=== PATIENT | male | born 1935 | race Caucasian/White ===

== ENCOUNTER 2017-03-05 08:44 | Emergency (ER) | payer OTHER, MEDICARE ==
[2017-03-05 09:07] VITALS: BP 151/71
[2017-03-05] MEDS ORDERED: Ketorolac 30 MG/ML SDV IM ONE (09:21)
--- NOTE | 2017-03-05 09:27 | EDM.PDOC ---
ED HPI GENERAL MEDICAL PROBLEM - General Chief Complaint: Lower Extremity Injury/Pain Stated Complaint: TOE PAIN Time Seen by Provider: 03/05/17 09:13 Source of Information: Reports: Patient History Limitations: Reports: No Limitations - History of Present Illness INITIAL COMMENTS - FREE TEXT/NARRATIVE: The patient woke up with morning with bilateral great toe pain. This started at about 1am. He has a history of gout and his is on medicine for it. He has not injured his toes. He does not drink alcohol but he says he has been eating lots of meat lately. Onset: Sudden Duration: Hour(s): (1am this morning) Location: Reports: Lower Extremity, Left, Lower Extremity, Right Quality: Reports: Sharp Severity: Moderate Improves with: Reports: Rest Worsens with: Reports: Movement Context: Reports: Activity (He was sleeping when this started) Associated Symptoms: Reports: No Other Symptoms Bilateral Feet Pain Score (Numeric/FACES): 9 - Related Data Allergies Allergy/AdvReac Type Severity Reaction Status Date / Time No Known Allergies Allergy Verified 03/05/17 09:01 Home Meds: Home Meds Allopurinol [Zyloprim] 300 mg PO DAILY 11/05/15 [History] FLUoxetine [PROzac] 30 mg PO DAILY 11/05/15 [History] Isosorbide Mononitrate [Imdur] 30 mg PO DAILY 11/05/15 [History] Lisinopril [Prinivil] 10 mg PO DAILY 11/05/15 [History] Meclizine [Antivert] 25 mg PO BID PRN 11/05/15 [History] Nitroglycerin [Nitrostat] 0.4 mg SL Q5M PRN 11/05/15 [History] Ranitidine [Zantac] 300 mg PO DAILY 11/05/15 [History] glipiZIDE [Glucotrol] 2.5 mg PO BID 11/05/15 [History] atorvaSTATin [Lipitor] 80 mg PO QPM 11/10/15 [History] Albuterol [Proventil HFA] 2 puff INH BID 02/17/16 [History] Cholecalciferol (Vitamin D3) [Vitamin D3] 1,000 unit PO DAILY 02/17/16 [History] Mometasone Furoate [Asmanex] 1 puff IH BID 02/17/16 [History] Olodaterol HCl [Striverdi Respimat] 1 puff IH QAM 02/17/16 [History] Saxagliptin HCl [Onglyza] 2.5 mg PO DAILY 02/17/16 [History] Tiotropium [Spiriva HandiHaler] 1 puff INH DAILY 02/17/16 [History] Zolpidem [Ambien] 5 mg PO BEDTIME 02/17/16 [History] Carvedilol [Coreg] 3.125 mg PO BID 06/29/16 [History] Rivaroxaban [Xarelto] 10 mg PO DAILY@1700 06/29/16 [History] Indomethacin [Indocin] 50 mg PO TIDMEALS PRN #20 cap 03/05/17 [Rx] Past Medical History HEENT History: Reports: Cataract, Hard of Hearing Cardiovascular History: Reports: Angina, Bypass, CAD, Heart Murmur, High Cholesterol, Hypertension, PVD, SOB on Exertion Other Cardiovascular History: HX LVH, Mild , Bilateral artial enlg Respiratory History: Reports: COPD, Sleep Apnea, SOB Gastrointestinal History: Reports: GERD, Hepatitis Other Gastrointestinal History: nausea Genitourinary History: Reports: BPH, Diabetic Nephropathy, Prostate Disorder, Retention, Urinary Musculoskeletal History: Reports: Back Pain, Chronic, Gout, Neck Pain, Chronic, Osteoarthritis Neurological History: Reports: Neuropathy, Diabetic, Neuropathy, Peripheral, Other (See Below) Other Neuro History: tremor, memory loss Psychiatric History: Reports: Anxiety, Depression Other Psychiatric History: insomnia Endocrine/Metabolic History: Reports: Diabetes, Type II Oncologic (Cancer) History: Reports: Prostate - Infectious Disease History Infectious Disease History: Reports: Herpes - Past Surgical History HEENT Surgical History: Reports: Naso-Sinus Surgery Cardiovascular Surgical History: Reports: Coronary Artery Bypass Male Surgical History: Reports: Prostate Biopsy, TURP-Transurethral Resection of Prostate Social & Family History - Family History Cardiac: Reports: High Cholesterol, Hypertension, [place] Neurological: Reports: Parkinson's Endocrine/Metabolic: Reports: Diabetes, type II - Tobacco Use Smoking Status *Q: Former Smoker Years of Tobacco use: 60 Packs/Tins Daily: 1 Used Tobacco, but Quit: Yes Month Tobacco Last Used: oct Second Hand Smoke Exposure: No - Caffeine Use Caffeine Use: Reports: None - Recreational Drug Use Recreational Drug Use: No Drug Use in Last 12 Months: No Review of Systems - Review of Systems Review Of Systems: See Below Constitutional: Reports: No Symptoms Eyes: Reports: No Symptoms Ears: Reports: No Symptoms Nose: Reports: No Symptoms Mouth/Throat: Reports: No Symptoms Respiratory: Reports: No Symptoms Cardiovascular: Reports: No Symptoms GI/Abdominal: Reports: No Symptoms Genitourinary: Reports: No Symptoms Musculoskeletal: Reports: Other (Bilateral great toe pain) ED EXAM, GENERAL - Physical Exam Exam: See Below Exam Limited By: No Limitations General Appearance: Alert, No Apparent Distress Ears: Normal External Exam Nose: Normal Inspection Head: Atraumatic, Normocephalic Neck: Normal Inspection Respiratory/Chest: No Respiratory Distress, Lungs Clear, Normal Breath Sounds Cardiovascular: Regular Rate, Rhythm, No Edema, No Murmur GI/Abdominal: Soft, Non-Tender, No Organomegaly, No Mass Extremities: Other (Pain upon palpation to both greath toes. No erythema and no edema. Good capillary refill and sensation.) Course - Vital Signs Last Recorded V/S: Last Vital Signs Temp 97.4 F 03/05/17 09:01 Pulse 64 03/05/17 09:01 Resp 13 03/05/17 09:01 BP 151/71 H 03/05/17 09:01 Pulse Ox 94 L 03/05/17 09:01 - Orders/Labs/Meds Orders: Active Orders 24 hr Category Date Time Status Ketorolac [Toradol] Med 03/05/17 09:21 Once 30 mg IM ONETIME ONE - Re-Assessments/Exams Free Text/Narrative Re-Assessment/Exam: 03/05/17 09:25 I ordered a shot of toradol and I will get him on some indomethacin for a few days. Departure - Departure Time of Disposition: 09:25 Disposition: Home, Self-Care 01 Condition: Good Clinical Impression: Gout flare Qualifiers: Gout site: toe Gout etiology: other secondary cause Laterality: unspecified laterality Qualified Code(s): M10.479 - Other secondary gout, unspecified ankle and foot - Discharge Information Prescriptions: Indomethacin [Indocin] 50 mg PO TIDMEALS PRN #20 cap PRN Reason: Pain Referrals: Casandra Reddy DO [Primary Care Provider] - 1 Week Additional Instructions: Take the indomethacin 50mg 3 times per day as needed for toe pain. Please return if you are worse. Follow up with Dr Reddy next week. - My Orders Last 24 Hours: My Active Orders 03/05/17 09:21 Ketorolac [Toradol] 30 mg IM ONETIME ONE - Assessment/Plan Last 24 Hours: My Active Orders 03/05/17 09:21 Ketorolac [Toradol] 30 mg IM ONETIME ONE
== END 2017-03-05 09:29 | disposition home or self-care (01) ==
LOC: JD.ED 08:44
DX: M10.471 Other secondary gout, right ankle and foot (principal); M10.472 Other secondary gout, left ankle and foot; E11.21 Type 2 diabetes mellitus with diabetic nephropathy; E78.00 Pure hypercholesterolemia, unspecified; Z87.891 Personal history of nicotine dependence; Z79.899 Other long term (current) drug therapy
CPT/HCPCS: 96372; 99283; J1885

== ENCOUNTER 2017-03-20 12:59 | Emergency (ER) | payer OTHER, MEDICARE ==
[2017-03-20 13:05] VITALS: BP 159/82
[2017-03-20] MEDS ORDERED: Sodium Chloride 0.9% 10 ML Syringe FLUSH PRN (13:31)
[2017-03-20] MEDS ORDERED: Sodium Chloride 0.9% 1,000 ML IV SCH (13:45)
--- NOTE | 2017-03-20 13:51 | EDM.PDOC ---
ED HPI GENERAL MEDICAL PROBLEM - General Chief Complaint: Cardiovascular Problem Stated Complaint: [facility] Time Seen by Provider: 03/20/17 13:17 Source of Information: Reports: Patient, RN Notes Reviewed - History of Present Illness INITIAL COMMENTS - FREE TEXT/NARRATIVE: 81 -year-old male has been Center by ambulance to [facility] for evaluation of bradycardia. It sounds like he does check his blood pressure and heart rate once or twice daily and apparently his readings do get transmitted to the [facility]. They contacted him this morning and stated that his heart rate was running too low and that he needed to get to the ED by ambulance. He states that his heart rate started dropping below 60 about a week ago and over the weekend his been running in the 30s and 40s. Still more weak, dizzy and lightheaded especially when standing and walking. He does live independently. He has been mildly more short of breath than usual. No chest pain. No abdominal pain nausea or vomiting. - Related Data Allergies Allergy/AdvReac Type Severity Reaction Status Date / Time No Known Allergies Allergy Verified 03/20/17 13:05 Home Meds: Home Meds Allopurinol [Zyloprim] 300 mg PO DAILY 11/05/15 [History] FLUoxetine [PROzac] 30 mg PO DAILY 11/05/15 [History] Isosorbide Mononitrate [Imdur] 30 mg PO DAILY 11/05/15 [History] Lisinopril [Prinivil] 10 mg PO DAILY 11/05/15 [History] Meclizine [Antivert] 25 mg PO BID PRN 11/05/15 [History] Nitroglycerin [Nitrostat] 0.4 mg SL Q5M PRN 11/05/15 [History] glipiZIDE [Glucotrol] 2.5 mg PO BID 11/05/15 [History] atorvaSTATin [Lipitor] 80 mg PO QPM 11/10/15 [History] Cholecalciferol (Vitamin D3) [Vitamin D3] 2,000 unit PO DAILY 02/17/16 [History] Mometasone Furoate [Asmanex] 1 puff IH BID 02/17/16 [History] Olodaterol HCl [Striverdi Respimat] 2 puff IH QAM 02/17/16 [History] Saxagliptin HCl [Onglyza] 2.5 mg PO DAILY 02/17/16 [History] Tiotropium [Spiriva HandiHaler] 2 puff INH DAILY 02/17/16 [History] Carvedilol [Coreg] 3.125 mg PO BID 06/29/16 [History] Rivaroxaban [Xarelto] 10 mg PO DAILY 06/29/16 [History] Albuterol Sulfate [Proair Respiclick] 1 puff IH Q6H PRN 03/20/17 [History] Amoxicillin/Clavulanate K [Augmentin 875 MG/125 MG] 1 tab PO BID 03/20/17 [ History] Omeprazole 20 mg PO BIDAC 03/20/17 [History] Polyethylene Glycol 3350 [MiraLAX] 17 gm PO DAILY PRN 03/20/17 [History] Spironolactone [Aldactone] 25 mg PO DAILY 03/20/17 [History] Topiramate 25 mg PO BEDTIME 03/20/17 [History] Past Medical History HEENT History: Reports: Cataract, Hard of Hearing Cardiovascular History: Reports: Afib, Angina, Bypass, CAD, Heart Murmur, High Cholesterol, Hypertension, PVD, SOB on Exertion Other Cardiovascular History: HX LVH, Mild , Bilateral artial enlg Respiratory History: Reports: COPD, Sleep Apnea, SOB Gastrointestinal History: Reports: GERD, Hepatitis Other Gastrointestinal History: nausea Genitourinary History: Reports: BPH, Diabetic Nephropathy, Prostate Disorder, Retention, Urinary Musculoskeletal History: Reports: Back Pain, Chronic, Gout, Neck Pain, Chronic, Osteoarthritis Neurological History: Reports: Neuropathy, Diabetic, Neuropathy, Peripheral, Other (See Below) Other Neuro History: tremor, memory loss Psychiatric History: Reports: Anxiety, Depression Other Psychiatric History: insomnia Endocrine/Metabolic History: Reports: Diabetes, Type II Oncologic (Cancer) History: Reports: Prostate - Infectious Disease History Infectious Disease History: Reports: Herpes - Past Surgical History HEENT Surgical History: Reports: Naso-Sinus Surgery Cardiovascular Surgical History: Reports: Coronary Artery Bypass Male Surgical History: Reports: Prostate Biopsy, TURP-Transurethral Resection of Prostate Social & Family History - Family History Cardiac: Reports: High Cholesterol, Hypertension, [place] Neurological: Reports: Parkinson's Endocrine/Metabolic: Reports: Diabetes, type II - Tobacco Use Smoking Status *Q: Former Smoker Years of Tobacco use: 60 Packs/Tins Daily: 1 Used Tobacco, but Quit: Yes Month Tobacco Last Used: 2002 Second Hand Smoke Exposure: No - Caffeine Use Caffeine Use: Reports: Coffee - Recreational Drug Use Recreational Drug Use: No Drug Use in Last 12 Months: No ED ROS GENERAL - Review of Systems Review Of Systems: See Below Constitutional: Denies: Fever, Chills, Diaphoresis Respiratory: Reports: Shortness of Breath (Exertional), Cough (He was coughing several days ago, that is no better). Denies: Pleuritic Chest Pain Cardiovascular: Denies: Chest Pain Endocrine: Reports: Fatigue GI/Abdominal: Denies: Abdominal Pain, Melena, Nausea Musculoskeletal: Reports: Joint Pain (Chronic joint pains not worse than usual) Neurological: Reports: Dizziness, Weakness (I'll generalized). Denies: Trouble Speaking (Mild to moderate, especially when standing) ED EXAM, GENERAL - Physical Exam Exam: See Below General Appearance: Alert, No Apparent Distress Eye Exam: Bilateral Eye: PERRL Throat/Mouth: Normal Inspection, Normal Oropharynx Head: Atraumatic. No: Facial Swelling Neck: Supple, Full Range of Motion, Other Respiratory/Chest: No Respiratory Distress (No JVD), Lungs Clear, Normal Breath Sounds Cardiovascular: Regular Rate, Rhythm (Rate in the mid 40s at the time of my exam but relatively regular) GI/Abdominal: Soft, Non-Tender Extremities: Normal Inspection, Normal Range of Motion. No: Pedal Edema, Leg Pain, Increased Warmth, Redness Neurological: Alert, Oriented, No Motor/Sensory Deficits Skin Exam: Warm, Dry, Normal Color EKG INTERPRETATION EKG Date: 03/20/17 Rhythm: A-Flutter Rate (Beats/Min): 59 QRS: Normal ST-T: Normal Course - Vital Signs Last Recorded V/S: Last Vital Signs Temp 97.6 F 03/20/17 13:01 Pulse 59 L 03/20/17 13:01 Resp 15 03/20/17 13:01 BP 159/82 H 03/20/17 13:01 Pulse Ox 97 03/20/17 13:01 Orthostatic Blood Pressure [ 134/63 Standing] Orthostatic Blood Pressure [ 140/67 Sitting] Orthostatic Blood Pressure [ 150/55 Supine] - Orders/Labs/Meds Orders: Active Orders 24 hr Category Date Time Status EKG 12 Lead [EKG Documentation Completion] [] STAT Care 03/20/17 13:30 Active Peripheral IV Care [RC] . DIRECTED Care 03/20/17 13:31 Active Sodium Chloride 0.9% [Normal Saline] 1,000 ml Med 03/20/17 13:45 Active IV ASDIRECTED Sodium Chloride 0.9% [Saline Flush] Med 03/20/17 13:31 Active 10 ml FLUSH ASDIRECTED PRN Peripheral IV Insertion Pediatric [OM.PC] Routine Oth 03/20/17 13:31 Ordered Medication Orders Sodium Chloride (Normal Saline) 1,000 mls @ 75 mls/hr IV ASDIRECTED GIAN Last Admin: 03/20/17 13:47 Dose: 75 mls/hr Sodium Chloride (Saline Flush) 10 ml FLUSH ASDIRECTED PRN PRN Reason: Keep Vein Open Last Admin: 03/20/17 13:48 Dose: 10 ml Labs: Laboratory Tests 03/20/17 03/20/17 03/20/17 Range/Units 13:00 13:00 13:00 WBC 11.90 H (4.23-9.07) K/mm3 RBC 3.95 L (4.63-6.08) M/mm3 Hgb 12.3 L (13.7-17.5) gm/L Hct 37.0 L (40.1-51.0) % MCV 93.7 H (79.0-92.2) fl MCH 31.1 (25.7-32.2) pg MCHC 33.2 (32.2-35.5) g/dl RDW Std Deviation 46.1 H (35.1-43.9) fL Plt Count 319 (163-337) K/mm3 MPV 10.1 (9.4-12.3) fl Neutrophils % (Manual) 73 H (40-60) % Band Neutrophils % 2 (0-10) % Lymphocytes % (Manual) 20 (20-40) % Atypical Lymphs % 0 % Monocytes % (Manual) 5 (2-10) % Eosinophils % (Manual) 0 L (0.8-7.0) % Basophils % (Manual) 0 L (0.2-1.2) Platelet Estimate Adequate RBC Morph Comment Normal PT 13.5 H (8.0-13.0) SECONDS INR 1.22 Sodium (136-145) mEq/L Potassium (3.5-5.1) mEq/L Chloride (98-107) mEq/L Carbon Dioxide (21-32) mEq/L Anion Gap (5-15) BUN (7-18) mg/dL Creatinine (0.7-1.3) mg/dL Est Cr Clr Drug Dosing mL/min Estimated GFR (MDRD) (>60) mL/min BUN/Creatinine Ratio (14-18) Glucose (83-115) mg/dL Calcium (8.5-10.1) mg/dL Total Bilirubin (0.2-1.0) mg/dL AST (15-37) U/L ALT (16-63) U/L Alkaline Phosphatase (46-116) U/L Troponin I (0.00-0.056) ng/mL C-Reactive Protein 0.2 (<1.0) mg/dL NT-Pro-B Natriuret Pep (0-450) pg/mL Total Protein (6.4-8.2) g/dl Albumin (3.4-5.0) g/dl Globulin gm/dL Albumin/Globulin Ratio (1-2) 03/20/17 Range/Units 13:00 WBC (4.23-9.07) K/mm3 RBC (4.63-6.08) M/mm3 Hgb (13.7-17.5) gm/L Hct (40.1-51.0) % MCV (79.0-92.2) fl MCH (25.7-32.2) pg MCHC (32.2-35.5) g/dl RDW Std Deviation (35.1-43.9) fL Plt Count (163-337) K/mm3 MPV (9.4-12.3) fl Neutrophils % (Manual) (40-60) % Band Neutrophils % (0-10) % Lymphocytes % (Manual) (20-40) % Atypical Lymphs % % Monocytes % (Manual) (2-10) % Eosinophils % (Manual) (0.8-7.0) % Basophils % (Manual) (0.2-1.2) Platelet Estimate RBC Morph Comment PT (8.0-13.0) SECONDS INR Sodium 137 (136-145) mEq/L Potassium 5.0 (3.5-5.1) mEq/L Chloride 104 (98-107) mEq/L Carbon Dioxide 26 (21-32) mEq/L Anion Gap 12.0 (5-15) BUN 18 (7-18) mg/dL Creatinine 1.8 H (0.7-1.3) mg/dL Est Cr Clr Drug Dosing 33.70 mL/min Estimated GFR (MDRD) 36 (>60) mL/min BUN/Creatinine Ratio 10.0 L (14-18) Glucose 142 H (83-115) mg/dL Calcium 9.3 (8.5-10.1) mg/dL Total Bilirubin 0.5 (0.2-1.0) mg/dL AST 17 (15-37) U/L ALT 26 (16-63) U/L Alkaline Phosphatase 105 (46-116) U/L Troponin I < 0.017 (0.00-0.056) ng/mL C-Reactive Protein (<1.0) mg/dL NT-Pro-B Natriuret Pep 2050 H (0-450) pg/mL Total Protein 6.5 (6.4-8.2) g/dl Albumin 3.1 L (3.4-5.0) g/dl Globulin 3.4 gm/dL Albumin/Globulin Ratio 0.9 L (1-2) Meds: Medications Generic Name Dose Route Start Last Admin Trade Name Freq PRN Reason Stop Dose Admin Sodium Chloride 1,000 mls @ 75 mls/hr 03/20/17 13:45 03/20/17 13:47 Normal Saline IV 75 mls/hr ASDIRECTED GINA Administration Sodium Chloride 10 ml 03/20/17 13:31 03/20/17 13:48 Saline Flush FLUSH 10 ml ASDIRECTED PRN Administration Keep Vein Open - Re-Assessments/Exams Free Text/Narrative Re-Assessment/Exam: 03/20/17 16:35. heart rate has been upper 30's to mid 40's while here in the ED awaiting labs. CXR shows some very mild palmar a congestion, read out as stable chest by our Radiologist. On arrival and at times his initial EKG he was therefore to one block with a rate of her 50s. Blood pressure is been running from 1 teens to 140s to 150s. He did have a 20 point drop in blood pressure from lying to standing. I did this with our hospitalist regarding admission to our hospital, stopping the Coreg. He did visit with family, informed them that if that does not work he will need a pacemaker and there is no one certified to insert pacemakers at our hospital at this time. Family is electing at this time to have him transferred to [facility]. I have visited with , Director Of Front Office, who does accept patient in transfer. She has requested that the patient be a direct admission to one of the Hospitalists and then she has appeals officer hand brim ironer will consult. We will be sending the patient by ground ambulance. Departure - Departure Time of Disposition: 16:52 Disposition: DC/Tfer to Acute Hospital 02 Reason for Transfer *Q: Other Condition: Fair Clinical Impression: Bradycardia with 31-40 beats per minute Referrals: Casandra Reddy DO [Primary Care Provider] - Forms: ED Department Discharge - My Orders Last 24 Hours: My Active Orders 03/20/17 13:30 EKG 12 Lead [EKG Documentation Completion] [RC] STAT 03/20/17 13:31 Peripheral IV Care [RC] . DIRECTED Sodium Chloride 0.9% [Saline Flush] 10 ml FLUSH ASDIRECTED PRN Peripheral IV Insertion Pediatric [OM.PC] Routine 03/20/17 13:45 Sodium Chloride 0.9% [Normal Saline] 1,000 ml IV ASDIRECTED - Assessment/Plan Last 24 Hours: My Active Orders 03/20/17 13:30 EKG 12 Lead [EKG Documentation Completion] [RC] STAT 03/20/17 13:31 Peripheral IV Care [RC] . DIRECTED Sodium Chloride 0.9% [Saline Flush] 10 ml FLUSH ASDIRECTED PRN Peripheral IV Insertion Pediatric [OM.PC] Routine 03/20/17 13:45 Sodium Chloride 0.9% [Normal Saline] 1,000 ml IV ASDIRECTED
--- NOTE | 2017-03-20 15:12 | CR ---
Chest: Portable view of the chest was obtained. Comparison: Previous chest x-ray of 06/29/16. Heart is mildly enlarged. 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 Lungs are clear. Bony structures are grossly intact. Impression: 1. Stable findings as noted above. Nothing acute is appreciated on portable chest x-ray. Diagnostic code #2
== END 2017-03-20 17:30 ==
LOC: JD.ED 12:59
DX: R00.1 Bradycardia, unspecified (principal); Z79.899 Other long term (current) drug therapy; E11.40 Type 2 diabetes mellitus with diabetic neuropathy, unspecified; E78.00 Pure hypercholesterolemia, unspecified; Z87.891 Personal history of nicotine dependence; Z95.5 Presence of coronary angioplasty implant and graft; I25.10 Atherosclerotic heart disease of native coronary artery without angina pectoris; F32.9 Major depressive disorder, single episode, unspecified; F41.9 Anxiety disorder, unspecified; R06.02 Shortness of breath
CPT/HCPCS: 36415; 71010; 80053; 83880; 84484; 85025; 85610; 86140; 93005; 96360; 96361; 99285; J7040; J7050; 93010

== ENCOUNTER 2017-10-19 09:38 | Inpatient (IN) | payer OTHER, MEDICARE ==
[2017-10-19] MEDS ORDERED: Acetaminophen 325 MG Tab PO ONE (10:09)
--- NOTE | 2017-10-19 10:10 | EDM.PDOC ---
ED HPI GENERAL MEDICAL PROBLEM - General Chief Complaint: Respiratory Problem Stated Complaint: [facility] Time Seen by Provider: 10/19/17 10:06 Source of Information: Reports: Patient, Family History Limitations: Reports: No Limitations - History of Present Illness INITIAL COMMENTS - FREE TEXT/NARRATIVE: 82-year-old male presents to the ED this morning. He reports awakening around 0300 hrs. this morning with severe rigors and chills. States he had marked difficulty trying to get warm even with covers over top of his head. Patient has a productive cough for the last 2 weeks. This is predated by coughing for 2 weeks prior to that and he did receive a course of antibiotics for one week. They report they were in the clinic last week and had an x-ray done either Monday or and it did not reveal any pneumonia. He appreciated gradually worsening shortness of breath over the last 3 days. Appetite is been really poor the last 3 days as well. Sputum is mostly yellow to slightly green in color. Patient has a history of prostate surgery treated by radiotherapy in about 2003. Therefore concerns about possible not emptying his bladder completely exist. Currently is febrile with a temperature 103.4. O2 sats 84% of the time of presentation to the ED. Placed on 3 L/m by nasal cannula. Initial blood pressure was 115/66. He has not taken any Tylenol or Motrin for fever relief yet today. Onset: Today Onset Date: 10/19/17 (From sleep with severe rigors chills around 0300 hrs. this morning.) Duration: Hour(s): Location: Reports: Chest (Productive cough for the better part of 2 weeks.) Quality: Reports: Other Severity: Severe (Severe rigors and chills earlier this morning.) Improves with: Reports: None Worsens with: Reports: None Context: Denies: Activity, Exercise, Lifting, Sick Contact, Trauma, Other Associated Symptoms: Reports: Cough, cough w sputum, Diaphoresis, Fever/Chills, Loss of Appetite, Malaise, Shortness of Breath, Weakness. Denies: No Other Symptoms, Confusion, Chest Pain (Yellow ramos in color), Headaches (Fever at the time of presentation.), Nausea/Vomiting, Rash, Seizure (Gradually worsening over the last week), Syncope Treatments IMPROVEMENT SPEC: Reports: Other (see below) (Generalized sense of weakness) - Related Data Allergies Allergy/AdvReac Type Severity Reaction Status Date / Time No Known Allergies Allergy Verified 10/19/17 09:50 Home Meds: Home Meds Allopurinol [Zyloprim] 300 mg PO DAILY 11/05/15 [History] FLUoxetine [PROzac] 30 mg PO DAILY 11/05/15 [History] Isosorbide Mononitrate [Imdur] 30 mg PO DAILY 11/05/15 [History] Lisinopril [Prinivil] 10 mg PO DAILY 11/05/15 [History] Meclizine [Antivert] 25 mg PO BID PRN 11/05/15 [History] Nitroglycerin [Nitrostat] 0.4 mg SL Q5M PRN 11/05/15 [History] glipiZIDE [Glucotrol] 2.5 mg PO BID 11/05/15 [History] atorvaSTATin [Lipitor] 80 mg PO QPM 11/10/15 [History] Cholecalciferol (Vitamin D3) [Vitamin D3] 2,000 unit PO DAILY 02/17/16 [History] Mometasone Furoate [Asmanex] 1 puff IH BID 02/17/16 [History] Olodaterol HCl [Striverdi Respimat] 2 puff IH QAM 02/17/16 [History] Saxagliptin HCl [Onglyza] 2.5 mg PO DAILY 02/17/16 [History] Tiotropium [Spiriva HandiHaler] 2 puff INH DAILY 02/17/16 [History] Carvedilol [Coreg] 3.125 mg PO BID 06/29/16 [History] Rivaroxaban [Xarelto] 10 mg PO DAILY 06/29/16 [History] Albuterol Sulfate [Proair Respiclick] 1 puff IH Q6H PRN 03/20/17 [History] Omeprazole 20 mg PO BIDAC 03/20/17 [History] Polyethylene Glycol 3350 [MiraLAX] 17 gm PO DAILY PRN 03/20/17 [History] Topiramate 25 mg PO BEDTIME 03/20/17 [History] Tamsulosin [Flomax] 0.4 mg PO DAILY 10/19/17 [History] Zolpidem Tartrate 5 mg PO BEDTIME 10/19/17 [History] Past Medical History HEENT History: Reports: Cataract, Hard of Hearing Cardiovascular History: Reports: Afib (Chronic atrial flutter/atrial flutter.), Angina, Bypass, CAD, Heart Murmur, High Cholesterol, Hypertension, PVD, SOB on Exertion Other Cardiovascular History: HX LVH, Mild , Bilateral artial enlg Respiratory History: Reports: COPD, Sleep Apnea, SOB Gastrointestinal History: Reports: GERD, Hepatitis Other Gastrointestinal History: nausea Genitourinary History: Reports: BPH (Recently started on Flomax to help empty his bladder.), Diabetic Nephropathy, Prostate Disorder (Prostatic cancer diagnosed in about 2001 and treated with radiotherapy 42 treatments.), Retention, Urinary Musculoskeletal History: Reports: Back Pain, Chronic, Gout, Neck Pain, Chronic, Osteoarthritis Neurological History: Reports: Neuropathy, Diabetic, Neuropathy, Peripheral, Other (See Below) Other Neuro History: tremor, memory loss Psychiatric History: Reports: Anxiety, Depression, Other (See Below) (Chronic insomnia) Other Psychiatric History: insomnia Endocrine/Metabolic History: Reports: Diabetes, Type II (Controlled by diet and oral meds.) Oncologic (Cancer) History: Reports: Prostate - Infectious Disease History Infectious Disease History: Reports: Herpes - Past Surgical History HEENT Surgical History: Reports: Naso-Sinus Surgery Cardiovascular Surgical History: Reports: Coronary Artery Bypass Male Surgical History: Reports: Prostate Biopsy, TURP-Transurethral Resection of Prostate Social & Family History - Family History Cardiac: Reports: High Cholesterol, Hypertension, SD Neurological: Reports: Parkinson's Endocrine/Metabolic: Reports: Diabetes, type II - Tobacco Use Smoking Status *Q: Former Smoker Used Tobacco, but Quit: Yes Month/Year Tobacco Last Used: 2000 - Caffeine Use Caffeine Use: Reports: Coffee - Recreational Drug Use Recreational Drug Use: No - Living Situation & Occupation Living situation: Reports: Occupation: Retired ED ROS GENERAL - Review of Systems Review Of Systems: See Below Constitutional: Reports: Fever, Chills, Malaise, Weakness, Fatigue, Diaphoresis , Decreased Appetite, Weight Loss HEENT: Reports: Glasses Respiratory: Reports: Shortness of Breath, Cough, Sputum. Denies: Wheezing, Pleuritic Chest Pain, Hemoptysis (Yellow-green in color. Productive cough for the better part of 2 weeks.) Cardiovascular: Reports: Blood Pressure Problem, Dyspnea on Exertion, Other. Denies: Chest Pain, Claudication, Edema, Lightheadedness, Orthopnea Endocrine: Reports: Fatigue GI/Abdominal: Reports: Constipation (Luis problems with constipation), Decreased Appetite. Denies: Abdominal Pain : Reports: Frequency, Other (Knees hips lower back and neck at timesStates urinary flow is quite slow.) Musculoskeletal: Reports: Neck Pain, Shoulder Pain, Back Pain, Joint Pain Skin: Reports: Bruising (Bruises easily as he is on Xarelto) Neurological: Reports: No Symptoms, Difficulty Walking (Weight today and requires help walking.), Weakness. Denies: Headache, Syncope Psychiatric: Reports: Depression Hematologic/Lymphatic: Reports: Easy Bruising Immunologic: Reports: No Symptoms ED EXAM, GENERAL - Physical Exam Exam: See Below Exam Limited By: No Limitations General Appearance: Mild Distress, Other (Mild respiratory distress. He is alert and is oriented he is very warm to palpation.) Eye Exam: Bilateral Eye: Normal Inspection Throat/Mouth: Other (Tongue is mildly dry and coated.) Head: Atraumatic, Normocephalic Neck: Normal Inspection, Limited Range of Motion. No: Lymphadenopathy (L), Lymphadenopathy (R) Respiratory/Chest: No Accessory Muscle Use, Respiratory Distress (Mild tachypnea at rest 20/m. O2 sats 84% on room air), Decreased Breath Sounds ( Decreased air entry to the lower 30% of lung delgado.). No: Rhonchi, Wheezing Cardiovascular: No Gallop, No Murmur, No Rub, Irregularly Irregular (Luis reveals atrial flutter.), Other (Well-healed midline sternotomy incision.). No : Normal Peripheral Pulses Peripheral Pulses: 1+: Posterior Tibial (L), Posterior Tibial (R), Dorsalis Pedis (L), Dorsalis Pedis (R) GI/Abdominal: Normal Bowel Sounds, Soft, Non-Tender, No Organomegaly, Distended (Tibias percussion the upper abdomen, there is some degree of aerophagia.). No : Rigid, Rebound, Tender Back Exam: Normal Inspection, Full Range of Motion. No: CVA Tenderness (L), CVA Tenderness (R) Extremities: Normal Inspection, Normal Range of Motion, Non-Tender, No Pedal Edema Neurological: Alert, Oriented, CN II-XII Intact, Normal Cognition. No: Normal Gait Psychiatric: Normal Affect, Normal Mood Skin Exam: Warm, Dry, Intact, Normal Color, No Rash EKG INTERPRETATION EKG Date: 10/19/17 Time: 10:40 Rhythm: A-Flutter (Appears to have a predominantly 3-1 block.) Rate (Beats/Min): 84 [place]: Normal P-Wave: Absent QRS: Other (Decreased voltage in the limb leads.) ST-T: Other (There is T-wave inversion in lead V2 one in aVL there is ST segment depression V4 to V6. Suspect ischemia in the lateral apical wall.) QT: Normal EKG Interpretation Comments: Abnormal ECG Course - Vital Signs Last Recorded V/S: Last Vital Signs Temp 39.5 C H 10/19/17 09:45 Pulse 97 10/19/17 09:45 Resp 20 10/19/17 09:45 BP 115/66 10/19/17 09:45 Pulse Ox 84 L 10/19/17 09:45 - Orders/Labs/Meds Orders: Active Orders 24 hr Category Date Time Status EKG Documentation Completion [RC] STAT Care 10/19/17 10:07 Active Oxygen Therapy [RC] ASDIRECTED Care 10/19/17 10:08 Active Chest 1V Frontal [CR] Stat Exams 10/19/17 10:07 Taken CULTURE BLOOD [BC] Stat Lab 10/19/17 10:30 Received CULTURE BLOOD [BC] Stat Lab 10/19/17 10:40 Received Levofloxacin/Dextrose 5%-Water [Levaquin in D5W 750 MG/ Med 10/19/17 10:28 Active 150 ML] 750 mg Premix Bag 1 bag IV ONETIME Sodium Chloride 0.9% [Normal Saline] 1,000 ml Med 10/19/17 10:15 Active IV ASDIRECTED cefTRIAXone [Rocephin] 2 gm Med 10/19/17 11:52 Ordered Sodium Chloride 0.9% [Normal Saline] 100 ml IV ONETIME Blood Culture x2 Reflex Set [OM.PC] Stat Oth 10/19/17 10:09 Ordered Medication Orders Sodium Chloride (Normal Saline) 1,000 mls @ 100 mls/hr IV ASDIRECTED GINA Last Admin: 10/19/17 10:19 Dose: 100 mls/hr Levofloxacin/Dextrose 750 mg/ (Premix) 150 mls @ 100 mls/hr IV ONETIME ONE Stop: 10/19/17 11:57 Last Admin: 10/19/17 10:55 Dose: 100 mls/hr Labs: Laboratory Tests 10/19/17 10/19/17 10/19/17 Range/Units 10:30 10:30 10:30 WBC 11.35 H (4.23-9.07) K/mm3 RBC 4.54 L (4.63-6.08) M/mm3 Hgb 14.2 (13.7-17.5) gm/L Hct 42.6 (40.1-51.0) % MCV 93.8 H (79.0-92.2) fl MCH 31.3 (25.7-32.2) pg MCHC 33.3 (32.2-35.5) g/dl RDW Std Deviation 50.3 H (35.1-43.9) fL Plt Count 168 (163-337) K/mm3 MPV 9.8 (9.4-12.3) fl Neutrophils % (Manual) 87 H (40-60) % Band Neutrophils % 3 (0-10) % Lymphocytes % (Manual) 8 L (20-40) % Atypical Lymphs % 0 % Monocytes % (Manual) 1 L (2-10) % Eosinophils % (Manual) 1 (0.8-7.0) % Basophils % (Manual) 0 L (0.2-1.2) Platelet Estimate Adequate RBC Morph Comment Normal PT 14.4 H (9.5-12.1) SECONDS INR 1.33 Sodium 135 L (136-145) mEq/L Potassium 4.4 (3.5-5.1) mEq/L Chloride 103 (98-107) mEq/L Carbon Dioxide 21 (21-32) mEq/L Anion Gap 15.4 H (5-15) BUN 20 H (7-18) mg/dL Creatinine 1.7 H (0.7-1.3) mg/dL Est Cr Clr Drug Dosing 35.07 mL/min Estimated GFR (MDRD) 39 (>60) mL/min BUN/Creatinine Ratio 11.8 L (14-18) Glucose 153 H (83-115) mg/dL Lactic Acid (0.4-2.0) mmol/L Calcium 9.4 (8.5-10.1) mg/dL Magnesium 1.4 L (1.8-2.4) mg/dl Total Bilirubin 0.8 (0.2-1.0) mg/dL AST 15 (15-37) U/L ALT 23 (16-63) U/L Alkaline Phosphatase 83 (46-116) U/L CK-MB (CK-2) 0.8 (0-3.6) ng/ml Troponin I 0.080 H* (0.00-0.056) ng/mL C-Reactive Protein 0.7 (<1.0) mg/dL NT-Pro-B Natriuret Pep (0-450) pg/mL Total Protein 6.3 L (6.4-8.2) g/dl Albumin 3.3 L (3.4-5.0) g/dl Globulin 3.0 gm/dL Albumin/Globulin Ratio 1.1 (1-2) 10/19/17 10/19/17 Range/Units 10:30 10:30 WBC (4.23-9.07) K/mm3 RBC (4.63-6.08) M/mm3 Hgb (13.7-17.5) gm/L Hct (40.1-51.0) % MCV (79.0-92.2) fl MCH (25.7-32.2) pg MCHC (32.2-35.5) g/dl RDW Std Deviation (35.1-43.9) fL Plt Count (163-337) K/mm3 MPV (9.4-12.3) fl Neutrophils % (Manual) (40-60) % Band Neutrophils % (0-10) % Lymphocytes % (Manual) (20-40) % Atypical Lymphs % % Monocytes % (Manual) (2-10) % Eosinophils % (Manual) (0.8-7.0) % Basophils % (Manual) (0.2-1.2) Platelet Estimate RBC Morph Comment PT (9.5-12.1) SECONDS INR Sodium (136-145) mEq/L Potassium (3.5-5.1) mEq/L Chloride (98-107) mEq/L Carbon Dioxide (21-32) mEq/L Anion Gap (5-15) BUN (7-18) mg/dL Creatinine (0.7-1.3) mg/dL Est Cr Clr Drug Dosing mL/min Estimated GFR (MDRD) (>60) mL/min BUN/Creatinine Ratio (14-18) Glucose (83-115) mg/dL Lactic Acid 1.9 (0.4-2.0) mmol/L Calcium (8.5-10.1) mg/dL Magnesium (1.8-2.4) mg/dl Total Bilirubin (0.2-1.0) mg/dL AST (15-37) U/L ALT (16-63) U/L Alkaline Phosphatase (46-116) U/L CK-MB (CK-2) (0-3.6) ng/ml Troponin I (0.00-0.056) ng/mL C-Reactive Protein (<1.0) mg/dL NT-Pro-B Natriuret Pep 1756 H (0-450) pg/mL Total Protein (6.4-8.2) g/dl Albumin (3.4-5.0) g/dl Globulin gm/dL Albumin/Globulin Ratio (1-2) Meds: Medications Generic Name Dose Route Start Last Admin Trade Name Freq PRN Reason Stop Dose Admin Sodium Chloride 1,000 mls @ 100 mls/hr 10/19/17 10:15 10/19/17 10:19 Normal Saline IV 100 mls/hr ASDIRECTED GINA Administration Levofloxacin/Dextrose 750 mg/ 150 mls @ 100 mls/hr 10/19/17 10:28 10/19/17 10 :55 Premix IV 10/19/17 11:57 100 mls/hr ONETIME ONE Administration Discontinued Medications Generic Name Dose Route Start Last Admin Trade Name Freq PRN Reason Stop Dose Admin Acetaminophen 975 mg 10/19/17 10:09 10/19/17 10:19 Tylenol PO 10/19/17 10:10 975 mg NOW ONE Administration Furosemide 40 mg 10/19/17 11:17 10/19/17 11:29 Lasix IVPUSH 10/19/17 11:18 40 mg NOW ONE Administration Sodium Chloride 200 mls @ 999 mls/hr 10/19/17 10:35 Normal Saline IV 10/19/17 10:47 ONETIME ONE - Radiology Interpretation Free Text/Narrative:: 82-year-old male presents to the ED due to increased shortness of breath that seems to started overnight. Associated development of rigors and chills about 3: 00 in the morning. He states he was so cold that everything was chattering. Patient has had a productive cough for over 2 weeks. He did have a course of antibiotics dating back about a month ago that he took for over a week for bronchitis. He states his sputum is a yellowish greenish color to it. He presents to the ED with O2 sats of 84% on room air and he is very dyspneic on exam. On 3 L he is up-to-date 94%. He does have previous positive this prostate having had prostate cancer in about 2004 treated with radiotherapy. He has had bypass surgery triple-vessel in 1999 or 2001. This was predated by myocardial infarction. He has some history of congestive failure. Plan septic workup to be carried out. He will be started on IV normal saline at 100 mils per hour - Re-Assessments/Exams Free Text/Narrative Re-Assessment/Exam: 10/19/17 10:41 chest x-ray confirms extensive pneumonia involving the right upper mid and lower lung delgado. This is all peripheral. She will therefore be started on Levaquin 750 mg IV as soon as blood cultures 2 been completed. He will require admission to the hospital due to hypoxemia and his current illness. 10/19/17 10;40: BP dropped to 92/40. Will give 200 mils normal saline fluid bolus. 10/19/17 11:00 BP is improved to 104/56. O2 sats remained 93-94% on 3 L. Heart rate is 84. 10/19/17 11:18 White count is elevated at 11.35 with 87% neutrophils and 3% band cells. Hemoglobin is 14.2 with hematocrit of 42.6. MCV is mildly elevated at 93.8. White count is normal 168,000. PT is 14.4 with an INR of 1.33. His lactic acid level is 1.9 with a normal value at this time BNP is elevated at 1756. Sodium is 135 with potassium of 4.4. Chloride 103 with a bicarbonate of 21. And gap minimally elevated at 15.4. BUN is 20 with a creatinine of 1.7. Glucose is 153. Lactic acid is 1.9. Calcium is 9.4. Magnesium is low at 1.4. Total bilirubin is 0.8 remainder of his liver function is normal. CK-MB fraction is 0.8 .roponin I is mildly elevated at 0.080. C-reactive protein 0.7. 10/19/17 11:35 Blood preasure has once again fallen to 92/57. This is before he received Lasix 40 mg IV. Plan will be to give him another 200 male normal saline fluid bolus. Will discuss case with Dr. Arreola-- sports information director hospitalist with a view to admission to the hospital. He perhaps is a candidate for ICU admission due to hypotension which is secondary to sepsis and congestive failure 10/19/17 11:53 BP is up to 105 on 52. I'm going to add Rocephin 2 g IV to his antibiotic treatment program due to his extensive pneumonia and suspect early sepsis. 10/19/17 12:[address] Arreola Patient is a full code. He will be admitted to the hospital therefore he will be admitted to the ICU. Departure - Departure Time of Disposition: 12:14 Disposition: Admitted As Inpatient 65 Condition: Serious Clinical Impression: Hypomagnesemia, Hypoxia Pneumonia Qualifiers: Pneumonia type: due to unspecified organism Laterality: right Lung location: lower lobe of lung Qualified Code(s): J18.1 - Lobar pneumonia, unspecified organism Congestive heart failure Qualifiers: Heart failure type: diastolic Heart failure chronicity: unspecified Qualified Code(s): I50.30 - Unspecified diastolic (congestive) heart failure Hypotension Qualifiers: Hypotension type: unspecified hypotension type Qualified Code(s): I95.9 - Hypotension, unspecified - Discharge Information Referrals: Casandra Reddy DO [Primary Care Provider] - Forms: ED Department Discharge Additional Instructions: Patient to be admitted to the ICU as he is a full CODE STATUS. - My Orders Last 24 Hours: My Active Orders 10/19/17 10:07 EKG Documentation Completion [RC] STAT Chest 1V Frontal [CR] Stat 10/19/17 10:08 Oxygen Therapy [RC] ASDIRECTED 10/19/17 10:09 Blood Culture x2 Reflex Set [OM.PC] Stat 10/19/17 10:15 Sodium Chloride 0.9% [Normal Saline] 1,000 ml IV ASDIRECTED 10/19/17 10:28 Levofloxacin/Dextrose 5%-Water [Levaquin in D5W 750 MG/150 ML] 750 mg Premix Bag 1 bag IV ONETIME 10/19/17 10:30 CULTURE BLOOD [BC] Stat 10/19/17 10:40 CULTURE BLOOD [BC] Stat 10/19/17 11:52 cefTRIAXone [Rocephin] 2 gm Sodium Chloride 0.9% [Normal Saline] 100 ml IV ONETIME - Assessment/Plan Last 24 Hours: My Active Orders 10/19/17 10:07 EKG Documentation Completion [RC] STAT Chest 1V Frontal [CR] Stat 10/19/17 10:08 Oxygen Therapy [RC] ASDIRECTED 10/19/17 10:09 Blood Culture x2 Reflex Set [OM.PC] Stat 10/19/17 10:15 Sodium Chloride 0.9% [Normal Saline] 1,000 ml IV ASDIRECTED 10/19/17 10:28 Levofloxacin/Dextrose 5%-Water [Levaquin in D5W 750 MG/150 ML] 750 mg Premix Bag 1 bag IV ONETIME 10/19/17 10:30 CULTURE BLOOD [BC] Stat 10/19/17 10:40 CULTURE BLOOD [BC] Stat 10/19/17 11:52 cefTRIAXone [Rocephin] 2 gm Sodium Chloride 0.9% [Normal Saline] 100 ml IV ONETIME
[2017-10-19] MEDS: Sodium Chloride 0.9% 1,000 ML IV SCH ×2 (10:19→17:02)
[2017-10-19] MEDS ORDERED: Levofloxacin/Dextrose 5%-Water 750 MG in Premix Bag 1 BAG IV ONE (10:28)
[2017-10-19] MEDS ORDERED: Sodium Chloride 0.9% 200 ML IV ONE ×2 (10:35→11:35)
[2017-10-19] MEDS ORDERED: Furosemide 40 MG/4 ML VIAL IVPUSH ONE (11:17)
[2017-10-19] MEDS ORDERED: cefTRIAXone 2 GM in Sodium Chloride 0.9% 100 ML IV ONE (11:52)
[2017-10-19] MEDS ORDERED: Norepinephrine 4 MG in Dextrose 5% in Water 246 ML IV SCH ×2 (12:30)
[2017-10-19] MEDS ORDERED: Non-Formulary Medication 1 Each (Albuterol Sulfate [Proair Respiclick] 1 PUFF) IH PRN (13:36)
[2017-10-19] MEDS ORDERED: Albuterol 0.083% 2.5 MG/3 ML Neb Soln NEB PRN (13:46)
[2017-10-19] MEDS ORDERED: Bisacodyl 5 MG Tab PO PRN (13:46)
[2017-10-19] MEDS ORDERED: HYDROmorphone 0.5 MG/0.5 ML SYRINGE IVPUSH PRN (13:46)
[2017-10-19] MEDS ORDERED: Docusate Sodium 100 MG Cap PO PRN (13:46)
[2017-10-19] MEDS ORDERED: Promethazine 25 MG Tab PO PRN (13:46)
[2017-10-19] MEDS ORDERED: Promethazine 6.25 MG in Sodium Chloride 0.9% 50 ML IV PRN (13:46)
[2017-10-19] MEDS ORDERED: Acetaminophen/HYDROcodone 325-5 MG Tab PO PRN (13:46)
[2017-10-19] MEDS ORDERED: Albuterol/Ipratropium 3.0-0.5 MG/3 ML Neb Soln NEB PRN (13:46)
[2017-10-19] MEDS ORDERED: Magnesium Hydroxide 400 MG/5 ML Susp 30 ML Cup PO PRN (13:46)
[2017-10-19] MEDS ORDERED: Polyethylene Glycol 3350 Powder 17 GM Packet PO PRN (13:46)
--- NOTE | 2017-10-19 14:56 | CR ---
Chest: Frontal view of the chest was obtained utilizing portable technique. Comparison: Prior chest x-ray of 03/20/17. Increased density is noted within the right upper and right lower lung. Left lung is clear. Heart size is normal. Previous sternotomy is seen presumably for CABG. Pacemaker is noted. Mild scoliosis is noted within the spine. Impression: 1. Increased density throughout the right lung most likely representing pneumonia. 2. Other incidental findings. Diagnostic code #3
--- NOTE | 2017-10-19 15:06 | PCM.HP ---
H&P History of Present Illness - General Date of Service: 10/19/17 Admit Problem/Dx: Admission Diagnosis/Problem Admission Diagnosis/Problem Pneumonia Source of Information: Patient, Old Records, Provider History Limitations: Reports: No Limitations - History of Present Illness Initial Comments - Free Text/Narative: This is an 82 yo male with past medical h/o Afib/Aflutter, CAD with CABG x4, HTN , HLD, PVD, CHF, LVH, Aortic Stenosis, COPD, Sleep Apnea, GERD, BPH, Prostate CA s/p radiation, DM2 with neuropathy, CKD III, Urinary Retention, Anxiety/ Depression who comes in for CAP. No current pain. He complains of F/C, SOB, decreased appetite, productive cough. He denies nausea, vomiting, diarrhea, chest pain, or GI/ complaints. His symptoms improved after receiving O2, Lasix, IVF, and antibiotics in the ED. His initial workup in the ED showed a CBC remarkable for WBC 11.35, RBC 4.54 , MCV 93.8, RDW 50.3, Neut 87%, Lymph 8%. His coagulation study shows PT of 14.4 , INR of 1.33. His chemistry is remarkable for Na 135, Anion Gap 15.4, BUN 20, Cr 1.7, Glucose 153, Mg 1.4, Trop 0.080, BNP 1756, Protein 6.3, Albumin 3.3. Chest X-ray shows PNA in Right upper, middle and lower lobes. He is subsequently admitted to the ICU. He is Full code but doesn't want to be on long-term intubation. His PCP is Dr. Casandra Reddy. - Related Data Allergies/Adverse Reactions: Allergies Allergy/AdvReac Type Severity Reaction Status Date / Time No Known Allergies Allergy Verified 10/19/17 09:50 Home Medications: Home Meds Allopurinol [Zyloprim] 300 mg PO DAILY 11/05/15 [History] FLUoxetine [PROzac] 30 mg PO DAILY 11/05/15 [History] Isosorbide Mononitrate [Imdur] 30 mg PO DAILY 11/05/15 [History] Lisinopril [Prinivil] 10 mg PO DAILY 11/05/15 [History] Meclizine [Antivert] 25 mg PO BID PRN 11/05/15 [History] Nitroglycerin [Nitrostat] 0.4 mg SL Q5M PRN 11/05/15 [History] glipiZIDE [Glucotrol] 2.5 mg PO BID 11/05/15 [History] atorvaSTATin [Lipitor] 80 mg PO QPM 11/10/15 [History] Cholecalciferol (Vitamin D3) [Vitamin D3] 2,000 unit PO DAILY 02/17/16 [History] Mometasone Furoate [Asmanex] 1 puff IH BID 02/17/16 [History] Olodaterol HCl [Striverdi Respimat] 2 puff IH QAM 02/17/16 [History] Saxagliptin HCl [Onglyza] 2.5 mg PO DAILY 02/17/16 [History] Tiotropium [Spiriva HandiHaler] 2 puff INH DAILY 02/17/16 [History] Carvedilol [Coreg] 3.125 mg PO BID 06/29/16 [History] Rivaroxaban [Xarelto] 10 mg PO DAILY 06/29/16 [History] Albuterol Sulfate [Proair Respiclick] 1 puff IH Q6H PRN 03/20/17 [History] Omeprazole 20 mg PO BIDAC 03/20/17 [History] Polyethylene Glycol 3350 [MiraLAX] 17 gm PO DAILY PRN 03/20/17 [History] Topiramate 25 mg PO BEDTIME 03/20/17 [History] Tamsulosin [Flomax] 0.4 mg PO DAILY 10/19/17 [History] Zolpidem Tartrate 5 mg PO BEDTIME 10/19/17 [History] Past Medical History HEENT History: Reports: Cataract, Hard of Hearing Cardiovascular History: Reports: Afib, Angina, Bypass, CAD, Heart Murmur, High Cholesterol, Hypertension, PVD, SOB on Exertion Other Cardiovascular History: HX LVH, Mild , Bilateral artial enlg Respiratory History: Reports: COPD, Sleep Apnea, SOB Gastrointestinal History: Reports: GERD, Hepatitis Other Gastrointestinal History: nausea Genitourinary History: Reports: BPH, Diabetic Nephropathy, Prostate Disorder, Retention, Urinary Musculoskeletal History: Reports: Back Pain, Chronic, Gout, Neck Pain, Chronic, Osteoarthritis Neurological History: Reports: Neuropathy, Diabetic, Neuropathy, Peripheral, Other (See Below) Other Neuro History: tremor, memory loss Psychiatric History: Reports: Anxiety, Depression, Other (See Below) Other Psychiatric History: insomnia Endocrine/Metabolic History: Reports: Diabetes, Type II Oncologic (Cancer) History: Reports: Prostate - Infectious Disease History Infectious Disease History: Reports: Herpes - Past Surgical History HEENT Surgical History: Reports: Naso-Sinus Surgery Cardiovascular Surgical History: Reports: Coronary Artery Bypass Male Surgical History: Reports: Prostate Biopsy, TURP-Transurethral Resection of Prostate Social & Family History - Family History Family Medical History: Noncontributory Cardiac: Reports: High Cholesterol, Hypertension, [place] Neurological: Reports: Parkinson's Endocrine/Metabolic: Reports: Diabetes, type II - Tobacco Use Smoking Status *Q: Former Smoker Used Tobacco, but Quit: Yes Month/Year Tobacco Last Used: 2000 - Caffeine Use Caffeine Use: Reports: Coffee - Recreational Drug Use Recreational Drug Use: No - Living Situation & Occupation Living situation: Reports: Occupation: Retired H&P Review of Systems - Review of Systems: Review Of Systems: See Below General: Reports: Fever, Chills, Decreased Appetite HEENT: Reports: Glasses, Other (Dentures (not wearing)) Pulmonary: Reports: Shortness of Breath, Wheezing, Cough, Sputum (yellow/green) . Denies: Pleuritic Chest Pain, Hemoptysis Cardiovascular: Reports: Dyspnea on Exertion, Blood Pressure Problem. Denies: Chest Pain, Orthopnea, Edema, Lightheadedness Gastrointestinal: Reports: Decreased Appetite. Denies: Abdominal Pain, Constipation (Last BM 2 days ago, normal), Diarrhea, Nausea, Vomiting Genitourinary: Reports: No Symptoms. Denies: Dysuria, Frequency, Burning, Pain Musculoskeletal: Reports: Neck Pain, Shoulder Pain, Back Pain, Joint Pain Skin: Reports: Bruising (on Xarelto) Psychiatric: Reports: Depression Neurological: Reports: Difficulty Walking (has cane, walker and wheelchair at home) Hematologic/Lymphatic: Reports: Easy Bruising (On Xarelto) Immunologic: Reports: No Symptoms Exam - Exam Exam: See Below - Vital Signs Vital Signs: Last Vital Signs Temp 98.6 F 10/19/17 14:00 Pulse 98 10/19/17 14:00 Resp 19 10/19/17 14:00 BP 101/70 10/19/17 14:00 Pulse Ox 97 10/19/17 14:00 Weight: 186 lb 9.6 oz - Exam Quality Assessment: Supplemental Oxygen (2L nasal cannula), DVT Prophylaxis General: Alert, Oriented, Cooperative, Mild Distress HEENT: Conjunctiva Clear, EACs Clear, EOMI, Hearing Intact, Mucosa Moist & [place] , Nares Patent, Normal Nasal Septum, Posterior Pharynx Clear, TMs Clear. No: Pupils Equal (left eye dialated and non reactive to light; h/o herpes), Pupils Reactive (left eye dialated and non reactive to light; h/o herpes) Neck: Supple, Trachea Midline, 2 Lungs: Decreased Breath Sounds, Crackles, Wheezing Cardiovascular: Irregular Rhythm. No: Regular Rate (Irregular- A flutter) GI/Abdominal Exam: Normal Bowel Sounds, Soft, Non-Tender, No Organomegaly, No Abnormal Bruit, No Mass, Pelvis Stable, Distended (mild) (Male) Exam: Deferred Rectal (Males) Exam: Deferred Back Exam: Normal Inspection, Full Range of Motion, NT Extremities: Normal Inspection, Normal Range of Motion, Non-Tender, No Pedal Edema, Normal Capillary Refill Peripheral Pulses: 1+: Posterior Tibial (L), Posterior Tibial (R), Dorsalis Pedis (L), Dorsalis Pedis (R) Skin: Warm, Dry, Intact Neurological: Cranial Nerves Intact (grossly). No: Normal Gait Neuro Extensive - Mental Status: Alert, Oriented x3, Normal Mood/Affect, Normal Cognition, Memory Intact Psychiatric: Alert, Normal Affect, Normal Mood - Patient Data Lab Results Last 24 hrs: Laboratory Results - last 24 hr 10/19/17 10/19/17 10/19/17 Range/Units 10:30 10:30 10:30 WBC 11.35 H (4.23-9.07) K/mm3 RBC 4.54 L (4.63-6.08) M/mm3 Hgb 14.2 (13.7-17.5) gm/L Hct 42.6 (40.1-51.0) % MCV 93.8 H (79.0-92.2) fl MCH 31.3 (25.7-32.2) pg MCHC 33.3 (32.2-35.5) g/dl RDW Std Deviation 50.3 H (35.1-43.9) fL Plt Count 168 (163-337) K/mm3 MPV 9.8 (9.4-12.3) fl Neutrophils % (Manual) 87 H (40-60) % Band Neutrophils % 3 (0-10) % Lymphocytes % (Manual) 8 L (20-40) % Atypical Lymphs % 0 % Monocytes % (Manual) 1 L (2-10) % Eosinophils % (Manual) 1 (0.8-7.0) % Basophils % (Manual) 0 L (0.2-1.2) Platelet Estimate Adequate RBC Morph Comment Normal PT 14.4 H (9.5-12.1) SECONDS INR 1.33 Sodium 135 L (136-145) mEq/L Potassium 4.4 (3.5-5.1) mEq/L Chloride 103 (98-107) mEq/L Carbon Dioxide 21 (21-32) mEq/L Anion Gap 15.4 H (5-15) BUN 20 H (7-18) mg/dL Creatinine 1.7 H (0.7-1.3) mg/dL Est Cr Clr Drug Dosing 35.07 mL/min Estimated GFR (MDRD) 39 (>60) mL/min BUN/Creatinine Ratio 11.8 L (14-18) Glucose 153 H (83-115) mg/dL Lactic Acid (0.4-2.0) mmol/L Calcium 9.4 (8.5-10.1) mg/dL Magnesium 1.4 L (1.8-2.4) mg/dl Total Bilirubin 0.8 (0.2-1.0) mg/dL AST 15 (15-37) U/L ALT 23 (16-63) U/L Alkaline Phosphatase 83 (46-116) U/L CK-MB (CK-2) 0.8 (0-3.6) ng/ml Troponin I 0.080 H* (0.00-0.056) ng/mL C-Reactive Protein 0.7 (<1.0) mg/dL NT-Pro-B Natriuret Pep (0-450) pg/mL Total Protein 6.3 L (6.4-8.2) g/dl Albumin 3.3 L (3.4-5.0) g/dl Globulin 3.0 gm/dL Albumin/Globulin Ratio 1.1 (1-2) 18 18 Range/Units 10:30 10:30 WBC (4.23-9.07) K/mm3 RBC (4.63-6.08) M/mm3 Hgb (13.7-17.5) gm/L Hct (40.1-51.0) % MCV (79.0-92.2) fl MCH (25.7-32.2) pg MCHC (32.2-35.5) g/dl RDW Std Deviation (35.1-43.9) fL Plt Count (163-337) K/mm3 MPV (9.4-12.3) fl Neutrophils % (Manual) (40-60) % Band Neutrophils % (0-10) % Lymphocytes % (Manual) (20-40) % Atypical Lymphs % % Monocytes % (Manual) (2-10) % Eosinophils % (Manual) (0.8-7.0) % Basophils % (Manual) (0.2-1.2) Platelet Estimate RBC Morph Comment PT (9.5-12.1) SECONDS INR Sodium (136-145) mEq/L Potassium (3.5-5.1) mEq/L Chloride (98-107) mEq/L Carbon Dioxide (21-32) mEq/L Anion Gap (5-15) BUN (7-18) mg/dL Creatinine (0.7-1.3) mg/dL Est Cr Clr Drug Dosing mL/min Estimated GFR (MDRD) (>60) mL/min BUN/Creatinine Ratio (14-18) Glucose (83-115) mg/dL Lactic Acid 1.9 (0.4-2.0) mmol/L Calcium (8.5-10.1) mg/dL Magnesium (1.8-2.4) mg/dl Total Bilirubin (0.2-1.0) mg/dL AST (15-37) U/L ALT (16-63) U/L Alkaline Phosphatase (46-116) U/L CK-MB (CK-2) (0-3.6) ng/ml Troponin I (0.00-0.056) ng/mL C-Reactive Protein (<1.0) mg/dL NT-Pro-B Natriuret Pep 1756 H (0-450) pg/mL Total Protein (6.4-8.2) g/dl Albumin (3.4-5.0) g/dl Globulin gm/dL Albumin/Globulin Ratio (1-2) Result Diagrams: 10/19/17 10:30 10/19/17 10:30 - Problem List (1) Congestive heart failure SNOMED Code(s): 09726247 ICD Code: I50.9 - HEART FAILURE, UNSPECIFIED Status: Chronic Priority: High Current Visit: Yes Qualifiers: Heart failure type: diastolic Heart failure chronicity: unspecified Qualified Code(s): I50.30 - Unspecified diastolic (congestive) heart failure (2) Hypoxia SNOMED Code(s): 422137591 ICD Code: R09.02 - HYPOXEMIA Status: Acute Priority: High Current Visit : Yes (3) Pneumonia SNOMED Code(s): 263494040 ICD Code: J18.9 - PNEUMONIA, UNSPECIFIED ORGANISM Status: Acute Priority : High Current Visit: Yes Qualifiers: Pneumonia type: due to unspecified organism Laterality: right Lung location: lower lobe of lung Qualified Code(s): J18.1 - Lobar pneumonia, unspecified organism (4) Atrial fibrillation SNOMED Code(s): 98995220 ICD Code: I48.91 - UNSPECIFIED ATRIAL FIBRILLATION Status: Acute Priority : High Current Visit: No Problem Details: - With Slow Ventricular Rate Qualifiers: Atrial fibrillation type: paroxysmal Qualified Code(s): I48.0 - Paroxysmal atrial fibrillation (5) Atrial flutter SNOMED Code(s): 5327015 ICD Code: I48.92 - UNSPECIFIED ATRIAL FLUTTER Status: Acute Priority: High Current Visit: Yes Qualifiers: Atrial flutter type: unspecified Qualified Code(s): I48.92 - Unspecified atrial flutter (6) CAD (coronary artery disease) of artery bypass graft SNOMED Code(s): 017537022, 70813115, 707356252, 773274202, 954207989 ICD Code: I25.810 - ATHEROSCLEROSIS OF CABG W/O ANGINA PECTORIS Status: Chronic Priority: Medium Current Visit: No Qualifiers: [place] vs. transplanted heart: unspecified whether [place] or transplanted heart Associated angina: with other forms of angina Qualified Code(s): I25.708 - Atherosclerosis of coronary artery bypass graft(s), unspecified, with other forms of angina pectoris (7) Dyspnea on exertion SNOMED Code(s): 10987584 ICD Code: R06.09 - OTHER FORMS OF DYSPNEA Status: Acute Priority: High Current Visit: Yes Problem Details: - Acute on Chronic - More worse than usual (8) Hypomagnesemia SNOMED Code(s): 507561748 ICD Code: E83.42 - HYPOMAGNESEMIA Status: Acute Priority: Medium Current Visit: Yes Problem List Initiated/Reviewed/Updated: Yes Orders Last 24hrs: Active Orders 24 hr Category Date Time Status Admission Status [Patient Status] [ADT] Routine ADT 10/19/17 12:06 Active Ambulate [RC] ASDIRECTED Care 10/19/17 13:46 Ordered Cardiac Monitoring [RC] CONTINUOUS Care 10/19/17 13:52 Ordered Height and Weight [RC] DAILY Care 10/19/17 13:46 Ordered Intake and Output [RC] QSHIFT Care 10/19/17 13:52 Ordered Oxygen Therapy [RC] ASDIRECTED Care 10/19/17 10:08 Active Pulse Oximetry [RC] CONTINUOUS Care 10/19/17 13:52 Ordered RT Aerosol Therapy [RC] ASDIRECTED Care 10/19/17 13:55 Ordered Up With Assistance [RC] ASDIRECTED Care 10/19/17 13:46 Ordered Up to Chair [RC] ASDIRECTED Care 10/19/17 13:46 Ordered VTE/DVT Education [RC] PER UNIT ROUTINE Care 10/19/17 13:51 Ordered Vital Signs [RC] Q4H Care 10/19/17 13:51 Ordered Consult to Case Management [CONS] Routine Cons 10/19/17 13:46 Ordered Consult to Corporate Concierge [CONS] Routine Cons 10/19/17 13:46 Ordered Consult to Clinical Social Work Therapist [CONS] Routine Cons 10/19/17 13:46 Ordered Consult to Spiritual Care [CONS] Routine Cons 10/19/17 13:46 Ordered OT Evaluation and Treatment [CONS] Routine Cons 10/19/17 13:46 Ordered PT Evaluation and Treatment [CONS] Routine Cons 10/19/17 13:46 Ordered Respiratory Care Assess and Treatment [CONS] Routine Cons 10/19/17 13:46 Ordered Soft Diet [DIET] Diet 10/19/17 Dinner Ordered Chest 1V Frontal [CR] AM Exams 10/21/17 05:11 Ordered Echo Comp wo Cont [US] Routine Exams 10/20/17 05:11 Ordered BASIC METABOLIC PANEL,BMP [CHEM] AM Lab 10/20/17 05:11 Ordered BASIC METABOLIC PANEL,BMP [CHEM] AM Lab 10/21/17 05:11 Ordered BASIC METABOLIC PANEL,BMP [CHEM] AM Lab 10/22/17 05:11 Ordered BASIC METABOLIC PANEL,BMP [CHEM] AM Lab 10/23/17 05:11 Ordered BASIC METABOLIC PANEL,BMP [CHEM] AM Lab 10/24/17 05:11 Ordered C-REACTIVE PROTEIN [CHEM] AM Lab 10/20/17 05:11 Ordered C-REACTIVE PROTEIN [CHEM] AM Lab 10/21/17 05:11 Ordered C-REACTIVE PROTEIN [CHEM] AM Lab 10/22/17 05:11 Ordered C-REACTIVE PROTEIN [CHEM] AM Lab 10/23/17 05:11 Ordered C-REACTIVE PROTEIN [CHEM] AM Lab 10/24/17 05:11 Ordered CBC WITH AUTO DIFF [HEME] AM Lab 10/20/17 05:11 Ordered CBC WITH AUTO DIFF [HEME] AM Lab 10/21/17 05:11 Ordered CBC WITH AUTO DIFF [HEME] AM Lab 10/22/17 05:11 Ordered CBC WITH AUTO DIFF [HEME] AM Lab 10/23/17 05:11 Ordered CBC WITH AUTO DIFF [HEME] AM Lab 10/24/17 05:11 Ordered CULTURE BLOOD [BC] Stat Lab 10/19/17 10:30 Received CULTURE BLOOD [BC] Stat Lab 10/19/17 10:40 Received CULTURE SPUTUM + SMEAR [RM] Routine Lab 10/19/17 14:49 Ordered PRO B-TYPE NATRIUR PEPT,BNPPRO [CHEM] DAILY Lab 10/20/17 05:11 Ordered PRO B-TYPE NATRIUR PEPT,BNPPRO [CHEM] DAILY Lab 10/21/17 05:11 Ordered PRO B-TYPE NATRIUR PEPT,BNPPRO [CHEM] DAILY Lab 10/22/17 05:11 Ordered PRO B-TYPE NATRIUR PEPT,BNPPRO [CHEM] DAILY Lab 10/23/17 05:11 Ordered PRO B-TYPE NATRIUR PEPT,BNPPRO [CHEM] DAILY Lab 10/24/17 05:11 Ordered T4 FREE [CHEM] Routine Lab 10/20/17 05:11 Ordered TROPONIN I [CHEM] AM Lab 10/20/17 05:11 Ordered TROPONIN I [CHEM] AM Lab 10/21/17 05:11 Ordered TROPONIN I [CHEM] AM Lab 10/22/17 05:11 Ordered TROPONIN I [CHEM] AM Lab 10/23/17 05:11 Ordered TROPONIN I [CHEM] AM Lab 10/24/17 05:11 Ordered TSH [CHEM] Routine Lab 10/20/17 05:11 Ordered Acetaminophen [Tylenol] Med 10/19/17 13:46 Ordered 650 mg PO Q4H PRN Acetaminophen/HYDROcodone [[place] 325-5 MG] Med 10/19/17 13:46 Ordered 1 tab PO Q4H PRN Albuterol [Proventil Neb Soln] Med 10/19/17 13:46 Ordered 2.5 mg NEB Q2H PRN Albuterol/Ipratropium [DuoNeb 3.0-0.5 MG/3 ML] Med 10/19/17 13:46 Ordered 3 ml NEB Q4H PRN Allopurinol [Zyloprim] Med 10/19/17 21:00 Ordered 300 mg PO DAILY Bisacodyl [Dulcolax] Med 10/19/17 13:46 Ordered 5 mg PO DAILY PRN Carvedilol [Coreg] Med 10/19/17 21:00 Ordered 3.125 mg PO BID Cholecalciferol (Vitamin D3) [Vitamin D3] Med 10/19/17 21:00 Ordered 2,000 unit PO DAILY Docusate Sodium [Colace] Med 10/19/17 13:46 Ordered 100 mg PO BID PRN Docusate Sodium/Sennosides [Senna Plus] Med 10/19/17 13:46 Ordered 1 tab PO BID PRN FLUoxetine [PROzac] Med 10/19/17 21:00 Ordered 30 mg PO DAILY HYDROmorphone [Dilaudid] Med 10/19/17 13:46 Ordered 0.25 mg IVPUSH Q2H PRN Isosorbide Mononitrate [Imdur] Med 10/19/17 21:00 Ordered 30 mg PO DAILY Levofloxacin/Dextrose 5%-Water [Levaquin in D5W 750 MG/ Med 10/20/17 09:00 Ordered 150 ML] 750 mg Premix Bag 1 bag IV Q24H Magnesium Hydroxide [Milk of Magnesia] Med 10/19/17 13:46 Ordered 30 ml PO Q12H PRN Meclizine [Antivert] Med 10/19/17 13:36 Ordered 25 mg PO BID PRN Mometasone Furoate Med 10/19/17 21:00 Ordered 1 puff IH BID Norepinephrine [Levophed] 4 mg Med 10/19/17 12:30 Active Dextrose 5% in Water 246 ml IV TITRATE Olodaterol HCl [Striverdi Respimat] Med 10/20/17 08:00 Ordered 2 puff IH QAM Polyethylene Glycol 3350 [MiraLAX] Med 10/19/17 13:46 Ordered 17 gm PO DAILY PRN Promethazine [Phenergan] Med 10/19/17 13:46 Ordered 25 mg PO Q6H PRN Promethazine [Phenergan] 6.25 mg Med 10/19/17 13:46 Ordered Sodium Chloride 0.9% [Normal Saline] 50 ml IV Q6H Rivaroxaban [Xarelto] Med 10/19/17 21:00 Ordered 10 mg PO DAILY Saxagliptin HCl [Onglyza] Med 10/19/17 21:00 Ordered 2.5 mg PO DAILY Sodium Chloride 0.9% [Normal Saline] 1,000 ml Med 10/19/17 10:15 Active IV ASDIRECTED Tamsulosin [Flomax] Med 10/19/17 21:00 Ordered 0.4 mg PO DAILY Tiotropium [Spiriva HandiHaler] Med 10/19/17 21:00 Ordered 2 puff INH DAILY Topiramate [Topamax] Med 10/19/17 21:00 Ordered 25 mg PO BEDTIME Zolpidem [Ambien] Med 10/19/17 21:00 Ordered 5 mg PO BEDTIME atorvaSTATin Med 10/19/17 21:00 Ordered 80 mg PO QPM cefTRIAXone [Rocephin] 2 gm Med 10/20/17 09:00 Ordered Sodium Chloride 0.9% [Normal Saline] 100 ml IV Q24H glipiZIDE [Glucotrol] Med 10/19/17 21:00 Ordered 2.5 mg PO BID Blood Culture x2 Reflex Set [OM.PC] Stat Oth 10/19/17 10:09 Ordered Resuscitation Status Routine Resus Stat 10/19/17 13:46 Ordered Medication Orders Acetaminophen (Tylenol) 650 mg PO Q4H PRN PRN Reason: Pain (Mild 1-3)/fever Hydrocodone Bitart/Acetaminophen ([place] 325-5 Mg) 1 tab PO Q4H PRN PRN Reason: Pain (moderate 4-6) Albuterol (Proventil Neb Soln) 2.5 mg NEB Q2H PRN PRN Reason: Shortness Of Breath/wheezing Albuterol/Ipratropium (Duoneb 3.0-0.5 Mg/3 Ml) 3 ml NEB Q4H PRN PRN Reason: Shortness Of Breath/wheezing Allopurinol (Zyloprim) 300 mg PO DAILY [facility] Alogliptin Benzoate (Alogliptin) 25 mg PO DAILY [facility] Bisacodyl (Dulcolax) 5 mg PO DAILY PRN PRN Reason: Constipation Carvedilol (Coreg) 3.125 mg PO BID [facility] Cholecalciferol (Vitamin D3) 2,000 units PO DAILY [facility] Docusate Sodium (Colace) 100 mg PO BID PRN PRN Reason: Constipation Fluoxetine HCl (Prozac) 30 mg PO DAILY [facility] Glipizide (Glucotrol) 2.5 mg PO BID [facility] Hydromorphone HCl (Dilaudid) 0.25 mg IVPUSH Q2H PRN PRN Reason: Pain (severe 7-10) Sodium Chloride (Normal Saline) 1,000 mls @ 100 mls/hr IV ASDIRECTED [facility] Last Admin: 10/19/17 10:19 Dose: 100 mls/hr Norepinephrine Bitartrate 4 mg (/ Dextrose/Water) 250 mls @ 15 mls/hr IV TITRATE [facility]; Protocol Last Titration: 10/19/17 13:13 Dose: 2 mcg/min, 7.5 mls/hr Admin: 10/19/17 12:36 Dose: 4 mcg/min, 15 mls/hr Promethazine HCl 6.25 mg/ (Sodium Chloride) 50.25 mls @ 100 mls/hr IV Q6H PRN PRN Reason: Nausea/Vomiting Ceftriaxone Sodium 2 gm/ (Dextrose/Water) 100 mls @ 100 mls/hr IV Q24H [facility] Levofloxacin/Dextrose 750 mg/ (Premix) 150 mls @ 100 mls/hr IV Q48H [facility] Isosorbide Mononitrate (Imdur) 30 mg PO DAILY [facility] Magnesium Hydroxide (Milk Of Magnesia) 30 ml PO Q12H PRN PRN Reason: Constipation Meclizine HCl (Antivert) 25 mg PO BID PRN PRN Reason: Other Mometasone Furoate (Asmanex Hfa 200mcg) 0 gm INH BID [facility] Olodaterol Hcl [ Striverdi Respimat] 2 Puff 0 each INH QAM [facility] Polyethylene Glycol (Miralax) 17 gm PO DAILY PRN PRN Reason: Constipation Promethazine HCl (Phenergan) 25 mg PO Q6H PRN PRN Reason: Nausea/Vomiting Rivaroxaban (Xarelto) 10 mg PO DAILY [facility] Rosuvastatin Calcium (Crestor) 20 mg PO QPM [facility] Senna/Docusate Sodium (Senna Plus) 1 tab PO BID PRN PRN Reason: Constipation Tamsulosin HCl (Flomax) 0.4 mg PO DAILY [facility] Tiotropium [place] (Spiriva Handihaler) 18 mcg INH DAILY [facility] Topiramate (Topamax) 25 mg PO BEDTIME [facility] Zolpidem Tartrate (Ambien) 5 mg PO BEDTIME [facility] Assessment/Plan Comment:: I/P: Acute: CAP, right lung -PSI/PORT Score: 158; High risk, requires admission -Risk factor: Bronchitis 2 weeks ago, given 1 week Abx at clinic, CXR last week clear -Productive cough x2 weeks, F/C, SOB x 3 days, Decreased appetite, O2 84% on RA -Temp of 103.4 in ED -CXR in ED--> PNA R upper, middle, and lower lobes -IV Levoquin and Rocephin started in ED--> Continue -98% on 2L nasal cannula -RT/IS/Acapella/DuoNebs -Sepsis work up -Titrate O2 as needed to maintain >92% -Repeat CXR in 2 days CHF -Acute on Chronic -SOB, no pedal edema -BNP 1756 -Lasix 40 IV given in ED -Monitor -Echo in AM; last ECHO here was 11/11/15 -Lasix PRN Elevated Troponin -0.080 -Most likely 2/2 CHF -Asymptomatic- no chest pain -Monitor with Serial Troponins Hypomagnesemia -1.4 -Monitor and replenish as needed Hypotension, improving -92/40 lowest in ED-->109/60 -IVF given in ED--> hold/balance with CHF -Levophed given in ED--> continue titration dosing -Hold at-home Lisinopril and Nitro -Monitor on telemetry Chronic: Afib/Aflutter -EKG in ED--> Aflutter, suspected ischemia in lateral apical wall -On Xarelto -Has Pacemaker -Monitor on telemetry CAD with CABG x4 HTN HLD PVD LVH Aortic Stenosis COPD Sleep Apnea GERD BPH Prostate CA s/p radiation DM2 with neuropathy CKD III Urinary Retention Anxiety/Depression Herpes left eye Plan: Transfered to ICU today He remains stable and continues to improve clinically Other orders as indicated above Routine AM labs ADA diet and soft diet (not wearing dentures) SW/CM for discharge planning PT/OT/RT DVT Prophylaxis: On Xarelto GI Prophylaxis: Protonix Ambulated as tolerated Code Status: Full Code, but doesn't want to be on long-term intubation; PCP: Dr. Casandra Reddy
[2017-10-19] MEDS: Magnesium Sulfate/Water 2 GM in Premix Bag 1 BAG IV SCH ×2 (16:38→17:47)
[2017-10-19] MEDS: Pantoprazole 40 MG Vial IVPUSH SCH (16:38)
[2017-10-19] MEDS: Tiotropium Inhaler 18 MCG Inhalation Powder Cap Kit of 5 INH SCH (20:01)
[2017-10-19] MEDS: Mometasone Furoate HFA 200 mcg/Puff 13 GM Inhaler INH SCH (20:02)
[2017-10-19] MEDS: glipiZIDE 5 MG Tab PO SCH (20:36)
[2017-10-19] MEDS: Cholecalciferol (Vitamin D3) 1,000 Unit Tab PO SCH (20:36)
[2017-10-19] MEDS: Zolpidem 5 MG Tab PO SCH (20:36)
[2017-10-19] MEDS: Tamsulosin 0.4 MG Cap.ER PO SCH (20:36)
[2017-10-19] MEDS: Rivaroxaban 10 MG Tab PO SCH (20:36)
[2017-10-19] MEDS: Rosuvastatin 10 MG Tab PO SCH (20:36)
[2017-10-19] MEDS: Topiramate 25 MG Tab PO SCH (20:37)
[2017-10-19] MEDS: Allopurinol 300 MG Tab PO SCH (20:37)
[2017-10-19] MEDS: FLUoxetine 10 MG Cap PO SCH (20:37)
[2017-10-19] MEDS: Isosorbide Mononitrate 30 MG Tab.ER PO SCH (20:37)
[2017-10-19] MEDS: Carvedilol 3.125 MG Tab PO SCH (20:38)
[2017-10-19] MEDS ORDERED: FLUoxetine 20 MG Cap PO SCH (21:00)
[2017-10-20] MEDS: Sodium Chloride 0.9% 1,000 ML IV SCH (06:45)
[2017-10-20] MEDS: Tiotropium Inhaler 18 MCG Inhalation Powder Cap Kit of 5 INH SCH (08:34)
[2017-10-20] MEDS: Mometasone Furoate HFA 200 mcg/Puff 13 GM Inhaler INH SCH ×2 (08:35→21:23)
[2017-10-20] MEDS: Cholecalciferol (Vitamin D3) 1,000 Unit Tab PO SCH (09:26)
[2017-10-20] MEDS: Rivaroxaban 10 MG Tab PO SCH (09:26)
[2017-10-20] MEDS: FLUoxetine 10 MG Cap PO SCH (09:26)
[2017-10-20] MEDS: Pantoprazole 40 MG Vial IVPUSH SCH (09:26)
[2017-10-20] MEDS: Tamsulosin 0.4 MG Cap.ER PO SCH (09:26)
[2017-10-20] MEDS: glipiZIDE 5 MG Tab PO SCH ×2 (09:27→20:56)
[2017-10-20] MEDS: Carvedilol 3.125 MG Tab PO SCH ×2 (09:27→20:57)
[2017-10-20] MEDS: Allopurinol 300 MG Tab PO SCH (09:28)
[2017-10-20] MEDS: OLODATEROL HCL INH SCH (09:37)
[2017-10-20] MEDS: Isosorbide Mononitrate 30 MG Tab.ER PO SCH (10:20)
[2017-10-20] MEDS ORDERED: Benzonatate 100 MG Cap PO PRN (10:54)
[2017-10-20] MEDS ORDERED: guaiFENesin/Dextromethorphan 100-10 MG/5 ML Soln 5 ML Cup PO PRN (11:04)
--- NOTE | 2017-10-20 12:01 | PCM.PN ---
- General Info Date of Service: 10/20/17 Admission Dx/Problem (Free Text): Admission Diagnosis/Problem Admission Diagnosis/Problem Pneumonia Subjective Update: In to see Osman today. He is lying in bed visiting with his and son. Overall he is doing well and states he is feeling better. He complains of having some chills, coughing, constipation (last BM 3 days ago) and feels a bit light-headed. His BP was somewhat low at 97/65. Orthostatics were negative. Will monitor. Check glucose. Consider giving Midodrine if doesn't improve. Will give medications to help with constipation and cough. He has been sleeping well. Good appetite. Ambulating as tolerated. Pain is controlled. No Fever, chest pain, nausea, vomiting, diarrhea. No concerns from nursing. Functional Status: Reports: Pain Controlled, Tolerating Diet, Ambulating, Urinating - Review of Systems General: Reports: Chills, Other (appetite returning). Denies: Fever HEENT: Reports: Glasses, Other (Dentures -not wearing) Pulmonary: Reports: Shortness of Breath, Cough, Sputum, Wheezing. Denies: Pleuritic Chest Pain, Hemoptysis Cardiovascular: Reports: Dyspnea on Exertion. Denies: Chest Pain, Palpitations , Orthopnea, Edema Gastrointestinal: Reports: Constipation. Denies: Diarrhea, Nausea, Vomiting Genitourinary: Reports: No Symptoms. Denies: Dysuria, Frequency, Burning, Pain Musculoskeletal: Reports: No Symptoms Skin: Reports: No Symptoms Neurological: Reports: No Symptoms, Dizziness (light-headed) Psychiatric: Reports: No Symptoms - Patient Data Vitals - Most Recent: Last Vital Signs Temp 97.9 F 10/20/17 08:00 Pulse 73 10/20/17 09:27 Resp 18 10/20/17 08:00 BP 97/65 10/20/17 10:20 Pulse Ox 94 L 10/20/17 08:38 Weight - Most Recent: 182 lb 11.2 oz I&O - Last 24 Hours: Intake & Output 10/19/17 10/20/17 10/20/17 22:59 06:59 14:59 Intake Total 477 1200 0 Output Total 1150 525 Balance -673 675 0 Lab Results Last 24 Hours: Laboratory Results - last 24 hr 05/24/18 05/25/18 05/25/18 Range/Units 13:54 04:35 04:35 WBC 13.56 H (4.23-9.07) K/mm3 RBC 3.94 L (4.63-6.08) M/mm3 Hgb 12.5 L (13.7-17.5) gm/L Hct 37.3 L (40.1-51.0) % MCV 94.7 H (79.0-92.2) fl MCH 31.7 (25.7-32.2) pg MCHC 33.5 (32.2-35.5) g/dl RDW Std Deviation 50.2 H (35.1-43.9) fL Plt Count 157 L (163-337) K/mm3 MPV 10.2 (9.4-12.3) fl Neut % (Auto) 82.0 H (34.0-67.9) % Lymph % (Auto) 10.2 L (21.8-53.1) % [place] % (Auto) 6.9 (5.3-12.2) % Eos % (Auto) 0.4 L (0.8-7.0) Baso % (Auto) 0.1 (0.1-1.2) % Neut # (Auto) 11.10 H (1.78-5.38) K/mm3 Lymph # (Auto) 1.38 (1.32-3.57) K/mm3 [place] # (Auto) 0.94 H (0.30-0.82) K/mm3 Eos # (Auto) 0.06 (0.04-0.54) K/mm3 Baso # (Auto) 0.02 (0.01-0.08) K/mm3 Sodium (136-145) mEq/L Potassium (3.5-5.1) mEq/L Chloride (98-107) mEq/L Carbon Dioxide (21-32) mEq/L Anion Gap (5-15) BUN (7-18) mg/dL Creatinine (0.7-1.3) mg/dL Est Cr Clr Drug Dosing mL/min Estimated GFR (MDRD) (>60) mL/min BUN/Creatinine Ratio (14-18) Glucose (83-115) mg/dL Calcium (8.5-10.1) mg/dL Troponin I (0.00-0.056) ng/mL C-Reactive Protein (<1.0) mg/dL NT-Pro-B Natriuret Pep 3688 H (0-450) pg/mL Free T4 (0.76-1.46) ng/dL TSH 3rd Generation (0.358-3.74) uIU/mL Urine Color Yellow (Yellow) Urine Appearance Clear (Clear) Urine pH 6.0 (5.0-8.0) Ur Specific [place] 1.015 (1.005-1.030) Urine Protein Negative (Negative) Urine Glucose (UA) Negative (Negative) Urine Ketones Negative (Negative) Urine Occult Blood Negative (Negative) Urine Nitrite Negative (Negative) Urine Bilirubin Negative (Negative) Urine Urobilinogen 0.2 (0.2-1.0) Ur Leukocyte Esterase Negative (Negative) Urine RBC Not seen (0-5) /hpf Urine WBC 0-5 (0-5) /hpf Ur Epithelial Cells 0-5 (0-5) /hpf Urine Bacteria Not seen (FEW) /hpf Urine Mucus Not seen (FEW) /hpf 10/20/17 Range/Units 05:11 WBC (4.23-9.07) K/mm3 RBC (4.63-6.08) M/mm3 Hgb (13.7-17.5) gm/L Hct (40.1-51.0) % MCV (79.0-92.2) fl MCH (25.7-32.2) pg MCHC (32.2-35.5) g/dl RDW Std Deviation (35.1-43.9) fL Plt Count (163-337) K/mm3 MPV (9.4-12.3) fl Neut % (Auto) (34.0-67.9) % Lymph % (Auto) (21.8-53.1) % [place] % (Auto) (5.3-12.2) % Eos % (Auto) (0.8-7.0) Baso % (Auto) (0.1-1.2) % Neut # (Auto) (1.78-5.38) K/mm3 Lymph # (Auto) (1.32-3.57) K/mm3 [place] # (Auto) (0.30-0.82) K/mm3 Eos # (Auto) (0.04-0.54) K/mm3 Baso # (Auto) (0.01-0.08) K/mm3 Sodium 133 L (136-145) mEq/L Potassium 4.4 (3.5-5.1) mEq/L Chloride 102 (98-107) mEq/L Carbon Dioxide 22 (21-32) mEq/L Anion Gap 13.4 (5-15) BUN 22 H (7-18) mg/dL Creatinine 1.8 H (0.7-1.3) mg/dL Est Cr Clr Drug Dosing 33.12 mL/min Estimated GFR (MDRD) 36 (>60) mL/min BUN/Creatinine Ratio 12.2 L (14-18) Glucose 112 (83-115) mg/dL Calcium 9.2 (8.5-10.1) mg/dL Troponin I 0.046 (0.00-0.056) ng/mL C-Reactive Protein 18.9 H* (<1.0) mg/dL NT-Pro-B Natriuret Pep (0-450) pg/mL Free T4 1.14 (0.76-1.46) ng/dL TSH 3rd Generation 0.477 (0.358-3.74) uIU/mL Urine Color (Yellow) Urine Appearance (Clear) Urine pH (5.0-8.0) Ur Specific [place] (1.005-1.030) Urine Protein (Negative) Urine Glucose (UA) (Negative) Urine Ketones (Negative) Urine Occult Blood (Negative) Urine Nitrite (Negative) Urine Bilirubin (Negative) Urine Urobilinogen (0.2-1.0) Ur Leukocyte Esterase (Negative) Urine RBC (0-5) /hpf Urine WBC (0-5) /hpf Ur Epithelial Cells (0-5) /hpf Urine Bacteria (FEW) /hpf Urine Mucus (FEW) /hpf Armando Results Last 24 Hours: Microbiology 10/19/17 10:30 Aerobic Blood Culture - Preliminary Blood - Venous NO GROWTH AFTER 1 DAY Anaerobic Blood Culture - Preliminary NO GROWTH AFTER 1 DAY 10/19/17 10:40 Aerobic Blood Culture - Preliminary Blood - Venous - Lab Draw NO GROWTH AFTER 1 DAY Anaerobic Blood Culture - Preliminary NO GROWTH AFTER 1 DAY Med Orders - Current: Current Medications Acetaminophen (Tylenol) 650 mg PO Q4H PRN PRN Reason: Pain (Mild 1-3)/fever Hydrocodone Bitart/Acetaminophen ([place] 325-5 Mg) 1 tab PO Q4H PRN PRN Reason: Pain (moderate 4-6) Albuterol (Proventil Neb Soln) 2.5 mg NEB Q2H PRN PRN Reason: Shortness Of Breath/wheezing Albuterol/Ipratropium (Duoneb 3.0-0.5 Mg/3 Ml) 3 ml NEB Q4H PRN PRN Reason: Shortness Of Breath/wheezing Allopurinol (Zyloprim) 300 mg PO DAILY [facility] Last Admin: 10/20/17 09:28 Dose: 300 mg Alogliptin Benzoate (Alogliptin) 25 mg PO DAILY [facility] Last Admin: 10/20/17 09:26 Dose: 25 mg Benzonatate (Tessalon Perles) 200 mg PO BID PRN PRN Reason: Cough Bisacodyl (Dulcolax) 5 mg PO DAILY PRN PRN Reason: Constipation Carvedilol (Coreg) 3.125 mg PO BID [facility] Last Admin: 10/20/17 09:27 Dose: Not Given Cholecalciferol (Vitamin D3) 2,000 units PO DAILY [facility] Last Admin: 10/20/17 09:26 Dose: 2,000 units Docusate Sodium (Colace) 100 mg PO BID PRN PRN Reason: Constipation Fluoxetine HCl (Prozac) 30 mg PO DAILY [facility] Last Admin: 10/20/17 09:26 Dose: 30 mg Furosemide (Lasix) 20 mg PO DAILY [facility] Glipizide (Glucotrol) 2.5 mg PO BID [facility] Last Admin: 10/20/17 09:27 Dose: 2.5 mg Guaifenesin/Phenylephrine HCl (Robitussin Dm) 5 ml PO Q4H PRN PRN Reason: Cough Hydromorphone HCl (Dilaudid) 0.25 mg IVPUSH Q2H PRN PRN Reason: Pain (severe 7-10) Sodium Chloride (Normal Saline) 1,000 mls @ 100 mls/hr IV ASDIRECTED [facility] Last Admin: 10/20/17 06:45 Dose: 100 mls/hr Norepinephrine Bitartrate 4 mg (/ Dextrose/Water) 250 mls @ 15 mls/hr IV TITRATE [facility]; Protocol Last Titration: 10/20/17 00:30 Dose: 0 mcg/min, 0 mls/hr Promethazine HCl 6.25 mg/ (Sodium Chloride) 50.25 mls @ 100 mls/hr IV Q6H PRN PRN Reason: Nausea/Vomiting Ceftriaxone Sodium 2 gm/ (Dextrose/Water) 100 mls @ 100 mls/hr IV Q24H [facility] Levofloxacin/Dextrose 750 mg/ (Premix) 150 mls @ 100 mls/hr IV Q48H [facility] Isosorbide Mononitrate (Imdur) 30 mg PO DAILY [facility] Last Admin: 10/20/17 10:20 Dose: Not Given Magnesium Hydroxide (Milk Of Magnesia) 30 ml PO Q12H PRN PRN Reason: Constipation Magnesium Sulfate (Pharmacy To Dose - Magnesium Replacement) 1 dose .XX ASDIRECTED [facility] Meclizine HCl (Antivert) 25 mg PO BID PRN PRN Reason: Other Mometasone Furoate (Asmanex Hfa 200mcg) 0 gm INH BID [facility] Last Admin: 10/20/17 08:35 Dose: 1 puff Pantoprazole Sodium (Protonix Iv) 40 mg IVPUSH DAILY [facility] Last Admin: 10/20/17 09:26 Dose: 40 mg Olodaterol Hcl [ Striverdi Respimat] 2 Puff 0 each INH QAM [facility] Last Admin: 10/20/17 09:37 Dose: Not Given Polyethylene Glycol (Miralax) 17 gm PO DAILY PRN PRN Reason: Constipation Promethazine HCl (Phenergan) 25 mg PO Q6H PRN PRN Reason: Nausea/Vomiting Rivaroxaban (Xarelto) 10 mg PO DAILY [facility] Last Admin: 10/20/17 09:26 Dose: 10 mg Rosuvastatin Calcium (Crestor) 20 mg PO QPM [facility] Last Admin: 10/19/17 20:36 Dose: 20 mg Senna/Docusate Sodium (Senna Plus) 1 tab PO BID PRN PRN Reason: Constipation Tamsulosin HCl (Flomax) 0.4 mg PO DAILY [facility] Last Admin: 10/20/17 09:26 Dose: 0.4 mg Tiotropium [place] (Spiriva Handihaler) 18 mcg INH DAILY [facility] Last Admin: 10/20/17 08:34 Dose: 1 puff Topiramate (Topamax) 25 mg PO BEDTIME [facility] Last Admin: 10/19/17 20:37 Dose: 25 mg Zolpidem Tartrate (Ambien) 5 mg PO BEDTIME [facility] Last Admin: 10/19/17 20:36 Dose: 5 mg Discontinued Medications Acetaminophen (Tylenol) 975 mg PO NOW ONE Stop: 10/19/17 10:10 Last Admin: 10/19/17 10:19 Dose: 975 mg Fluoxetine HCl (Prozac) 30 mg PO DAILY [facility] Furosemide (Lasix) 40 mg IVPUSH NOW ONE Stop: 10/19/17 11:18 Last Admin: 10/19/17 11:29 Dose: 40 mg Levofloxacin/Dextrose 750 mg/ (Premix) 150 mls @ 100 mls/hr IV ONETIME ONE Stop: 10/19/17 11:57 Last Admin: 10/19/17 10:55 Dose: 100 mls/hr Sodium Chloride (Normal Saline) 200 mls @ 999 mls/hr IV ONETIME ONE Stop: 10/19/17 10:47 Last Admin: 10/19/17 16:27 Dose: Not Given Ceftriaxone Sodium 2 gm/ (Sodium Chloride) 100 mls @ 100 mls/hr IV ONETIME ONE Stop: 10/19/17 12:51 Last Admin: 10/19/17 12:53 Dose: 100 mls/hr Sodium Chloride (Normal Saline) 200 mls @ 999 mls/hr IV ONETIME ONE Stop: 10/19/17 11:47 Last Admin: 10/19/17 16:28 Dose: Not Given Ceftriaxone Sodium 2 gm/ (Dextrose/Water) 100 mls @ 100 mls/hr IV Q24H [facility] Levofloxacin/Dextrose 750 mg/ (Premix) 150 mls @ 100 mls/hr IV Q48H [facility] Magnesium Sulfate 2 gm/ Premix 50 mls @ 25 mls/hr IV Q2H [facility] Stop: 10/19/17 19:29 Last Admin: 10/19/17 17:47 Dose: 25 mls/hr Non-Formulary Medication (Albuterol Sulfate [Proair Respiclick]) 1 puff IH Q6H PRN PRN Reason: Shortness of Breath - Exam Quality Assessment: DVT Prophylaxis General: Alert, Oriented, Cooperative, No Acute Distress HEENT: Pupils Equal, Pupils Reactive, EOMI, Mucous Membr. Moist/Show Low Neck: Supple Lungs: Normal Respiratory Effort, Crackles, Wheezing Cardiovascular: Regular Rate, Irregular Rhythm (A flutter) GI/Abdominal Exam: Normal Bowel Sounds, Soft, Non-Tender, No Organomegaly, No Abnormal Bruit, No Mass, Pelvis Stable, Distended (mild) (Male) Exam: Deferred Back Exam: Normal Inspection, Full Range of Motion Extremities: Normal Inspection, Normal Range of Motion, Non-Tender, No Pedal Edema, Normal Capillary Refill Peripheral Pulses: 1+: Posterior Tibial (L), Posterior Tibial (R), Dorsalis Pedis (L), Dorsalis Pedis (R) Skin: Warm, Dry, Intact Neurological: No New Focal Deficit, Strength Equal Bilateral, Cranial Nerves Intact (grossly) Psy/Mental Status: Alert, Normal Affect, Normal Mood - Problem List & Annotations (1) Congestive heart failure SNOMED Code(s): 08893466 Code(s): I50.9 - HEART FAILURE, UNSPECIFIED Status: Chronic Priority: High Current Visit: Yes Qualifiers: Heart failure type: diastolic Heart failure chronicity: unspecified Qualified Code(s): I50.30 - Unspecified diastolic (congestive) heart failure (2) Hypoxia SNOMED Code(s): 156150442 Code(s): R09.02 - HYPOXEMIA Status: Acute Priority: High Current Visit : Yes (3) Pneumonia SNOMED Code(s): 061544783 Code(s): J18.9 - PNEUMONIA, UNSPECIFIED ORGANISM Status: Acute Priority: High Current Visit: Yes Qualifiers: Pneumonia type: due to unspecified organism Laterality: right Lung location: lower lobe of lung Qualified Code(s): J18.1 - Lobar pneumonia, unspecified organism (4) Atrial fibrillation SNOMED Code(s): 80316032 Code(s): I48.91 - UNSPECIFIED ATRIAL FIBRILLATION Status: Acute Priority : High Current Visit: No Qualifiers: Atrial fibrillation type: paroxysmal Qualified Code(s): I48.0 - Paroxysmal atrial fibrillation Annotation/Comment:: - With Slow Ventricular Rate (5) Atrial flutter SNOMED Code(s): 0960638 Code(s): I48.92 - UNSPECIFIED ATRIAL FLUTTER Status: Acute Priority: High Current Visit: Yes Qualifiers: Atrial flutter type: unspecified Qualified Code(s): I48.92 - Unspecified atrial flutter (6) CAD (coronary artery disease) of artery bypass graft SNOMED Code(s): 670424288, 74303496, 686773082, 886258621, 048022636 Code(s): I25.810 - ATHEROSCLEROSIS OF CABG W/O ANGINA PECTORIS Status: Chronic Priority: Medium Current Visit: No Qualifiers: [place] vs. transplanted heart: unspecified whether [place] or transplanted heart Associated angina: with other forms of angina Qualified Code(s): I25.708 - Atherosclerosis of coronary artery bypass graft(s), unspecified, with other forms of angina pectoris (7) Dyspnea on exertion SNOMED Code(s): 83580393 Code(s): R06.09 - OTHER FORMS OF DYSPNEA Status: Acute Priority: High Current Visit: Yes Annotation/Comment:: - Acute on Chronic - More worse than usual (8) Hypomagnesemia SNOMED Code(s): 446729232 Code(s): E83.42 - HYPOMAGNESEMIA Status: Acute Priority: Medium Current Visit: Yes - Problem List Review Problem List Initiated/Reviewed/Updated: Yes - My Orders Last 24 Hours: My Active Orders 10/19/17 13:36 Meclizine [Antivert] 25 mg PO BID PRN 10/19/17 13:46 Ambulate [RC] ASDIRECTED Height and Weight [RC] 04 Up With Assistance [RC] ASDIRECTED Up to Chair [RC] ASDIRECTED Consult to Case Management [CONS] Routine Consult to Rib Sawyer [CONS] Routine Consult to Automotive Exhaust Emissions Technician [CONS] Routine Consult to Spiritual Care [CONS] Routine OT Evaluation and Treatment [CONS] Routine PT Evaluation and Treatment [CONS] Routine Respiratory Care Assess and Treatment [CONS] Routine Acetaminophen [Tylenol] 650 mg PO Q4H PRN Acetaminophen/HYDROcodone [[place] 325-5 MG] 1 tab PO Q4H PRN Albuterol [Proventil Neb Soln] 2.5 mg NEB Q2H PRN Albuterol/Ipratropium [DuoNeb 3.0-0.5 MG/3 ML] 3 ml NEB Q4H PRN Bisacodyl [Dulcolax] 5 mg PO DAILY PRN Docusate Sodium [Colace] 100 mg PO BID PRN Docusate Sodium/Sennosides [Senna Plus] 1 tab PO BID PRN HYDROmorphone [Dilaudid] 0.25 mg IVPUSH Q2H PRN Magnesium Hydroxide [Milk of Magnesia] 30 ml PO Q12H PRN Polyethylene Glycol 3350 [MiraLAX] 17 gm PO DAILY PRN Promethazine [Phenergan] 25 mg PO Q6H PRN Promethazine [Phenergan] 6.25 mg Sodium Chloride 0.9% [Normal Saline] 50 ml IV Q6H Resuscitation Status Routine 10/19/17 13:51 VTE/DVT Education [RC] 10,22 Vital Signs [RC] 09,15,21,03 10/19/17 13:52 Cardiac Monitoring [RC] CONTINUOUS Intake and Output [RC] 04,16 Pulse Oximetry [RC] CONTINUOUS 10/19/17 13:55 RT Aerosol Therapy [RC] ASDIRECTED 10/19/17 14:49 CULTURE SPUTUM + SMEAR [RM] Routine 10/19/17 15:15 Magnesium Rep Pharmacy to Dose [Pharmacy to Dose - Magnesium Replacement] 1 dose .XX ASDIRECTED 10/19/17 15:30 Pantoprazole [ProTONIX IV] 40 mg IVPUSH DAILY 10/19/17 15:46 Acapella [RT Chest Physiotherapy] [RC] ASDIRECTED RT Incentive Spirometry [RC] ASDIRECTED 10/19/17 21:00 Allopurinol [Zyloprim] 300 mg PO DAILY Alogliptin Benzoate [Alogliptin] 25 mg PO DAILY Carvedilol [Coreg] 3.125 mg PO BID Cholecalciferol (Vitamin D3) [Vitamin D3] 2,000 units PO DAILY Isosorbide Mononitrate [Imdur] 30 mg PO DAILY Mometasone Furoate 200mcg [Asmanex HFA 200mcg] 0 gm INH BID Rivaroxaban [Xarelto] 10 mg PO DAILY Rosuvastatin [Crestor] 20 mg PO QPM Tamsulosin [Flomax] 0.4 mg PO DAILY Tiotropium [Spiriva HandiHaler] 18 mcg INH DAILY Topiramate [Topamax] 25 mg PO BEDTIME Zolpidem [Ambien] 5 mg PO BEDTIME glipiZIDE [Glucotrol] 2.5 mg PO BID 10/19/17 Dinner ADA Diabetic [[place] [employer] Diet] [DIET] Soft Diet [DIET] 10/20/17 05:11 Echo Comp wo Cont [US] Routine 10/20/17 08:00 Patient's Own Medication [Ptom] 0 each INH QAM 10/20/17 10:54 Benzonatate [Tessalon Perles] 200 mg PO BID PRN 10/20/17 11:04 Dextromethorphan/guaiFENesin [Robitussin DM] 5 ml PO Q4H PRN 10/20/17 11:06 Blood Glucose Check, Bedside [RC] QIDACANDBED 10/20/17 11:30 Furosemide [Lasix] 20 mg PO DAILY 10/20/17 12:00 cefTRIAXone [Rocephin] 2 gm Dextrose 5% in Water 100 ml IV Q24H 10/21/17 05:11 Chest 1V Frontal [CR] AM BASIC METABOLIC PANEL,BMP [CHEM] AM C-REACTIVE PROTEIN [CHEM] AM CBC WITH AUTO DIFF [HEME] AM PRO B-TYPE NATRIUR PEPT,BNPPRO [CHEM] DAILY TROPONIN I [CHEM] AM 10/21/17 10:30 Levofloxacin/Dextrose 5%-Water [Levaquin in D5W 750 MG/150 ML] 750 mg Premix Bag 1 bag IV Q48H 10/22/17 05:11 BASIC METABOLIC PANEL,BMP [CHEM] AM C-REACTIVE PROTEIN [CHEM] AM CBC WITH AUTO DIFF [HEME] AM PRO B-TYPE NATRIUR PEPT,BNPPRO [CHEM] DAILY TROPONIN I [CHEM] AM 10/23/17 05:11 BASIC METABOLIC PANEL,BMP [CHEM] AM C-REACTIVE PROTEIN [CHEM] AM CBC WITH AUTO DIFF [HEME] AM PRO B-TYPE NATRIUR PEPT,BNPPRO [CHEM] DAILY TROPONIN I [CHEM] AM 10/24/17 05:11 BASIC METABOLIC PANEL,BMP [CHEM] AM C-REACTIVE PROTEIN [CHEM] AM CBC WITH AUTO DIFF [HEME] AM PRO B-TYPE NATRIUR PEPT,BNPPRO [CHEM] DAILY TROPONIN I [CHEM] AM - Plan Plan:: I/P: Acute: CAP, right lung -PSI/PORT Score: 158; High risk, requires admission -Risk factor: Bronchitis 2 weeks ago, given 1 week Abx at clinic, CXR last week clear -Productive cough x2 weeks, F/C, SOB x 3 days, Decreased appetite, O2 84% on RA -Temp of 103.4 in ED -WBC 11.35-->13.56, CRP 0.7-->18.9 -CXR in ED--> PNA R upper, middle, and lower lobes -IV Levoquin and Rocephin started in ED--> Continue -98% on 2L nasal cannula-->94% RA -RT/IS/Acapella/DuoNebs -Sepsis work up -Titrate O2 as needed to maintain >92% -Repeat CXR tomorrow CHF -Acute on Chronic -SOB, no pedal edema -BNP 1756-->3688 -Lasix 40 IV given in ED -IVF given in ED--> D/C -Monitor -Echo --> pending results -Lasix PRN Resolved: Elevated Troponin -0.080-->0.046 -Most likely 2/2 CHF -Asymptomatic- no chest pain -Monitor with Serial Troponins Hypomagnesemia -1.4--> 2.2 -Monitor and replenish as needed Hypotension -92/40 lowest in ED-->97/65 -IVF given in ED--> D/C -Levophed given in ED--> D/C -Hold at-home Lisinopril, Nitro, Coreg -Consider low dose Midodrine 2.5 BID -Monitor on telemetry Chronic: Afib/Aflutter -EKG in ED--> Aflutter, suspected ischemia in lateral apical wall -On Xarelto -Has Pacemaker -Monitor on telemetry CAD with CABG x4 HTN HLD PVD LVH Aortic Stenosis COPD Sleep Apnea GERD BPH Prostate CA s/p radiation DM2 with neuropathy--> Glucose checks QID CKD III Urinary Retention Anxiety/Depression Herpes left eye Plan: Transfered to ICU today He remains stable and continues to improve clinically Other orders as indicated above Routine AM labs ADA diet and soft diet (not wearing dentures) SW/CM for discharge planning PT/OT/RT DVT Prophylaxis: On Xarelto GI Prophylaxis: Protonix Ambulated as tolerated Code Status: Full Code, but doesn't want to be on long-term intubation; PCP: Dr. Casandra Reddy
[2017-10-20] MEDS: Furosemide 20 MG Tab PO SCH (13:26)
[2017-10-20] MEDS: Rosuvastatin 10 MG Tab PO SCH (17:42)
[2017-10-20] MEDS: Topiramate 25 MG Tab PO SCH (20:56)
[2017-10-20] MEDS: Zolpidem 5 MG Tab PO SCH (20:56)
[2017-10-21] MEDS: OLODATEROL HCL INH SCH (07:23)
[2017-10-21] MEDS: glipiZIDE 5 MG Tab PO SCH ×2 (08:50→21:30)
[2017-10-21] MEDS: Tamsulosin 0.4 MG Cap.ER PO SCH (08:53)
[2017-10-21] MEDS: FLUoxetine 10 MG Cap PO SCH (08:53)
[2017-10-21] MEDS: Cholecalciferol (Vitamin D3) 1,000 Unit Tab PO SCH (08:56)
[2017-10-21] MEDS: Allopurinol 300 MG Tab PO SCH (08:57)
[2017-10-21] MEDS: Rivaroxaban 10 MG Tab PO SCH (08:58)
[2017-10-21] MEDS: Furosemide 20 MG Tab PO SCH (08:58)
[2017-10-21] MEDS: Pantoprazole 40 MG Vial IVPUSH SCH (09:24)
[2017-10-21] MEDS: Mometasone Furoate HFA 200 mcg/Puff 13 GM Inhaler INH SCH ×2 (09:39→20:02)
[2017-10-21] MEDS: Tiotropium Inhaler 18 MCG Inhalation Powder Cap Kit of 5 INH SCH (09:39)
--- NOTE | 2017-10-21 10:11 | PCM.PN ---
- General Info Date of Service: 10/21/17 Functional Status: Reports: Urinating - Review of Systems General: Reports: Weakness, Malaise HEENT: Reports: No Symptoms Pulmonary: Reports: Shortness of Breath Cardiovascular: Reports: No Symptoms Gastrointestinal: Reports: No Symptoms Genitourinary: Reports: No Symptoms Musculoskeletal: Reports: No Symptoms Skin: Reports: No Symptoms Neurological: Reports: No Symptoms Psychiatric: Reports: No Symptoms - Patient Data Vitals - Most Recent: Last Vital Signs Temp 37.4 C 10/21/17 08:43 Pulse 70 10/21/17 09:37 Resp 20 10/21/17 08:43 BP 121/60 10/21/17 09:37 Pulse Ox 93 L 10/21/17 09:43 Weight - Most Recent: 80.467 kg I&O - Last 24 Hours: Intake & Output 10/20/17 10/21/17 10/21/17 22:59 06:59 14:59 Intake Total 100 350 Output Total 500 225 Balance -400 125 Lab Results Last 24 Hours: Laboratory Results - last 24 hr 10/20/17 10/20/17 10/20/17 Range/Units 04:35 17:32 21:23 WBC (4.23-9.07) K/mm3 RBC (4.63-6.08) M/mm3 Hgb (13.7-17.5) gm/L Hct (40.1-51.0) % MCV (79.0-92.2) fl MCH (25.7-32.2) pg MCHC (32.2-35.5) g/dl RDW Std Deviation (35.1-43.9) fL Plt Count (163-337) K/mm3 MPV (9.4-12.3) fl Neut % (Auto) (34.0-67.9) % Lymph % (Auto) (21.8-53.1) % [place] % (Auto) (5.3-12.2) % Eos % (Auto) (0.8-7.0) Baso % (Auto) (0.1-1.2) % Neut # (Auto) (1.78-5.38) K/mm3 Lymph # (Auto) (1.32-3.57) K/mm3 [place] # (Auto) (0.30-0.82) K/mm3 Eos # (Auto) (0.04-0.54) K/mm3 Baso # (Auto) (0.01-0.08) K/mm3 Sodium (136-145) mEq/L Potassium (3.5-5.1) mEq/L Chloride (98-107) mEq/L Carbon Dioxide (21-32) mEq/L Anion Gap (5-15) BUN (7-18) mg/dL Creatinine (0.7-1.3) mg/dL Est Cr Clr Drug Dosing mL/min Estimated GFR (MDRD) (>60) mL/min BUN/Creatinine Ratio (14-18) Glucose (83-115) mg/dL POC Glucose 186 H 156 H (83-110) mg/dL Calcium (8.5-10.1) mg/dL Magnesium 2.2 (1.8-2.4) mg/dl Troponin I (0.00-0.056) ng/mL C-Reactive Protein (<1.0) mg/dL NT-Pro-B Natriuret Pep (0-450) pg/mL 10/21/17 10/21/17 10/21/17 Range/Units 05:04 05:11 05:54 WBC 12.22 H (4.23-9.07) K/mm3 RBC 3.85 L (4.63-6.08) M/mm3 Hgb 11.8 L (13.7-17.5) gm/L Hct 36.2 L (40.1-51.0) % MCV 94.0 H (79.0-92.2) fl MCH 30.6 (25.7-32.2) pg MCHC 32.6 (32.2-35.5) g/dl RDW Std Deviation 49.6 H (35.1-43.9) fL Plt Count 142 L (163-337) K/mm3 MPV 10.2 (9.4-12.3) fl Neut % (Auto) 77.7 H (34.0-67.9) % Lymph % (Auto) 11.5 L (21.8-53.1) % [place] % (Auto) 9.5 (5.3-12.2) % Eos % (Auto) 0.6 L (0.8-7.0) Baso % (Auto) 0.2 (0.1-1.2) % Neut # (Auto) 9.50 H (1.78-5.38) K/mm3 Lymph # (Auto) 1.41 (1.32-3.57) K/mm3 [place] # (Auto) 1.16 H (0.30-0.82) K/mm3 Eos # (Auto) 0.07 (0.04-0.54) K/mm3 Baso # (Auto) 0.02 (0.01-0.08) K/mm3 Sodium 133 L (136-145) mEq/L Potassium 3.7 (3.5-5.1) mEq/L Chloride 100 (98-107) mEq/L Carbon Dioxide 21 (21-32) mEq/L Anion Gap 15.7 H (5-15) BUN 24 H (7-18) mg/dL Creatinine 1.7 H (0.7-1.3) mg/dL Est Cr Clr Drug Dosing 35.07 mL/min Estimated GFR (MDRD) 39 (>60) mL/min BUN/Creatinine Ratio 14.1 (14-18) Glucose 120 H (83-115) mg/dL POC Glucose (83-110) mg/dL Calcium 8.8 (8.5-10.1) mg/dL Magnesium 1.7 L (1.8-2.4) mg/dl Troponin I 0.028 (0.00-0.056) ng/mL C-Reactive Protein < 0.2 (<1.0) mg/dL NT-Pro-B Natriuret Pep 5780 H (0-450) pg/mL 10/21/17 Range/Units 06:25 WBC (4.23-9.07) K/mm3 RBC (4.63-6.08) M/mm3 Hgb (13.7-17.5) gm/L Hct (40.1-51.0) % MCV (79.0-92.2) fl MCH (25.7-32.2) pg MCHC (32.2-35.5) g/dl RDW Std Deviation (35.1-43.9) fL Plt Count (163-337) K/mm3 MPV (9.4-12.3) fl Neut % (Auto) (34.0-67.9) % Lymph % (Auto) (21.8-53.1) % [place] % (Auto) (5.3-12.2) % Eos % (Auto) (0.8-7.0) Baso % (Auto) (0.1-1.2) % Neut # (Auto) (1.78-5.38) K/mm3 Lymph # (Auto) (1.32-3.57) K/mm3 [place] # (Auto) (0.30-0.82) K/mm3 Eos # (Auto) (0.04-0.54) K/mm3 Baso # (Auto) (0.01-0.08) K/mm3 Sodium (136-145) mEq/L Potassium (3.5-5.1) mEq/L Chloride (98-107) mEq/L Carbon Dioxide (21-32) mEq/L Anion Gap (5-15) BUN (7-18) mg/dL Creatinine (0.7-1.3) mg/dL Est Cr Clr Drug Dosing mL/min Estimated GFR (MDRD) (>60) mL/min BUN/Creatinine Ratio (14-18) Glucose (83-115) mg/dL POC Glucose 129 H (83-110) mg/dL Calcium (8.5-10.1) mg/dL Magnesium (1.8-2.4) mg/dl Troponin I (0.00-0.056) ng/mL C-Reactive Protein (<1.0) mg/dL NT-Pro-B Natriuret Pep (0-450) pg/mL Armando Results Last 24 Hours: Microbiology 10/19/17 10:30 Aerobic Blood Culture - Preliminary Blood - Venous NO GROWTH AFTER 1 DAY Anaerobic Blood Culture - Preliminary NO GROWTH AFTER 1 DAY 10/19/17 10:40 Aerobic Blood Culture - Preliminary Blood - Venous - Lab Draw NO GROWTH AFTER 1 DAY Anaerobic Blood Culture - Preliminary NO GROWTH AFTER 1 DAY Med Orders - Current: Current Medications Acetaminophen (Tylenol) 650 mg PO Q4H PRN PRN Reason: Pain (Mild 1-3)/fever Hydrocodone Bitart/Acetaminophen ([place] 325-5 Mg) 1 tab PO Q4H PRN PRN Reason: Pain (moderate 4-6) Albuterol (Proventil Neb Soln) 2.5 mg NEB Q2H PRN PRN Reason: Shortness Of Breath/wheezing Albuterol/Ipratropium (Duoneb 3.0-0.5 Mg/3 Ml) 3 ml NEB Q4H PRN PRN Reason: Shortness Of Breath/wheezing Allopurinol (Zyloprim) 300 mg PO DAILY [facility] Last Admin: 10/21/17 08:57 Dose: 300 mg Alogliptin Benzoate (Alogliptin) 25 mg PO DAILY [facility] Last Admin: 10/21/17 08:59 Dose: 25 mg Benzonatate (Tessalon Perles) 200 mg PO BID PRN PRN Reason: Cough Last Admin: 10/20/17 13:26 Dose: 200 mg Bisacodyl (Dulcolax) 5 mg PO DAILY PRN PRN Reason: Constipation Carvedilol (Coreg) 3.125 mg PO BID [facility] Last Admin: 10/20/17 20:57 Dose: 3.125 mg Cholecalciferol (Vitamin D3) 2,000 units PO DAILY [facility] Last Admin: 10/21/17 08:56 Dose: 2,000 units Docusate Sodium (Colace) 100 mg PO BID PRN PRN Reason: Constipation Fluoxetine HCl (Prozac) 30 mg PO DAILY [facility] Last Admin: 10/21/17 08:53 Dose: 30 mg Furosemide (Lasix) 20 mg PO DAILY [facility] Last Admin: 10/21/17 08:58 Dose: 20 mg Glipizide (Glucotrol) 2.5 mg PO BID [facility] Last Admin: 10/21/17 08:50 Dose: 2.5 mg Guaifenesin/Phenylephrine HCl (Robitussin Dm) 5 ml PO Q4H PRN PRN Reason: Cough Hydromorphone HCl (Dilaudid) 0.25 mg IVPUSH Q2H PRN PRN Reason: Pain (severe 7-10) Norepinephrine Bitartrate 4 mg (/ Dextrose/Water) 250 mls @ 15 mls/hr IV TITRATE [facility]; Protocol Last Titration: 10/20/17 00:30 Dose: 0 mcg/min, 0 mls/hr Promethazine HCl 6.25 mg/ (Sodium Chloride) 50.25 mls @ 100 mls/hr IV Q6H PRN PRN Reason: Nausea/Vomiting Ceftriaxone Sodium 2 gm/ (Dextrose/Water) 100 mls @ 100 mls/hr IV Q24H [facility] Last Admin: 10/20/17 13:25 Dose: 100 mls/hr Levofloxacin/Dextrose 750 mg/ (Premix) 150 mls @ 100 mls/hr IV Q48H [facility] Isosorbide Mononitrate (Imdur) 30 mg PO DAILY [facility] Last Admin: 10/20/17 10:20 Dose: Not Given Magnesium Hydroxide (Milk Of Magnesia) 30 ml PO Q12H PRN PRN Reason: Constipation Meclizine HCl (Antivert) 25 mg PO BID PRN PRN Reason: Other Mometasone Furoate (Asmanex Hfa 200mcg) 0 gm INH BID [facility] Last Admin: 10/21/17 09:39 Dose: 1 puff Pantoprazole Sodium (Protonix Iv) 40 mg IVPUSH DAILY [facility] Last Admin: 10/21/17 09:24 Dose: 40 mg Olodaterol Hcl [ Striverdi Respimat] 2 Puff 0 each INH QAM [facility] Last Admin: 10/21/17 07:23 Dose: Not Given Polyethylene Glycol (Miralax) 17 gm PO DAILY PRN PRN Reason: Constipation Promethazine HCl (Phenergan) 25 mg PO Q6H PRN PRN Reason: Nausea/Vomiting Rivaroxaban (Xarelto) 10 mg PO DAILY [facility] Last Admin: 10/21/17 08:58 Dose: 10 mg Rosuvastatin Calcium (Crestor) 20 mg PO QPM [facility] Last Admin: 10/20/17 17:42 Dose: 20 mg Senna/Docusate Sodium (Senna Plus) 1 tab PO BID PRN PRN Reason: Constipation Tamsulosin HCl (Flomax) 0.4 mg PO DAILY [facility] Last Admin: 10/21/17 08:53 Dose: 0.4 mg Tiotropium [place] (Spiriva Handihaler) 18 mcg INH DAILY [facility] Last Admin: 10/21/17 09:39 Dose: 1 puff Topiramate (Topamax) 25 mg PO BEDTIME [facility] Last Admin: 10/20/17 20:56 Dose: 25 mg Zolpidem Tartrate (Ambien) 5 mg PO BEDTIME [facility] Last Admin: 10/20/17 20:56 Dose: 5 mg Discontinued Medications Acetaminophen (Tylenol) 975 mg PO NOW ONE Stop: 10/19/17 10:10 Last Admin: 10/19/17 10:19 Dose: 975 mg Fluoxetine HCl (Prozac) 30 mg PO DAILY [facility] Furosemide (Lasix) 40 mg IVPUSH NOW ONE Stop: 10/19/17 11:18 Last Admin: 10/19/17 11:29 Dose: 40 mg Sodium Chloride (Normal Saline) 1,000 mls @ 100 mls/hr IV ASDIRECTED [facility] Last Admin: 10/20/17 06:45 Dose: 100 mls/hr Levofloxacin/Dextrose 750 mg/ (Premix) 150 mls @ 100 mls/hr IV ONETIME ONE Stop: 10/19/17 11:57 Last Admin: 10/19/17 10:55 Dose: 100 mls/hr Sodium Chloride (Normal Saline) 200 mls @ 999 mls/hr IV ONETIME ONE Stop: 10/19/17 10:47 Last Admin: 10/19/17 16:27 Dose: Not Given Ceftriaxone Sodium 2 gm/ (Sodium Chloride) 100 mls @ 100 mls/hr IV ONETIME ONE Stop: 10/19/17 12:51 Last Admin: 10/19/17 12:53 Dose: 100 mls/hr Sodium Chloride (Normal Saline) 200 mls @ 999 mls/hr IV ONETIME ONE Stop: 10/19/17 11:47 Last Admin: 10/19/17 16:28 Dose: Not Given Ceftriaxone Sodium 2 gm/ (Dextrose/Water) 100 mls @ 100 mls/hr IV Q24H [facility] Levofloxacin/Dextrose 750 mg/ (Premix) 150 mls @ 100 mls/hr IV Q48H [facility] Magnesium Sulfate 2 gm/ Premix 50 mls @ 25 mls/hr IV Q2H [facility] Stop: 10/19/17 19:29 Last Admin: 10/19/17 17:47 Dose: 25 mls/hr Magnesium Sulfate (Pharmacy To Dose - Magnesium Replacement) 1 dose .XX ASDIRECTED [facility] Non-Formulary Medication (Albuterol Sulfate [Proair Respiclick]) 1 puff IH Q6H PRN PRN Reason: Shortness of Breath - Exam Quality Assessment: DVT Prophylaxis General: Alert, No Acute Distress HEENT: Pupils Equal, Pupils Reactive, EOMI Neck: Trachea Midline, No JVD Lungs: Normal Respiratory Effort, Decreased Breath Sounds, Rhonchi Cardiovascular: Regular Rate GI/Abdominal Exam: Normal Bowel Sounds, Soft, Non-Tender, No Organomegaly, No Distention (Male) Exam: Deferred Back Exam: Normal Inspection Extremities: Normal Inspection, Non-Tender, Pedal Edema Skin: Warm Neurological: No New Focal Deficit Psy/Mental Status: Alert - Problem List Review Problem List Initiated/Reviewed/Updated: Yes - Plan Plan:: I/P: Acute: CAP, right lung -PSI/PORT Score: 158; High risk, requires admission -Risk factor: Bronchitis 2 weeks ago, given 1 week Abx at clinic, CXR last week clear -Productive cough x2 weeks, F/C, SOB x 3 days, Decreased appetite, O2 84% on RA -Temp of 103.4 in ED -WBC 11.35-->13.56, CRP 0.7-->18.9 -CXR in ED--> PNA R upper, middle, and lower lobes -IV Levoquin and Rocephin started in ED--> Continue -98% on 2L nasal cannula-->94% RA -RT/IS/Acapella/DuoNebs -Sepsis work up -Titrate O2 as needed to maintain >92% -Repeat CXR tomorrow CHF -Acute on Chronic -SOB, no pedal edema -BNP 1756-->3688 -Lasix 40 IV given in ED -IVF given in ED--> D/C -Monitor -Echo --> pending results -Lasix PRN Resolved: Elevated Troponin -0.080-->0.046 -Most likely 2/2 CHF -Asymptomatic- no chest pain -Monitor with Serial Troponins Hypomagnesemia -1.4--> 2.2 -Monitor and replenish as needed Hypotension -92/40 lowest in ED-->97/65 -IVF given in ED--> D/C -Levophed given in ED--> D/C -Hold at-home Lisinopril, Nitro, Coreg -Consider low dose Midodrine 2.5 BID -Monitor on telemetry Chronic: Afib/Aflutter -EKG in ED--> Aflutter, suspected ischemia in lateral apical wall -On Xarelto -Has Pacemaker -Monitor on telemetry CAD with CABG x4 HTN HLD PVD LVH Aortic Stenosis COPD Sleep Apnea GERD BPH Prostate CA s/p radiation DM2 with neuropathy--> Glucose checks QID CKD III Urinary Retention Anxiety/Depression Herpes left eye Plan: Transfered to ICU today He remains stable and continues to improve clinically Other orders as indicated above Routine AM labs ADA diet and soft diet (not wearing dentures) SW/CM for discharge planning PT/OT/RT DVT Prophylaxis: On Xarelto GI Prophylaxis: Protonix Ambulated as tolerated LOS~96 hours Code Status: Full Code, but doesn't want to be on long-term intubation; PCP: Dr. Casandra Reddy
[2017-10-21] MEDS ORDERED: Levofloxacin/Dextrose 5%-Water 750 MG in Premix Bag 1 BAG IV SCH (10:30)
[2017-10-21] MEDS: Isosorbide Mononitrate 30 MG Tab.ER PO SCH (11:20)
[2017-10-21] MEDS: Carvedilol 3.125 MG Tab PO SCH ×2 (11:20→21:31)
[2017-10-21] MEDS: Levofloxacin/Dextrose 5%-Water 750 MG in Premix Bag 1 BAG IV SCH (11:24)
[2017-10-21] MEDS: Rosuvastatin 10 MG Tab PO SCH (17:08)
[2017-10-21] MEDS ORDERED: Magnesium Sulfate/Water 2 GM in Premix Bag 1 BAG IV ONE (17:35)
[2017-10-21] MEDS: Acetaminophen 325 MG Tab PO PRN (18:13)
[2017-10-21] MEDS: Zolpidem 5 MG Tab PO SCH (21:31)
[2017-10-21] MEDS: Topiramate 25 MG Tab PO SCH (21:31)
[2017-10-22] MEDS: Rivaroxaban 10 MG Tab PO SCH (09:06)
[2017-10-22] MEDS: Pantoprazole 40 MG Vial IVPUSH SCH (09:06)
[2017-10-22] MEDS: Carvedilol 3.125 MG Tab PO SCH ×2 (09:06→20:55)
[2017-10-22] MEDS: Furosemide 40 MG/4 ML VIAL IVPUSH SCH (09:06)
[2017-10-22] MEDS: FLUoxetine 10 MG Cap PO SCH (09:06)
[2017-10-22] MEDS: Tamsulosin 0.4 MG Cap.ER PO SCH (09:06)
[2017-10-22] MEDS: Allopurinol 300 MG Tab PO SCH (09:07)
[2017-10-22] MEDS: glipiZIDE 5 MG Tab PO SCH ×2 (09:07→20:55)
[2017-10-22] MEDS: Isosorbide Mononitrate 30 MG Tab.ER PO SCH (09:07)
[2017-10-22] MEDS: Cholecalciferol (Vitamin D3) 1,000 Unit Tab PO SCH (09:07)
[2017-10-22] MEDS: Tiotropium Inhaler 18 MCG Inhalation Powder Cap Kit of 5 INH SCH (09:21)
[2017-10-22] MEDS: Mometasone Furoate HFA 200 mcg/Puff 13 GM Inhaler INH SCH ×2 (09:22→20:03)
[2017-10-22] MEDS ORDERED: Potassium Chloride 20 MEQ Tab.ER PO ONE (10:00)
[2017-10-22] MEDS ORDERED: Magnesium Sulfate/Water 2 GM in Premix Bag 1 BAG IV ONE (10:00)
--- NOTE | 2017-10-22 11:52 | PCM.PN ---
- General Info Date of Service: 10/22/17 Functional Status: Reports: Tolerating Diet, Urinating - Review of Systems General: Reports: Weakness HEENT: Reports: No Symptoms Pulmonary: Reports: Shortness of Breath Cardiovascular: Reports: No Symptoms Gastrointestinal: Reports: No Symptoms Genitourinary: Reports: No Symptoms Musculoskeletal: Reports: No Symptoms Skin: Reports: No Symptoms Neurological: Reports: No Symptoms Psychiatric: Reports: No Symptoms - Patient Data Vitals - Most Recent: Last Vital Signs Temp 37.1 C 10/22/17 08:58 Pulse 68 10/22/17 09:06 Resp 20 10/22/17 08:58 BP 119/83 10/22/17 09:07 Pulse Ox 91 L 10/22/17 09:22 Weight - Most Recent: 79.152 kg I&O - Last 24 Hours: Intake & Output 10/21/17 10/22/17 10/22/17 22:59 06:59 14:59 Intake Total 500 950 Output Total 400 400 Balance 100 550 Lab Results Last 24 Hours: Laboratory Results - last 24 hr 10/21/17 10/21/17 10/22/17 Range/Units 17:12 21:29 05:55 WBC 9.74 H (4.23-9.07) K/mm3 RBC 3.71 L (4.63-6.08) M/mm3 Hgb 11.7 L (13.7-17.5) gm/L Hct 34.9 L (40.1-51.0) % MCV 94.1 H (79.0-92.2) fl MCH 31.5 (25.7-32.2) pg MCHC 33.5 (32.2-35.5) g/dl RDW Std Deviation 47.7 H (35.1-43.9) fL Plt Count 157 L (163-337) K/mm3 MPV 10.3 (9.4-12.3) fl Neut % (Auto) 78.1 H (34.0-67.9) % Lymph % (Auto) 9.9 L (21.8-53.1) % [place] % (Auto) 9.3 (5.3-12.2) % Eos % (Auto) 2.1 (0.8-7.0) Baso % (Auto) 0.1 (0.1-1.2) % Neut # (Auto) 7.61 H (1.78-5.38) K/mm3 Lymph # (Auto) 0.96 L (1.32-3.57) K/mm3 [place] # (Auto) 0.91 H (0.30-0.82) K/mm3 Eos # (Auto) 0.20 (0.04-0.54) K/mm3 Baso # (Auto) 0.01 (0.01-0.08) K/mm3 Manual Slide Review Normal smear Sodium (136-145) mEq/L Potassium (3.5-5.1) mEq/L Chloride (98-107) mEq/L Carbon Dioxide (21-32) mEq/L Anion Gap (5-15) BUN (7-18) mg/dL Creatinine (0.7-1.3) mg/dL Est Cr Clr Drug Dosing mL/min Estimated GFR (MDRD) (>60) mL/min BUN/Creatinine Ratio (14-18) Glucose (83-115) mg/dL POC Glucose 73 L 125 H (83-110) mg/dL Calcium (8.5-10.1) mg/dL Magnesium (1.8-2.4) mg/dl Troponin I (0.00-0.056) ng/mL C-Reactive Protein (<1.0) mg/dL NT-Pro-B Natriuret Pep (0-450) pg/mL 10/22/17 10/22/17 10/22/17 Range/Units 05:55 05:55 06:07 WBC (4.23-9.07) K/mm3 RBC (4.63-6.08) M/mm3 Hgb (13.7-17.5) gm/L Hct (40.1-51.0) % MCV (79.0-92.2) fl MCH (25.7-32.2) pg MCHC (32.2-35.5) g/dl RDW Std Deviation (35.1-43.9) fL Plt Count (163-337) K/mm3 MPV (9.4-12.3) fl Neut % (Auto) (34.0-67.9) % Lymph % (Auto) (21.8-53.1) % [place] % (Auto) (5.3-12.2) % Eos % (Auto) (0.8-7.0) Baso % (Auto) (0.1-1.2) % Neut # (Auto) (1.78-5.38) K/mm3 Lymph # (Auto) (1.32-3.57) K/mm3 [place] # (Auto) (0.30-0.82) K/mm3 Eos # (Auto) (0.04-0.54) K/mm3 Baso # (Auto) (0.01-0.08) K/mm3 Manual Slide Review Sodium 131 L (136-145) mEq/L Potassium 3.8 (3.5-5.1) mEq/L Chloride 99 (98-107) mEq/L Carbon Dioxide 22 (21-32) mEq/L Anion Gap 13.8 (5-15) BUN 24 H (7-18) mg/dL Creatinine 1.7 H (0.7-1.3) mg/dL Est Cr Clr Drug Dosing 35.07 mL/min Estimated GFR (MDRD) 39 (>60) mL/min BUN/Creatinine Ratio 14.1 (14-18) Glucose 81 L (83-115) mg/dL POC Glucose 92 (83-110) mg/dL Calcium 9.1 (8.5-10.1) mg/dL Magnesium 1.9 (1.8-2.4) mg/dl Troponin I < 0.017 (0.00-0.056) ng/mL C-Reactive Protein 22.6 H* (<1.0) mg/dL NT-Pro-B Natriuret Pep 3801 H (0-450) pg/mL 10/22/17 Range/Units 11:18 WBC (4.23-9.07) K/mm3 RBC (4.63-6.08) M/mm3 Hgb (13.7-17.5) gm/L Hct (40.1-51.0) % MCV (79.0-92.2) fl MCH (25.7-32.2) pg MCHC (32.2-35.5) g/dl RDW Std Deviation (35.1-43.9) fL Plt Count (163-337) K/mm3 MPV (9.4-12.3) fl Neut % (Auto) (34.0-67.9) % Lymph % (Auto) (21.8-53.1) % [place] % (Auto) (5.3-12.2) % Eos % (Auto) (0.8-7.0) Baso % (Auto) (0.1-1.2) % Neut # (Auto) (1.78-5.38) K/mm3 Lymph # (Auto) (1.32-3.57) K/mm3 [place] # (Auto) (0.30-0.82) K/mm3 Eos # (Auto) (0.04-0.54) K/mm3 Baso # (Auto) (0.01-0.08) K/mm3 Manual Slide Review Sodium (136-145) mEq/L Potassium (3.5-5.1) mEq/L Chloride (98-107) mEq/L Carbon Dioxide (21-32) mEq/L Anion Gap (5-15) BUN (7-18) mg/dL Creatinine (0.7-1.3) mg/dL Est Cr Clr Drug Dosing mL/min Estimated GFR (MDRD) (>60) mL/min BUN/Creatinine Ratio (14-18) Glucose (83-115) mg/dL POC Glucose 103 (83-110) mg/dL Calcium (8.5-10.1) mg/dL Magnesium (1.8-2.4) mg/dl Troponin I (0.00-0.056) ng/mL C-Reactive Protein (<1.0) mg/dL NT-Pro-B Natriuret Pep (0-450) pg/mL Armando Results Last 24 Hours: Microbiology 10/19/17 10:30 Aerobic Blood Culture - Preliminary Blood - Venous NO GROWTH AFTER 3 DAYS Anaerobic Blood Culture - Preliminary NO GROWTH AFTER 3 DAYS 10/19/17 10:40 Aerobic Blood Culture - Preliminary Blood - Venous - Lab Draw NO GROWTH AFTER 3 DAYS Anaerobic Blood Culture - Preliminary NO GROWTH AFTER 3 DAYS Med Orders - Current: Current Medications Acetaminophen (Tylenol) 650 mg PO Q4H PRN PRN Reason: Pain (Mild 1-3)/fever Last Admin: 10/21/17 18:13 Dose: 650 mg Hydrocodone Bitart/Acetaminophen (Eure 325-5 Mg) 1 tab PO Q4H PRN PRN Reason: Pain (moderate 4-6) Albuterol (Proventil Neb Soln) 2.5 mg NEB Q2H PRN PRN Reason: Shortness Of Breath/wheezing Albuterol/Ipratropium (Duoneb 3.0-0.5 Mg/3 Ml) 3 ml NEB Q4H PRN PRN Reason: Shortness Of Breath/wheezing Allopurinol (Zyloprim) 300 mg PO DAILY [facility] Last Admin: 10/22/17 09:07 Dose: 300 mg Alogliptin Benzoate (Alogliptin) 25 mg PO DAILY [facility] Last Admin: 10/22/17 09:06 Dose: 25 mg Benzonatate (Tessalon Perles) 200 mg PO BID PRN PRN Reason: Cough Last Admin: 10/20/17 13:26 Dose: 200 mg Bisacodyl (Dulcolax) 5 mg PO DAILY PRN PRN Reason: Constipation Last Admin: 10/21/17 21:33 Dose: 5 mg Carvedilol (Coreg) 3.125 mg PO BID [facility] Last Admin: 10/22/17 09:06 Dose: 3.125 mg Cholecalciferol (Vitamin D3) 2,000 units PO DAILY [facility] Last Admin: 10/22/17 09:07 Dose: 2,000 units Docusate Sodium (Colace) 100 mg PO BID PRN PRN Reason: Constipation Last Admin: 10/22/17 10:09 Dose: 100 mg Fluoxetine HCl (Prozac) 30 mg PO DAILY [facility] Last Admin: 10/22/17 09:06 Dose: 30 mg Furosemide (Lasix) 20 mg PO DAILY [facility] Last Admin: 10/21/17 08:58 Dose: 20 mg Furosemide (Lasix) 40 mg IVPUSH DAILY [facility] Last Admin: 10/22/17 09:06 Dose: 40 mg Glipizide (Glucotrol) 2.5 mg PO BID [facility] Last Admin: 10/22/17 09:07 Dose: 2.5 mg Guaifenesin/Phenylephrine HCl (Robitussin Dm) 5 ml PO Q4H PRN PRN Reason: Cough Hydromorphone HCl (Dilaudid) 0.25 mg IVPUSH Q2H PRN PRN Reason: Pain (severe 7-10) Norepinephrine Bitartrate 4 mg (/ Dextrose/Water) 250 mls @ 15 mls/hr IV TITRATE [facility]; Protocol Last Titration: 10/20/17 00:30 Dose: 0 mcg/min, 0 mls/hr Promethazine HCl 6.25 mg/ (Sodium Chloride) 50.25 mls @ 100 mls/hr IV Q6H PRN PRN Reason: Nausea/Vomiting Ceftriaxone Sodium 2 gm/ (Dextrose/Water) 100 mls @ 100 mls/hr IV Q24H [facility] Last Admin: 10/21/17 11:09 Dose: 100 mls/hr Levofloxacin/Dextrose 750 mg/ (Premix) 150 mls @ 100 mls/hr IV Q48H [facility] Last Admin: 10/21/17 11:24 Dose: 100 mls/hr Magnesium Sulfate 2 gm/ Premix 50 mls @ 25 mls/hr IV ONETIME ONE Stop: 10/22/17 11:59 Last Admin: 10/22/17 10:09 Dose: 25 mls/hr Isosorbide Mononitrate (Imdur) 30 mg PO DAILY [facility] Last Admin: 10/22/17 09:07 Dose: 30 mg Magnesium Hydroxide (Milk Of Magnesia) 30 ml PO Q12H PRN PRN Reason: Constipation Last Admin: 10/22/17 10:09 Dose: 30 ml Meclizine HCl (Antivert) 25 mg PO BID PRN PRN Reason: Other Mometasone Furoate (Asmanex Hfa 200mcg) 0 gm INH BID [facility] Last Admin: 10/22/17 09:22 Dose: 1 puff Pantoprazole Sodium (Protonix Iv) 40 mg IVPUSH DAILY [facility] Last Admin: 10/22/17 09:06 Dose: 40 mg Olodaterol Hcl [ Striverdi Respimat] 2 Puff 0 each INH QAM [facility] Last Admin: 10/21/17 07:23 Dose: Not Given Polyethylene Glycol (Miralax) 17 gm PO DAILY PRN PRN Reason: Constipation Last Admin: 10/22/17 10:09 Dose: 17 gm Promethazine HCl (Phenergan) 25 mg PO Q6H PRN PRN Reason: Nausea/Vomiting Rivaroxaban (Xarelto) 10 mg PO DAILY [facility] Last Admin: 10/22/17 09:06 Dose: 10 mg Rosuvastatin Calcium (Crestor) 20 mg PO QPM [facility] Last Admin: 10/21/17 17:08 Dose: 20 mg Senna/Docusate Sodium (Senna Plus) 1 tab PO BID PRN PRN Reason: Constipation Tamsulosin HCl (Flomax) 0.4 mg PO DAILY [facility] Last Admin: 10/22/17 09:06 Dose: 0.4 mg Tiotropium [place] (Spiriva Handihaler) 18 mcg INH DAILY [facility] Last Admin: 10/22/17 09:21 Dose: 1 puff Topiramate (Topamax) 25 mg PO BEDTIME [facility] Last Admin: 10/21/17 21:31 Dose: 25 mg Zolpidem Tartrate (Ambien) 5 mg PO BEDTIME [facility] Last Admin: 10/21/17 21:31 Dose: 5 mg Discontinued Medications Acetaminophen (Tylenol) 975 mg PO NOW ONE Stop: 10/19/17 10:10 Last Admin: 10/19/17 10:19 Dose: 975 mg Fluoxetine HCl (Prozac) 30 mg PO DAILY [facility] Furosemide (Lasix) 40 mg IVPUSH NOW ONE Stop: 10/19/17 11:18 Last Admin: 10/19/17 11:29 Dose: 40 mg Sodium Chloride (Normal Saline) 1,000 mls @ 100 mls/hr IV ASDIRECTED [facility] Last Admin: 10/20/17 06:45 Dose: 100 mls/hr Levofloxacin/Dextrose 750 mg/ (Premix) 150 mls @ 100 mls/hr IV ONETIME ONE Stop: 10/19/17 11:57 Last Admin: 10/19/17 10:55 Dose: 100 mls/hr Sodium Chloride (Normal Saline) 200 mls @ 999 mls/hr IV ONETIME ONE Stop: 10/19/17 10:47 Last Admin: 10/19/17 16:27 Dose: Not Given Ceftriaxone Sodium 2 gm/ (Sodium Chloride) 100 mls @ 100 mls/hr IV ONETIME ONE Stop: 10/19/17 12:51 Last Admin: 10/19/17 12:53 Dose: 100 mls/hr Sodium Chloride (Normal Saline) 200 mls @ 999 mls/hr IV ONETIME ONE Stop: 10/19/17 11:47 Last Admin: 10/19/17 16:28 Dose: Not Given Ceftriaxone Sodium 2 gm/ (Dextrose/Water) 100 mls @ 100 mls/hr IV Q24H [facility] Levofloxacin/Dextrose 750 mg/ (Premix) 150 mls @ 100 mls/hr IV Q48H [facility] Magnesium Sulfate 2 gm/ Premix 50 mls @ 25 mls/hr IV Q2H [facility] Stop: 10/19/17 19:29 Last Admin: 10/19/17 17:47 Dose: 25 mls/hr Magnesium Sulfate 2 gm/ Premix 50 mls @ 25 mls/hr IV ONETIME ONE Stop: 10/21/17 19:34 Last Admin: 10/21/17 17:59 Dose: 25 mls/hr Magnesium Sulfate (Pharmacy To Dose - Magnesium Replacement) 1 dose .XX ASDIRECTED [facility] Non-Formulary Medication (Albuterol Sulfate [Proair Respiclick]) 1 puff IH Q6H PRN PRN Reason: Shortness of Breath Potassium Chloride (Klor-Con M20) 40 meq PO ONETIME ONE Stop: 10/22/17 10:01 Last Admin: 10/22/17 10:09 Dose: 40 meq - Exam Quality Assessment: DVT Prophylaxis General: Alert, Oriented, Cooperative, No Acute Distress HEENT: Pupils Equal, Pupils Reactive, EOMI Neck: Trachea Midline, No JVD Lungs: Normal Respiratory Effort Cardiovascular: Regular Rate, Regular Rhythm GI/Abdominal Exam: Normal Bowel Sounds, Soft, Non-Tender, No Organomegaly, No Distention (Male) Exam: Deferred Back Exam: Normal Inspection Extremities: Normal Inspection, Non-Tender Skin: Warm Neurological: No New Focal Deficit Psy/Mental Status: Alert, Normal Affect, Normal Mood - Problem List Review Problem List Initiated/Reviewed/Updated: Yes - My Orders Last 24 Hours: My Active Orders 10/22/17 09:00 Furosemide [Lasix] 40 mg IVPUSH DAILY 10/22/17 10:00 Magnesium Sulfate/Water [Magnesium Sulfate 2 GM in Water 50 ML] 2 gm Premix Bag 1 bag IV ONETIME 10/23/17 09:00 CXR [Chest 2V] [CR] Routine - Plan Plan:: I/P: Acute: CAP, right lung -PSI/PORT Score: 158; High risk, requires admission -Risk factor: Bronchitis 2 weeks ago, given 1 week Abx at clinic, CXR last week clear -Productive cough x2 weeks, F/C, SOB x 3 days, Decreased appetite, O2 84% on RA -Temp of 103.4 in ED -WBC 11.35-->13.56, CRP 0.7-->18.9 -CXR in ED--> PNA R upper, middle, and lower lobes -IV Levoquin and Rocephin started in ED--> Continue -98% on 2L nasal cannula-->94% RA -RT/IS/Acapella/DuoNebs -Sepsis work up -Titrate O2 as needed to maintain >92% -Repeat CXR tomorrow CHF -Acute on Chronic -SOB, no pedal edema -BNP 1756-->3688-->5K -Lasix 40 IV given in ED -IVF given in ED--> D/C -Monitor -Echo --> pending results -Lasix PRN Resolved: Elevated Troponin -0.080-->0.046 -Most likely 2/2 CHF -Asymptomatic- no chest pain -Monitor with Serial Troponins Hypomagnesemia -1.4--> 2.2 -Monitor and replenish as needed Hypotension--resolved -92/40 lowest in ED-->97/65 -IVF given in ED--> D/C -Levophed given in ED--> D/C -Hold at-home Lisinopril, Nitro, Coreg -Consider low dose Midodrine 2.5 BID -Monitor on telemetry Chronic: Afib/Aflutter -EKG in ED--> Aflutter, suspected ischemia in lateral apical wall -On Xarelto -Has Pacemaker -Monitor on telemetry CAD with CABG x4 HTN HLD PVD LVH Aortic Stenosis COPD Sleep Apnea GERD BPH Prostate CA s/p radiation DM2 with neuropathy--> Glucose checks QID CKD III Urinary Retention Anxiety/Depression Herpes left eye Plan: MS telemetry Diurese as tolerated, elevated BNP with IVF given Other orders as indicated above Routine AM labs ADA diet and soft diet (not wearing dentures) SW/CM for discharge planning PT/OT/RT DVT Prophylaxis: On Xarelto GI Prophylaxis: Protonix Ambulated as tolerated LOS>96 hours, slow response to PNA RX. Code Status: Full Code, but doesn't want to be on long-term intubation; PCP: Dr. Casandra Reddy
[2017-10-22] MEDS: Potassium Chloride/Sodium Chloride Tab PO SCH ×2 (12:39→20:55)
[2017-10-22] MEDS: Saccharomyces Boulardii (Probiotic) 250 MG Cap PO SCH (12:39)
[2017-10-22] MEDS: Acetaminophen 325 MG Tab PO PRN (15:57)
[2017-10-22] MEDS ORDERED: Bisacodyl 10 MG Supp RECTAL ONE (17:59)
[2017-10-22] MEDS: Rosuvastatin 10 MG Tab PO SCH (18:08)
[2017-10-22] MEDS: OLODATEROL HCL INH SCH (19:29)
[2017-10-22] MEDS: Zolpidem 5 MG Tab PO SCH (20:55)
[2017-10-22] MEDS: Topiramate 25 MG Tab PO SCH (20:56)
[2017-10-23] MEDS: Mometasone Furoate HFA 200 mcg/Puff 13 GM Inhaler INH SCH ×2 (08:15→20:06)
[2017-10-23] MEDS: Tiotropium Inhaler 18 MCG Inhalation Powder Cap Kit of 5 INH SCH (08:15)
[2017-10-23] MEDS: Pantoprazole 40 MG Vial IVPUSH SCH (08:34)
[2017-10-23] MEDS: Rivaroxaban 10 MG Tab PO SCH (08:34)
[2017-10-23] MEDS: Cholecalciferol (Vitamin D3) 1,000 Unit Tab PO SCH (08:34)
[2017-10-23] MEDS: Isosorbide Mononitrate 30 MG Tab.ER PO SCH (08:34)
[2017-10-23] MEDS: Allopurinol 300 MG Tab PO SCH (08:34)
[2017-10-23] MEDS: Saccharomyces Boulardii (Probiotic) 250 MG Cap PO SCH (08:34)
[2017-10-23] MEDS: Furosemide 40 MG/4 ML VIAL IVPUSH SCH (08:34)
--- NOTE | 2017-10-23 08:37 | CR ---
Chest: Frontal view of the chest was obtained utilizing portable technique. Comparison: Prior chest x-ray of 10/19/17. Heart is enlarged. Tortuous thoracic aorta is seen. Sternotomy and prior CABG is noted. Pacemaker is seen. Increased density is noted within the right chest. Findings have slightly improved from previous exam. Left lung is clear. Impression: 1. Parenchymal density within the right chest. Findings are slightly improved from previous exam performed 2 days earlier. 2. Other incidental findings. Diagnostic code #3 Agree with preliminary report issued by [employer] ([employer] preliminary report dictated on 10/21/17, 9:56 AM Central Time)
--- NOTE | 2017-10-23 08:37 | CR ---
Chest: Two views of the chest are obtained. Comparison: Prior chest x-ray of 10/21/17. Diffuse right-sided density is seen. Findings are less dense than on prior study presumably due to slight improvement. Lungs otherwise are clear. Heart size is normal. Tortuous thoracic aorta is seen. Pacemaker is noted. Degenerative change and osteopenia is seen within the spine. Previous vertebroplasty within the upper lumbar spine. Diaphragms are flattened on the lateral view compatible with emphysematous change. Impression: 1. Diffuse right-sided density showing slight improvement from previous exam. 2. Stable emphysematous change and other incidental findings. Diagnostic code #3
[2017-10-23] MEDS: Potassium Chloride/Sodium Chloride Tab PO SCH ×2 (08:38→20:35)
[2017-10-23] MEDS: Tamsulosin 0.4 MG Cap.ER PO SCH (08:38)
[2017-10-23] MEDS: Carvedilol 3.125 MG Tab PO SCH ×2 (08:38→20:35)
[2017-10-23] MEDS: glipiZIDE 5 MG Tab PO SCH ×2 (08:38→20:35)
[2017-10-23] MEDS: FLUoxetine 10 MG Cap PO SCH (08:38)
[2017-10-23] MEDS: Acetaminophen 325 MG Tab PO PRN (09:56)
[2017-10-23] MEDS: Levofloxacin/Dextrose 5%-Water 750 MG in Premix Bag 1 BAG IV SCH (11:08)
--- NOTE | 2017-10-23 12:32 | PCM.PN ---
- General Info Date of Service: 10/23/17 Functional Status: Reports: Pain Controlled, Tolerating Diet - Review of Systems General: Reports: Weakness HEENT: Reports: No Symptoms Pulmonary: Reports: No Symptoms Cardiovascular: Reports: No Symptoms Gastrointestinal: Reports: No Symptoms Genitourinary: Reports: No Symptoms Musculoskeletal: Reports: No Symptoms Skin: Reports: No Symptoms Neurological: Reports: No Symptoms Psychiatric: Reports: No Symptoms - Patient Data Vitals - Most Recent: Last Vital Signs Temp 37.2 C 10/23/17 08:36 Pulse 71 10/23/17 08:38 Resp 20 10/23/17 08:36 BP 128/96 H 10/23/17 08:38 Pulse Ox 91 L 10/23/17 08:36 Weight - Most Recent: 77.428 kg I&O - Last 24 Hours: Intake & Output 10/22/17 10/23/17 10/23/17 22:59 06:59 14:59 Intake Total 1050 700 Output Total 1200 Balance -150 700 Lab Results Last 24 Hours: Laboratory Results - last 24 hr 10/22/17 10/22/17 10/23/17 Range/Units 17:57 20:54 05:58 WBC 7.75 (4.23-9.07) K/mm3 RBC 4.12 L (4.63-6.08) M/mm3 Hgb 12.9 L (13.7-17.5) gm/L Hct 38.6 L (40.1-51.0) % MCV 93.7 H (79.0-92.2) fl MCH 31.3 (25.7-32.2) pg MCHC 33.4 (32.2-35.5) g/dl RDW Std Deviation 47.5 H (35.1-43.9) fL Plt Count 203 (163-337) K/mm3 MPV 10.0 (9.4-12.3) fl Neut % (Auto) 73.2 H (34.0-67.9) % Lymph % (Auto) 12.4 L (21.8-53.1) % [place] % (Auto) 10.2 (5.3-12.2) % Eos % (Auto) 3.1 (0.8-7.0) Baso % (Auto) 0.1 (0.1-1.2) % Neut # (Auto) 5.67 H (1.78-5.38) K/mm3 Lymph # (Auto) 0.96 L (1.32-3.57) K/mm3 [place] # (Auto) 0.79 (0.30-0.82) K/mm3 Eos # (Auto) 0.24 (0.04-0.54) K/mm3 Baso # (Auto) 0.01 (0.01-0.08) K/mm3 Sodium (136-145) mEq/L Potassium (3.5-5.1) mEq/L Chloride (98-107) mEq/L Carbon Dioxide (21-32) mEq/L Anion Gap (5-15) BUN (7-18) mg/dL Creatinine (0.7-1.3) mg/dL Est Cr Clr Drug Dosing mL/min Estimated GFR (MDRD) (>60) mL/min BUN/Creatinine Ratio (14-18) Glucose (83-115) mg/dL POC Glucose 97 97 (83-110) mg/dL Calcium (8.5-10.1) mg/dL Magnesium (1.8-2.4) mg/dl Troponin I (0.00-0.056) ng/mL C-Reactive Protein (<1.0) mg/dL NT-Pro-B Natriuret Pep (0-450) pg/mL 10/23/17 10/23/17 10/23/17 Range/Units 05:58 05:58 06:09 WBC (4.23-9.07) K/mm3 RBC (4.63-6.08) M/mm3 Hgb (13.7-17.5) gm/L Hct (40.1-51.0) % MCV (79.0-92.2) fl MCH (25.7-32.2) pg MCHC (32.2-35.5) g/dl RDW Std Deviation (35.1-43.9) fL Plt Count (163-337) K/mm3 MPV (9.4-12.3) fl Neut % (Auto) (34.0-67.9) % Lymph % (Auto) (21.8-53.1) % [place] % (Auto) (5.3-12.2) % Eos % (Auto) (0.8-7.0) Baso % (Auto) (0.1-1.2) % Neut # (Auto) (1.78-5.38) K/mm3 Lymph # (Auto) (1.32-3.57) K/mm3 [place] # (Auto) (0.30-0.82) K/mm3 Eos # (Auto) (0.04-0.54) K/mm3 Baso # (Auto) (0.01-0.08) K/mm3 Sodium 133 L (136-145) mEq/L Potassium 4.6 (3.5-5.1) mEq/L Chloride 99 (98-107) mEq/L Carbon Dioxide 24 (21-32) mEq/L Anion Gap 14.6 (5-15) BUN 28 H (7-18) mg/dL Creatinine 1.7 H (0.7-1.3) mg/dL Est Cr Clr Drug Dosing 35.07 mL/min Estimated GFR (MDRD) 39 (>60) mL/min BUN/Creatinine Ratio 16.5 (14-18) Glucose 83 (83-115) mg/dL POC Glucose 82 L (83-110) mg/dL Calcium 9.8 (8.5-10.1) mg/dL Magnesium 2.3 (1.8-2.4) mg/dl Troponin I < 0.017 (0.00-0.056) ng/mL C-Reactive Protein 21.5 H* (<1.0) mg/dL NT-Pro-B Natriuret Pep 2697 H (0-450) pg/mL 10/23/17 Range/Units 11:18 WBC (4.23-9.07) K/mm3 RBC (4.63-6.08) M/mm3 Hgb (13.7-17.5) gm/L Hct (40.1-51.0) % MCV (79.0-92.2) fl MCH (25.7-32.2) pg MCHC (32.2-35.5) g/dl RDW Std Deviation (35.1-43.9) fL Plt Count (163-337) K/mm3 MPV (9.4-12.3) fl Neut % (Auto) (34.0-67.9) % Lymph % (Auto) (21.8-53.1) % [place] % (Auto) (5.3-12.2) % Eos % (Auto) (0.8-7.0) Baso % (Auto) (0.1-1.2) % Neut # (Auto) (1.78-5.38) K/mm3 Lymph # (Auto) (1.32-3.57) K/mm3 [place] # (Auto) (0.30-0.82) K/mm3 Eos # (Auto) (0.04-0.54) K/mm3 Baso # (Auto) (0.01-0.08) K/mm3 Sodium (136-145) mEq/L Potassium (3.5-5.1) mEq/L Chloride (98-107) mEq/L Carbon Dioxide (21-32) mEq/L Anion Gap (5-15) BUN (7-18) mg/dL Creatinine (0.7-1.3) mg/dL Est Cr Clr Drug Dosing mL/min Estimated GFR (MDRD) (>60) mL/min BUN/Creatinine Ratio (14-18) Glucose (83-115) mg/dL POC Glucose 113 H (83-110) mg/dL Calcium (8.5-10.1) mg/dL Magnesium (1.8-2.4) mg/dl Troponin I (0.00-0.056) ng/mL C-Reactive Protein (<1.0) mg/dL NT-Pro-B Natriuret Pep (0-450) pg/mL Armando Results Last 24 Hours: Microbiology 10/19/17 10:30 Aerobic Blood Culture - Preliminary Blood - Venous NO GROWTH AFTER 4 DAYS Anaerobic Blood Culture - Preliminary NO GROWTH AFTER 4 DAYS 10/19/17 10:40 Aerobic Blood Culture - Preliminary Blood - Venous - Lab Draw NO GROWTH AFTER 4 DAYS Anaerobic Blood Culture - Preliminary NO GROWTH AFTER 4 DAYS Med Orders - Current: Current Medications Acetaminophen (Tylenol) 650 mg PO Q4H PRN PRN Reason: Pain (Mild 1-3)/fever Last Admin: 10/23/17 09:56 Dose: 650 mg Hydrocodone Bitart/Acetaminophen ([place] 325-5 Mg) 1 tab PO Q4H PRN PRN Reason: Pain (moderate 4-6) Albuterol (Proventil Neb Soln) 2.5 mg NEB Q2H PRN PRN Reason: Shortness Of Breath/wheezing Albuterol/Ipratropium (Duoneb 3.0-0.5 Mg/3 Ml) 3 ml NEB Q4H PRN PRN Reason: Shortness Of Breath/wheezing Allopurinol (Zyloprim) 300 mg PO DAILY [facility] Last Admin: 10/23/17 08:34 Dose: 300 mg Alogliptin Benzoate (Alogliptin) 25 mg PO DAILY [facility] Last Admin: 10/23/17 08:34 Dose: 25 mg Benzonatate (Tessalon Perles) 200 mg PO BID PRN PRN Reason: Cough Last Admin: 10/20/17 13:26 Dose: 200 mg Bisacodyl (Dulcolax) 5 mg PO DAILY PRN PRN Reason: Constipation Last Admin: 10/21/17 21:33 Dose: 5 mg Carvedilol (Coreg) 3.125 mg PO BID [facility] Last Admin: 10/23/17 08:38 Dose: 3.125 mg Cholecalciferol (Vitamin D3) 2,000 units PO DAILY [facility] Last Admin: 10/23/17 08:34 Dose: 2,000 units Docusate Sodium (Colace) 100 mg PO BID PRN PRN Reason: Constipation Last Admin: 10/22/17 10:09 Dose: 100 mg Fluoxetine HCl (Prozac) 30 mg PO DAILY [facility] Last Admin: 10/23/17 08:38 Dose: 30 mg Furosemide (Lasix) 20 mg PO DAILY [facility] Last Admin: 10/21/17 08:58 Dose: 20 mg Furosemide (Lasix) 40 mg IVPUSH DAILY [facility] Last Admin: 10/23/17 08:34 Dose: 40 mg Glipizide (Glucotrol) 2.5 mg PO BID [facility] Last Admin: 10/23/17 08:38 Dose: 2.5 mg Guaifenesin/Phenylephrine HCl (Robitussin Dm) 5 ml PO Q4H PRN PRN Reason: Cough Hydromorphone HCl (Dilaudid) 0.25 mg IVPUSH Q2H PRN PRN Reason: Pain (severe 7-10) Promethazine HCl 6.25 mg/ (Sodium Chloride) 50.25 mls @ 100 mls/hr IV Q6H PRN PRN Reason: Nausea/Vomiting Ceftriaxone Sodium 2 gm/ (Dextrose/Water) 100 mls @ 100 mls/hr IV Q24H [facility] Last Admin: 10/23/17 11:11 Dose: 100 mls/hr Levofloxacin/Dextrose 750 mg/ (Premix) 150 mls @ 100 mls/hr IV Q48H [facility] Last Admin: 10/23/17 11:08 Dose: 100 mls/hr Isosorbide Mononitrate (Imdur) 30 mg PO DAILY [facility] Last Admin: 10/23/17 08:34 Dose: 30 mg Magnesium Hydroxide (Milk Of Magnesia) 30 ml PO Q12H PRN PRN Reason: Constipation Last Admin: 10/22/17 10:09 Dose: 30 ml Meclizine HCl (Antivert) 25 mg PO BID PRN PRN Reason: Other Mometasone Furoate (Asmanex Hfa 200mcg) 0 gm INH BID [facility] Last Admin: 10/23/17 08:15 Dose: 1 puff Nystatin (Mycostatin) 5 ml PO QID [facility] Oral Electrolytes (Thermotabs) 2 each PO BID [facility] Stop: 10/23/17 21:01 Last Admin: 10/23/17 08:38 Dose: 2 each Pantoprazole Sodium (Protonix Iv) 40 mg IVPUSH DAILY [facility] Last Admin: 10/23/17 08:34 Dose: 40 mg Olodaterol Hcl [ Striverdi Respimat] 2 Puff 0 each INH QAM [facility] Last Admin: 10/22/17 19:29 Dose: Not Given Polyethylene Glycol (Miralax) 17 gm PO DAILY PRN PRN Reason: Constipation Last Admin: 10/22/17 10:09 Dose: 17 gm Promethazine HCl (Phenergan) 25 mg PO Q6H PRN PRN Reason: Nausea/Vomiting Rivaroxaban (Xarelto) 10 mg PO DAILY [facility] Last Admin: 10/23/17 08:34 Dose: 10 mg Rosuvastatin Calcium (Crestor) 20 mg PO QPM [facility] Last Admin: 10/22/17 18:08 Dose: 20 mg Saccharomyces Boulardii (Florastor) 250 mg PO DAILY [facility] Last Admin: 10/23/17 08:34 Dose: 250 mg Senna/Docusate Sodium (Senna Plus) 1 tab PO BID PRN PRN Reason: Constipation Tamsulosin HCl (Flomax) 0.4 mg PO DAILY [facility] Last Admin: 10/23/17 08:38 Dose: 0.4 mg Tiotropium [place] (Spiriva Handihaler) 18 mcg INH DAILY [facility] Last Admin: 10/23/17 08:15 Dose: 1 puff Topiramate (Topamax) 25 mg PO BEDTIME [facility] Last Admin: 10/22/17 20:56 Dose: 25 mg Zolpidem Tartrate (Ambien) 5 mg PO BEDTIME [facility] Last Admin: 10/22/17 20:55 Dose: 5 mg Discontinued Medications Acetaminophen (Tylenol) 975 mg PO NOW ONE Stop: 10/19/17 10:10 Last Admin: 10/19/17 10:19 Dose: 975 mg Bisacodyl (Dulcolax) 10 mg RECTAL ONETIME ONE Stop: 10/22/17 18:00 Last Admin: 10/22/17 18:08 Dose: 10 mg Fluoxetine HCl (Prozac) 30 mg PO DAILY [facility] Furosemide (Lasix) 40 mg IVPUSH NOW ONE Stop: 10/19/17 11:18 Last Admin: 10/19/17 11:29 Dose: 40 mg Sodium Chloride (Normal Saline) 1,000 mls @ 100 mls/hr IV ASDIRECTED [facility] Last Admin: 10/20/17 06:45 Dose: 100 mls/hr Levofloxacin/Dextrose 750 mg/ (Premix) 150 mls @ 100 mls/hr IV ONETIME ONE Stop: 10/19/17 11:57 Last Admin: 10/19/17 10:55 Dose: 100 mls/hr Sodium Chloride (Normal Saline) 200 mls @ 999 mls/hr IV ONETIME ONE Stop: 10/19/17 10:47 Last Admin: 10/19/17 16:27 Dose: Not Given Ceftriaxone Sodium 2 gm/ (Sodium Chloride) 100 mls @ 100 mls/hr IV ONETIME ONE Stop: 10/19/17 12:51 Last Admin: 10/19/17 12:53 Dose: 100 mls/hr Sodium Chloride (Normal Saline) 200 mls @ 999 mls/hr IV ONETIME ONE Stop: 10/19/17 11:47 Last Admin: 10/19/17 16:28 Dose: Not Given Norepinephrine Bitartrate 4 mg (/ Dextrose/Water) 250 mls @ 15 mls/hr IV TITRATE [facility]; Protocol Last Titration: 10/20/17 00:30 Dose: 0 mcg/min, 0 mls/hr Ceftriaxone Sodium 2 gm/ (Dextrose/Water) 100 mls @ 100 mls/hr IV Q24H [facility] Levofloxacin/Dextrose 750 mg/ (Premix) 150 mls @ 100 mls/hr IV Q48H [facility] Magnesium Sulfate 2 gm/ Premix 50 mls @ 25 mls/hr IV Q2H [facility] Stop: 10/19/17 19:29 Last Admin: 10/19/17 17:47 Dose: 25 mls/hr Magnesium Sulfate 2 gm/ Premix 50 mls @ 25 mls/hr IV ONETIME ONE Stop: 10/21/17 19:34 Last Admin: 10/21/17 17:59 Dose: 25 mls/hr Magnesium Sulfate 2 gm/ Premix 50 mls @ 25 mls/hr IV ONETIME ONE Stop: 10/22/17 11:59 Last Admin: 10/22/17 10:09 Dose: 25 mls/hr Magnesium Sulfate (Pharmacy To Dose - Magnesium Replacement) 1 dose .XX ASDIRECTED [facility] Non-Formulary Medication (Albuterol Sulfate [Proair Respiclick]) 1 puff IH Q6H PRN PRN Reason: Shortness of Breath Potassium Chloride (Klor-Con M20) 40 meq PO ONETIME ONE Stop: 10/22/17 10:01 Last Admin: 10/22/17 10:09 Dose: 40 meq - Exam Quality Assessment: Supplemental Oxygen, DVT Prophylaxis General: Alert, Oriented, Cooperative, No Acute Distress HEENT: Pupils Equal, Pupils Reactive, EOMI Neck: Trachea Midline, No JVD Lungs: Normal Respiratory Effort, Decreased Breath Sounds Cardiovascular: Regular Rate GI/Abdominal Exam: Normal Bowel Sounds, Soft, Non-Tender, No Organomegaly, No Distention (Male) Exam: Deferred Back Exam: Normal Inspection Extremities: Normal Inspection, Non-Tender, Normal Capillary Refill Skin: Warm Neurological: No New Focal Deficit, Normal Speech Psy/Mental Status: Alert, Normal Affect, Normal Mood - Problem List Review Problem List Initiated/Reviewed/Updated: Yes - My Orders Last 24 Hours: My Active Orders 10/22/17 12:30 Potassium Chloride/NaCl [Thermotabs] 2 each PO BID Saccharomyces Boulardii [Florastor] 250 mg PO DAILY 10/23/17 13:00 Nystatin [Mycostatin] 5 ml PO QID - Plan Plan:: I/P: Acute: CAP, right lung -PSI/PORT Score: 158; High risk, requires admission -Risk factor: Bronchitis 2 weeks ago, given 1 week Abx at clinic, CXR last week clear -Productive cough x2 weeks, F/C, SOB x 3 days, Decreased appetite, O2 84% on RA -Temp of 103.4 in ED -WBC 11.35-->13.56, CRP 0.7-->18.9 -CXR in ED--> PNA R upper, middle, and lower lobes -IV Levoquin and Rocephin started in ED--> Continue -98% on 2L nasal cannula-->94% RA -RT/IS/Acapella/DuoNebs -Sepsis work up -Titrate O2 as needed to maintain >92% -Repeat CXR tomorrow CHF -Acute on Chronic -SOB, no pedal edema -BNP 1756-->3688-->5K-->~2100 -Lasix 40 IV given in ED -IVF given in ED--> D/C -Monitor -Echo --> pending results -Lasix 40 MG iv DAILY Resolved: Elevated Troponin -0.080-->0.046 -Most likely 2/2 CHF -Asymptomatic- no chest pain -Monitor with Serial Troponins Hypomagnesemia -1.4--> 2.2 -Monitor and replenish as needed Hypotension--resolved -92/40 lowest in ED-->97/65 -IVF given in ED--> D/C -Levophed given in ED--> D/C -Hold at-home Lisinopril, Nitro, Coreg -Consider low dose Midodrine 2.5 BID -Monitor on telemetry Chronic: Afib/Aflutter -EKG in ED--> Aflutter, suspected ischemia in lateral apical wall -On Xarelto -Has Pacemaker -Monitor on telemetry CAD with CABG x4 HTN HLD PVD LVH Aortic Stenosis COPD Sleep Apnea GERD BPH Prostate CA s/p radiation DM2 with neuropathy--> Glucose checks QID CKD III Urinary Retention Anxiety/Depression Herpes left eye Plan: MS telemetry Diurese as tolerated, elevated BNP with IVF given Other orders as indicated above Routine AM labs ADA diet and soft diet (not wearing dentures) SW/CM for discharge planning PT/OT/RT DVT Prophylaxis: On Xarelto GI Prophylaxis: Protonix Ambulated as tolerated LOS>96 hours, slow response to PNA RX. Code Status: Full Code, but doesn't want to be on long-term intubation; PCP: Dr. Casandra Reddy
[2017-10-23] MEDS: Nystatin Susp 100,000 Unit/ML 5 ML UD Cup PO SCH ×3 (12:49→20:35)
[2017-10-23] MEDS: Rosuvastatin 10 MG Tab PO SCH (18:04)
[2017-10-23] MEDS: Zolpidem 5 MG Tab PO SCH (20:35)
[2017-10-23] MEDS: Topiramate 25 MG Tab PO SCH (20:35)
[2017-10-23] MEDS: OLODATEROL HCL INH SCH (22:45)
[2017-10-24] MEDS: Nystatin Susp 100,000 Unit/ML 5 ML UD Cup PO SCH ×3 (05:46→14:07)
[2017-10-24] MEDS: Tiotropium Inhaler 18 MCG Inhalation Powder Cap Kit of 5 INH SCH (08:42)
[2017-10-24] MEDS: Mometasone Furoate HFA 200 mcg/Puff 13 GM Inhaler INH SCH (08:42)
[2017-10-24] MEDS: FLUoxetine 10 MG Cap PO SCH (09:13)
[2017-10-24] MEDS: Isosorbide Mononitrate 30 MG Tab.ER PO SCH (09:13)
[2017-10-24] MEDS: Tamsulosin 0.4 MG Cap.ER PO SCH (09:14)
[2017-10-24] MEDS: Saccharomyces Boulardii (Probiotic) 250 MG Cap PO SCH (09:14)
[2017-10-24] MEDS: Carvedilol 3.125 MG Tab PO SCH (09:14)
[2017-10-24] MEDS: glipiZIDE 5 MG Tab PO SCH (09:15)
[2017-10-24] MEDS: Allopurinol 300 MG Tab PO SCH (09:15)
[2017-10-24] MEDS: Rivaroxaban 10 MG Tab PO SCH (09:15)
[2017-10-24] MEDS: Cholecalciferol (Vitamin D3) 1,000 Unit Tab PO SCH (09:15)
[2017-10-24 09:16] VITALS: BP 127/67
[2017-10-24] MEDS: Pantoprazole 40 MG Vial IVPUSH SCH (09:20)
[2017-10-24] MEDS: Furosemide 40 MG/4 ML VIAL IVPUSH SCH (09:20)
[2017-10-24] MEDS: Acetaminophen 325 MG Tab PO PRN (10:57)
--- NOTE | 2017-10-24 12:00 | PCM.DCSUM1 ---
Discharge Summary - Hospital Course HPI Initial Comments: 82-year-old male presents to the ED this morning. He reports awakening around 0300 hrs. this morning with severe rigors and chills. States he had marked difficulty trying to get warm even with covers over top of his head. Patient has a productive cough for the last 2 weeks. This is predated by coughing for 2 weeks prior to that and he did receive a course of antibiotics for one week. They report they were in the clinic last week and had an x-ray done either Monday or and it did not reveal any pneumonia. He appreciated gradually worsening shortness of breath over the last 3 days. Appetite is been really poor the last 3 days as well. Sputum is mostly yellow to slightly green in color. Patient has a history of prostate surgery treated by radiotherapy in about 2003. Therefore concerns about possible not emptying his bladder completely exist. Currently is febrile with a temperature 103.4. O2 sats 84% of the time of presentation to the ED. Placed on 3 L/m by nasal cannula. Initial blood pressure was 115/66. He has not taken any Tylenol or Motrin for fever relief yet today. - Discharge Data Discharge Date: 10/24/17 Discharge Disposition: Home, W Home Health Agency 06 Condition: Good - Discharge Diagnosis/Problem(s) (1) Congestive heart failure SNOMED Code(s): 38578334 ICD Code: I50.9 - HEART FAILURE, UNSPECIFIED Status: Chronic Priority: High Current Visit: Yes Qualifiers: Heart failure type: diastolic Heart failure chronicity: unspecified Qualified Code(s): I50.30 - Unspecified diastolic (congestive) heart failure (2) Hypoxia SNOMED Code(s): 740749574 ICD Code: R09.02 - HYPOXEMIA Status: Acute Priority: High Current Visit : Yes (3) Pneumonia SNOMED Code(s): 325564698 ICD Code: J18.9 - PNEUMONIA, UNSPECIFIED ORGANISM Status: Acute Priority : High Current Visit: Yes Qualifiers: Pneumonia type: due to unspecified organism Laterality: right Lung location: lower lobe of lung Qualified Code(s): J18.1 - Lobar pneumonia, unspecified organism (4) Atrial fibrillation SNOMED Code(s): 75444799 ICD Code: I48.91 - UNSPECIFIED ATRIAL FIBRILLATION Status: Acute Priority : High Current Visit: No Problem Details: - With Slow Ventricular Rate Qualifiers: Atrial fibrillation type: paroxysmal Qualified Code(s): I48.0 - Paroxysmal atrial fibrillation (5) Atrial flutter SNOMED Code(s): 3239858 ICD Code: I48.92 - UNSPECIFIED ATRIAL FLUTTER Status: Acute Priority: High Current Visit: Yes Qualifiers: Atrial flutter type: unspecified Qualified Code(s): I48.92 - Unspecified atrial flutter (6) CAD (coronary artery disease) of artery bypass graft SNOMED Code(s): 478541433, 78468684, 319702168, 830358899, 580998008 ICD Code: I25.810 - ATHEROSCLEROSIS OF CABG W/O ANGINA PECTORIS Status: Chronic Priority: Medium Current Visit: No Qualifiers: [place] vs. transplanted heart: unspecified whether viejas or transplanted heart Associated angina: with other forms of angina Qualified Code(s): I25.708 - Atherosclerosis of coronary artery bypass graft(s), unspecified, with other forms of angina pectoris (7) Dyspnea on exertion SNOMED Code(s): 80992684 ICD Code: R06.09 - OTHER FORMS OF DYSPNEA Status: Acute Priority: High Current Visit: Yes Problem Details: - Acute on Chronic - More worse than usual (8) Hypomagnesemia SNOMED Code(s): 547278216 ICD Code: E83.42 - HYPOMAGNESEMIA Status: Acute Priority: Medium Current Visit: Yes - Patient Summary/Data Operative Procedure(s) Performed: none Complications: none Consults: Consultations 10/19/17 13:46 Consult to Case Management [CONS] Routine Consult to Supervisor Engraving [CONS] Routine Consult to Veterinary Medicine Scientist [CONS] Routine Consult to Spiritual Care [CONS] Routine OT Evaluation and Treatment [CONS] Routine PT Evaluation and Treatment [CONS] Routine Respiratory Care Assess and Treatment [CONS] Routine Labs Pending at D/C: none Recommended Follow-up Testing/Procedures: Follow up with PCP in 7-10 days, ask about immunizations. Follow up with District Sales Representative. Planned Operative Procedure(s) after DC: none Hospital Course: I/P: Acute: CAP, right lung -PSI/PORT Score: 158; High risk, requires admission -Risk factor: Bronchitis 2 weeks ago, given 1 week Abx at clinic, CXR last week clear -Productive cough x2 weeks, F/C, SOB x 3 days, Decreased appetite, O2 84% on RA -Temp of 103.4 in ED-->97.2 -WBC 13.56-->8.25, CRP 22.6-->15.6 -CXR in ED--> PNA R upper, middle, and lower lobes -IV Levoquin and Rocephin started in ED--> Continue Levoquin at home -98% on 2L nasal cannula-->94% RA -RT/IS/Acapella/DuoNebs -Sepsis work up -Titrate O2 as needed to maintain >92% -Repeat CXR--> improved CHF with preserved EF -Acute on Chronic -SOB, no pedal edema -BNP 5780-->2159 -Lasix 40 IV given in ED--> Continue Lasix 40mg PO x7 days; follow up with PCP -IVF given in ED--> D/C -Monitor -Echo --> LVEF 60-65%; LVH, Mod to severe tricuspid regurg, dilated inferior vena cava, RV, and RA -Lasix 40 MG iv DAILY Hyponatremia -Most likely 2/2 decreased intake -135-->131 -Thermotabs as needed -Monitor Thrush -Most likely 2/2 inhaler use -Nystatin 5ml PO QID -Discharge on Diflucan 200mg x 8 days Resolved: Elevated Troponin -0.080-->0.046 -Most likely 2/2 CHF -Asymptomatic- no chest pain -Monitor with Serial Troponins Hypomagnesemia -1.4--> 2.2 -Monitor and replenish as needed Hypotension--resolved -92/40 lowest in ED-->127/67 -IVF given in ED--> D/C -Levophed given in ED--> D/C -Hold at-home Lisinopril, Nitro, Coreg -Consider low dose Midodrine 2.5 BID -Monitor on telemetry Chronic: Afib/Aflutter -EKG in ED--> Aflutter, suspected ischemia in lateral apical wall -On Xarelto -Has Pacemaker -Monitor on telemetry CAD with CABG x4 HTN HLD PVD LVH Aortic Stenosis COPD Sleep Apnea GERD BPH Prostate CA s/p radiation DM2 with neuropathy--> Glucose checks QID CKD III Urinary Retention Anxiety/Depression Herpes left eye Plan: MS telemetry Diurese as tolerated, elevated BNP with IVF given Other orders as indicated above Routine AM labs ADA diet and soft diet (not wearing dentures) SW/CM for discharge planning PT/OT/RT DVT Prophylaxis: On Xarelto GI Prophylaxis: Protonix Ambulated as tolerated D/C today LOS>96 hours, slow response to PNA RX. Code Status: Full Code, but doesn't want to be on long-term intubation; PCP: Dr. Casandra Brewer has recovered quite well after being admitted for CAP. He had multiple tests done. Chest Xray showed PNA in the R upper, middle, and lower lobes. Repeat Chest Xray shows improvement, labs are trending down. Echo showed LVEF 60 -65%; LVH, Mod to severe tricuspid regurg, dilated inferior vena cava, RV, and RA. He should follow up with a statement clerk for further workup/treatment. He should also follow-up with his primary care provider in 7-10 days. He was discharged home on Diflucan for thrush, Lasix 40mg x7 days for elevated BNP, Levoquin x3 days for completion of Pneumonia treatment, and Florastor. His BNP was elevated and his sodium was low and should be rechecked with his primary care provider and statement clerk. PT/OT are recommending Home Health Services. This can be worked up further by her PCP or statement clerk. He will be discharged home with home health today. - Patient Instructions Diet: Diabetic Diet Activity: As Tolerated Driving: Do Not Drive Showering/Bathing: May Shower Notify Provider of: Fever, Increased Pain, Swelling and Redness, Drainage, Nausea and/or Vomiting - Discharge Plan Prescriptions/Med Rec: Fluconazole [Diflucan] 200 mg PO DAILY #8 tablet Furosemide [Lasix] 40 mg PO DAILY #7 tablet Levofloxacin [Levaquin] 250 mg PO DAILY #3 tab Saccharomyces Boulardii [Florastor] 250 mg PO DAILY #13 tab Home Medications: Home Meds Allopurinol [Zyloprim] 300 mg PO DAILY 11/05/15 [History] FLUoxetine [PROzac] 30 mg PO DAILY 11/05/15 [History] Isosorbide Mononitrate [Imdur] 30 mg PO DAILY 11/05/15 [History] Lisinopril [Prinivil] 10 mg PO DAILY 11/05/15 [History] Meclizine [Antivert] 25 mg PO BID PRN 11/05/15 [History] Nitroglycerin [Nitrostat] 0.4 mg SL Q5M PRN 11/05/15 [History] glipiZIDE [Glucotrol] 2.5 mg PO BID 11/05/15 [History] atorvaSTATin [Lipitor] 80 mg PO QPM 11/10/15 [History] Cholecalciferol (Vitamin D3) [Vitamin D3] 2,000 unit PO DAILY 02/17/16 [History] Mometasone Furoate [Asmanex] 1 puff IH BID 02/17/16 [History] Olodaterol HCl [Striverdi Respimat] 2 puff IH QAM 02/17/16 [History] Saxagliptin HCl [Onglyza] 2.5 mg PO DAILY 02/17/16 [History] Tiotropium [Spiriva HandiHaler] 2 puff INH DAILY 02/17/16 [History] Carvedilol [Coreg] 3.125 mg PO BID 06/29/16 [History] Rivaroxaban [Xarelto] 10 mg PO DAILY 06/29/16 [History] Albuterol Sulfate [Proair Respiclick] 1 puff IH Q6H PRN 03/20/17 [History] Omeprazole 20 mg PO BIDAC 03/20/17 [History] Polyethylene Glycol 3350 [MiraLAX] 17 gm PO DAILY PRN 03/20/17 [History] Topiramate 25 mg PO BEDTIME 03/20/17 [History] Tamsulosin [Flomax] 0.4 mg PO DAILY 10/19/17 [History] Zolpidem Tartrate 5 mg PO BEDTIME 10/19/17 [History] FLUoxetine [PROzac] 30 mg PO DAILY cap 10/24/17 [Rx] Fluconazole [Diflucan] 200 mg PO DAILY #8 tablet 10/24/17 [Rx] Furosemide [Lasix] 40 mg PO DAILY #7 tablet 10/24/17 [Rx] Levofloxacin [Levaquin] 250 mg PO DAILY #3 tab 10/24/17 [Rx] Saccharomyces Boulardii [Florastor] 250 mg PO DAILY #13 tab 10/24/17 [Rx] Patient Handouts: Heart Failure, [id number], Atrial Fibrillation, Easy-to- Read, Community-Acquired Pneumonia, Adult, [id number] Referrals: Casandra Reddy DO [Primary Care Provider] - 11/01/17 8:00 am (This appt. is with [facility] at [facility] [place], patient also has an appt. with [facility] for lab work on 10/30) - Discharge Summary/Plan Comment DC Time >30 min.: Yes (40) - General Info Date of Service: 10/24/17 Admission Dx/Problem (Free Text: Admission Diagnosis/Problem Admission Diagnosis/Problem Pneumonia Subjective Update: In to see Osman today. He is lying in bed visiting with his family. Overall he is doing well and states he is feeling better. He complains of having some coughing and thrush. He has been sleeping well. Good appetite. Ambulating as tolerated. Pain is controlled. No Fever, chest pain, nausea, vomiting, diarrhea. No concerns from nursing. He will be d/c'd home today with home health. Functional Status: Reports: Pain Controlled, Tolerating Diet, Ambulating, Urinating - Review of Systems General: Reports: No Symptoms. Denies: Fever, Chills HEENT: Reports: No Symptoms Pulmonary: Reports: Shortness of Breath (with exertion), Cough (improving), Sputum (improving) Cardiovascular: Reports: Dyspnea on Exertion. Denies: Chest Pain, Palpitations , Orthopnea, Edema Gastrointestinal: Reports: No Symptoms. Denies: Constipation, Diarrhea, Nausea , Vomiting Genitourinary: Reports: No Symptoms. Denies: Dysuria, Frequency, Burning, Pain , Urgency Musculoskeletal: Reports: No Symptoms Skin: Reports: No Symptoms Neurological: Reports: No Symptoms Psychiatric: Reports: No Symptoms - Patient Data Vitals - Most Recent: Last Vital Signs Temp 97.2 F 10/24/17 08:12 Pulse 71 10/24/17 09:14 Resp 19 10/24/17 08:12 BP 127/67 10/24/17 09:14 Pulse Ox 93 L 10/24/17 09:08 Weight - Most Recent: 173 lb 9.6 oz I&O - Last 24 hours: Intake & Output 10/23/17 10/24/17 10/24/17 22:59 06:59 14:59 Intake Total 1150 600 Output Total 600 Balance 550 600 Lab Results - Last 24 hrs: Laboratory Results - last 24 hr 10/23/17 10/23/17 10/24/17 Range/Units 16:15 20:38 05:33 WBC 8.25 (4.23-9.07) K/mm3 RBC 3.89 L (4.63-6.08) M/mm3 Hgb 12.6 L (13.7-17.5) gm/L Hct 36.3 L (40.1-51.0) % MCV 93.3 H (79.0-92.2) fl MCH 32.4 H (25.7-32.2) pg MCHC 34.7 (32.2-35.5) g/dl RDW Std Deviation 47.2 H (35.1-43.9) fL Plt Count 216 (163-337) K/mm3 MPV 9.6 (9.4-12.3) fl Neut % (Auto) 70.5 H (34.0-67.9) % Lymph % (Auto) 14.9 L (21.8-53.1) % [place] % (Auto) 12.5 H (5.3-12.2) % Eos % (Auto) 1.9 (0.8-7.0) Baso % (Auto) 0.2 (0.1-1.2) % Neut # (Auto) 5.81 H (1.78-5.38) K/mm3 Lymph # (Auto) 1.23 L (1.32-3.57) K/mm3 [place] # (Auto) 1.03 H (0.30-0.82) K/mm3 Eos # (Auto) 0.16 (0.04-0.54) K/mm3 Baso # (Auto) 0.02 (0.01-0.08) K/mm3 Manual Slide Review Normal smear Sodium (136-145) mEq/L Potassium (3.5-5.1) mEq/L Chloride (98-107) mEq/L Carbon Dioxide (21-32) mEq/L Anion Gap (5-15) BUN (7-18) mg/dL Creatinine (0.7-1.3) mg/dL Est Cr Clr Drug Dosing mL/min Estimated GFR (MDRD) (>60) mL/min BUN/Creatinine Ratio (14-18) Glucose (83-115) mg/dL POC Glucose 123 H 188 H (83-110) mg/dL Calcium (8.5-10.1) mg/dL Troponin I (0.00-0.056) ng/mL C-Reactive Protein (<1.0) mg/dL NT-Pro-B Natriuret Pep (0-450) pg/mL 10/24/17 10/24/17 10/24/17 Range/Units 05:33 05:33 05:47 WBC (4.23-9.07) K/mm3 RBC (4.63-6.08) M/mm3 Hgb (13.7-17.5) gm/L Hct (40.1-51.0) % MCV (79.0-92.2) fl MCH (25.7-32.2) pg MCHC (32.2-35.5) g/dl RDW Std Deviation (35.1-43.9) fL Plt Count (163-337) K/mm3 MPV (9.4-12.3) fl Neut % (Auto) (34.0-67.9) % Lymph % (Auto) (21.8-53.1) % [place] % (Auto) (5.3-12.2) % Eos % (Auto) (0.8-7.0) Baso % (Auto) (0.1-1.2) % Neut # (Auto) (1.78-5.38) K/mm3 Lymph # (Auto) (1.32-3.57) K/mm3 [place] # (Auto) (0.30-0.82) K/mm3 Eos # (Auto) (0.04-0.54) K/mm3 Baso # (Auto) (0.01-0.08) K/mm3 Manual Slide Review Sodium 131 L (136-145) mEq/L Potassium 4.4 (3.5-5.1) mEq/L Chloride 98 (98-107) mEq/L Carbon Dioxide 24 (21-32) mEq/L Anion Gap 13.4 (5-15) BUN 26 H (7-18) mg/dL Creatinine 1.7 H (0.7-1.3) mg/dL Est Cr Clr Drug Dosing 35.07 mL/min Estimated GFR (MDRD) 39 (>60) mL/min BUN/Creatinine Ratio 15.3 (14-18) Glucose 106 (83-115) mg/dL POC Glucose 110 (83-110) mg/dL Calcium 9.8 (8.5-10.1) mg/dL Troponin I < 0.017 (0.00-0.056) ng/mL C-Reactive Protein 15.6 H* (<1.0) mg/dL NT-Pro-B Natriuret Pep 2159 H (0-450) pg/mL 10/24/17 Range/Units 10:56 WBC (4.23-9.07) K/mm3 RBC (4.63-6.08) M/mm3 Hgb (13.7-17.5) gm/L Hct (40.1-51.0) % MCV (79.0-92.2) fl MCH (25.7-32.2) pg MCHC (32.2-35.5) g/dl RDW Std Deviation (35.1-43.9) fL Plt Count (163-337) K/mm3 MPV (9.4-12.3) fl Neut % (Auto) (34.0-67.9) % Lymph % (Auto) (21.8-53.1) % [place] % (Auto) (5.3-12.2) % Eos % (Auto) (0.8-7.0) Baso % (Auto) (0.1-1.2) % Neut # (Auto) (1.78-5.38) K/mm3 Lymph # (Auto) (1.32-3.57) K/mm3 [place] # (Auto) (0.30-0.82) K/mm3 Eos # (Auto) (0.04-0.54) K/mm3 Baso # (Auto) (0.01-0.08) K/mm3 Manual Slide Review Sodium (136-145) mEq/L Potassium (3.5-5.1) mEq/L Chloride (98-107) mEq/L Carbon Dioxide (21-32) mEq/L Anion Gap (5-15) BUN (7-18) mg/dL Creatinine (0.7-1.3) mg/dL Est Cr Clr Drug Dosing mL/min Estimated GFR (MDRD) (>60) mL/min BUN/Creatinine Ratio (14-18) Glucose (83-115) mg/dL POC Glucose 124 H (83-110) mg/dL Calcium (8.5-10.1) mg/dL Troponin I (0.00-0.056) ng/mL C-Reactive Protein (<1.0) mg/dL NT-Pro-B Natriuret Pep (0-450) pg/mL JAMAR Results - Last 24 hrs: Microbiology 10/19/17 10:30 Aerobic Blood Culture - Preliminary Blood - Venous NO GROWTH AFTER 5 DAYS Anaerobic Blood Culture - Preliminary NO GROWTH AFTER 5 DAYS 10/19/17 10:40 Aerobic Blood Culture - Preliminary Blood - Venous - Lab Draw NO GROWTH AFTER 5 DAYS Anaerobic Blood Culture - Preliminary NO GROWTH AFTER 5 DAYS Med Orders - Current: Current Medications Acetaminophen (Tylenol) 650 mg PO Q4H PRN PRN Reason: Pain (Mild 1-3)/fever Last Admin: 10/24/17 10:57 Dose: 650 mg Hydrocodone Bitart/Acetaminophen (Rocky Comfort 325-5 Mg) 1 tab PO Q4H PRN PRN Reason: Pain (moderate 4-6) Albuterol (Proventil Neb Soln) 2.5 mg NEB Q2H PRN PRN Reason: Shortness Of Breath/wheezing Albuterol/Ipratropium (Duoneb 3.0-0.5 Mg/3 Ml) 3 ml NEB Q4H PRN PRN Reason: Shortness Of Breath/wheezing Allopurinol (Zyloprim) 300 mg PO DAILY [facility] Last Admin: 10/24/17 09:15 Dose: 300 mg Alogliptin Benzoate (Alogliptin) 25 mg PO DAILY [facility] Last Admin: 10/24/17 09:19 Dose: 25 mg Benzonatate (Tessalon Perles) 200 mg PO BID PRN PRN Reason: Cough Last Admin: 10/20/17 13:26 Dose: 200 mg Bisacodyl (Dulcolax) 5 mg PO DAILY PRN PRN Reason: Constipation Last Admin: 10/21/17 21:33 Dose: 5 mg Carvedilol (Coreg) 3.125 mg PO BID [facility] Last Admin: 10/24/17 09:14 Dose: 3.125 mg Cholecalciferol (Vitamin D3) 2,000 units PO DAILY [facility] Last Admin: 10/24/17 09:15 Dose: 2,000 units Docusate Sodium (Colace) 100 mg PO BID PRN PRN Reason: Constipation Last Admin: 10/22/17 10:09 Dose: 100 mg Fluoxetine HCl (Prozac) 30 mg PO DAILY [facility] Last Admin: 10/24/17 09:13 Dose: 30 mg Furosemide (Lasix) 20 mg PO DAILY [facility] Last Admin: 10/21/17 08:58 Dose: 20 mg Furosemide (Lasix) 40 mg IVPUSH DAILY [facility] Last Admin: 10/24/17 09:20 Dose: 40 mg Glipizide (Glucotrol) 2.5 mg PO BID [facility] Last Admin: 10/24/17 09:15 Dose: 2.5 mg Guaifenesin/Phenylephrine HCl (Robitussin Dm) 5 ml PO Q4H PRN PRN Reason: Cough Hydromorphone HCl (Dilaudid) 0.25 mg IVPUSH Q2H PRN PRN Reason: Pain (severe 7-10) Promethazine HCl 6.25 mg/ (Sodium Chloride) 50.25 mls @ 100 mls/hr IV Q6H PRN PRN Reason: Nausea/Vomiting Ceftriaxone Sodium 2 gm/ (Dextrose/Water) 100 mls @ 100 mls/hr IV Q24H [facility] Last Admin: 10/24/17 11:00 Dose: 100 mls/hr Levofloxacin/Dextrose 750 mg/ (Premix) 150 mls @ 100 mls/hr IV Q48H [facility] Last Admin: 10/23/17 11:08 Dose: 100 mls/hr Isosorbide Mononitrate (Imdur) 30 mg PO DAILY [facility] Last Admin: 10/24/17 09:13 Dose: 30 mg Magnesium Hydroxide (Milk Of Magnesia) 30 ml PO Q12H PRN PRN Reason: Constipation Last Admin: 10/22/17 10:09 Dose: 30 ml Meclizine HCl (Antivert) 25 mg PO BID PRN PRN Reason: Other Mometasone Furoate (Asmanex Hfa 200mcg) 0 gm INH BID [facility] Last Admin: 10/24/17 08:42 Dose: 1 puff Nystatin (Mycostatin) 5 ml PO QID [facility] Last Admin: 10/24/17 10:56 Dose: Not Given Pantoprazole Sodium (Protonix Iv) 40 mg IVPUSH DAILY [facility] Last Admin: 10/24/17 09:20 Dose: 40 mg Olodaterol Hcl [ Striverdi Respimat] 2 Puff 0 each INH QAM [facility] Last Admin: 10/23/17 22:45 Dose: Not Given Polyethylene Glycol (Miralax) 17 gm PO DAILY PRN PRN Reason: Constipation Last Admin: 10/22/17 10:09 Dose: 17 gm Promethazine HCl (Phenergan) 25 mg PO Q6H PRN PRN Reason: Nausea/Vomiting Rivaroxaban (Xarelto) 10 mg PO DAILY [facility] Last Admin: 10/24/17 09:15 Dose: 10 mg Rosuvastatin Calcium (Crestor) 20 mg PO QPM [facility] Last Admin: 10/23/17 18:04 Dose: 20 mg Saccharomyces Boulardii (Florastor) 250 mg PO DAILY [facility] Last Admin: 10/24/17 09:14 Dose: 250 mg Senna/Docusate Sodium (Senna Plus) 1 tab PO BID PRN PRN Reason: Constipation Tamsulosin HCl (Flomax) 0.4 mg PO DAILY [facility] Last Admin: 10/24/17 09:14 Dose: 0.[address] (Spiriva Handihaler) 18 mcg INH DAILY [facility] Last Admin: 10/24/17 08:42 Dose: 1 puff Topiramate (Topamax) 25 mg PO BEDTIME [facility] Last Admin: 10/23/17 20:35 Dose: 25 mg Zolpidem Tartrate (Ambien) 5 mg PO BEDTIME [facility] Last Admin: 10/23/17 20:35 Dose: 5 mg Discontinued Medications Acetaminophen (Tylenol) 975 mg PO NOW ONE Stop: 10/19/17 10:10 Last Admin: 10/19/17 10:19 Dose: 975 mg Bisacodyl (Dulcolax) 10 mg RECTAL ONETIME ONE Stop: 10/22/17 18:00 Last Admin: 10/22/17 18:08 Dose: 10 mg Fluoxetine HCl (Prozac) 30 mg PO DAILY [facility] Furosemide (Lasix) 40 mg IVPUSH NOW ONE Stop: 10/19/17 11:18 Last Admin: 10/19/17 11:29 Dose: 40 mg Sodium Chloride (Normal Saline) 1,000 mls @ 100 mls/hr IV ASDIRECTED [facility] Last Admin: 10/20/17 06:45 Dose: 100 mls/hr Levofloxacin/Dextrose 750 mg/ (Premix) 150 mls @ 100 mls/hr IV ONETIME ONE Stop: 10/19/17 11:57 Last Admin: 10/19/17 10:55 Dose: 100 mls/hr Sodium Chloride (Normal Saline) 200 mls @ 999 mls/hr IV ONETIME ONE Stop: 10/19/17 10:47 Last Admin: 10/19/17 16:27 Dose: Not Given Ceftriaxone Sodium 2 gm/ (Sodium Chloride) 100 mls @ 100 mls/hr IV ONETIME ONE Stop: 10/19/17 12:51 Last Admin: 10/19/17 12:53 Dose: 100 mls/hr Sodium Chloride (Normal Saline) 200 mls @ 999 mls/hr IV ONETIME ONE Stop: 10/19/17 11:47 Last Admin: 10/19/17 16:28 Dose: Not Given Norepinephrine Bitartrate 4 mg (/ Dextrose/Water) 250 mls @ 15 mls/hr IV TITRATE [facility]; Protocol Last Titration: 10/20/17 00:30 Dose: 0 mcg/min, 0 mls/hr Ceftriaxone Sodium 2 gm/ (Dextrose/Water) 100 mls @ 100 mls/hr IV Q24H [facility] Levofloxacin/Dextrose 750 mg/ (Premix) 150 mls @ 100 mls/hr IV Q48H [facility] Magnesium Sulfate 2 gm/ Premix 50 mls @ 25 mls/hr IV Q2H [facility] Stop: 10/19/17 19:29 Last Admin: 10/19/17 17:47 Dose: 25 mls/hr Magnesium Sulfate 2 gm/ Premix 50 mls @ 25 mls/hr IV ONETIME ONE Stop: 10/21/17 19:34 Last Admin: 10/21/17 17:59 Dose: 25 mls/hr Magnesium Sulfate 2 gm/ Premix 50 mls @ 25 mls/hr IV ONETIME ONE Stop: 10/22/17 11:59 Last Admin: 10/22/17 10:09 Dose: 25 mls/hr Magnesium Sulfate (Pharmacy To Dose - Magnesium Replacement) 1 dose .XX ASDIRECTED [facility] Non-Formulary Medication (Albuterol Sulfate [Proair Respiclick]) 1 puff IH Q6H PRN PRN Reason: Shortness of Breath Oral Electrolytes (Thermotabs) 2 each PO BID [facility] Stop: 10/23/17 21:01 Last Admin: 10/23/17 20:35 Dose: 2 each Potassium Chloride (Klor-Con M20) 40 meq PO ONETIME ONE Stop: 10/22/17 10:01 Last Admin: 10/22/17 10:09 Dose: 40 meq - Exam Quality Assessment: Reports: DVT Prophylaxis. Denies: Supplemental Oxygen General: Reports: Alert, Oriented, Cooperative, No Acute Distress HEENT: Reports: Pupils Equal, Pupils Reactive, EOMI, Mucous Membr. Moist/[place] Neck: Reports: Supple Lungs: Reports: Decreased Breath Sounds, Rales (slight) Cardiovascular: Reports: Regular Rate, Regular Rhythm, Murmurs GI/Abdominal Exam: Normal Bowel Sounds, Soft, Non-Tender, No Organomegaly, No Distention, No Abnormal Bruit, No Mass, Pelvis Stable (Male) Exam: Deferred Rectal (Males) Exam: Deferred Back Exam: Reports: Normal Inspection, Full Range of Motion Extremities: Normal Inspection, Normal Range of Motion, Non-Tender, No Pedal Edema, Normal Capillary Refill Skin: Reports: Warm, Dry, Intact Neurological: Reports: No New Focal Deficit Psy/Mental Status: Reports: Alert, Normal Affect, Normal Mood
== END 2017-10-24 14:33 | disposition home health service (06) | DRG 291 ==
LOC: JD.ED 09:38 → JD.ICU 12:06 → JD.MS 10-20 14:17
PROVIDERS: ADMIT Internal Medicine; ATTEND Internal Medicine
DX: I13.0 Hypertensive heart and chronic kidney disease with heart failure and stage 1 through stage 4 chronic kidney disease, or unspecified chronic kidney disease (principal); J18.9 Pneumonia, unspecified organism; I50.33 Acute on chronic diastolic (congestive) heart failure; I48.92 Unspecified atrial flutter; B02.30 Zoster ocular disease, unspecified; E87.1 Hypo-osmolality and hyponatremia; I25.10 Atherosclerotic heart disease of native coronary artery without angina pectoris; Z95.1 Presence of aortocoronary bypass graft; E78.5 Hyperlipidemia, unspecified; R09.02 Hypoxemia; I73.9 Peripheral vascular disease, unspecified; I35.0 Nonrheumatic aortic (valve) stenosis; I48.2 Chronic atrial fibrillation; I95.9 Hypotension, unspecified; N18.3 Chronic kidney disease, stage 3 (moderate); E83.42 Hypomagnesemia; G20 Parkinson's disease; B37.9 Candidiasis, unspecified; E78.00 Pure hypercholesterolemia, unspecified; J44.9 Chronic obstructive pulmonary disease, unspecified; G47.30 Sleep apnea, unspecified; K21.9 Gastro-esophageal reflux disease without esophagitis; N40.0 Benign prostatic hyperplasia without lower urinary tract symptoms; E11.40 Type 2 diabetes mellitus with diabetic neuropathy, unspecified; E11.22 Type 2 diabetes mellitus with diabetic chronic kidney disease; F41.9 Anxiety disorder, unspecified; I07.1 Rheumatic tricuspid insufficiency; K59.00 Constipation, unspecified; Z95.0 Presence of cardiac pacemaker; Z85.46 Personal history of malignant neoplasm of prostate; Z79.899 Other long term (current) drug therapy; Z79.84 Long term (current) use of oral hypoglycemic drugs; I25.2 Old myocardial infarction; Z87.891 Personal history of nicotine dependence
CPT/HCPCS: 36415; 71045; 71045-26; 71046; 71046-26; 80048; 80053; 81001; 82553; 82962; 83605; 83735; 83880; 84439; 84443; 84484; 85007; 85025; 85027; 85610; 86140; 87040; 93005; 93010; 93306; 94640; 94664; 94667; 94760; 96361; 96365; 96375; 97110-GO; 97110-GP; 97116-GP; 97162-GP; 97165-GO; 97530-GP; 99284-25; 99285-25; A9270; A9270-GY; C9113; J0696; J1940; J1956; J3475; J7030; J7040; J7060

== ENCOUNTER 2018-01-15 08:10 | Inpatient (IN) | payer MEDICARE, OTHER ==
[2018-01-15] MEDS ORDERED: Acetaminophen 325 MG Tab PO ONE (08:50)
[2018-01-15] MEDS ORDERED: cefTRIAXone 2 GM in Sodium Chloride 0.9% 100 ML IV ONE (08:51)
--- NOTE | 2018-01-15 08:58 | EDM.PDOC ---
ED HPI GENERAL MEDICAL PROBLEM - General Chief Complaint: Fever Stated Complaint: [facility] Time Seen by Provider: 01/15/18 08:34 Source of Information: Reports: Patient, EMS History Limitations: Reports: No Limitations - History of Present Illness INITIAL COMMENTS - FREE TEXT/NARRATIVE: The patient presents by [facility] for cough, fever and shortness of breath. He says this all started last night with a cough. It has progressed to shortness of breath, a fever of 101 and rigors. The patient has a history of COPD. He does not smoke anymore. He also has a history of CHF. He has not had any new swelling in his legs. He has no chest pain, abdominal pain, nausea or vomiting. He has no dysuria or diarrhea. His oxygen saturations were 70% on room air when EMS arrived. He was given an albuterol treatment and put on oxygen. His oxygen saturations improved to the mid 90s on 4L by NC. Onset: Gradual Duration: Day(s): (Last nig) Severity: Moderate Improves with: Reports: None Worsens with: Reports: None Associated Symptoms: Reports: Cough, Fever/Chills, Shortness of Breath. Denies : Headaches, Nausea/Vomiting Treatments POURER: Reports: Breathing Treatments, IV/IO - Related Data Allergies Allergy/AdvReac Type Severity Reaction Status Date / Time No Known Allergies Allergy Verified 01/15/18 08:18 Home Meds: Home Meds Allopurinol [Zyloprim] 300 mg PO DAILY 11/05/15 [History] Isosorbide Mononitrate [Imdur] 30 mg PO DAILY 11/05/15 [History] Lisinopril [Prinivil] 10 mg PO BID 11/05/15 [History] glipiZIDE [Glucotrol] 2.5 mg PO BID 11/05/15 [History] atorvaSTATin [Lipitor] 80 mg PO QPM 11/10/15 [History] Cholecalciferol (Vitamin D3) [Vitamin D3] 2,000 unit PO BID 02/17/16 [History] Mometasone Furoate [Asmanex] 2 puff IH BEDTIME 02/17/16 [History] Olodaterol HCl [Striverdi Respimat] 2 puff IH QAM 02/17/16 [History] Saxagliptin HCl [Onglyza] 2.5 mg PO DAILY 02/17/16 [History] Tiotropium [Spiriva HandiHaler] 2 puff INH DAILY 02/17/16 [History] Carvedilol [Coreg] 3.125 mg PO BID 06/29/16 [History] Rivaroxaban [Xarelto] 15 mg PO DAILY 06/29/16 [History] Albuterol Sulfate [Proair Respiclick] 1 puff IH DAILY 03/20/17 [History] Omeprazole 20 mg PO BIDAC 03/20/17 [History] Polyethylene Glycol 3350 [MiraLAX] 17 gm PO DAILY PRN 03/20/17 [History] Topiramate 25 mg PO BEDTIME 03/20/17 [History] Tamsulosin [Flomax] 0.4 mg PO DAILY 10/19/17 [History] Zolpidem Tartrate 5 mg PO BEDTIME 10/19/17 [History] FLUoxetine [PROzac] 30 mg PO DAILY cap 10/24/17 [Rx] Trelegy Ellipta. 1 puff INH DAILY 01/15/18 [History] Past Medical History HEENT History: Reports: Cataract, Hard of Hearing Cardiovascular History: Reports: Afib, Angina, Bypass, CAD, Heart Murmur, High Cholesterol, Hypertension, PVD, SOB on Exertion Other Cardiovascular History: HX LVH, Mild , Bilateral artial enlg Respiratory History: Reports: COPD, Sleep Apnea, SOB Gastrointestinal History: Reports: GERD, Hepatitis Other Gastrointestinal History: nausea Genitourinary History: Reports: BPH, Diabetic Nephropathy, Prostate Disorder, Retention, Urinary Musculoskeletal History: Reports: Back Pain, Chronic, Gout, Neck Pain, Chronic, Osteoarthritis Neurological History: Reports: Neuropathy, Diabetic, Neuropathy, Peripheral, Other (See Below) Other Neuro History: tremor, memory loss Psychiatric History: Reports: Anxiety, Depression, Other (See Below) Other Psychiatric History: insomnia Endocrine/Metabolic History: Reports: Diabetes, Type II Oncologic (Cancer) History: Reports: Prostate - Infectious Disease History Infectious Disease History: Reports: Herpes - Past Surgical History HEENT Surgical History: Reports: Naso-Sinus Surgery Cardiovascular Surgical History: Reports: Coronary Artery Bypass, Pacer Male Surgical History: Reports: Prostate Biopsy, TURP-Transurethral Resection of Prostate Social & Family History - Family History Family Medical History: Noncontributory Cardiac: Reports: High Cholesterol, Hypertension, DE Neurological: Reports: Parkinson's Endocrine/Metabolic: Reports: Diabetes, type II - Tobacco Use Smoking Status *Q: Former Smoker Used Tobacco, but Quit: Yes Month/Year Tobacco Last Used: 1994 - Caffeine Use Caffeine Use: Reports: Coffee - Recreational Drug Use Recreational Drug Use: No - Living Situation & Occupation Living situation: Reports: Occupation: Retired ED ROS GENERAL - Review of Systems Review Of Systems: See Below Constitutional: Reports: Fever, Chills, Malaise, Weakness HEENT: Reports: No Symptoms Respiratory: Reports: Shortness of Breath, Cough Cardiovascular: Reports: No Symptoms Endocrine: Reports: No Symptoms GI/Abdominal: Reports: No Symptoms : Reports: No Symptoms Musculoskeletal: Reports: No Symptoms ED EXAM, SEPSIS - Physical Exam Exam: See Below Exam Limited By: No Limitations General Appearance: Alert, No Apparent Distress Ears: Normal External Exam Nose: Normal Inspection Head: Atraumatic, Normocephalic Neck: Normal Inspection Respiratory/Chest: No Respiratory Distress, Decreased Breath Sounds, Rhonchi Cardiovascular: Regular Rate, Rhythm, No Edema, Systolic Murmur GI/Abdominal Exam: Soft, Non-Tender, No Organomegaly, No Mass Extremities: Normal Inspection Neurological: Alert, Oriented, No Motor/Sensory Deficits EKG INTERPRETATION EKG Date: 01/15/18 Time: 08:50 Rhythm: A-Flutter Rate (Beats/Min): 83 Ebony: Normal P-Wave: Present QRS: Normal ST-T: Normal QT: Normal EKG Interpretation Comments: Q waves in the inferior and anteroseptal leads Course - Vital Signs Last Recorded V/S: Last Vital Signs Temp 100.1 F 01/15/18 10:13 Pulse 100 01/15/18 08:15 Resp 30 H 01/15/18 08:15 BP 141/84 H 01/15/18 08:15 Pulse Ox 93 L 01/15/18 08:15 - Orders/Labs/Meds Orders: Active Orders 24 hr Category Date Time Status Patient Status [ADT] Routine ADT 01/15/18 11:26 Active EKG Documentation Completion [RC] ASDIRECTED Care 01/15/18 08:31 Active Chest 2V [CR] Stat Exams 01/15/18 08:28 Taken CULTURE BLOOD [BC] Stat Lab 01/15/18 08:50 Received CULTURE BLOOD [BC] Stat Lab 01/15/18 09:10 Received UA W/MICROSCOPIC [URIN] Stat Lab 01/15/18 08:28 Ordered Sodium Chloride 0.9% [Normal Saline] 1,000 ml Med 01/15/18 09:00 Active IV ASDIRECTED Blood Culture x2 Reflex Set [OM.PC] Stat Oth 01/15/18 08:28 Ordered EKG 12 Lead [EK] Stat Ther 01/15/18 08:28 Ordered Medication Orders Sodium Chloride (Normal Saline) 1,000 mls @ 150 mls/hr IV ASDIRECTED GINA Last Admin: 01/15/18 09:11 Dose: 150 mls/hr Labs: Laboratory Tests 01/15/18 01/15/18 01/15/18 Range/Units 08:25 08:25 08:25 WBC 8.75 (4.23-9.07) K/mm3 RBC 4.06 L (4.63-6.08) M/mm3 Hgb 13.0 L (13.7-17.5) gm/L Hct 39.4 L (40.1-51.0) % MCV 97.0 H (79.0-92.2) fl MCH 32.0 (25.7-32.2) pg MCHC 33.0 (32.2-35.5) g/dl RDW Std Deviation 53.0 H (35.1-43.9) fL Plt Count 182 (163-337) K/mm3 MPV 9.5 (9.4-12.3) fl Neutrophils % (Manual) 78 H (40-60) % Band Neutrophils % 1 (0-10) % Lymphocytes % (Manual) 19 L (20-40) % Atypical Lymphs % 0 % Monocytes % (Manual) 1 L (2-10) % Eosinophils % (Manual) 1 (0.8-7.0) % Basophils % (Manual) 0 L (0.2-1.2) Platelet Estimate Adequate RBC Morph Comment Normal PT 14.3 H (9.5-12.1) SECONDS INR 1.32 Sodium 140 (136-145) mEq/L Potassium 4.2 (3.5-5.1) mEq/L Chloride 107 (98-107) mEq/L Carbon Dioxide 22 (21-32) mEq/L Anion Gap 15.2 H (5-15) BUN 16 (7-18) mg/dL Creatinine 1.4 H (0.7-1.3) mg/dL Est Cr Clr Drug Dosing 42.58 mL/min Estimated GFR (MDRD) 48 (>60) mL/min BUN/Creatinine Ratio 11.4 L (14-18) Glucose 121 H (83-115) mg/dL Lactic Acid (0.4-2.0) mmol/L Calcium 9.1 (8.5-10.1) mg/dL Total Bilirubin 0.5 (0.2-1.0) mg/dL AST 17 (15-37) U/L ALT 18 (16-63) U/L Alkaline Phosphatase 91 (46-116) U/L Troponin I 0.029 (0.00-0.056) ng/mL NT-Pro-B Natriuret Pep (0-450) pg/mL Total Protein 6.4 (6.4-8.2) g/dl Albumin 3.0 L (3.4-5.0) g/dl Globulin 3.4 gm/dL Albumin/Globulin Ratio 0.9 L (1-2) 01/15/18 01/15/18 Range/Units 08:25 08:50 WBC (4.23-9.07) K/mm3 RBC (4.63-6.08) M/mm3 Hgb (13.7-17.5) gm/L Hct (40.1-51.0) % MCV (79.0-92.2) fl MCH (25.7-32.2) pg MCHC (32.2-35.5) g/dl RDW Std Deviation (35.1-43.9) fL Plt Count (163-337) K/mm3 MPV (9.4-12.3) fl Neutrophils % (Manual) (40-60) % Band Neutrophils % (0-10) % Lymphocytes % (Manual) (20-40) % Atypical Lymphs % % Monocytes % (Manual) (2-10) % Eosinophils % (Manual) (0.8-7.0) % Basophils % (Manual) (0.2-1.2) Platelet Estimate RBC Morph Comment PT (9.5-12.1) SECONDS INR Sodium (136-145) mEq/L Potassium (3.5-5.1) mEq/L Chloride (98-107) mEq/L Carbon Dioxide (21-32) mEq/L Anion Gap (5-15) BUN (7-18) mg/dL Creatinine (0.7-1.3) mg/dL Est Cr Clr Drug Dosing mL/min Estimated GFR (MDRD) (>60) mL/min BUN/Creatinine Ratio (14-18) Glucose (83-115) mg/dL Lactic Acid 2.0 (0.4-2.0) mmol/L Calcium (8.5-10.1) mg/dL Total Bilirubin (0.2-1.0) mg/dL AST (15-37) U/L ALT (16-63) U/L Alkaline Phosphatase (46-116) U/L Troponin I (0.00-0.056) ng/mL NT-Pro-B Natriuret Pep 1314 H (0-450) pg/mL Total Protein (6.4-8.2) g/dl Albumin (3.4-5.0) g/dl Globulin gm/dL Albumin/Globulin Ratio (1-2) Meds: Medications Generic Name Dose Route Start Last Admin Trade Name Freq PRN Reason Stop Dose Admin Sodium Chloride 1,000 mls @ 150 mls/hr 01/15/18 09:00 01/15/18 09:11 Normal Saline IV 150 mls/hr ASDIRECTED GINA Administration Discontinued Medications Generic Name Dose Route Start Last Admin Trade Name Freq PRN Reason Stop Dose Admin Acetaminophen 975 mg 01/15/18 08:50 01/15/18 09:11 Tylenol PO 01/15/18 08:51 975 mg NOW ONE Administration Ceftriaxone Sodium 2 gm/ 100 mls @ 100 mls/hr 01/15/18 08:51 01/15/18 09:12 Sodium Chloride IV 01/15/18 09:50 100 mls/hr ONETIME ONE Administration - Re-Assessments/Exams Free Text/Narrative Re-Assessment/Exam: 01/15/18 09:00 I ordered oxygen, IV NS at 125ml/hr, labs, blood cultures, CXR, EKG, tylenol and rocephin 2 grams IV. 01/15/18 11:32 His WBC was normal. His INR was 1.32. His anion gap was elevated at 15.2. His creatinine was slightly elevated at 1.4. His glucose was elevated at 121. His BNP was elevated at 1314. His CXR shows RML infiltrate. His oxygen saturations are better. I feel he does need to be admitted for the pneumonia and hypoxia. I called Dr Liang and she agreed to the admission. Departure - Departure Time of Disposition: 11:40 Disposition: Admitted As Inpatient 65 Condition: Fair Clinical Impression: Hypoxia Atrial flutter Qualifiers: Atrial flutter type: unspecified Qualified Code(s): I48.92 - Unspecified atrial flutter Pneumonia Qualifiers: Pneumonia type: due to unspecified organism Laterality: right Lung location: lower lobe of lung Qualified Code(s): J18.1 - Lobar pneumonia, unspecified organism - Discharge Information Forms: ED Department Discharge - My Orders Last 24 Hours: My Active Orders 01/15/18 08:28 Chest 2V [CR] Stat UA W/MICROSCOPIC [URIN] Stat Blood Culture x2 Reflex Set [OM.PC] Stat EKG 12 Lead [EK] Stat 01/15/18 08:31 EKG Documentation Completion [RC] ASDIRECTED 01/15/18 08:50 CULTURE BLOOD [BC] Stat 01/15/18 09:00 Sodium Chloride 0.9% [Normal Saline] 1,000 ml IV ASDIRECTED 01/15/18 09:10 CULTURE BLOOD [BC] Stat 01/15/18 11:26 Patient Status [ADT] Routine - Assessment/Plan Last 24 Hours: My Active Orders 01/15/18 08:28 Chest 2V [CR] Stat UA W/MICROSCOPIC [URIN] Stat Blood Culture x2 Reflex Set [OM.PC] Stat EKG 12 Lead [EK] Stat 01/15/18 08:31 EKG Documentation Completion [RC] ASDIRECTED 01/15/18 08:50 CULTURE BLOOD [BC] Stat 01/15/18 09:00 Sodium Chloride 0.9% [Normal Saline] 1,000 ml IV ASDIRECTED 01/15/18 09:10 CULTURE BLOOD [BC] Stat 01/15/18 11:26 Patient Status [ADT] Routine
[2018-01-15] MEDS ORDERED: Sodium Chloride 0.9% 1,000 ML IV SCH (09:00)
[2018-01-15] MEDS ORDERED: Azithromycin 500 MG in Sodium Chloride 0.9% 250 ML IV ONE ×2 (16:15→16:45)
[2018-01-15] MEDS ORDERED: guaiFENesin/Dextromethorphan 100-10 MG/5 ML Soln 5 ML Cup PO PRN (16:17)
[2018-01-15] MEDS ORDERED: Benzonatate 100 MG Cap PO PRN (16:17)
[2018-01-15] MEDS ORDERED: Albuterol 0.083% 2.5 MG/3 ML Neb Soln NEB PRN (16:28)
[2018-01-15] MEDS ORDERED: Acetaminophen/oxyCODONE 325-5 MG Tab PO PRN (16:28)
[2018-01-15] MEDS ORDERED: Bisacodyl 5 MG Tab PO PRN (16:28)
[2018-01-15] MEDS ORDERED: HYDROmorphone 0.5 MG/0.5 ML Syringe IVPUSH PRN (16:28)
[2018-01-15] MEDS ORDERED: Albuterol/Ipratropium 3.0-0.5 MG/3 ML Neb Soln NEB PRN (16:28)
[2018-01-15] MEDS ORDERED: Magnesium Hydroxide 400 MG/5 ML Susp 30 ML Cup PO PRN (16:28)
[2018-01-15] MEDS ORDERED: Docusate Sodium 100 MG Cap PO PRN (16:28)
[2018-01-15] MEDS ORDERED: Polyethylene Glycol 3350 Powder 17 GM Packet PO PRN (16:28)
[2018-01-15] MEDS ORDERED: Promethazine 25 MG Tab PO PRN (16:33)
[2018-01-15] MEDS ORDERED: Promethazine 6.25 MG in Sodium Chloride 0.9% 50 ML IV PRN (16:33)
[2018-01-15] MEDS: Rosuvastatin 10 MG Tab PO SCH ×2 (16:57→18:54)
[2018-01-15] MEDS: glipiZIDE 5 MG Tab PO SCH (16:58)
[2018-01-15] MEDS: Insulin Lispro 100 Unit/ML 3 ML KwikPen SUBCUT SCH ×2 (18:09→22:06)
--- NOTE | 2018-01-15 18:38 | PCM.HP ---
H&P History of Present Illness - General Date of Service: 01/15/18 Admit Problem/Dx: Admission Diagnosis/Problem Admission Diagnosis/Problem Pneumonia Source of Information: Patient, Family, Old Records, Provider History Limitations: Reports: No Limitations - History of Present Illness Initial Comments - Free Text/Narative: This is an 82 yo male with past medical h/o Afib/Aflutter, CAD with CABG x4, HTN , HLD, PVD, CHF, LVH, Aortic Stenosis, COPD, Sleep Apnea, GERD, BPH, Prostate CA s/p radiation, DM2 with neuropathy, CKD III, Urinary Retention, Anxiety/ Depression who comes in for CAP. No current pain. He complains of F/C, SOB, decreased appetite, productive cough. He denies nausea, vomiting, diarrhea, chest pain, or GI/ complaints. His symptoms improved after receiving O2, IVF, and antibiotics in the ED. His initial workup in the ED showed a CBC remarkable for RBC 4.06, Hgb 13, Hct 39.4 , MCV 97, RDW 53, Neut 78%, Bands 1%, Lymph 19%. His coagulation study shows PT 14.3, INR 1.32. His chemistry is remarkable for Anion Gap 15.2, Cr 1.4, [id number], BNP 1314, Albumin 3. EKG Chest X-ray shows PNA in Right lower lobe. U/A unimpressive for UTI. Blood cultures pending. He is subsequently admitted to the medical floor. He is Full code, COMPRESSIONS ONLY and doesn't want to be on long-term intubation. His PCP is Dr. Casandra Reddy. - Related Data Allergies/Adverse Reactions: Allergies Allergy/AdvReac Type Severity Reaction Status Date / Time No Known Allergies Allergy Verified 01/15/18 08:18 Home Medications: Home Meds Allopurinol [Zyloprim] 300 mg PO DAILY 11/05/15 [History] Isosorbide Mononitrate [Imdur] 30 mg PO DAILY 11/05/15 [History] Lisinopril [Prinivil] 10 mg PO BID 11/05/15 [History] glipiZIDE [Glucotrol] 2.5 mg PO BID 11/05/15 [History] atorvaSTATin [Lipitor] 80 mg PO QPM 11/10/15 [History] Cholecalciferol (Vitamin D3) [Vitamin D3] 2,000 unit PO BID 02/17/16 [History] Saxagliptin HCl [Onglyza] 2.5 mg PO DAILY 02/17/16 [History] Tiotropium [Spiriva HandiHaler] 1 puff INH DAILY 02/17/16 [History] Carvedilol [Coreg] 3.125 mg PO BID 06/29/16 [History] Rivaroxaban [Xarelto] 15 mg PO DAILY 06/29/16 [History] Omeprazole 20 mg PO BIDAC 03/20/17 [History] Polyethylene Glycol 3350 [MiraLAX] 17 gm PO DAILY PRN 03/20/17 [History] Topiramate 25 mg PO BEDTIME 03/20/17 [History] Tamsulosin [Flomax] 0.4 mg PO DAILY 10/19/17 [History] Zolpidem Tartrate 5 mg PO BEDTIME 10/19/17 [History] FLUoxetine [PROzac] 30 mg PO DAILY cap 10/24/17 [Rx] Albuterol [Proventil HFA] 2 puff INH Q4HR PRN 01/15/18 [History] Budesonide/Formoterol Fumarate [Symbicort 160-4.5 Mcg Inhaler] 2 puff IH [History] Past Medical History HEENT History: Reports: Cataract, Hard of Hearing Cardiovascular History: Reports: Afib, Angina, Bypass, CAD, Heart Murmur, High Cholesterol, Hypertension, PVD, SOB on Exertion Other Cardiovascular History: HX LVH, Mild , Bilateral artial enlg Respiratory History: Reports: COPD, Sleep Apnea, SOB Gastrointestinal History: Reports: GERD, Hepatitis Other Gastrointestinal History: nausea Genitourinary History: Reports: BPH, Diabetic Nephropathy, Prostate Disorder, Retention, Urinary Musculoskeletal History: Reports: Back Pain, Chronic, Gout, Neck Pain, Chronic, Osteoarthritis Neurological History: Reports: Neuropathy, Diabetic, Neuropathy, Peripheral, Other (See Below) Other Neuro History: tremor, memory loss Psychiatric History: Reports: Anxiety, Depression, Other (See Below) Other Psychiatric History: insomnia Endocrine/Metabolic History: Reports: Diabetes, Type II Oncologic (Cancer) History: Reports: Prostate - Infectious Disease History Infectious Disease History: Reports: Influenza, Measles - Past Surgical History HEENT Surgical History: Reports: Naso-Sinus Surgery Cardiovascular Surgical History: Reports: Coronary Artery Bypass, Pacer GI Surgical History: Reports: None Male Surgical History: Reports: Prostate Biopsy, TURP-Transurethral Resection of Prostate Social & Family History - Family History Family Medical History: Noncontributory Cardiac: Reports: High Cholesterol, Hypertension, NE Neurological: Reports: Parkinson's Endocrine/Metabolic: Reports: Diabetes, type II - Tobacco Use Smoking Status *Q: Former Smoker Used Tobacco, but Quit: Yes Month/Year Tobacco Last Used: 1997 - Caffeine Use Caffeine Use: Reports: Coffee - Recreational Drug Use Recreational Drug Use: No - Living Situation & Occupation Living situation: Reports: Occupation: Retired H&P Review of Systems - Review of Systems: Review Of Systems: See Below General: Reports: Night Sweats. Denies: Fever, Chills HEENT: Reports: No Symptoms Pulmonary: Reports: Shortness of Breath, Wheezing, Cough, Sputum Cardiovascular: Reports: Blood Pressure Problem. Denies: Chest Pain, Edema Gastrointestinal: Reports: Constipation, Distension, Flatus. Denies: Abdominal Pain, Diarrhea, Nausea, Vomiting Genitourinary: Reports: No Symptoms Musculoskeletal: Reports: No Symptoms Skin: Reports: No Symptoms Psychiatric: Reports: No Symptoms Neurological: Reports: No Symptoms Hematologic/Lymphatic: Reports: No Symptoms Immunologic: Reports: No Symptoms Exam - Exam Exam: See Below - Vital Signs Vital Signs: Last Vital Signs Temp 97.9 F 01/15/18 15:26 Pulse 61 01/15/18 15:45 Resp 24 H 01/15/18 15:26 BP 111/63 01/15/18 15:26 Pulse Ox 94 L 01/15/18 17:34 Weight: 175 lb 4.8 oz - Exam Quality Assessment: Supplemental Oxygen (1L NC), DVT Prophylaxis. No: Urinary Catheter General: Alert, Oriented, Cooperative HEENT: Conjunctiva Clear, EOMI, Hearing Intact, Mucosa Moist & [place], Nares Patent, Normal Nasal Septum, Posterior Pharynx Clear, PERRLA Neck: Supple, Trachea Midline, 2 Lungs: Crackles, Wheezing (throughout lung delgado) Cardiovascular: Regular Rate, Regular Rhythm GI/Abdominal Exam: Normal Bowel Sounds, Soft, Non-Tender, No Organomegaly, No Abnormal Bruit, No Mass, Pelvis Stable, Distended (hyperresonant to percussion) (Male) Exam: Deferred Rectal (Males) Exam: Deferred Back Exam: Normal Inspection, Full Range of Motion, NT Extremities: Normal Inspection, Normal Range of Motion, Non-Tender, No Pedal Edema, Normal Capillary Refill Peripheral Pulses: 3+: Posterior Tibial (L), Posterior Tibial (R), Dorsalis Pedis (L), Dorsalis Pedis (R) Skin: Warm, Dry, Intact Neurological: Cranial Nerves Intact (grossly), Strength Equal Bilateral, Sensation Intact Neuro Extensive - Mental Status: Alert, Oriented x3, Normal Mood/Affect, Normal Cognition, Memory Intact Psychiatric: Alert, Normal Affect, Normal Mood - Patient Data Lab Results Last 24 hrs: Laboratory Results - last 24 hr 01/15/18 01/15/18 01/15/18 Range/Units 08:25 08:25 08:25 WBC 8.75 (4.23-9.07) K/mm3 RBC 4.06 L (4.63-6.08) M/mm3 Hgb 13.0 L (13.7-17.5) gm/L Hct 39.4 L (40.1-51.0) % MCV 97.0 H (79.0-92.2) fl MCH 32.0 (25.7-32.2) pg MCHC 33.0 (32.2-35.5) g/dl RDW Std Deviation 53.0 H (35.1-43.9) fL Plt Count 182 (163-337) K/mm3 MPV 9.5 (9.4-12.3) fl Neutrophils % (Manual) 78 H (40-60) % Band Neutrophils % 1 (0-10) % Lymphocytes % (Manual) 19 L (20-40) % Atypical Lymphs % 0 % Monocytes % (Manual) 1 L (2-10) % Eosinophils % (Manual) 1 (0.8-7.0) % Basophils % (Manual) 0 L (0.2-1.2) Platelet Estimate Adequate RBC Morph Comment Normal PT 14.3 H (9.5-12.1) SECONDS INR 1.32 Sodium 140 (136-145) mEq/L Potassium 4.2 (3.5-5.1) mEq/L Chloride 107 (98-107) mEq/L Carbon Dioxide 22 (21-32) mEq/L Anion Gap 15.2 H (5-15) BUN 16 (7-18) mg/dL Creatinine 1.4 H (0.7-1.3) mg/dL Est Cr Clr Drug Dosing 42.58 mL/min Estimated GFR (MDRD) 48 (>60) mL/min BUN/Creatinine Ratio 11.4 L (14-18) Glucose 121 H (83-115) mg/dL POC Glucose (83-110) mg/dL Lactic Acid (0.4-2.0) mmol/L Calcium 9.1 (8.5-10.1) mg/dL Total Bilirubin 0.5 (0.2-1.0) mg/dL AST 17 (15-37) U/L ALT 18 (16-63) U/L Alkaline Phosphatase 91 (46-116) U/L Troponin I 0.029 (0.00-0.056) ng/mL NT-Pro-B Natriuret Pep (0-450) pg/mL Total Protein 6.4 (6.4-8.2) g/dl Albumin 3.0 L (3.4-5.0) g/dl Globulin 3.4 gm/dL Albumin/Globulin Ratio 0.9 L (1-2) Urine Color (Yellow) Urine Appearance (Clear) Urine pH (5.0-8.0) Ur Specific [place] (1.005-1.030) Urine Protein (Negative) Urine Glucose (UA) (Negative) Urine Ketones (Negative) Urine Occult Blood (Negative) Urine Nitrite (Negative) Urine Bilirubin (Negative) Urine Urobilinogen (0.2-1.0) Ur Leukocyte Esterase (Negative) Urine RBC (0-5) /hpf Urine WBC (0-5) /hpf Ur Epithelial Cells (0-5) /hpf Urine Bacteria (FEW) /hpf Urine Mucus (FEW) /hpf Mycoplasma pneumon IgM (NEGATIVE) 01/15/18 01/15/18 01/15/18 Range/Units 08:25 08:25 08:50 WBC (4.23-9.07) K/mm3 RBC (4.63-6.08) M/mm3 Hgb (13.7-17.5) gm/L Hct (40.1-51.0) % MCV (79.0-92.2) fl MCH (25.7-32.2) pg MCHC (32.2-35.5) g/dl RDW Std Deviation (35.1-43.9) fL Plt Count (163-337) K/mm3 MPV (9.4-12.3) fl Neutrophils % (Manual) (40-60) % Band Neutrophils % (0-10) % Lymphocytes % (Manual) (20-40) % Atypical Lymphs % % Monocytes % (Manual) (2-10) % Eosinophils % (Manual) (0.8-7.0) % Basophils % (Manual) (0.2-1.2) Platelet Estimate RBC Morph Comment PT (9.5-12.1) SECONDS INR Sodium (136-145) mEq/L Potassium (3.5-5.1) mEq/L Chloride (98-107) mEq/L Carbon Dioxide (21-32) mEq/L Anion Gap (5-15) BUN (7-18) mg/dL Creatinine (0.7-1.3) mg/dL Est Cr Clr Drug Dosing mL/min Estimated GFR (MDRD) (>60) mL/min BUN/Creatinine Ratio (14-18) Glucose (83-115) mg/dL POC Glucose (83-110) mg/dL Lactic Acid 2.0 (0.4-2.0) mmol/L Calcium (8.5-10.1) mg/dL Total Bilirubin (0.2-1.0) mg/dL AST (15-37) U/L ALT (16-63) U/L Alkaline Phosphatase (46-116) U/L Troponin I (0.00-0.056) ng/mL NT-Pro-B Natriuret Pep 1314 H (0-450) pg/mL Total Protein (6.4-8.2) g/dl Albumin (3.4-5.0) g/dl Globulin gm/dL Albumin/Globulin Ratio (1-2) Urine Color (Yellow) Urine Appearance (Clear) Urine pH (5.0-8.0) Ur Specific [place] (1.005-1.030) Urine Protein (Negative) Urine Glucose (UA) (Negative) Urine Ketones (Negative) Urine Occult Blood (Negative) Urine Nitrite (Negative) Urine Bilirubin (Negative) Urine Urobilinogen (0.2-1.0) Ur Leukocyte Esterase (Negative) Urine RBC (0-5) /hpf Urine WBC (0-5) /hpf Ur Epithelial Cells (0-5) /hpf Urine Bacteria (FEW) /hpf Urine Mucus (FEW) /hpf Mycoplasma pneumon IgM Negative (NEGATIVE) 01/15/18 01/15/18 01/15/18 Range/Units 12:33 15:56 17:13 WBC (4.23-9.07) K/mm3 RBC (4.63-6.08) M/mm3 Hgb (13.7-17.5) gm/L Hct (40.1-51.0) % MCV (79.0-92.2) fl MCH (25.7-32.2) pg MCHC (32.2-35.5) g/dl RDW Std Deviation (35.1-43.9) fL Plt Count (163-337) K/mm3 MPV (9.4-12.3) fl Neutrophils % (Manual) (40-60) % Band Neutrophils % (0-10) % Lymphocytes % (Manual) (20-40) % Atypical Lymphs % % Monocytes % (Manual) (2-10) % Eosinophils % (Manual) (0.8-7.0) % Basophils % (Manual) (0.2-1.2) Platelet Estimate RBC Morph Comment PT (9.5-12.1) SECONDS INR Sodium (136-145) mEq/L Potassium (3.5-5.1) mEq/L Chloride (98-107) mEq/L Carbon Dioxide (21-32) mEq/L Anion Gap (5-15) BUN (7-18) mg/dL Creatinine (0.7-1.3) mg/dL Est Cr Clr Drug Dosing mL/min Estimated GFR (MDRD) (>60) mL/min BUN/Creatinine Ratio (14-18) Glucose (83-115) mg/dL POC Glucose 133 H 147 H (83-110) mg/dL Lactic Acid (0.4-2.0) mmol/L Calcium (8.5-10.1) mg/dL Total Bilirubin (0.2-1.0) mg/dL AST (15-37) U/L ALT (16-63) U/L Alkaline Phosphatase (46-116) U/L Troponin I (0.00-0.056) ng/mL NT-Pro-B Natriuret Pep (0-450) pg/mL Total Protein (6.4-8.2) g/dl Albumin (3.4-5.0) g/dl Globulin gm/dL Albumin/Globulin Ratio (1-2) Urine Color Yellow (Yellow) Urine Appearance Clear (Clear) Urine pH 6.0 (5.0-8.0) Ur Specific [place] 1.020 (1.005-1.030) Urine Protein Negative (Negative) Urine Glucose (UA) Negative (Negative) Urine Ketones Negative (Negative) Urine Occult Blood Negative (Negative) Urine Nitrite Negative (Negative) Urine Bilirubin Negative (Negative) Urine Urobilinogen 0.2 (0.2-1.0) Ur Leukocyte Esterase Negative (Negative) Urine RBC 0-5 (0-5) /hpf Urine WBC 0-5 (0-5) /hpf Ur Epithelial Cells 0-5 (0-5) /hpf Urine Bacteria Not seen (FEW) /hpf Urine Mucus Not seen (FEW) /hpf Mycoplasma pneumon IgM (NEGATIVE) Result Diagrams: 01/15/18 08:25 01/15/18 08:25 - Problem List (1) Pneumonia SNOMED Code(s): 439706335 ICD Code: J18.9 - PNEUMONIA, UNSPECIFIED ORGANISM Status: Acute Priority : High Current Visit: Yes Qualifiers: Pneumonia type: due to unspecified organism Laterality: right Lung location: lower lobe of lung Qualified Code(s): J18.1 - Lobar pneumonia, unspecified organism (2) Atrial flutter SNOMED Code(s): 4758013 ICD Code: I48.92 - UNSPECIFIED ATRIAL FLUTTER Status: Acute Priority: High Current Visit: Yes Qualifiers: Atrial flutter type: unspecified Qualified Code(s): I48.92 - Unspecified atrial flutter (3) Hypoxia SNOMED Code(s): 565630565 ICD Code: R09.02 - HYPOXEMIA Status: Acute Priority: High Current Visit : Yes Problem List Initiated/Reviewed/Updated: Yes Orders Last 24hrs: Active Orders 24 hr Category Date Time Status Patient Status [ADT] Routine ADT 01/15/18 11:26 Active Blood Glucose Check, Bedside [RC] QIDACANDBED Care 01/15/18 12:42 Active Height and Weight [RC] 04 Care 01/15/18 16:28 Active Intake and Output [RC] QSHIFT Care 01/15/18 16:28 Active RT Aerosol Therapy [RC] ASDIRECTED Care 01/15/18 16:30 Active VTE/DVT Education [RC] 09,21 Care 01/15/18 16:28 Active Vital Signs [RC] Q4H Care 01/15/18 16:28 Active OT Evaluation and Treatment [CONS] Routine Cons 01/15/18 16:28 Active PT Evaluation and Treatment [CONS] Routine Cons 01/15/18 16:28 Active Respiratory Care Assess and Treatment [CONS] Routine Cons 01/15/18 16:28 Active [employer] Evaluation and Treatment [CONS] Routine Cons 01/15/18 16:04 Active Full Liquid Diet [DIET] Diet 01/15/18 Dinner Active Chest 1V Frontal [CR] AM Exams 01/17/18 05:11 Ordered Chest 2V [CR] Stat Exams 01/15/18 08:28 Taken A1C [GLYCOSYLATED HEMOGLOBIN,HGBA1C] [CHEM] Routine Lab 01/16/18 05:11 Ordered BASIC METABOLIC PANEL,BMP [CHEM] AM Lab 01/16/18 05:11 Ordered BASIC METABOLIC PANEL,BMP [CHEM] AM Lab 01/17/18 05:11 Ordered BASIC METABOLIC PANEL,BMP [CHEM] AM Lab 01/18/18 05:11 Ordered BASIC METABOLIC PANEL,BMP [CHEM] AM Lab 01/19/18 05:11 Ordered BASIC METABOLIC PANEL,BMP [CHEM] AM Lab 01/20/18 05:11 Ordered C-REACTIVE PROTEIN [CHEM] AM Lab 01/16/18 05:11 Ordered C-REACTIVE PROTEIN [CHEM] AM Lab 01/17/18 05:11 Ordered C-REACTIVE PROTEIN [CHEM] AM Lab 01/18/18 05:11 Ordered C-REACTIVE PROTEIN [CHEM] AM Lab 01/19/18 05:11 Ordered C-REACTIVE PROTEIN [CHEM] AM Lab 01/20/18 05:11 Ordered CBC WITH AUTO DIFF [HEME] AM Lab 01/16/18 05:11 Ordered CBC WITH AUTO DIFF [HEME] AM Lab 01/17/18 05:11 Ordered CBC WITH AUTO DIFF [HEME] AM Lab 01/18/18 05:11 Ordered CBC WITH AUTO DIFF [HEME] AM Lab 01/19/18 05:11 Ordered CBC WITH AUTO DIFF [HEME] AM Lab 01/20/18 05:11 Ordered CULTURE BLOOD [BC] Stat Lab 01/15/18 08:50 Received CULTURE BLOOD [BC] Stat Lab 01/15/18 09:10 Received CULTURE SPUTUM + SMEAR [RM] Routine Lab 01/15/18 16:18 Ordered MAGNESIUM [CHEM] AM Lab 01/16/18 05:11 Ordered MAGNESIUM [CHEM] AM Lab 01/17/18 05:11 Ordered MAGNESIUM [CHEM] AM Lab 01/18/18 05:11 Ordered MAGNESIUM [CHEM] AM Lab 01/19/18 05:11 Ordered MAGNESIUM [CHEM] AM Lab 01/20/18 05:11 Ordered RESPIRATORY PANEL Routine Lab 01/15/18 17:15 Received STREP PNEUMONIAE ANTIGEN [MREF] Routine Lab 01/15/18 15:56 Received UA W/MICROSCOPIC [URIN] Stat Lab 01/15/18 15:56 Ordered Acetaminophen [Tylenol] Med 01/15/18 16:28 Active 650 mg PO Q4H PRN Acetaminophen/oxyCODONE [Percocet 325-5 MG] Med 01/15/18 16:28 Active 1 tab PO Q4H PRN Albuterol [Proventil Neb Soln] Med 01/15/18 16:28 Active 2.5 mg NEB Q2H PRN Albuterol/Ipratropium [DuoNeb 3.0-0.5 MG/3 ML] Med 01/15/18 16:28 Active 3 ml NEB Q4H PRN Allopurinol [Zyloprim] Med 01/16/18 09:00 Active 300 mg PO DAILY Alogliptin Benzoate [Alogliptin] Med 01/16/18 09:00 Active 25 mg PO DAILY Benzonatate [Tessalon Perles] Med 01/15/18 16:17 Active 200 mg PO TID PRN Bisacodyl [Dulcolax] Med 01/15/18 16:28 Active 5 mg PO DAILY PRN Carvedilol [Coreg] Med 01/15/18 21:00 Active 3.125 mg PO BID Dextromethorphan/guaiFENesin [Robitussin DM] Med 01/15/18 16:17 Active 10 ml PO Q4H PRN Docusate Sodium [Colace] Med 01/15/18 16:28 Active 100 mg PO BID PRN Docusate Sodium/Sennosides [Senna Plus] Med 01/15/18 16:28 Active 1 tab PO BID PRN FLUoxetine [PROzac] Med 01/16/18 09:00 Active 30 mg PO DAILY HYDROmorphone [Dilaudid] Med 01/15/18 16:28 Active 0.25 mg IVPUSH Q2H PRN Insulin Lispro [HumaLOG] Med 01/15/18 17:00 Active See Protocol SUBCUT QIDACANDBED Isosorbide Mononitrate [Imdur] Med 01/16/18 09:00 Active 30 mg PO DAILY Lisinopril [Prinivil] Med 01/15/18 21:00 Active 10 mg PO BID Magnesium Hydroxide [Milk of Magnesia] Med 01/15/18 16:28 Active 30 ml PO Q12H PRN Mometasone Furoate [Asmanex 220 MCG] Med 01/15/18 21:00 Active 0 puff INH BEDTIME Olodaterol HCl [Striverdi Respimat] Med 01/16/18 08:00 Pending 2 puff IH QAM Pantoprazole [ProTONIX IV] Med 01/16/18 09:00 Active 40 mg IVPUSH DAILY Polyethylene Glycol 3350 [MiraLAX] Med 01/15/18 16:28 Active 17 gm PO DAILY PRN Promethazine [Phenergan] Med 01/15/18 16:33 Active 25 mg PO Q6H PRN Promethazine [Phenergan] 6.25 mg Med 01/15/18 16:33 Active Sodium Chloride 0.9% [Normal Saline] 50 ml IV Q6H Rivaroxaban [Xarelto] Med 01/16/18 09:00 Active 15 mg PO DAILY Rosuvastatin [Crestor] Med 01/15/18 18:00 Active 20 mg PO QPM Sodium Chloride 0.9% [Normal Saline] 1,000 ml Med 01/15/18 09:00 Active IV ASDIRECTED Tamsulosin [Flomax] Med 01/16/18 09:00 Active 0.4 mg PO DAILY Tiotropium [Spiriva HandiHaler] Med 01/16/18 09:00 Active 18 mcg INH DAILY Topiramate [Topamax] Med 01/15/18 21:00 Active 25 mg PO BEDTIME Trelegy Ellipta. Med 01/16/18 09:00 Pending 1 puff INH DAILY Zolpidem [Ambien] Med 01/15/18 21:00 Active 5 mg PO BEDTIME cefTRIAXone [Rocephin] 2 gm Med 01/16/18 08:00 Active Dextrose 5% in Water 100 ml IV Q24H glipiZIDE [Glucotrol] Med 01/15/18 16:45 Active 2.5 mg PO BIDAC Antiembolic Hose [OM.PC] Per Unit Routine Oth 01/15/18 16:29 Ordered Blood Culture x2 Reflex Set [OM.PC] Stat Oth 01/15/18 08:28 Ordered Isolation [COMM] Routine Oth 01/15/18 12:02 Ordered RT Acapella [RESPCARE] Routine Oth 01/15/18 16:17 Active Resuscitation Status Routine Resus Stat 01/15/18 12:35 Ordered EKG 12 Lead [EK] Stat Ther 01/15/18 08:28 Ordered Medication Orders Acetaminophen (Tylenol) 650 mg PO Q4H PRN PRN Reason: Pain (Mild 1-3)/fever Albuterol (Proventil Neb Soln) 2.5 mg NEB Q2H PRN PRN Reason: Shortness Of Breath/wheezing Albuterol/Ipratropium (Duoneb 3.0-0.5 Mg/3 Ml) 3 ml NEB Q4H PRN PRN Reason: Shortness Of Breath/wheezing Last Admin: 01/15/18 17:33 Dose: 3 ml Allopurinol (Zyloprim) 300 mg PO DAILY [facility] Alogliptin Benzoate (Alogliptin) 25 mg PO DAILY [facility] Benzonatate (Tessalon Perles) 200 mg PO TID PRN PRN Reason: Cough Bisacodyl (Dulcolax) 5 mg PO DAILY PRN PRN Reason: Constipation Carvedilol (Coreg) 3.125 mg PO BID [facility] Docusate Sodium (Colace) 100 mg PO BID PRN PRN Reason: Constipation Fluoxetine HCl (Prozac) 30 mg PO DAILY [facility] Glipizide (Glucotrol) 2.5 mg PO BIDAC [facility] Last Admin: 01/15/18 16:58 Dose: 2.5 mg Guaifenesin/Phenylephrine HCl (Robitussin Dm) 10 ml PO Q4H PRN PRN Reason: Cough Hydromorphone HCl (Dilaudid) 0.25 mg IVPUSH Q2H PRN PRN Reason: Pain (severe 7-10) Sodium Chloride (Normal Saline) 1,000 mls @ 150 mls/hr IV ASDIRECTED [facility] Last Admin: 01/15/18 09:11 Dose: 150 mls/hr Ceftriaxone Sodium 2 gm/ (Dextrose/Water) 100 mls @ 200 mls/hr IV Q24H [facility] Promethazine HCl 6.25 mg/ (Sodium Chloride) 50.25 mls @ 100 mls/hr IV Q6H PRN PRN Reason: Nausea/Vomiting Insulin Human Lispro (Humalog) 0 unit SUBCUT QIDACANDBED [facility]; Protocol Last Admin: 01/15/18 18:09 Dose: Not Given Isosorbide Mononitrate (Imdur) 30 mg PO DAILY [facility] Lisinopril (Prinivil) 10 mg PO BID [facility] Magnesium Hydroxide (Milk Of Magnesia) 30 ml PO Q12H PRN PRN Reason: Constipation Mometasone Furoate (Asmanex 220 Mcg) 0 puff INH BEDTIME [facility] Non-Formulary Medication (Olodaterol Hcl [Striverdi Respimat]) 2 puff IH QAM [facility] Non-Formulary Medication (Trelegy Ellipta.) 1 puff INH DAILY [facility] Oxycodone/Acetaminophen (Percocet 325-5 Mg) 1 tab PO Q4H PRN PRN Reason: Pain (moderate 4-6) Pantoprazole Sodium (Protonix Iv) 40 mg IVPUSH DAILY [facility] Polyethylene Glycol (Miralax) 17 gm PO DAILY PRN PRN Reason: Constipation Promethazine HCl (Phenergan) 25 mg PO Q6H PRN PRN Reason: Nausea/Vomiting Rivaroxaban (Xarelto) 15 mg PO DAILY [facility] Rosuvastatin Calcium (Crestor) 20 mg PO QPM [facility] Last Admin: 01/15/18 16:57 Dose: 20 mg Senna/Docusate Sodium (Senna Plus) 1 tab PO BID PRN PRN Reason: Constipation Tamsulosin HCl (Flomax) 0.4 mg PO DAILY [facility] Tiotropium [place] (Spiriva Handihaler) 18 mcg INH DAILY [facility] Topiramate (Topamax) 25 mg PO BEDTIME [facility] Zolpidem Tartrate (Ambien) 5 mg PO BEDTIME [facility] Assessment/Plan Comment:: I/P: Acute: CAP, right lower lung * PSI/PORT Score: 103; hospitalization recommended * Risk factor: CAP 3 months ago, has been to clinic around sick contacts * Productive cough, F/C, SOB, O2 70% on RA * Temp of 100.1 in ED * CXR in ED--> PNA R lower lobe; formal read pending * IV Rocephin started in ED--> Continue and add Azithro 500 IV * 94% on 1L nasal cannula * RT/IS/Acapella/DuoNebs * Sepsis work up: * Lactic acid 2 * Blood Cultures Pending * IVF started in ED--> D/C * Repeat CXR in 2 days * [employer] swallow evaluation * Sputum culture pending * Robitussin DM and tesslon perles PRN cough Chronic: Afib/Aflutter * EKG in ED--> Aflutter, Q waves in inferior and anteroseptal leads; normal QT interval * On Xarelto * Has Pacemaker * Monitor on telemetry CHF * BNP elevated at 1314, but is the lowest BNP he has had here * SOB, no pedal edema * ECHO 10/19/17: LVEF 60-65%; LVH, Mod to severe tricuspid regurg, dilated inferior vena cava, RV, and RA * Monitor * Lasix PRN CAD with CABG x4 HTN HLD PVD LVH Aortic Stenosis COPD Sleep Apnea GERD BPH Prostate CA s/p radiation DM2 with neuropathy * ADA diet when advances from liquid diet * Sliding scale insulin with BS checks QIDACandBED * A1C pending CKD III Urinary Retention Anxiety/Depression Herpes left eye Plan: Transferred to medical floor today He remains stable and continues to improve clinically Other orders as indicated above Routine AM labs Full liquid diet--> advance to ADA once [employer] swallow test done SW/CM for discharge planning PT/OT/RT DVT Prophylaxis: On Xarelto GI Prophylaxis: Protonix Ambulated as tolerated Code Status: Full Code, COMPRESSIONS ONLY, doesn't want to be on long-term intubation; PCP: Dr. Casandra Reddy
[2018-01-15] MEDS: SYMBICORT INH SCH (20:07)
[2018-01-15] MEDS ORDERED: Mometasone Furoate Powder 220 MCG/Puff 14 Dose Inhaler INH SCH (21:00)
[2018-01-15] MEDS ORDERED: Magnesium Sulfate/Water 2 GM in Premix Bag 1 BAG IV ONE (21:17)
[2018-01-15] MEDS ORDERED: Azithromycin 500 MG in Sodium Chloride 0.9% 250 ML IV SCH (21:30)
[2018-01-15] MEDS: Carvedilol 6.25 MG Tab PO SCH (21:56)
[2018-01-15] MEDS: Saccharomyces Boulardii (Probiotic) 250 MG Cap PO SCH (21:56)
[2018-01-15] MEDS: Lisinopril 10 MG Tab PO SCH (21:57)
[2018-01-15] MEDS: Topiramate 25 MG Tab PO SCH (21:58)
[2018-01-15] MEDS: Zolpidem 10 MG Tab PO SCH (21:58)
[2018-01-15] MEDS: Acetaminophen 325 MG Tab PO PRN (22:03)
[2018-01-16] MEDS: Insulin Lispro 100 Unit/ML 3 ML KwikPen SUBCUT SCH ×4 (06:10→21:15)
[2018-01-16] MEDS: glipiZIDE 5 MG Tab PO SCH ×2 (06:56→16:06)
[2018-01-16] MEDS ORDERED: OLODATEROL HCL IH SCH (08:00)
[2018-01-16] MEDS: Tamsulosin 0.4 MG Cap.ER PO SCH (08:48)
[2018-01-16] MEDS: Allopurinol 300 MG Tab PO SCH (08:48)
[2018-01-16] MEDS: FLUoxetine 10 MG Cap PO SCH (08:48)
[2018-01-16] MEDS: Saccharomyces Boulardii (Probiotic) 250 MG Cap PO SCH ×2 (08:48→20:13)
[2018-01-16] MEDS: Rivaroxaban 10 MG Tab PO SCH (08:49)
[2018-01-16] MEDS: Carvedilol 6.25 MG Tab PO SCH ×2 (08:50→20:12)
[2018-01-16] MEDS ORDERED: Isosorbide Mononitrate 30 MG Tab.ER PO SCH (09:00)
[2018-01-16] MEDS ORDERED: TRELEGY ELLIPTA INH SCH (09:00)
[2018-01-16] MEDS ORDERED: Pantoprazole 40 MG Vial IVPUSH SCH (09:00)
[2018-01-16] MEDS: SYMBICORT INH SCH ×2 (09:16→20:00)
[2018-01-16] MEDS: Tiotropium Inhaler 18 MCG Inhalation Powder Cap Kit of 5 INH SCH (09:29)
[2018-01-16] MEDS: Lisinopril 10 MG Tab PO SCH ×2 (12:18→20:11)
[2018-01-16] MEDS: Isosorbide Mononitrate 30 MG Tab.ER PO SCH (12:26)
--- NOTE | 2018-01-16 14:59 | PCM.PN ---
- General Info Date of Service: 01/16/18 Admission Dx/Problem (Free Text): Admission Diagnosis/Problem Admission Diagnosis/Problem Pneumonia Subjective Update: In to see Osman. He is sitting up in bed getting ready to take medications with his nurse. He is in a good mood and states he is feeling better today. He is no longer on NC. He states he does still have a productive cough that kept him up a lot of the night and states "this pneumonia is bad". We discussed that he would benefit from getting a vaccine and he agreed to it. We also discussed the benefit of wearing a mask out in public to prevent catching PNA again. He agrees. No other complaints at this time. No concerns from nursing. Functional Status: Reports: Pain Controlled, Tolerating Diet, Ambulating, Urinating - Review of Systems General: Reports: No Symptoms. Denies: Fever, Chills HEENT: Reports: No Symptoms Pulmonary: Reports: Cough, Sputum. Denies: Shortness of Breath Cardiovascular: Reports: No Symptoms. Denies: Chest Pain, Edema Gastrointestinal: Reports: No Symptoms. Denies: Abdominal Pain, Diarrhea, Nausea, Vomiting Genitourinary: Reports: No Symptoms. Denies: Dysuria, Frequency, Burning, Pain Musculoskeletal: Reports: No Symptoms Skin: Reports: No Symptoms Neurological: Reports: No Symptoms Psychiatric: Reports: No Symptoms - Patient Data Vitals - Most Recent: Last Vital Signs Temp 99.0 F 01/16/18 11:13 Pulse 80 01/16/18 11:13 Resp 26 H 01/16/18 11:13 BP 120/57 L 01/16/18 12:26 Pulse Ox 92 L 01/16/18 11:13 Weight - Most Recent: 176 lb 4.8 oz I&O - Last 24 Hours: Intake & Output 01/15/18 01/16/18 01/16/18 22:59 06:59 14:59 Intake Total 577 550 Output Total 400 Balance 577 150 Lab Results Last 24 Hours: Laboratory Results - last 24 hr 01/15/18 01/15/18 01/15/18 Range/Units 08:25 08:25 15:56 WBC (4.23-9.07) K/mm3 RBC (4.63-6.08) M/mm3 Hgb (13.7-17.5) gm/L Hct (40.1-51.0) % MCV (79.0-92.2) fl MCH (25.7-32.2) pg MCHC (32.2-35.5) g/dl RDW Std Deviation (35.1-43.9) fL Plt Count (163-337) K/mm3 MPV (9.4-12.3) fl Neut % (Auto) (34.0-67.9) % Lymph % (Auto) (21.8-53.1) % Hinds % (Auto) (5.3-12.2) % Eos % (Auto) (0.8-7.0) Baso % (Auto) (0.1-1.2) % Neut # (Auto) (1.78-5.38) K/mm3 Lymph # (Auto) (1.32-3.57) K/mm3 Hinds # (Auto) (0.30-0.82) K/mm3 Eos # (Auto) (0.04-0.54) K/mm3 Baso # (Auto) (0.01-0.08) K/mm3 Sodium (136-145) mEq/L Potassium (3.5-5.1) mEq/L Chloride (98-107) mEq/L Carbon Dioxide (21-32) mEq/L Anion Gap (5-15) BUN (7-18) mg/dL Creatinine (0.7-1.3) mg/dL Est Cr Clr Drug Dosing mL/min Estimated GFR (MDRD) (>60) mL/min BUN/Creatinine Ratio (14-18) Glucose (83-115) mg/dL POC Glucose (83-110) mg/dL Hemoglobin A1c (4.50-6.20) % Calcium (8.5-10.1) mg/dL Magnesium 1.5 L (1.8-2.4) mg/dl C-Reactive Protein (<1.0) mg/dL Urine Color Yellow (Yellow) Urine Appearance Clear (Clear) Urine pH 6.0 (5.0-8.0) Ur Specific Baker 1.020 (1.005-1.030) Urine Protein Negative (Negative) Urine Glucose (UA) Negative (Negative) Urine Ketones Negative (Negative) Urine Occult Blood Negative (Negative) Urine Nitrite Negative (Negative) Urine Bilirubin Negative (Negative) Urine Urobilinogen 0.2 (0.2-1.0) Ur Leukocyte Esterase Negative (Negative) Urine RBC 0-5 (0-5) /hpf Urine WBC 0-5 (0-5) /hpf Ur Epithelial Cells 0-5 (0-5) /hpf Urine Bacteria Not seen (FEW) /hpf Urine Mucus Not seen (FEW) /hpf Mycoplasma pneumon IgM Negative (NEGATIVE) 01/15/18 01/15/18 01/16/18 Range/Units 17:13 22:04 05:56 WBC (4.23-9.07) K/mm3 RBC (4.63-6.08) M/mm3 Hgb (13.7-17.5) gm/L Hct (40.1-51.0) % MCV (79.0-92.2) fl MCH (25.7-32.2) pg MCHC (32.2-35.5) g/dl RDW Std Deviation (35.1-43.9) fL Plt Count (163-337) K/mm3 MPV (9.4-12.3) fl Neut % (Auto) (34.0-67.9) % Lymph % (Auto) (21.8-53.1) % Hinds % (Auto) (5.3-12.2) % Eos % (Auto) (0.8-7.0) Baso % (Auto) (0.1-1.2) % Neut # (Auto) (1.78-5.38) K/mm3 Lymph # (Auto) (1.32-3.57) K/mm3 Hinds # (Auto) (0.30-0.82) K/mm3 Eos # (Auto) (0.04-0.54) K/mm3 Baso # (Auto) (0.01-0.08) K/mm3 Sodium (136-145) mEq/L Potassium (3.5-5.1) mEq/L Chloride (98-107) mEq/L Carbon Dioxide (21-32) mEq/L Anion Gap (5-15) BUN (7-18) mg/dL Creatinine (0.7-1.3) mg/dL Est Cr Clr Drug Dosing mL/min Estimated GFR (MDRD) (>60) mL/min BUN/Creatinine Ratio (14-18) Glucose (83-115) mg/dL POC Glucose 147 H 94 128 H (83-110) mg/dL Hemoglobin A1c (4.50-6.20) % Calcium (8.5-10.1) mg/dL Magnesium (1.8-2.4) mg/dl C-Reactive Protein (<1.0) mg/dL Urine Color (Yellow) Urine Appearance (Clear) Urine pH (5.0-8.0) Ur Specific Baker (1.005-1.030) Urine Protein (Negative) Urine Glucose (UA) (Negative) Urine Ketones (Negative) Urine Occult Blood (Negative) Urine Nitrite (Negative) Urine Bilirubin (Negative) Urine Urobilinogen (0.2-1.0) Ur Leukocyte Esterase (Negative) Urine RBC (0-5) /hpf Urine WBC (0-5) /hpf Ur Epithelial Cells (0-5) /hpf Urine Bacteria (FEW) /hpf Urine Mucus (FEW) /hpf Mycoplasma pneumon IgM (NEGATIVE) 01/16/18 01/16/18 01/16/18 Range/Units 06:00 06:00 06:00 WBC 12.51 H (4.23-9.07) K/mm3 RBC 3.61 L (4.63-6.08) M/mm3 Hgb 11.6 L (13.7-17.5) gm/L Hct 35.3 L (40.1-51.0) % MCV 97.8 H (79.0-92.2) fl MCH 32.1 (25.7-32.2) pg MCHC 32.9 (32.2-35.5) g/dl RDW Std Deviation 52.8 H (35.1-43.9) fL Plt Count 156 L (163-337) K/mm3 MPV 10.6 (9.4-12.3) fl Neut % (Auto) 77.1 H (34.0-67.9) % Lymph % (Auto) 12.3 L (21.8-53.1) % Hinds % (Auto) 9.1 (5.3-12.2) % Eos % (Auto) 1.0 (0.8-7.0) Baso % (Auto) 0.2 (0.1-1.2) % Neut # (Auto) 9.64 H (1.78-5.38) K/mm3 Lymph # (Auto) 1.54 (1.32-3.57) K/mm3 Hinds # (Auto) 1.14 H (0.30-0.82) K/mm3 Eos # (Auto) 0.13 (0.04-0.54) K/mm3 Baso # (Auto) 0.02 (0.01-0.08) K/mm3 Sodium 138 (136-145) mEq/L Potassium 3.9 (3.5-5.1) mEq/L Chloride 107 (98-107) mEq/L Carbon Dioxide 23 (21-32) mEq/L Anion Gap 11.9 (5-15) BUN 18 (7-18) mg/dL Creatinine 1.4 H (0.7-1.3) mg/dL Est Cr Clr Drug Dosing 42.58 mL/min Estimated GFR (MDRD) 48 (>60) mL/min BUN/Creatinine Ratio 12.9 L (14-18) Glucose 122 H (83-115) mg/dL POC Glucose (83-110) mg/dL Hemoglobin A1c 7.00 H (4.50-6.20) % Calcium 9.0 (8.5-10.1) mg/dL Magnesium 1.9 (1.8-2.4) mg/dl C-Reactive Protein 17.1 H* (<1.0) mg/dL Urine Color (Yellow) Urine Appearance (Clear) Urine pH (5.0-8.0) Ur Specific Baker (1.005-1.030) Urine Protein (Negative) Urine Glucose (UA) (Negative) Urine Ketones (Negative) Urine Occult Blood (Negative) Urine Nitrite (Negative) Urine Bilirubin (Negative) Urine Urobilinogen (0.2-1.0) Ur Leukocyte Esterase (Negative) Urine RBC (0-5) /hpf Urine WBC (0-5) /hpf Ur Epithelial Cells (0-5) /hpf Urine Bacteria (FEW) /hpf Urine Mucus (FEW) /hpf Mycoplasma pneumon IgM (NEGATIVE) 01/16/18 Range/Units 11:10 WBC (4.23-9.07) K/mm3 RBC (4.63-6.08) M/mm3 Hgb (13.7-17.5) gm/L Hct (40.1-51.0) % MCV (79.0-92.2) fl MCH (25.7-32.2) pg MCHC (32.2-35.5) g/dl RDW Std Deviation (35.1-43.9) fL Plt Count (163-337) K/mm3 MPV (9.4-12.3) fl Neut % (Auto) (34.0-67.9) % Lymph % (Auto) (21.8-53.1) % Hinds % (Auto) (5.3-12.2) % Eos % (Auto) (0.8-7.0) Baso % (Auto) (0.1-1.2) % Neut # (Auto) (1.78-5.38) K/mm3 Lymph # (Auto) (1.32-3.57) K/mm3 Hinds # (Auto) (0.30-0.82) K/mm3 Eos # (Auto) (0.04-0.54) K/mm3 Baso # (Auto) (0.01-0.08) K/mm3 Sodium (136-145) mEq/L Potassium (3.5-5.1) mEq/L Chloride (98-107) mEq/L Carbon Dioxide (21-32) mEq/L Anion Gap (5-15) BUN (7-18) mg/dL Creatinine (0.7-1.3) mg/dL Est Cr Clr Drug Dosing mL/min Estimated GFR (MDRD) (>60) mL/min BUN/Creatinine Ratio (14-18) Glucose (83-115) mg/dL POC Glucose 136 H (83-110) mg/dL Hemoglobin A1c (4.50-6.20) % Calcium (8.5-10.1) mg/dL Magnesium (1.8-2.4) mg/dl C-Reactive Protein (<1.0) mg/dL Urine Color (Yellow) Urine Appearance (Clear) Urine pH (5.0-8.0) Ur Specific Baker (1.005-1.030) Urine Protein (Negative) Urine Glucose (UA) (Negative) Urine Ketones (Negative) Urine Occult Blood (Negative) Urine Nitrite (Negative) Urine Bilirubin (Negative) Urine Urobilinogen (0.2-1.0) Ur Leukocyte Esterase (Negative) Urine RBC (0-5) /hpf Urine WBC (0-5) /hpf Ur Epithelial Cells (0-5) /hpf Urine Bacteria (FEW) /hpf Urine Mucus (FEW) /hpf Mycoplasma pneumon IgM (NEGATIVE) Armando Results Last 24 Hours: Microbiology 01/15/18 09:10 Aerobic Blood Culture - Preliminary Blood - Venous - Lab Draw NO GROWTH AFTER 1 DAY Anaerobic Blood Culture - Preliminary NO GROWTH AFTER 1 DAY 01/15/18 08:50 Aerobic Blood Culture - Preliminary Blood - Venous NO GROWTH AFTER 1 DAY Anaerobic Blood Culture - Preliminary NO GROWTH AFTER 1 DAY 01/15/18 20:28 Gram Stain - Final Sputum - Expectorated Sputum Culture - Preliminary Med Orders - Current: Current Medications Acetaminophen (Tylenol) 650 mg PO Q4H PRN PRN Reason: Pain (Mild 1-3)/fever Last Admin: 01/15/18 22:03 Dose: 650 mg Albuterol (Proventil Neb Soln) 2.5 mg NEB Q2H PRN PRN Reason: Shortness Of Breath/wheezing Albuterol/Ipratropium (Duoneb 3.0-0.5 Mg/3 Ml) 3 ml NEB Q4H PRN PRN Reason: Shortness Of Breath/wheezing Last Admin: 01/15/18 17:33 Dose: 3 ml Allopurinol (Zyloprim) 300 mg PO DAILY [facility] Last Admin: 01/16/18 08:48 Dose: 300 mg Alogliptin Benzoate (Alogliptin) 25 mg PO DAILY [facility] Last Admin: 01/16/18 08:48 Dose: 25 mg Benzonatate (Tessalon Perles) 200 mg PO TID PRN PRN Reason: Cough Bisacodyl (Dulcolax) 5 mg PO DAILY PRN PRN Reason: Constipation Carvedilol (Coreg) 3.125 mg PO BID [facility] Last Admin: 01/16/18 08:50 Dose: 3.125 mg Docusate Sodium (Colace) 100 mg PO BID PRN PRN Reason: Constipation Fluoxetine HCl (Prozac) 30 mg PO DAILY [facility] Last Admin: 01/16/18 08:48 Dose: 30 mg [facility] Last Admin: 01/16/18 06:56 Dose: 2.5 mg Guaifenesin/Phenylephrine HCl (Robitussin Dm) 10 ml PO Q4H PRN PRN Reason: Cough Hydromorphone HCl (Dilaudid) 0.25 mg IVPUSH Q2H PRN PRN Reason: Pain (severe 7-10) Ceftriaxone Sodium 2 gm/ (Dextrose/Water) 100 mls @ 200 mls/hr IV Q24H [facility] Last Admin: 01/16/18 08:45 Dose: 200 mls/hr Promethazine HCl 6.25 mg/ (Sodium Chloride) 50.25 mls @ 100 mls/hr IV Q6H PRN PRN Reason: Nausea/Vomiting Azithromycin 500 mg/ Sodium (Chloride) 250 mls @ 250 mls/hr IV Q24H [facility] Insulin Human Lispro (Humalog) 0 unit SUBCUT QIDACANDBED [facility]; Protocol Last Admin: 01/16/18 12:18 Dose: Not Given Isosorbide Mononitrate (Imdur) 30 mg PO DAILY@1300 [facility] Last Admin: 01/16/18 12:26 Dose: 30 mg Lisinopril (Prinivil) 10 mg PO BID [facility] Last Admin: 01/16/18 12:18 Dose: Not Given Magnesium Hydroxide (Milk Of Magnesia) 30 ml PO Q12H PRN PRN Reason: Constipation Symbicort 160/4.5 (Inhaler Own Med) 0 each INH BID [facility] Last Admin: 01/16/18 09:16 Dose: 2 each Oxycodone/Acetaminophen (Percocet 325-5 Mg) 1 tab PO Q4H PRN PRN Reason: Pain (moderate 4-6) Pantoprazole Sodium (Protonix) 40 mg PO DAILY [facility] Polyethylene Glycol (Miralax) 17 gm PO DAILY PRN PRN Reason: Constipation Promethazine HCl (Phenergan) 25 mg PO Q6H PRN PRN Reason: Nausea/Vomiting Rivaroxaban (Xarelto) 15 mg PO DAILY [facility] Last Admin: 01/16/18 08:49 Dose: 15 mg Rosuvastatin Calcium (Crestor) 20 mg PO QPM [facility] Last Admin: 01/15/18 18:54 Dose: Not Given Saccharomyces Boulardii (Florastor) 250 mg PO BID [facility] Last Admin: 01/16/18 08:48 Dose: 250 mg Senna/Docusate Sodium (Senna Plus) 1 tab PO BID PRN PRN Reason: Constipation Tamsulosin HCl (Flomax) 0.4 mg PO DAILY [facility] Last Admin: 01/16/18 08:48 Dose: 0.4 mg Tiotropium Plummer (Spiriva Handihaler) 18 mcg INH DAILY [facility] Last Admin: 01/16/18 09:29 Dose: 1 cap Topiramate (Topamax) 25 mg PO BEDTIME [facility] Last Admin: 01/15/18 21:58 Dose: 25 mg Zolpidem Tartrate (Ambien) 5 mg PO BEDTIME [facility] Last Admin: 01/15/18 21:58 Dose: 5 mg Discontinued Medications Acetaminophen (Tylenol) 975 mg PO NOW ONE Stop: 01/15/18 08:51 Last Admin: 01/15/18 09:11 Dose: 975 mg Ceftriaxone Sodium 2 gm/ (Sodium Chloride) 100 mls @ 100 mls/hr IV ONETIME ONE Stop: 01/15/18 09:50 Last Admin: 01/15/18 09:12 Dose: 100 mls/hr Sodium Chloride (Normal Saline) 1,000 mls @ 150 mls/hr IV ASDIRECTED [facility] Last Admin: 01/15/18 09:11 Dose: 150 mls/hr Azithromycin 500 mg/ Sodium (Chloride) 250 mls @ 250 mls/hr IV ONETIME ONE Stop: 01/15/18 17:44 Last Admin: 01/15/18 16:57 Dose: 250 mls/hr Magnesium Sulfate 2 gm/ Premix 50 mls @ 25 mls/hr IV ONETIME ONE Stop: 01/15/18 23:16 Last Admin: 01/15/18 21:54 Dose: 25 mls/hr Azithromycin 500 mg/ Sodium (Chloride) 250 mls @ 250 mls/hr IV Q24H [facility] Isosorbide Mononitrate (Imdur) 30 mg PO DAILY [facility] Last Admin: 01/16/18 12:19 Dose: Not Given Mometasone Furoate (Asmanex 220 Mcg) 0 puff INH BEDTIME [facility] Non-Formulary Medication (Olodaterol Hcl [Striverdi Respimat]) 2 puff IH QAM [facility] Non-Formulary Medication (Trelegy Ellipta.) 1 puff INH DAILY [facility] Pantoprazole Sodium (Protonix Iv) 40 mg IVPUSH DAILY [facility] Last Admin: 01/16/18 08:46 Dose: 40 mg - Exam Quality Assessment: DVT Prophylaxis General: Alert, Oriented, Cooperative, No Acute Distress HEENT: Pupils Equal, Pupils Reactive, EOMI, Mucous Membr. Moist/[place] Neck: Supple Lungs: Decreased Breath Sounds, Crackles Cardiovascular: Regular Rate, Regular Rhythm GI/Abdominal Exam: Normal Bowel Sounds, Soft, Non-Tender, No Organomegaly, No Distention, No Abnormal Bruit, No Mass, Pelvis Stable (Male) Exam: Deferred Back Exam: Normal Inspection, Full Range of Motion Extremities: Normal Inspection, Normal Range of Motion, Non-Tender, No Pedal Edema, Normal Capillary Refill Peripheral Pulses: 2+: Posterior Tibial (L), Posterior Tibial (R), Dorsalis Pedis (L), Dorsalis Pedis (R) Skin: Warm, Dry, Intact Neurological: No New Focal Deficit Psy/Mental Status: Alert, Normal Affect, Normal Mood - Problem List & Annotations (1) Pneumonia SNOMED Code(s): 823311480 Code(s): J18.9 - PNEUMONIA, UNSPECIFIED ORGANISM Status: Acute Priority: High Current Visit: Yes Qualifiers: Pneumonia type: due to unspecified organism Laterality: right Lung location: lower lobe of lung Qualified Code(s): J18.1 - Lobar pneumonia, unspecified organism (2) Atrial flutter SNOMED Code(s): 0739675 Code(s): I48.92 - UNSPECIFIED ATRIAL FLUTTER Status: Acute Priority: High Current Visit: Yes Qualifiers: Atrial flutter type: unspecified Qualified Code(s): I48.92 - Unspecified atrial flutter (3) Hypoxia SNOMED Code(s): 082622371 Code(s): R09.02 - HYPOXEMIA Status: Acute Priority: High Current Visit : Yes - Problem List Review Problem List Initiated/Reviewed/Updated: Yes - My Orders Last 24 Hours: My Active Orders 01/15/18 15:56 STREP PNEUMONIAE ANTIGEN [MREF] Routine 01/15/18 16:04 LINEN SUPERVISOR Evaluation and Treatment [CONS] Routine 01/15/18 16:17 Benzonatate [Tessalon Perles] 200 mg PO TID PRN Dextromethorphan/guaiFENesin [Robitussin DM] 10 ml PO Q4H PRN RT Acapella [RESPCARE] Routine 01/15/18 16:28 Height and Weight [RC] 04 Intake and Output [RC] 04,16 VTE/DVT Education [RC] DAILY Vital Signs [RC] Q4HR OT Evaluation and Treatment [CONS] Routine PT Evaluation and Treatment [CONS] Routine Respiratory Care Assess and Treatment [CONS] Routine Acetaminophen [Tylenol] 650 mg PO Q4H PRN Acetaminophen/oxyCODONE [Percocet 325-5 MG] 1 tab PO Q4H PRN Albuterol [Proventil Neb Soln] 2.5 mg NEB Q2H PRN Albuterol/Ipratropium [DuoNeb 3.0-0.5 MG/3 ML] 3 ml NEB Q4H PRN Bisacodyl [Dulcolax] 5 mg PO DAILY PRN Docusate Sodium [Colace] 100 mg PO BID PRN Docusate Sodium/Sennosides [Senna Plus] 1 tab PO BID PRN HYDROmorphone [Dilaudid] 0.25 mg IVPUSH Q2H PRN Magnesium Hydroxide [Milk of Magnesia] 30 ml PO Q12H PRN Polyethylene Glycol 3350 [MiraLAX] 17 gm PO DAILY PRN 01/15/18 16:29 Antiembolic Hose [OM.PC] Per Unit Routine 01/15/18 16:30 RT Aerosol Therapy [RC] ASDIRECTED 01/15/18 16:33 Promethazine [Phenergan] 25 mg PO Q6H PRN Promethazine [Phenergan] 6.25 mg Sodium Chloride 0.9% [Normal Saline] 50 ml IV Q6H 01/15/18 16:45 glipiZIDE [Glucotrol] 2.5 mg PO BIDAC 01/15/18 17:15 RESPIRATORY PANEL Routine 01/15/18 18:00 Rosuvastatin [Crestor] 20 mg PO QPM 01/15/18 20:00 Oxygen Therapy [RC] .PRN 01/15/18 20:28 CULTURE SPUTUM + SMEAR [RM] Routine 01/15/18 21:00 Carvedilol [Coreg] 3.125 mg PO BID Lisinopril [Prinivil] 10 mg PO BID Non-Formulary Medication [NF Drug] 0 each INH BID Saccharomyces Boulardii [Florastor] 250 mg PO BID Topiramate [Topamax] 25 mg PO BEDTIME Zolpidem [Ambien] 5 mg PO BEDTIME 01/15/18 Dinner Full Liquid Diet [DIET] 01/16/18 08:00 cefTRIAXone [Rocephin] 2 gm Dextrose 5% in Water 100 ml IV Q24H 01/16/18 09:00 Allopurinol [Zyloprim] 300 mg PO DAILY Alogliptin Benzoate [Alogliptin] 25 mg PO DAILY FLUoxetine [PROzac] 30 mg PO DAILY Rivaroxaban [Xarelto] 15 mg PO DAILY Tamsulosin [Flomax] 0.4 mg PO DAILY Tiotropium [Spiriva HandiHaler] 18 mcg INH DAILY 01/16/18 13:00 Isosorbide Mononitrate [Imdur] 30 mg PO DAILY@1300 01/16/18 17:00 Azithromycin [Zithromax] 500 mg Sodium Chloride 0.9% [Normal Saline] 250 ml IV Q24H 01/17/18 05:11 Chest 1V Frontal [CR] AM BASIC METABOLIC PANEL,BMP [CHEM] AM C-REACTIVE PROTEIN [CHEM] AM CBC WITH AUTO DIFF [HEME] AM MAGNESIUM [CHEM] AM 01/17/18 09:00 Pantoprazole [ProTONIX] 40 mg PO DAILY 01/18/18 05:11 BASIC METABOLIC PANEL,BMP [CHEM] AM C-REACTIVE PROTEIN [CHEM] AM CBC WITH AUTO DIFF [HEME] AM MAGNESIUM [CHEM] AM 01/19/18 05:11 BASIC METABOLIC PANEL,BMP [CHEM] AM C-REACTIVE PROTEIN [CHEM] AM CBC WITH AUTO DIFF [HEME] AM MAGNESIUM [CHEM] AM 01/20/18 05:11 BASIC METABOLIC PANEL,BMP [CHEM] AM C-REACTIVE PROTEIN [CHEM] AM CBC WITH AUTO DIFF [HEME] AM MAGNESIUM [CHEM] AM - Plan Plan:: I/P: Acute: CAP, right lower lung * PSI/PORT Score: 103; hospitalization recommended * Risk factor: CAP 3 months ago, has been to clinic around sick contacts, Admits to not having vaccine * Productive cough, F/C, SOB, O2 70% on RA * Temp of 100.1 in ED--> 99.5 * WBC 8.75-->12.51, CRP 17.1 * CXR in ED--> PNA R lower lobe; formal read pending * IV Rocephin started in ED--> Continue and add Azithro 500 IV * 94% on 1L nasal cannula --> D/C, is now 91% RA * RT/IS/Acapella/DuoNebs * Sepsis work up: * Lactic acid 2 * Blood Cultures--> No growth * IVF started in ED--> D/C * Repeat CXR in 2 days * LINEN SUPERVISOR swallow evaluation--> no overt s/s of dysphagia present * Sputum culture--> Many Gram + rods, Moderate Gram + cocci * Robitussin DM and guillermo costello PRN cough * Recommend PNA Vaccination--> Pt states he will have it * Recommend wearing mask when going out in public Anemia * Hgb 13--> 11.6, Hct 39.4--> 35.3 * Monitor * Replenish with PRBCs as needed Chronic: Afib/Aflutter * EKG in ED--> Aflutter, Q waves in inferior and anteroseptal leads; normal QT interval * On Xarelto * Has Pacemaker * Monitor on telemetry CHF * BNP elevated at 1314, but is the lowest BNP he has had here * SOB, no pedal edema * ECHO 10/19/17: LVEF 60-65%; LVH, Mod to severe tricuspid regurg, dilated inferior vena cava, RV, and RA * Monitor * Lasix PRN CAD with CABG x4 HTN HLD PVD LVH Aortic Stenosis COPD Sleep Apnea GERD BPH Prostate CA s/p radiation DM2 with neuropathy * ADA diet * Sliding scale insulin with BS checks QIDACandBED * A1C 7 * Diabetic Nurse consultation CKD III Urinary Retention Anxiety/Depression Herpes left eye Plan: Transferred to medical floor today He remains stable and continues to improve clinically Other orders as indicated above Routine AM labs ADA diet SW/CM for discharge planning PT/OT/RT DVT Prophylaxis: On Xarelto GI Prophylaxis: Protonix Ambulated as tolerated Code Status: Full Code, COMPRESSIONS ONLY, doesn't want to be on long-term intubation; PCP: Dr. Casandra Reddy Discharge Plan: * Vaccine
[2018-01-16] MEDS: Azithromycin 500 MG in Sodium Chloride 0.9% 250 ML IV SCH (16:08)
[2018-01-16] MEDS: Rosuvastatin 10 MG Tab PO SCH (17:06)
[2018-01-16] MEDS: Topiramate 25 MG Tab PO SCH (20:11)
[2018-01-16] MEDS: Zolpidem 10 MG Tab PO SCH (20:12)
[2018-01-16] MEDS ORDERED: Benzocaine/Cetylpyridinium/Menthol Lozenge MUCMEM PRN (20:14)
[2018-01-17] MEDS: glipiZIDE 5 MG Tab PO SCH ×2 (06:57→15:18)
[2018-01-17] MEDS: Insulin Lispro 100 Unit/ML 3 ML KwikPen SUBCUT SCH ×4 (06:57→21:13)
--- NOTE | 2018-01-17 08:24 | CR ---
Chest: Portable view of the chest is obtained. Comparison: Prior chest x-ray of 01/15/18. Heart is slightly enlarged. Tortuous thoracic aorta is seen. Sternotomy is noted. Surgical clips are seen along the left side of the mediastinum. Unichamber pacemaker is noted. Lung markings are diffusely increased. Lung markings are slightly improved within the right base from prior exam. Other findings are stable. No acute parenchymal densities are seen. Bony structures are grossly intact. Impression: 1. Slightly improved findings within the right lung base. Other portions of the chest are felt to be stable. Diagnostic code #3
[2018-01-17] MEDS ORDERED: Magnesium Sulfate/Water 2 GM in Premix Bag 1 BAG IV ONE (08:25)
[2018-01-17] MEDS: SYMBICORT INH SCH ×2 (08:30→20:04)
[2018-01-17] MEDS: Tiotropium Inhaler 18 MCG Inhalation Powder Cap Kit of 5 INH SCH (08:30)
[2018-01-17] MEDS: Rivaroxaban 10 MG Tab PO SCH (08:34)
[2018-01-17] MEDS: Saccharomyces Boulardii (Probiotic) 250 MG Cap PO SCH ×2 (08:34→21:08)
[2018-01-17] MEDS: Pantoprazole 40 MG Tab.CR PO SCH (08:35)
[2018-01-17] MEDS: Lisinopril 10 MG Tab PO SCH ×2 (08:35→21:08)
[2018-01-17] MEDS: FLUoxetine 10 MG Cap PO SCH (08:35)
[2018-01-17] MEDS: Carvedilol 6.25 MG Tab PO SCH ×2 (08:35→21:08)
[2018-01-17] MEDS: Allopurinol 300 MG Tab PO SCH (08:35)
[2018-01-17] MEDS: Tamsulosin 0.4 MG Cap.ER PO SCH (08:36)
[2018-01-17] MEDS: Isosorbide Mononitrate 30 MG Tab.ER PO SCH (12:13)
[2018-01-17] MEDS: Rosuvastatin 10 MG Tab PO SCH (17:08)
[2018-01-17] MEDS: Azithromycin 500 MG in Sodium Chloride 0.9% 250 ML IV SCH (17:08)
--- NOTE | 2018-01-17 17:30 | PCM.PN ---
- General Info Date of Service: 01/17/18 Admission Dx/Problem (Free Text): Admission Diagnosis/Problem Admission Diagnosis/Problem Pneumonia Subjective Update: In to see Osman. He is doing very well today and states he is feeling much better today. Cough is less frequent and he is having less sputum coming up. He denies any other symptoms today. WBC is trending down and CXR is showing improvement. No concerns from nursing. Will likely D/C in 2 days pending labs, repeat CXR and clinical disposition. Functional Status: Reports: Pain Controlled, Tolerating Diet, Ambulating, Urinating - Review of Systems General: Reports: No Symptoms. Denies: Fever, Chills HEENT: Reports: No Symptoms Pulmonary: Reports: Cough (improving), Sputum (improving). Denies: Shortness of Breath Cardiovascular: Reports: No Symptoms. Denies: Chest Pain, Dyspnea on Exertion, Edema Gastrointestinal: Reports: No Symptoms. Denies: Abdominal Pain, Diarrhea, Nausea, Vomiting Genitourinary: Reports: No Symptoms Musculoskeletal: Reports: No Symptoms Skin: Reports: No Symptoms Neurological: Reports: No Symptoms Psychiatric: Reports: No Symptoms - Patient Data Vitals - Most Recent: Last Vital Signs Temp 97.9 F 01/17/18 15:30 Pulse 72 01/17/18 15:30 Resp 20 01/17/18 15:30 BP 121/64 01/17/18 15:30 Pulse Ox 93 L 01/17/18 15:30 Weight - Most Recent: 176 lb 4.8 oz I&O - Last 24 Hours: Intake & Output 01/17/18 01/17/18 01/17/18 06:59 14:59 22:59 Intake Total 400 800 Output Total 575 1000 Balance -175 -200 Lab Results Last 24 Hours: Laboratory Results - last 24 hr 01/15/18 01/16/18 01/17/18 Range/Units 17:15 21:15 05:53 WBC 11.44 H (4.23-9.07) K/mm3 RBC 3.49 L (4.63-6.08) M/mm3 Hgb 11.1 L (13.7-17.5) gm/L Hct 34.2 L (40.1-51.0) % MCV 98.0 H (79.0-92.2) fl MCH 31.8 (25.7-32.2) pg MCHC 32.5 (32.2-35.5) g/dl RDW Std Deviation 51.9 H (35.1-43.9) fL Plt Count 159 L (163-337) K/mm3 MPV 10.3 (9.4-12.3) fl Neut % (Auto) 74.4 H (34.0-67.9) % Lymph % (Auto) 14.2 L (21.8-53.1) % [place]cl[place] % (Auto) 9.5 (5.3-12.2) % Eos % (Auto) 1.0 (0.8-7.0) Baso % (Auto) 0.2 (0.1-1.2) % Neut # (Auto) 8.51 H (1.78-5.38) K/mm3 Lymph # (Auto) 1.62 (1.32-3.57) K/mm3 [place] # (Auto) 1.09 H (0.30-0.82) K/mm3 Eos # (Auto) 0.12 (0.04-0.54) K/mm3 Baso # (Auto) 0.02 (0.01-0.08) K/mm3 Sodium (136-145) mEq/L Potassium (3.5-5.1) mEq/L Chloride (98-107) mEq/L Carbon Dioxide (21-32) mEq/L Anion Gap (5-15) BUN (7-18) mg/dL Creatinine (0.7-1.3) mg/dL Est Cr Clr Drug Dosing mL/min Estimated GFR (MDRD) (>60) mL/min BUN/Creatinine Ratio (14-18) Glucose (83-115) mg/dL POC Glucose 115 H (83-110) mg/dL Calcium (8.5-10.1) mg/dL Magnesium (1.8-2.4) mg/dl C-Reactive Protein (<1.0) mg/dL Adenovirus (PCR) Not detected (Not Detected) B. pertussis DNA (PCR) Not detected (Not Detected) B.parapertussis DNA PCR Not detected (Not Detected) C. pneumoniae DNA (PCR) Not detected (Not Detected) Coronavirus (PCR) Not detected (Not Detected) Human Metapneumovir PCR Not detected (Not Detected) Influenza A (RT-PCR) Not detected (Not Detected) Influenza B (RT-PCR) Not detected (Not Detected) M. pneumoniae (PCR) Not detected (Not Detected) Parainfluen 1,2,3,4 PCR Not detected (Not Detected) RSV (PCR) Not detected (Not Detected) Entero/Rhino (PCR) Not detected (Not Detected) 01/17/18 01/17/18 01/17/18 Range/Units 05:53 06:13 10:50 WBC (4.23-9.07) K/mm3 RBC (4.63-6.08) M/mm3 Hgb (13.7-17.5) gm/L Hct (40.1-51.0) % MCV (79.0-92.2) fl MCH (25.7-32.2) pg MCHC (32.2-35.5) g/dl RDW Std Deviation (35.1-43.9) fL Plt Count (163-337) K/mm3 MPV (9.4-12.3) fl Neut % (Auto) (34.0-67.9) % Lymph % (Auto) (21.8-53.1) % [place]clenn[place] % (Auto) (5.3-12.2) % Eos % (Auto) (0.8-7.0) Baso % (Auto) (0.1-1.2) % Neut # (Auto) (1.78-5.38) K/mm3 Lymph # (Auto) (1.32-3.57) K/mm3 [place] # (Auto) (0.30-0.82) K/mm3 Eos # (Auto) (0.04-0.54) K/mm3 Baso # (Auto) (0.01-0.08) K/mm3 Sodium 135 L (136-145) mEq/L Potassium 3.7 (3.5-5.1) mEq/L Chloride 105 (98-107) mEq/L Carbon Dioxide 22 (21-32) mEq/L Anion Gap 11.7 (5-15) BUN 21 H (7-18) mg/dL Creatinine 1.6 H (0.7-1.3) mg/dL Est Cr Clr Drug Dosing 37.26 mL/min Estimated GFR (MDRD) 41 (>60) mL/min BUN/Creatinine Ratio 13.1 L (14-18) Glucose 101 (83-115) mg/dL POC Glucose 102 130 H (83-110) mg/dL Calcium 9.1 (8.5-10.1) mg/dL Magnesium 1.7 L (1.8-2.4) mg/dl C-Reactive Protein 21.8 H* (<1.0) mg/dL Adenovirus (PCR) (Not Detected) B. pertussis DNA (PCR) (Not Detected) B.parapertussis DNA PCR (Not Detected) C. pneumoniae DNA (PCR) (Not Detected) Coronavirus (PCR) (Not Detected) Human Metapneumovir PCR (Not Detected) Influenza A (RT-PCR) (Not Detected) Influenza B (RT-PCR) (Not Detected) M. pneumoniae (PCR) (Not Detected) Parainfluen 1,2,3,4 PCR (Not Detected) RSV (PCR) (Not Detected) Entero/Rhino (PCR) (Not Detected) 01/17/18 Range/Units 16:49 WBC (4.23-9.07) K/mm3 RBC (4.63-6.08) M/mm3 Hgb (13.7-17.5) gm/L Hct (40.1-51.0) % MCV (79.0-92.2) fl MCH (25.7-32.2) pg MCHC (32.2-35.5) g/dl RDW Std Deviation (35.1-43.9) fL Plt Count (163-337) K/mm3 MPV (9.4-12.3) fl Neut % (Auto) (34.0-67.9) % Lymph % (Auto) (21.8-53.1) % [place] % (Auto) (5.3-12.2) % Eos % (Auto) (0.8-7.0) Baso % (Auto) (0.1-1.2) % Neut # (Auto) (1.78-5.38) K/mm3 Lymph # (Auto) (1.32-3.57) K/mm3 [place] # (Auto) (0.30-0.82) K/mm3 Eos # (Auto) (0.04-0.54) K/mm3 Baso # (Auto) (0.01-0.08) K/mm3 Sodium (136-145) mEq/L Potassium (3.5-5.1) mEq/L Chloride (98-107) mEq/L Carbon Dioxide (21-32) mEq/L Anion Gap (5-15) BUN (7-18) mg/dL Creatinine (0.7-1.3) mg/dL Est Cr Clr Drug Dosing mL/min Estimated GFR (MDRD) (>60) mL/min BUN/Creatinine Ratio (14-18) Glucose (83-115) mg/dL POC Glucose 101 (83-110) mg/dL Calcium (8.5-10.1) mg/dL Magnesium (1.8-2.4) mg/dl C-Reactive Protein (<1.0) mg/dL Adenovirus (PCR) (Not Detected) B. pertussis DNA (PCR) (Not Detected) B.parapertussis DNA PCR (Not Detected) C. pneumoniae DNA (PCR) (Not Detected) Coronavirus (PCR) (Not Detected) Human Metapneumovir PCR (Not Detected) Influenza A (RT-PCR) (Not Detected) Influenza B (RT-PCR) (Not Detected) M. pneumoniae (PCR) (Not Detected) Parainfluen 1,2,3,4 PCR (Not Detected) RSV (PCR) (Not Detected) Entero/Rhino (PCR) (Not Detected) Armando Results Last 24 Hours: Microbiology 01/15/18 20:28 Gram Stain - Final Sputum - Expectorated Sputum Culture - Preliminary Beta Streptococcus 01/15/18 09:10 Aerobic Blood Culture - Preliminary Blood - Venous - Lab Draw NO GROWTH AFTER 2 DAYS Anaerobic Blood Culture - Preliminary NO GROWTH AFTER 2 DAYS 01/15/18 08:50 Aerobic Blood Culture - Preliminary Blood - Venous NO GROWTH AFTER 2 DAYS Anaerobic Blood Culture - Preliminary NO GROWTH AFTER 2 DAYS 01/15/18 15:56 Streptococcus pneumoniae Antigen (M - Final Urine Med Orders - Current: Current Medications Acetaminophen (Tylenol) 650 mg PO Q4H PRN PRN Reason: Pain (Mild 1-3)/fever Last Admin: 01/15/18 22:03 Dose: 650 mg Albuterol (Proventil Neb Soln) 2.5 mg NEB Q2H PRN PRN Reason: Shortness Of Breath/wheezing Albuterol/Ipratropium (Duoneb 3.0-0.5 Mg/3 Ml) 3 ml NEB Q4H PRN PRN Reason: Shortness Of Breath/wheezing Last Admin: 01/15/18 17:33 Dose: 3 ml Allopurinol (Zyloprim) 300 mg PO DAILY [facility] Last Admin: 01/17/18 08:35 Dose: 300 mg Alogliptin Benzoate (Alogliptin) 25 mg PO DAILY [facility] Last Admin: 01/17/18 08:35 Dose: 25 mg Benzocaine/Menthol (Cepacol Sore Throat) 1 lozenge MUCMEM Q2HR PRN PRN Reason: Sore Throat Last Admin: 01/16/18 21:15 Dose: 1 lozenge Benzonatate (Tessalon Perles) 200 mg PO TID PRN PRN Reason: Cough Bisacodyl (Dulcolax) 5 mg PO DAILY PRN PRN Reason: Constipation Carvedilol (Coreg) 3.125 mg PO BID [facility] Last Admin: 01/17/18 08:35 Dose: 3.125 mg Docusate Sodium (Colace) 100 mg PO BID PRN PRN Reason: Constipation Fluoxetine HCl (Prozac) 30 mg PO DAILY [facility] Last Admin: 01/17/18 08:35 Dose: 30 mg [facility] Last Admin: 01/17/18 15:18 Dose: 2.5 mg Guaifenesin/Phenylephrine HCl (Robitussin Dm) 10 ml PO Q4H PRN PRN Reason: Cough Hydromorphone HCl (Dilaudid) 0.25 mg IVPUSH Q2H PRN PRN Reason: Pain (severe 7-10) Ceftriaxone Sodium 2 gm/ (Dextrose/Water) 100 mls @ 200 mls/hr IV Q24H [facility] Last Admin: 01/17/18 08:42 Dose: 200 mls/hr Promethazine HCl 6.25 mg/ (Sodium Chloride) 50.25 mls @ 100 mls/hr IV Q6H PRN PRN Reason: Nausea/Vomiting Azithromycin 500 mg/ Sodium (Chloride) 250 mls @ 250 mls/hr IV Q24H [facility] Last Admin: 01/17/18 17:08 Dose: 250 mls/hr Insulin Human Lispro (Humalog) 0 unit SUBCUT QIDACANDBED [facility]; Protocol Last Admin: 01/17/18 17:13 Dose: Not Given Isosorbide Mononitrate (Imdur) 30 mg PO DAILY@1300 [facility] Last Admin: 01/17/18 12:13 Dose: 30 mg Lisinopril (Prinivil) 10 mg PO BID [facility] Last Admin: 01/17/18 08:35 Dose: 10 mg Magnesium Hydroxide (Milk Of Magnesia) 30 ml PO Q12H PRN PRN Reason: Constipation Symbicort 160/4.5 (Inhaler Own Med) 0 each INH BID [facility] Last Admin: 01/17/18 08:30 Dose: 2 each Oxycodone/Acetaminophen (Percocet 325-5 Mg) 1 tab PO Q4H PRN PRN Reason: Pain (moderate 4-6) Pantoprazole Sodium (Protonix) 40 mg PO DAILY [facility] Last Admin: 01/17/18 08:35 Dose: 40 mg Polyethylene Glycol (Miralax) 17 gm PO DAILY PRN PRN Reason: Constipation Promethazine HCl (Phenergan) 25 mg PO Q6H PRN PRN Reason: Nausea/Vomiting Rivaroxaban (Xarelto) 15 mg PO DAILY [facility] Last Admin: 01/17/18 08:34 Dose: 15 mg Rosuvastatin Calcium (Crestor) 20 mg PO QPM [facility] Last Admin: 01/17/18 17:08 Dose: 20 mg Saccharomyces Boulardii (Florastor) 250 mg PO BID [facility] Last Admin: 01/17/18 08:34 Dose: 250 mg Senna/Docusate Sodium (Senna Plus) 1 tab PO BID PRN PRN Reason: Constipation Tamsulosin HCl (Flomax) 0.4 mg PO DAILY [facility] Last Admin: 01/17/18 08:36 Dose: 0.4 mg Tiotropium [place] (Spiriva Handihaler) 18 mcg INH DAILY [facility] Last Admin: 01/17/18 08:30 Dose: 1 cap Topiramate (Topamax) 25 mg PO BEDTIME [facility] Last Admin: 01/16/18 20:11 Dose: 25 mg Zolpidem Tartrate (Ambien) 5 mg PO BEDTIME [facility] Discontinued Medications Acetaminophen (Tylenol) 975 mg PO NOW ONE Stop: 01/15/18 08:51 Last Admin: 01/15/18 09:11 Dose: 975 mg Ceftriaxone Sodium 2 gm/ (Sodium Chloride) 100 mls @ 100 mls/hr IV ONETIME ONE Stop: 01/15/18 09:50 Last Admin: 01/15/18 09:12 Dose: 100 mls/hr Sodium Chloride (Normal Saline) 1,000 mls @ 150 mls/hr IV ASDIRECTED [facility] Last Admin: 01/15/18 09:11 Dose: 150 mls/hr Azithromycin 500 mg/ Sodium (Chloride) 250 mls @ 250 mls/hr IV ONETIME ONE Stop: 01/15/18 17:44 Last Admin: 01/15/18 16:57 Dose: 250 mls/hr Magnesium Sulfate 2 gm/ Premix 50 mls @ 25 mls/hr IV ONETIME ONE Stop: 01/15/18 23:16 Last Admin: 01/15/18 21:54 Dose: 25 mls/hr Azithromycin 500 mg/ Sodium (Chloride) 250 mls @ 250 mls/hr IV Q24H [facility] Magnesium Sulfate 2 gm/ Premix 50 mls @ 25 mls/hr IV ONETIME ONE Stop: 01/17/18 10:24 Last Admin: 01/17/18 09:17 Dose: 25 mls/hr Isosorbide Mononitrate (Imdur) 30 mg PO DAILY [facility] Last Admin: 01/16/18 12:19 Dose: Not Given Mometasone Furoate (Asmanex 220 Mcg) 0 puff INH BEDTIME [facility] Non-Formulary Medication (Olodaterol Hcl [Striverdi Respimat]) 2 puff IH QAM [facility] Non-Formulary Medication (Trelegy Ellipta.) 1 puff INH DAILY [facility] Pantoprazole Sodium (Protonix Iv) 40 mg IVPUSH DAILY [facility] Last Admin: 01/16/18 08:46 Dose: 40 mg Zolpidem Tartrate (Ambien) 5 mg PO BEDTIME [facility] Last Admin: 01/16/18 20:12 Dose: 5 mg - Exam Quality Assessment: DVT Prophylaxis General: Alert, Oriented, Cooperative, No Acute Distress HEENT: Pupils Equal, Pupils Reactive, EOMI, Mucous Membr. Moist/[place] Neck: Supple Lungs: Decreased Breath Sounds, Crackles (improving) Cardiovascular: Regular Rate, Regular Rhythm GI/Abdominal Exam: Normal Bowel Sounds, Soft, Non-Tender, No Organomegaly, No Distention, No Abnormal Bruit, No Mass, Pelvis Stable (Male) Exam: Deferred Back Exam: Normal Inspection, Full Range of Motion Extremities: Normal Inspection, Normal Range of Motion, Non-Tender, No Pedal Edema, Normal Capillary Refill Peripheral Pulses: 2+: Posterior Tibial (L), Posterior Tibial (R), Dorsalis Pedis (L), Dorsalis Pedis (R) Skin: Warm, Dry, Intact Neurological: No New Focal Deficit Psy/Mental Status: Alert, Normal Affect, Normal Mood - Problem List & Annotations (1) Pneumonia SNOMED Code(s): 409144787 Code(s): J18.9 - PNEUMONIA, UNSPECIFIED ORGANISM Status: Acute Priority: High Current Visit: Yes Qualifiers: Pneumonia type: due to unspecified organism Laterality: right Lung location: lower lobe of lung Qualified Code(s): J18.1 - Lobar pneumonia, unspecified organism (2) Atrial flutter SNOMED Code(s): 2907360 Code(s): I48.92 - UNSPECIFIED ATRIAL FLUTTER Status: Acute Priority: High Current Visit: Yes Qualifiers: Atrial flutter type: unspecified Qualified Code(s): I48.92 - Unspecified atrial flutter (3) Hypoxia SNOMED Code(s): 537412992 Code(s): R09.02 - HYPOXEMIA Status: Acute Priority: High Current Visit : Yes - Problem List Review Problem List Initiated/Reviewed/Updated: Yes - My Orders Last 24 Hours: My Active Orders 01/16/18 17:00 Azithromycin [Zithromax] 500 mg Sodium Chloride 0.9% [Normal Saline] 250 ml IV Q24H 01/16/18 Dinner ADA Diabetic [[employer] Diet] [DIET] 01/17/18 09:00 Pantoprazole [ProTONIX] 40 mg PO DAILY 01/17/18 22:00 Zolpidem [Ambien] 5 mg PO BEDTIME 01/18/18 05:11 BASIC METABOLIC PANEL,BMP [CHEM] AM C-REACTIVE PROTEIN [CHEM] AM CBC WITH AUTO DIFF [HEME] AM MAGNESIUM [CHEM] AM 01/19/18 05:11 BASIC METABOLIC PANEL,BMP [CHEM] AM C-REACTIVE PROTEIN [CHEM] AM CBC WITH AUTO DIFF [HEME] AM MAGNESIUM [CHEM] AM 01/20/18 05:11 BASIC METABOLIC PANEL,BMP [CHEM] AM C-REACTIVE PROTEIN [CHEM] AM CBC WITH AUTO DIFF [HEME] AM MAGNESIUM [CHEM] AM - Plan Plan:: I/P: Acute: CAP, right lower lung * PSI/PORT Score: 103; hospitalization recommended * Risk factor: CAP 3 months ago, has been to clinic around sick contacts, Admits to not having vaccine * Productive cough, F/C, SOB, O2 70% on RA * Temp of 100.1 in ED--> 99.5 * WBC 8.75-->12.51--> 11.44, CRP 17.1--> 21.8 * CXR in ED--> PNA R lower lobe; formal read pending * IV Rocephin started in ED--> Continue and add Azithro 500 IV * 94% on 1L nasal cannula --> D/C, is now 94% RA * RT/IS/Acapella/DuoNebs * Sepsis work up: * Lactic acid 2 * Blood Cultures--> No growth * IVF started in ED--> D/C * Repeat CXR 01/17/18--> Slightly improved findings within the right lung base. * Repeat CXR in 2 days * ENERGY ANALYST swallow evaluation--> no overt s/s of dysphagia present * Sputum culture--> Beta Streptococcus * Robitussin DM and guillermo costello PRN cough * Recommend PNA Vaccination--> Pt states he will have it * Recommend wearing mask when going out in public Anemia * Hgb 13--> 11.6--> 11.1, Hct 39.4--> 35.3--> 34.2 * Monitor * Replenish with PRBCs as needed Chronic: Afib/Aflutter * EKG in ED--> Aflutter, Q waves in inferior and anteroseptal leads; normal QT interval * On Xarelto * Has Pacemaker * Monitor on telemetry CHF * BNP elevated at 1314, but is the lowest BNP he has had here * SOB, no pedal edema * ECHO 10/19/17: LVEF 60-65%; LVH, Mod to severe tricuspid regurg, dilated inferior vena cava, RV, and RA * Monitor * Lasix PRN CAD with CABG x4 HTN HLD PVD LVH Aortic Stenosis COPD Sleep Apnea GERD BPH Prostate CA s/p radiation DM2 with neuropathy * ADA diet * Sliding scale insulin with BS checks QIDACandBED * A1C 7 * Diabetic Nurse consultation CKD III Urinary Retention Anxiety/Depression Herpes left eye Plan: Transferred to medical floor today He remains stable and continues to improve clinically Other orders as indicated above Routine AM labs ADA diet SW/CM for discharge planning PT/OT/RT DVT Prophylaxis: On Xarelto GI Prophylaxis: Protonix Ambulated as tolerated Code Status: Full Code, COMPRESSIONS ONLY, doesn't want to be on long-term intubation; PCP: Dr. Casandra Reddy Discharge Plan: * Vaccine
[2018-01-17] MEDS: Topiramate 25 MG Tab PO SCH (21:09)
[2018-01-17] MEDS: Acetaminophen 325 MG Tab PO PRN (22:54)
[2018-01-17] MEDS: Zolpidem 10 MG Tab PO SCH (22:54)
[2018-01-18] MEDS: glipiZIDE 5 MG Tab PO SCH ×2 (06:53→16:03)
[2018-01-18] MEDS: Insulin Lispro 100 Unit/ML 3 ML KwikPen SUBCUT SCH ×4 (07:35→22:30)
[2018-01-18] MEDS: Allopurinol 300 MG Tab PO SCH (08:34)
[2018-01-18] MEDS: Tamsulosin 0.4 MG Cap.ER PO SCH (08:34)
[2018-01-18] MEDS: Pantoprazole 40 MG Tab.CR PO SCH (08:34)
[2018-01-18] MEDS: Saccharomyces Boulardii (Probiotic) 250 MG Cap PO SCH ×2 (08:34→21:31)
[2018-01-18] MEDS: Carvedilol 6.25 MG Tab PO SCH ×2 (08:34→21:30)
[2018-01-18] MEDS: Rivaroxaban 10 MG Tab PO SCH (08:34)
[2018-01-18] MEDS: FLUoxetine 10 MG Cap PO SCH (08:34)
[2018-01-18] MEDS: Lisinopril 10 MG Tab PO SCH ×2 (08:35→21:29)
[2018-01-18] MEDS: SYMBICORT INH SCH ×2 (08:37→20:00)
[2018-01-18] MEDS: Tiotropium Inhaler 18 MCG Inhalation Powder Cap Kit of 5 INH SCH (08:37)
--- NOTE | 2018-01-18 10:03 | PCM.PN ---
- General Info Date of Service: 01/18/18 Admission Dx/Problem (Free Text): Admission Diagnosis/Problem Admission Diagnosis/Problem Pneumonia Subjective Update: Patient seen and examined at bedside. No overnight or acute issues. He slept good last night and reports no acute issues. His shortness of breath is about the same. He is afebrile w/o leukocytosis. His CRP remains elevated at 21.4. His sputum is pos for Group C Beta Strep organism. Functional Status: Reports: Pain Controlled, Tolerating Diet, Urinating. Denies : New Symptoms - Review of Systems General: Denies: Fever, Chills HEENT: Reports: No Symptoms Pulmonary: Reports: Shortness of Breath. Denies: Cough, Sputum, Wheezing Cardiovascular: Denies: Chest Pain, Dyspnea on Exertion, Lightheadedness Gastrointestinal: Denies: Abdominal Pain, Nausea, Vomiting Genitourinary: Reports: No Symptoms Musculoskeletal: Reports: No Symptoms Skin: Denies: Cyanosis, Mottled, Pallor, Diaphoresis, Rash Neurological: Reports: Weakness, Gait Disturbance. Denies: Confusion Psychiatric: Denies: Depression, Anxiety, Agitation, Hallucinations - Patient Data Vitals - Most Recent: Last Vital Signs Temp 36.4 C 01/17/18 19:30 Pulse 96 01/17/18 21:08 Resp 18 01/17/18 19:30 BP 118/53 L 01/17/18 21:08 Pulse Ox 91 L 01/18/18 08:37 Weight - Most Recent: 78.88 kg I&O - Last 24 Hours: Intake & Output 01/17/18 01/18/18 01/18/18 22:59 06:59 14:59 Intake Total 1510 500 Output Total 1000 600 Balance 510 -100 Lab Results Last 24 Hours: Laboratory Results - last 24 hr 01/17/18 01/17/18 01/17/18 Range/Units 06:13 10:50 16:49 WBC (4.23-9.07) K/mm3 RBC (4.63-6.08) M/mm3 Hgb (13.7-17.5) gm/L Hct (40.1-51.0) % MCV (79.0-92.2) fl MCH (25.7-32.2) pg MCHC (32.2-35.5) g/dl RDW Std Deviation (35.1-43.9) fL Plt Count (163-337) K/mm3 MPV (9.4-12.3) fl Neut % (Auto) (34.0-67.9) % Lymph % (Auto) (21.8-53.1) % [place] % (Auto) (5.3-12.2) % Eos % (Auto) (0.8-7.0) Baso % (Auto) (0.1-1.2) % Neut # (Auto) (1.78-5.38) K/mm3 Lymph # (Auto) (1.32-3.57) K/mm3 [place] # (Auto) (0.30-0.82) K/mm3 Eos # (Auto) (0.04-0.54) K/mm3 Baso # (Auto) (0.01-0.08) K/mm3 Sodium (136-145) mEq/L Potassium (3.5-5.1) mEq/L Chloride (98-107) mEq/L Carbon Dioxide (21-32) mEq/L Anion Gap (5-15) BUN (7-18) mg/dL Creatinine (0.7-1.3) mg/dL Est Cr Clr Drug Dosing mL/min Estimated GFR (MDRD) (>60) mL/min BUN/Creatinine Ratio (14-18) Glucose (83-115) mg/dL POC Glucose 102 130 H 101 (83-110) mg/dL Calcium (8.5-10.1) mg/dL Magnesium (1.8-2.4) mg/dl C-Reactive Protein (<1.0) mg/dL 01/17/18 01/18/18 01/18/18 Range/Units 21:09 05:45 05:45 WBC 8.83 (4.23-9.07) K/mm3 RBC 3.34 L (4.63-6.08) M/mm3 Hgb 10.5 L (13.7-17.5) gm/L Hct 32.1 L (40.1-51.0) % MCV 96.1 H (79.0-92.2) fl MCH 31.4 (25.7-32.2) pg MCHC 32.7 (32.2-35.5) g/dl RDW Std Deviation 49.4 H (35.1-43.9) fL Plt Count 171 (163-337) K/mm3 MPV 10.1 (9.4-12.3) fl Neut % (Auto) 74.5 H (34.0-67.9) % Lymph % (Auto) 14.5 L (21.8-53.1) % [place] % (Auto) 8.3 (5.3-12.2) % Eos % (Auto) 1.6 (0.8-7.0) Baso % (Auto) 0.2 (0.1-1.2) % Neut # (Auto) 6.58 H (1.78-5.38) K/mm3 Lymph # (Auto) 1.28 L (1.32-3.57) K/mm3 [place] # (Auto) 0.73 (0.30-0.82) K/mm3 Eos # (Auto) 0.14 (0.04-0.54) K/mm3 Baso # (Auto) 0.02 (0.01-0.08) K/mm3 Sodium 137 (136-145) mEq/L Potassium 3.7 (3.5-5.1) mEq/L Chloride 106 (98-107) mEq/L Carbon Dioxide 22 (21-32) mEq/L Anion Gap 12.7 (5-15) BUN 23 H (7-18) mg/dL Creatinine 1.4 H (0.7-1.3) mg/dL Est Cr Clr Drug Dosing 42.58 mL/min Estimated GFR (MDRD) 48 (>60) mL/min BUN/Creatinine Ratio 16.4 (14-18) Glucose 101 (83-115) mg/dL POC Glucose 117 H (83-110) mg/dL Calcium 8.8 (8.5-10.1) mg/dL Magnesium 2.0 (1.8-2.4) mg/dl C-Reactive Protein 21.4 H* (<1.0) mg/dL Armando Results Last 24 Hours: Microbiology 01/15/18 09:10 Aerobic Blood Culture - Preliminary Blood - Venous - Lab Draw NO GROWTH AFTER 3 DAYS Anaerobic Blood Culture - Preliminary NO GROWTH AFTER 3 DAYS 01/15/18 08:50 Aerobic Blood Culture - Preliminary Blood - Venous NO GROWTH AFTER 3 DAYS Anaerobic Blood Culture - Preliminary NO GROWTH AFTER 3 DAYS 01/15/18 20:28 Gram Stain - Final Sputum - Expectorated Sputum Culture - Preliminary Beta Streptococcus 01/15/18 15:56 Streptococcus pneumoniae Antigen (M - Final Urine Med Orders - Current: Current Medications Acetaminophen (Tylenol) 650 mg PO Q4H PRN PRN Reason: Pain (Mild 1-3)/fever Last Admin: 01/17/18 22:54 Dose: 650 mg Albuterol (Proventil Neb Soln) 2.5 mg NEB Q2H PRN PRN Reason: Shortness Of Breath/wheezing Albuterol/Ipratropium (Duoneb 3.0-0.5 Mg/3 Ml) 3 ml NEB Q4H PRN PRN Reason: Shortness Of Breath/wheezing Last Admin: 01/15/18 17:33 Dose: 3 ml Allopurinol (Zyloprim) 300 mg PO DAILY [facility] Last Admin: 01/18/18 08:34 Dose: 300 mg Alogliptin Benzoate (Alogliptin) 25 mg PO DAILY [facility] Last Admin: 01/18/18 08:34 Dose: 25 mg Benzocaine/Menthol (Cepacol Sore Throat) 1 lozenge MUCMEM Q2HR PRN PRN Reason: Sore Throat Last Admin: 01/16/18 21:15 Dose: 1 lozenge Benzonatate (Tessalon Perles) 200 mg PO TID PRN PRN Reason: Cough Bisacodyl (Dulcolax) 5 mg PO DAILY PRN PRN Reason: Constipation Carvedilol (Coreg) 3.125 mg PO BID [facility] Last Admin: 01/18/18 08:34 Dose: 3.125 mg Docusate Sodium (Colace) 100 mg PO BID PRN PRN Reason: Constipation Fluoxetine HCl (Prozac) 30 mg PO DAILY [facility] Last Admin: 01/18/18 08:34 Dose: 30 mg Glipizide (Glucotrol) 2.5 mg PO BIDAC [facility] Last Admin: 01/18/18 06:53 Dose: 2.5 mg Guaifenesin/Phenylephrine HCl (Robitussin Dm) 10 ml PO Q4H PRN PRN Reason: Cough Hydromorphone HCl (Dilaudid) 0.25 mg IVPUSH Q2H PRN PRN Reason: Pain (severe 7-10) Ceftriaxone Sodium 2 gm/ (Dextrose/Water) 100 mls @ 200 mls/hr IV Q24H [facility] Last Admin: 01/18/18 08:30 Dose: 200 mls/hr Promethazine HCl 6.25 mg/ (Sodium Chloride) 50.25 mls @ 100 mls/hr IV Q6H PRN PRN Reason: Nausea/Vomiting Azithromycin 500 mg/ Sodium (Chloride) 250 mls @ 250 mls/hr IV Q24H [facility] Last Admin: 01/17/18 17:08 Dose: 250 mls/hr Insulin Human Lispro (Humalog) 0 unit SUBCUT QIDACANDBED [facility]; Protocol Last Admin: 01/18/18 07:35 Dose: Not Given Isosorbide Mononitrate (Imdur) 30 mg PO DAILY@1300 [facility] Last Admin: 01/17/18 12:13 Dose: 30 mg Lisinopril (Prinivil) 10 mg PO BID [facility] Last Admin: 01/18/18 08:35 Dose: 10 mg Magnesium Hydroxide (Milk Of Magnesia) 30 ml PO Q12H PRN PRN Reason: Constipation Symbicort 160/4.5 (Inhaler Own Med) 0 each INH BID [facility] Last Admin: 01/18/18 08:37 Dose: 2 each Oxycodone/Acetaminophen (Percocet 325-5 Mg) 1 tab PO Q4H PRN PRN Reason: Pain (moderate 4-6) Pantoprazole Sodium (Protonix) 40 mg PO DAILY [facility] Last Admin: 01/18/18 08:34 Dose: 40 mg Polyethylene Glycol (Miralax) 17 gm PO DAILY PRN PRN Reason: Constipation Promethazine HCl (Phenergan) 25 mg PO Q6H PRN PRN Reason: Nausea/Vomiting Rivaroxaban (Xarelto) 15 mg PO DAILY [facility] Last Admin: 01/18/18 08:34 Dose: 15 mg Rosuvastatin Calcium (Crestor) 20 mg PO QPM [facility] Last Admin: 01/17/18 17:08 Dose: 20 mg Saccharomyces Boulardii (Florastor) 250 mg PO BID [facility] Last Admin: 01/18/18 08:34 Dose: 250 mg Senna/Docusate Sodium (Senna Plus) 1 tab PO BID PRN PRN Reason: Constipation Tamsulosin HCl (Flomax) 0.4 mg PO DAILY [facility] Last Admin: 01/18/18 08:34 Dose: 0.4 mg Tiotropium [facility] (Spiriva Handihaler) 18 mcg INH DAILY [facility] Last Admin: 01/18/18 08:37 Dose: 1 cap Topiramate (Topamax) 25 mg PO BEDTIME [facility] Last Admin: 01/17/18 21:09 Dose: 25 mg Zolpidem Tartrate (Ambien) 5 mg PO BEDTIME [facility] Last Admin: 01/17/18 22:54 Dose: 5 mg Discontinued Medications Acetaminophen (Tylenol) 975 mg PO NOW ONE Stop: 01/15/18 08:51 Last Admin: 01/15/18 09:11 Dose: 975 mg Ceftriaxone Sodium 2 gm/ (Sodium Chloride) 100 mls @ 100 mls/hr IV ONETIME ONE Stop: 01/15/18 09:50 Last Admin: 01/15/18 09:12 Dose: 100 mls/hr Sodium Chloride (Normal Saline) 1,000 mls @ 150 mls/hr IV ASDIRECTED [facility] Last Admin: 01/15/18 09:11 Dose: 150 mls/hr Azithromycin 500 mg/ Sodium (Chloride) 250 mls @ 250 mls/hr IV ONETIME ONE Stop: 01/15/18 17:44 Last Admin: 01/15/18 16:57 Dose: 250 mls/hr Magnesium Sulfate 2 gm/ Premix 50 mls @ 25 mls/hr IV ONETIME ONE Stop: 01/15/18 23:16 Last Admin: 01/15/18 21:54 Dose: 25 mls/hr Azithromycin 500 mg/ Sodium (Chloride) 250 mls @ 250 mls/hr IV Q24H [facility] Magnesium Sulfate 2 gm/ Premix 50 mls @ 25 mls/hr IV ONETIME ONE Stop: 01/17/18 10:24 Last Admin: 01/17/18 09:17 Dose: 25 mls/hr Isosorbide Mononitrate (Imdur) 30 mg PO DAILY [facility] Last Admin: 01/16/18 12:19 Dose: Not Given Mometasone Furoate (Asmanex 220 Mcg) 0 puff INH BEDTIME [facility] Non-Formulary Medication (Olodaterol Hcl [Striverdi Respimat]) 2 puff IH QAM [facility] Non-Formulary Medication (Trelegy Ellipta.) 1 puff INH DAILY [facility] Pantoprazole Sodium (Protonix Iv) 40 mg IVPUSH DAILY [facility] Last Admin: 01/16/18 08:46 Dose: 40 mg Zolpidem Tartrate (Ambien) 5 mg PO BEDTIME [facility] Last Admin: 01/16/18 20:12 Dose: 5 mg - Exam Quality Assessment: No: Supplemental Oxygen General: Alert, Cooperative, No Acute Distress, Other (upper body and extremity tremors) HEENT: Pupils Equal, Pupils Reactive, Mucous Membr. Moist/[place] Neck: Supple, Trachea Midline Lungs: Normal Respiratory Effort, Decreased Breath Sounds, Other (pacemaker on anterior thorax) Cardiovascular: Regular Rate, Regular Rhythm GI/Abdominal Exam: Normal Bowel Sounds, Soft, Non-Tender, No Organomegaly, No Distention, No Abnormal Bruit, No Mass (Male) Exam: Deferred Back Exam: Normal Inspection, Decreased Range of Motion Extremities: Normal Inspection, Normal Range of Motion, Non-Tender, No Pedal Edema, Normal Capillary Refill Peripheral Pulses: 2+: Dorsalis Pedis (L), Dorsalis Pedis (R) Skin: Warm, Dry, Intact Neurological: No New Focal Deficit Psy/Mental Status: Alert, Normal Affect, Normal Mood - Problem List Review Problem List Initiated/Reviewed/Updated: Yes - Plan Plan:: I/P: Acute: CAP, right lower lung * 2/2 Group C Beta Strep * PSI/PORT Score: 103; hospitalization recommended * Risk factor: CAP 3 months ago, has been to clinic around sick contacts, Admits to not having vaccine * Productive cough, F/C, SOB, O2 70% on RA * Temp of 100.1 in ED--> 99.5 * WBC 8.75-->12.51--> 11.44-->8.83, CRP 17.1--> 21.8--> 21.4 * CXR in ED--> PNA R lower lobe; repeat CXR shows slightly improved findings within the right lung base * On IV Rocephin and Azithro 500 daily; will switch to oral dosing * 94% on 1L nasal cannula --> D/C, is now 94% RA * RT/IS/Acapella/DuoNebs * Sepsis work up: * Lactic acid 2 * Blood Cultures--> No growth * IVF started in ED--> D/C * Repeat CXR 01/17/18--> Slightly improved findings within the right lung base. * Repeat CXR in 2 days * [employer] swallow evaluation--> no overt s/s of dysphagia present * Sputum culture--> Group C Beta Strep * Robitussin DM and tesslon perles PRN cough * Recommend PNA Vaccination--> Pt states he will have it * Recommend wearing mask when going out in public Anemia, Stable * Hgb 13--> 11.6--> 11.1-->10.5, Hct 39.4--> 35.3--> 34.2-->32.1 * Monitor * Replenish with PRBCs as needed Chronic: Afib/Aflutter * EKG in ED--> Aflutter, Q waves in inferior and anteroseptal leads; normal QT interval * On Xarelto * Has Pacemaker * Monitor on telemetry CHF * BNP elevated at 1314, but is the lowest BNP he has had here * SOB, no pedal edema * ECHO 10/19/17: LVEF 60-65%; LVH, Mod to severe tricuspid regurg, dilated inferior vena cava, RV, and RA * Monitor * Lasix PRN CAD with CABG x4 HTN HLD PVD LVH Aortic Stenosis COPD Sleep Apnea GERD BPH Prostate CA s/p radiation DM2 with neuropathy * ADA diet * Sliding scale insulin with BS checks QIDACandBED * A1C 7 * Diabetic Nurse consultation CKD III Urinary Retention Anxiety/Depression Herpes left eye Plan: He is clinically stable Routine AM labs SW/CM for discharge planning Continue PT/OT/RT DVT Prophylaxis: On Xarelto GI Prophylaxis: Protonix Ambulated as tolerated Code Status: Full Code, COMPRESSIONS ONLY, doesn't want to be on long-term intubation; PCP: Dr. Casandra Reddy LOS > 96 hrs due to slow response to treatment. CRP is still considerably elevated. He may also benefit with HHS after discharge.
[2018-01-18] MEDS: Isosorbide Mononitrate 30 MG Tab.ER PO SCH (12:35)
[2018-01-18] MEDS: Azithromycin 250 MG Tab PO SCH (16:03)
[2018-01-18] MEDS: Rosuvastatin 10 MG Tab PO SCH (17:22)
[2018-01-18] MEDS: Acetaminophen 325 MG Tab PO PRN (18:28)
[2018-01-18] MEDS: Topiramate 25 MG Tab PO SCH (21:30)
[2018-01-18] MEDS ORDERED: Acetaminophen/Butalbital/Caffeine 325-50-40 MG Tab PO PRN (21:41)
[2018-01-18] MEDS ORDERED: Acetaminophen/Butalbital/Caffeine 325-50-40 MG Tab ONE (23:19)
[2018-01-18] MEDS: Zolpidem 10 MG Tab PO SCH (23:25)
[2018-01-19] MEDS: glipiZIDE 5 MG Tab PO SCH ×2 (07:02→17:28)
[2018-01-19] MEDS: Insulin Lispro 100 Unit/ML 3 ML KwikPen SUBCUT SCH ×4 (07:06→22:18)
[2018-01-19] MEDS: Tamsulosin 0.4 MG Cap.ER PO SCH (08:21)
[2018-01-19] MEDS: Saccharomyces Boulardii (Probiotic) 250 MG Cap PO SCH ×2 (08:21→22:26)
[2018-01-19] MEDS: FLUoxetine 10 MG Cap PO SCH (08:21)
[2018-01-19] MEDS: Cephalexin 500 MG Cap PO SCH ×2 (08:22→22:17)
[2018-01-19] MEDS: Lisinopril 10 MG Tab PO SCH ×2 (08:22→22:16)
[2018-01-19] MEDS: Allopurinol 300 MG Tab PO SCH (08:22)
[2018-01-19] MEDS: Rivaroxaban 10 MG Tab PO SCH (08:22)
[2018-01-19] MEDS: Pantoprazole 40 MG Tab.CR PO SCH (08:23)
[2018-01-19] MEDS: Carvedilol 6.25 MG Tab PO SCH ×2 (08:23→22:15)
--- NOTE | 2018-01-19 09:26 | CR ---
Chest: Portable view of the chest was obtained. Comparison: Prior chest x-ray of 01/17/18. Heart size is slightly enlarged. Lung markings are diffusely increased which are asymmetrically worse on the right side which appear stable from recent chest x-ray. Tortuous thoracic aorta is seen. Prior sternotomy is noted. Pacemaker is seen. Impression: 1. Findings as noted above. No significant change is seen from prior chest x-ray. Diagnostic code #3
[2018-01-19] MEDS: Tiotropium Inhaler 18 MCG Inhalation Powder Cap Kit of 5 INH SCH (09:32)
[2018-01-19] MEDS: SYMBICORT INH SCH ×2 (09:33→20:15)
--- NOTE | 2018-01-19 10:08 | PCM.PN ---
- General Info Date of Service: 01/19/18 Admission Dx/Problem (Free Text): Admission Diagnosis/Problem Admission Diagnosis/Problem Pneumonia Subjective Update: Follow Up Functional Status: Reports: Pain Controlled, Tolerating Diet, Urinating - Review of Systems General: Denies: Fever, Weakness, Fatigue, Malaise, Chills HEENT: Reports: No Symptoms Pulmonary: Denies: Shortness of Breath, Cough, Wheezing Cardiovascular: Denies: Chest Pain, Dyspnea on Exertion, Lightheadedness Gastrointestinal: Denies: Abdominal Pain, Nausea, Vomiting Genitourinary: Reports: No Symptoms Musculoskeletal: Reports: No Symptoms Skin: Denies: Cyanosis, Diaphoresis, Other Neurological: Reports: Difficulty Walking, Gait Disturbance. Denies: Confusion , Weakness Psychiatric: Denies: Depression, Anxiety, Agitation, Hallucinations Systems Review Comment:: No overnight or acute issues. He slept pretty good. He has no complaints. His CRP is now down to 12. - Patient Data Vitals - Most Recent: Last Vital Signs Temp 36.8 C 01/19/18 08:13 Pulse 59 L 01/19/18 08:23 Resp 14 01/19/18 08:13 BP 126/53 L 01/19/18 08:23 Pulse Ox 94 L 01/19/18 09:33 Weight - Most Recent: 77.973 kg I&O - Last 24 Hours: Intake & Output 01/18/18 01/19/18 01/19/18 22:59 06:59 14:59 Intake Total 920 200 Output Total 875 700 Balance 45 -500 Lab Results Last 24 Hours: Laboratory Results - last 24 hr 01/18/18 01/18/18 01/18/18 Range/Units 06:01 11:27 16:55 WBC (4.23-9.07) K/mm3 RBC (4.63-6.08) M/mm3 Hgb (13.7-17.5) gm/L Hct (40.1-51.0) % MCV (79.0-92.2) fl MCH (25.7-32.2) pg MCHC (32.2-35.5) g/dl RDW Std Deviation (35.1-43.9) fL Plt Count (163-337) K/mm3 MPV (9.4-12.3) fl Neut % (Auto) (34.0-67.9) % Lymph % (Auto) (21.8-53.1) % [place] % (Auto) (5.3-12.2) % Eos % (Auto) (0.8-7.0) Baso % (Auto) (0.1-1.2) % Neut # (Auto) (1.78-5.38) K/mm3 Lymph # (Auto) (1.32-3.57) K/mm3 [place] # (Auto) (0.30-0.82) K/mm3 Eos # (Auto) (0.04-0.54) K/mm3 Baso # (Auto) (0.01-0.08) K/mm3 Sodium (136-145) mEq/L Potassium (3.5-5.1) mEq/L Chloride (98-107) mEq/L Carbon Dioxide (21-32) mEq/L Anion Gap (5-15) BUN (7-18) mg/dL Creatinine (0.7-1.3) mg/dL Est Cr Clr Drug Dosing mL/min Estimated GFR (MDRD) (>60) mL/min BUN/Creatinine Ratio (14-18) Glucose (83-115) mg/dL POC Glucose 88 135 H 90 (83-110) mg/dL Calcium (8.5-10.1) mg/dL Magnesium (1.8-2.4) mg/dl C-Reactive Protein (<1.0) mg/dL 01/18/18 01/19/18 01/19/18 Range/Units 21:34 05:50 05:50 WBC 6.56 (4.23-9.07) K/mm3 RBC 3.45 L (4.63-6.08) M/mm3 Hgb 11.0 L (13.7-17.5) gm/L Hct 33.3 L (40.1-51.0) % MCV 96.5 H (79.0-92.2) fl MCH 31.9 (25.7-32.2) pg MCHC 33.0 (32.2-35.5) g/dl RDW Std Deviation 49.7 H (35.1-43.9) fL Plt Count 188 (163-337) K/mm3 MPV 10.0 (9.4-12.3) fl Neut % (Auto) 66.9 (34.0-67.9) % Lymph % (Auto) 20.4 L (21.8-53.1) % [place] % (Auto) 9.0 (5.3-12.2) % Eos % (Auto) 2.3 (0.8-7.0) Baso % (Auto) 0.3 (0.1-1.2) % Neut # (Auto) 4.39 (1.78-5.38) K/mm3 Lymph # (Auto) 1.34 (1.32-3.57) K/mm3 [place] # (Auto) 0.59 (0.30-0.82) K/mm3 Eos # (Auto) 0.15 (0.04-0.54) K/mm3 Baso # (Auto) 0.02 (0.01-0.08) K/mm3 Sodium 139 (136-145) mEq/L Potassium 3.6 (3.5-5.1) mEq/L Chloride 106 (98-107) mEq/L Carbon Dioxide 22 (21-32) mEq/L Anion Gap 14.6 (5-15) BUN 21 H (7-18) mg/dL Creatinine 1.3 (0.7-1.3) mg/dL Est Cr Clr Drug Dosing 45.86 mL/min Estimated GFR (MDRD) 53 (>60) mL/min BUN/Creatinine Ratio 16.2 (14-18) Glucose 115 (83-115) mg/dL POC Glucose 154 H (83-110) mg/dL Calcium 9.1 (8.5-10.1) mg/dL Magnesium 1.9 (1.8-2.4) mg/dl C-Reactive Protein 12.7 H* (<1.0) mg/dL 01/19/18 Range/Units 06:55 WBC (4.23-9.07) K/mm3 RBC (4.63-6.08) M/mm3 Hgb (13.7-17.5) gm/L Hct (40.1-51.0) % MCV (79.0-92.2) fl MCH (25.7-32.2) pg MCHC (32.2-35.5) g/dl RDW Std Deviation (35.1-43.9) fL Plt Count (163-337) K/mm3 MPV (9.4-12.3) fl Neut % (Auto) (34.0-67.9) % Lymph % (Auto) (21.8-53.1) % [place] % (Auto) (5.3-12.2) % Eos % (Auto) (0.8-7.0) Baso % (Auto) (0.1-1.2) % Neut # (Auto) (1.78-5.38) K/mm3 Lymph # (Auto) (1.32-3.57) K/mm3 [place] # (Auto) (0.30-0.82) K/mm3 Eos # (Auto) (0.04-0.54) K/mm3 Baso # (Auto) (0.01-0.08) K/mm3 Sodium (136-145) mEq/L Potassium (3.5-5.1) mEq/L Chloride (98-107) mEq/L Carbon Dioxide (21-32) mEq/L Anion Gap (5-15) BUN (7-18) mg/dL Creatinine (0.7-1.3) mg/dL Est Cr Clr Drug Dosing mL/min Estimated GFR (MDRD) (>60) mL/min BUN/Creatinine Ratio (14-18) Glucose (83-115) mg/dL POC Glucose 113 H (83-110) mg/dL Calcium (8.5-10.1) mg/dL Magnesium (1.8-2.4) mg/dl C-Reactive Protein (<1.0) mg/dL Armando Results Last 24 Hours: Microbiology 01/15/18 09:10 Aerobic Blood Culture - Preliminary Blood - Venous - Lab Draw NO GROWTH AFTER 4 DAYS Anaerobic Blood Culture - Preliminary NO GROWTH AFTER 4 DAYS 01/15/18 08:50 Aerobic Blood Culture - Preliminary Blood - Venous NO GROWTH AFTER 4 DAYS Anaerobic Blood Culture - Preliminary NO GROWTH AFTER 4 DAYS 01/15/18 20:28 Gram Stain - Final Sputum - Expectorated Sputum Culture - Final Beta Streptococcus Group C Med Orders - Current: Current Medications Acetaminophen (Tylenol) 650 mg PO Q4H PRN PRN Reason: Pain (Mild 1-3)/fever Last Admin: 01/18/18 18:28 Dose: 650 mg Acetaminophen/Butalbital/Caffeine (Fioricet 325-50-40 Mg) 1 tab PO Q6H PRN PRN Reason: Headache Last Admin: 01/18/18 23:25 Dose: 1 tab Albuterol (Proventil Neb Soln) 2.5 mg NEB Q2H PRN PRN Reason: Shortness Of Breath/wheezing Albuterol/Ipratropium (Duoneb 3.0-0.5 Mg/3 Ml) 3 ml NEB Q4H PRN PRN Reason: Shortness Of Breath/wheezing Last Admin: 01/15/18 17:33 Dose: 3 ml Allopurinol (Zyloprim) 300 mg PO DAILY [facility] Last Admin: 01/19/18 08:22 Dose: 300 mg Alogliptin Benzoate (Alogliptin) 25 mg PO DAILY [facility] Last Admin: 01/19/18 08:22 Dose: 25 mg Azithromycin (Zithromax) 500 mg PO Q24H [facility] Last Admin: 01/18/18 16:03 Dose: 500 mg Benzocaine/Menthol (Cepacol Sore Throat) 1 lozenge MUCMEM Q2HR PRN PRN Reason: Sore Throat Last Admin: 01/16/18 21:15 Dose: 1 lozenge Benzonatate (Tessalon Perles) 200 mg PO TID PRN PRN Reason: Cough Bisacodyl (Dulcolax) 5 mg PO DAILY PRN PRN Reason: Constipation Carvedilol (Coreg) 3.125 mg PO BID [facility] Last Admin: 01/19/18 08:23 Dose: 3.125 mg Cephalexin (Keflex) 500 mg PO Q12H [facility] Last Admin: 01/19/18 08:22 Dose: 500 mg Docusate Sodium (Colace) 100 mg PO BID PRN PRN Reason: Constipation Fluoxetine HCl (Prozac) 30 mg PO DAILY [facility] Last Admin: 01/19/18 08:21 Dose: 30 [facility] Admin: 01/19/18 07:02 Dose: 2.5 mg Guaifenesin/Phenylephrine HCl (Robitussin Dm) 10 ml PO Q4H PRN PRN Reason: Cough Hydromorphone HCl (Dilaudid) 0.25 mg IVPUSH Q2H PRN PRN Reason: Pain (severe 7-10) Promethazine HCl 6.25 mg/ (Sodium Chloride) 50.25 mls @ 100 mls/hr IV Q6H PRN PRN Reason: Nausea/Vomiting Insulin Human Lispro (Humalog) 0 unit SUBCUT QIDACANDBED [facility]; Protocol Last Admin: 01/19/18 07:06 Dose: Not Given Isosorbide Mononitrate (Imdur) 30 mg PO DAILY@1300 [facility] Last Admin: 01/18/18 12:35 Dose: 30 mg Lisinopril (Prinivil) 10 mg PO BID [facility] Last Admin: 01/19/18 08:22 Dose: 10 mg Magnesium Hydroxide (Milk Of Magnesia) 30 ml PO Q12H PRN PRN Reason: Constipation Symbicort 160/4.5 (Inhaler Own Med) 0 each INH BID [facility] Last Admin: 01/19/18 09:33 Dose: 2 each Oxycodone/Acetaminophen (Percocet 325-5 Mg) 1 tab PO Q4H PRN PRN Reason: Pain (moderate 4-6) Pantoprazole Sodium (Protonix) 40 mg PO DAILY [facility] Last Admin: 01/19/18 08:23 Dose: 40 mg Polyethylene Glycol (Miralax) 17 gm PO DAILY PRN PRN Reason: Constipation Promethazine HCl (Phenergan) 25 mg PO Q6H PRN PRN Reason: Nausea/Vomiting Rivaroxaban (Xarelto) 15 mg PO DAILY [facility] Last Admin: 01/19/18 08:22 Dose: 15 mg Rosuvastatin Calcium (Crestor) 20 mg PO QPM [facility] Last Admin: 01/18/18 17:22 Dose: 20 mg Saccharomyces Boulardii (Florastor) 250 mg PO BID [facility] Last Admin: 01/19/18 08:21 Dose: 250 mg Senna/Docusate Sodium (Senna Plus) 1 tab PO BID PRN PRN Reason: Constipation Tamsulosin HCl (Flomax) 0.4 mg PO DAILY [facility] Last Admin: 01/19/18 08:21 Dose: 0.4 mg Tiotropium [place] (Spiriva Handihaler) 18 mcg INH DAILY [facility] Last Admin: 01/19/18 09:32 Dose: 1 cap Topiramate (Topamax) 25 mg PO BEDTIME [facility] Last Admin: 01/18/18 21:30 Dose: 25 mg Zolpidem Tartrate (Ambien) 5 mg PO BEDTIME [facility] Discontinued Medications Acetaminophen (Tylenol) 975 mg PO NOW ONE Stop: 01/15/18 08:51 Last Admin: 01/15/18 09:11 Dose: 975 mg Acetaminophen/Butalbital/Caffeine (Fioricet 325-50-40 Mg) Confirm Administered Dose 1 tab .ROUTE .STK-MED ONE Stop: 01/18/18 23:20 Last Admin: 01/19/18 03:39 Dose: Not Given Ceftriaxone Sodium 2 gm/ (Sodium Chloride) 100 mls @ 100 mls/hr IV ONETIME ONE Stop: 01/15/18 09:50 Last Admin: 01/15/18 09:12 Dose: 100 mls/hr Sodium Chloride (Normal Saline) 1,000 mls @ 150 mls/hr IV ASDIRECTED [facility] Last Admin: 01/15/18 09:11 Dose: 150 mls/hr Ceftriaxone Sodium 2 gm/ (Dextrose/Water) 100 mls @ 200 mls/hr IV Q24H [facility] Last Admin: 01/18/18 08:30 Dose: 200 mls/hr Azithromycin 500 mg/ Sodium (Chloride) 250 mls @ 250 mls/hr IV ONETIME ONE Stop: 01/15/18 17:44 Last Admin: 01/15/18 16:57 Dose: 250 mls/hr Magnesium Sulfate 2 gm/ Premix 50 mls @ 25 mls/hr IV ONETIME ONE Stop: 01/15/18 23:16 Last Admin: 01/15/18 21:54 Dose: 25 mls/hr Azithromycin 500 mg/ Sodium (Chloride) 250 mls @ 250 mls/hr IV Q24H [facility] Azithromycin 500 mg/ Sodium (Chloride) 250 mls @ 250 mls/hr IV Q24H [facility] Last Admin: 01/17/18 17:08 Dose: 250 mls/hr Magnesium Sulfate 2 gm/ Premix 50 mls @ 25 mls/hr IV ONETIME ONE Stop: 01/17/18 10:24 Last Admin: 01/17/18 09:17 Dose: 25 mls/hr Isosorbide Mononitrate (Imdur) 30 mg PO DAILY [facility] Last Admin: 01/16/18 12:19 Dose: Not Given Mometasone Furoate (Asmanex 220 Mcg) 0 puff INH BEDTIME [facility] Non-Formulary Medication (Olodaterol Hcl [Striverdi Respimat]) 2 puff IH QAM [facility] Non-Formulary Medication (Trelegy Ellipta.) 1 puff INH DAILY [facility] Pantoprazole Sodium (Protonix Iv) 40 mg IVPUSH DAILY [facility] Last Admin: 01/16/18 08:46 Dose: 40 mg Zolpidem Tartrate (Ambien) 5 mg PO BEDTIME [facility] Last Admin: 01/16/18 20:12 Dose: 5 mg Zolpidem Tartrate (Ambien) 5 mg PO BEDTIME [facility] Last Admin: 01/18/18 23:25 Dose: 5 mg - Exam General: Alert, Cooperative, No Acute Distress HEENT: Pupils Equal, Pupils Reactive, EOMI, Mucous Membr. Moist/[place] Neck: Supple, Trachea Midline Lungs: Normal Respiratory Effort, Decreased Breath Sounds Cardiovascular: Regular Rate, Regular Rhythm, Other (pacemaker on anterior chest ) GI/Abdominal Exam: Normal Bowel Sounds, Soft, Non-Tender, No Organomegaly, No Distention, No Abnormal Bruit (Male) Exam: Deferred Back Exam: Normal Inspection, Decreased Range of Motion Extremities: Normal Inspection, Normal Range of Motion, Non-Tender, No Pedal Edema, Normal Capillary Refill Peripheral Pulses: 2+: Dorsalis Pedis (L), Dorsalis Pedis (R) Skin: Warm, Dry, Intact Neurological: No New Focal Deficit Psy/Mental Status: Alert, Normal Affect, Normal Mood - Problem List Review Problem List Initiated/Reviewed/Updated: Yes - My Orders Last 24 Hours: My Active Orders 01/18/18 17:00 Azithromycin [Zithromax] 500 mg PO Q24H 01/18/18 21:41 Acetaminophen/Butalbital/Caff [Fioricet 325-50-40 MG] 1 tab PO Q6H PRN 01/19/18 09:00 cephALEXin [Keflex] 500 mg PO Q12H - Plan Plan:: I/P: Acute: CAP, right lower lung * 2/2 Group C Beta Strep * PSI/PORT Score: 103; hospitalization recommended * Risk factor: CAP 3 months ago, has been to clinic around sick contacts, Admits to not having vaccine * Productive cough, F/C, SOB, O2 70% on RA * Temp of 100.1 in ED--> 99.5 * WBC 8.75-->12.51--> 11.44-->8.83, CRP 17.1--> 21.8--> 21.4--> 12 * CXR in ED--> PNA R lower lobe; repeat CXR shows slightly improved findings within the right lung base * On IV Rocephin and Azithro 500 daily; will switch to oral dosing * 94% on 1L nasal cannula --> D/C, is now 94% RA * RT/IS/Acapella/DuoNebs * Sepsis work up: * Lactic acid 2 * Blood Cultures--> No growth * IVF started in ED--> D/C * Repeat CXR 01/17/18--> Slightly improved findings within the right lung base. * Repeat CXR shows stable findings * [employer] swallow evaluation--> no overt s/s of dysphagia present * Sputum culture--> Group C Beta Strep * Robitussin DM and tesslon perles PRN cough * Recommend PNA Vaccination--> Pt states he will have it * Recommend wearing mask when going out in public Chronic: Afib/Aflutter * EKG in ED--> Aflutter, Q waves in inferior and anteroseptal leads; normal QT interval * On Xarelto * Has Pacemaker * Monitor on telemetry CHF * BNP elevated at 1314, but is the lowest BNP he has had here * SOB, no pedal edema * ECHO 10/19/17: LVEF 60-65%; LVH, Mod to severe tricuspid regurg, dilated inferior vena cava, RV, and RA * Monitor * Lasix PRN Anemia, Stable * Hgb 13--> 11.6--> 11.1-->10.5, Hct 39.4--> 35.3--> 34.2-->32.1 * Monitor * Replenish with PRBCs as needed CAD with CABG x4 HTN HLD PVD LVH Aortic Stenosis COPD Sleep Apnea GERD BPH Prostate CA s/p radiation DM2 with neuropathy * ADA diet * Sliding scale insulin with BS checks QIDACandBED * A1C 7 * Diabetic Nurse consultation CKD III Urinary Retention Anxiety/Depression Herpes left eye Plan: He remains clinically stable Routine AM labs SW/CM for discharge planning Continue PT/OT/RT DVT Prophylaxis: On Xarelto GI Prophylaxis: Protonix Ambulated as tolerated Code Status: Full Code, COMPRESSIONS ONLY, doesn't want to be on long-term intubation; PCP: Dr. Casandra Reddy LOS > 96 hrs due to slow response to treatment. He may benefit with HHS after discharge.
[2018-01-19] MEDS: Isosorbide Mononitrate 30 MG Tab.ER PO SCH (12:31)
[2018-01-19] MEDS: Rosuvastatin 10 MG Tab PO SCH (17:28)
[2018-01-19] MEDS: Azithromycin 250 MG Tab PO SCH (17:28)
[2018-01-19] MEDS ORDERED: Albuterol 0.083% 2.5 MG/3 ML Neb Soln ONE (19:03)
[2018-01-19] MEDS ORDERED: Zolpidem 5 MG Tab PO SCH (21:00)
[2018-01-19] MEDS: Topiramate 25 MG Tab PO SCH (22:17)
[2018-01-20] MEDS: glipiZIDE 5 MG Tab PO SCH (06:39)
[2018-01-20] MEDS: Tiotropium Inhaler 18 MCG Inhalation Powder Cap Kit of 5 INH SCH (08:30)
[2018-01-20] MEDS: SYMBICORT INH SCH (08:31)
[2018-01-20] MEDS: Saccharomyces Boulardii (Probiotic) 250 MG Cap PO SCH (08:39)
[2018-01-20] MEDS: Rivaroxaban 10 MG Tab PO SCH (08:39)
[2018-01-20] MEDS: FLUoxetine 10 MG Cap PO SCH (08:39)
[2018-01-20] MEDS: Tamsulosin 0.4 MG Cap.ER PO SCH (08:39)
[2018-01-20] MEDS: Insulin Lispro 100 Unit/ML 3 ML KwikPen SUBCUT SCH ×2 (08:39→13:04)
[2018-01-20 08:40] VITALS: BP 134/83
[2018-01-20] MEDS: Lisinopril 10 MG Tab PO SCH (08:40)
[2018-01-20] MEDS: Pantoprazole 40 MG Tab.CR PO SCH (08:40)
[2018-01-20] MEDS: Cephalexin 500 MG Cap PO SCH (08:40)
[2018-01-20] MEDS: Allopurinol 300 MG Tab PO SCH (08:40)
[2018-01-20] MEDS: Carvedilol 6.25 MG Tab PO SCH (08:41)
[2018-01-20] MEDS ORDERED: Pneumococcal 13-Valent Conjugate Vaccine 0.5 ML Syringe IM ONE (09:38)
[2018-01-20] MEDS ORDERED: Magnesium Oxide 400 MG Tab PO ONE (10:00)
--- NOTE | 2018-01-20 12:26 | PCM.DCSUM1 ---
Discharge Summary - Hospital Course Brief History: This is an 82 yo male with past medical h/o Afib/Aflutter, CAD with CABG x4, HTN, HLD, PVD, CHF, LVH, Aortic Stenosis, COPD, Sleep Apnea, GERD , BPH, Prostate CA s/p radiation, DM2 with neuropathy, CKD III, Urinary Retention, Anxiety/Depression who comes in for CAP. No current pain. He complains of F/C, SOB, decreased appetite, productive cough. He denies nausea, vomiting, diarrhea, chest pain, or GI/ complaints. His symptoms improved after receiving O2, IVF, and antibiotics in the ED. His initial workup in the ED showed a CBC remarkable for RBC 4.06, Hgb 13, Hct 39.4, MCV 97, RDW 53, Neut 78%, Bands 1%, Lymph 19%. His coagulation study shows PT 14.3, INR 1.32. His chemistry is remarkable for Anion Gap 15.2, Cr 1.4, Djd818, BNP 1314, Albumin 3. EKG Chest X-ray shows PNA in Right lower lobe. U/A unimpressive for UTI. Blood cultures pending. He is subsequently admitted to the medical floor. He is Full code, COMPRESSIONS ONLY and doesn't want to be on long-term intubation. His PCP is Dr. Casandra Reddy. Diagnosis: Stroke: No Modified Forest Scale: No Symptoms at All Modified Angel Scale Score: 0 - Discharge Data Discharge Date: 01/20/18 Discharge Disposition: Home, Self-Care 01 Condition: Good - Discharge Diagnosis/Problem(s) (1) Pneumonia SNOMED Code(s): 188161809 ICD Code: J18.9 - PNEUMONIA, UNSPECIFIED ORGANISM Status: Acute Priority : High Qualifiers: Pneumonia type: due to unspecified organism Laterality: right Lung location: lower lobe of lung Qualified Code(s): J18.1 - Lobar pneumonia, unspecified organism (2) Hypomagnesemia SNOMED Code(s): 802245602 ICD Code: E83.42 - HYPOMAGNESEMIA Status: Acute (3) Diabetes mellitus SNOMED Code(s): 51462740 ICD Code: E11.9 - TYPE 2 DIABETES MELLITUS WITHOUT COMPLICATIONS Status: Chronic Qualifiers: Diabetes mellitus type: type 2 Diabetes mellitus long term care pharmacist insulin use: without nursing home use Diabetes mellitus complication status: with unspecified complications Qualified Code(s): E11.8 - Type 2 diabetes mellitus with unspecified complications (4) Anemia SNOMED Code(s): 242816562 ICD Code: D64.9 - ANEMIA, UNSPECIFIED Status: Chronic Qualifiers: Anemia type: due to chronic kidney disease - Patient Summary/Data Operative Procedure(s) Performed: None Complications: None Consults: Consultations 01/15/18 16:04 SLIDE MAKER Evaluation and Treatment [CONS] Routine 01/15/18 16:28 OT Evaluation and Treatment [CONS] Routine PT Evaluation and Treatment [CONS] Routine Respiratory Care Assess and Treatment [CONS] Routine 01/16/18 14:59 Consult to Top Dyeing Machine Tender [Consult to Diabetic Nurse Specialist] [CONS] Routine Labs Pending at D/C: None Recommended Follow-up Testing/Procedures: None Planned Operative Procedure(s) after DC: None Hospital Course: Patient was primarily admitted for medical treatment of CAP. His CXR showed right sided infiltrate. He was negative for Mycoplasma and Strep pneumoniae antigen tests but his sputum culture grew Group C Beta Strep. Patient was treated with intravenous antibiotic and was provided routine respiratory care to include, decongestant, expectorant, supplemental O2, and pulmonary toilet. Slowly he improved on this regimen. His hospital course was uncomplicated and the rest of his chronic medical illness remained stable during this admission. Patient was stable upon discharge. He was sent home with additional oral antibiotic to complete a 5-7 day course of treatment. He was advised to follow up with his PCP in 1 week with repeat CXR. The patient expressed understanding and in agreement with the plans as discussed above. All questions were answered. - Patient Instructions Diet: Heart Healthy Diet, Usual Diet as Tolerated, Diabetic Diet Activity: As Tolerated Driving: Do Not Drive Showering/Bathing: May Shower Notify Provider of: Fever, Increased Pain, Nausea and/or Vomiting Other/Special Instructions: - Please take new medication as directed. - Resume all home medications and routine activities as tolerated. - Continue to use IS (incentive spirometry) as directed. - Recommend a repeat CXR in 1-2 weeks. - Call your family doctor for any questions or concerns after discharge. - Follow up with PCP in 1-2 week. - Come back or seek immediate care should your symptoms persist or get worse - Discharge Plan *PRESCRIPTION DRUG MONITORING PROGRAM REVIEWED*: Not Applicable *COPY OF PRESCRIPTION DRUG MONITORING REPORT IN PATIENT KRISTI: Not Applicable Prescriptions/Med Rec: levoFLOXacin [Levaquin] 750 mg PO Q48H #2 tab Saccharomyces Boulardii [Florastor] 250 mg PO DAILY #4 cap Home Medications: Home Meds Allopurinol [Zyloprim] 300 mg PO DAILY 11/05/15 [History] Isosorbide Mononitrate [Imdur] 30 mg PO DAILY 11/05/15 [History] Lisinopril [Prinivil] 10 mg PO BID 11/05/15 [History] glipiZIDE [Glucotrol] 2.5 mg PO BID 11/05/15 [History] atorvaSTATin [Lipitor] 80 mg PO QPM 11/10/15 [History] Cholecalciferol (Vitamin D3) [Vitamin D3] 2,000 unit PO BID 02/17/16 [History] Saxagliptin HCl [Onglyza] 2.5 mg PO DAILY 02/17/16 [History] Tiotropium [Spiriva HandiHaler] 1 puff INH DAILY 02/17/16 [History] Carvedilol [Coreg] 3.125 mg PO BID 06/29/16 [History] Rivaroxaban [Xarelto] 15 mg PO DAILY 06/29/16 [History] Omeprazole 20 mg PO BIDAC 03/20/17 [History] Polyethylene Glycol 3350 [MiraLAX] 17 gm PO DAILY PRN 03/20/17 [History] Topiramate 25 mg PO BEDTIME 03/20/17 [History] Tamsulosin [Flomax] 0.4 mg PO DAILY 10/19/17 [History] Zolpidem Tartrate 5 mg PO BEDTIME 10/19/17 [History] FLUoxetine [PROzac] 30 mg PO DAILY cap 10/24/17 [Rx] Albuterol [Proventil HFA] 2 puff INH Q4HR PRN 01/15/18 [History] Budesonide/Formoterol Fumarate [Symbicort 160-4.5 Mcg Inhaler] 2 puff IH [History] Saccharomyces Boulardii [Florastor] 250 mg PO DAILY #4 cap 01/20/18 [Rx] levoFLOXacin [Levaquin] 750 mg PO Q48H #2 tab 01/20/18 [Rx] Patient Handouts: Community-Acquired Pneumonia, Adult, [id number] Referrals: Casandra Reddy DO [Primary Care Provider] - - Discharge Summary/Plan Comment DC Time >30 min.: Yes (45 mins) Discharge Summary/Plan Comment: Discharge to Home - General Info Date of Service: 01/20/18 Admission Dx/Problem (Free Text: Admission Diagnosis/Problem Admission Diagnosis/Problem Pneumonia Subjective Update: Follow Up Functional Status: Reports: Pain Controlled, Tolerating Diet, Urinating - Review of Systems General: Denies: Fever, Weakness, Fatigue, Malaise, Chills HEENT: Reports: No Symptoms Pulmonary: Denies: Shortness of Breath, Cough, Wheezing Cardiovascular: Denies: Chest Pain, Dyspnea on Exertion, Lightheadedness Gastrointestinal: Denies: Abdominal Pain, Decreased Appetite, Nausea, Vomiting Genitourinary: Reports: No Symptoms Musculoskeletal: Reports: No Symptoms Skin: Reports: No Symptoms Neurological: Reports: Gait Disturbance. Denies: Confusion, Weakness Psychiatric: Denies: Depression, Anxiety, Agitation, Hallucinations Systems Review Comment: No overnight or acute issues. He is well rested. He has no complaints this AM. His CRP is now down to 6. - Patient Data Vitals - Most Recent: Last Vital Signs Temp 36.3 C 01/20/18 08:36 Pulse 89 01/20/18 08:41 Resp 16 01/20/18 08:36 BP 134/83 01/20/18 08:41 Pulse Ox 94 L 01/20/18 08:36 Weight - Most Recent: 77.292 kg I&O - Last 24 hours: Intake & Output 01/19/18 01/20/18 01/20/18 22:59 06:59 14:59 Intake Total 400 400 Output Total 800 Balance -400 400 Lab Results - Last 24 hrs: Laboratory Results - last 24 hr 01/19/18 01/19/18 01/20/18 Range/Units 17:15 22:13 05:35 WBC 7.19 (4.23-9.07) K/mm3 RBC 3.35 L (4.63-6.08) M/mm3 Hgb 10.7 L (13.7-17.5) gm/L Hct 32.3 L (40.1-51.0) % MCV 96.4 H (79.0-92.2) fl MCH 31.9 (25.7-32.2) pg MCHC 33.1 (32.2-35.5) g/dl RDW Std Deviation 49.7 H (35.1-43.9) fL Plt Count 212 (163-337) K/mm3 MPV 9.8 (9.4-12.3) fl Neut % (Auto) 66.3 (34.0-67.9) % Lymph % (Auto) 20.6 L (21.8-53.1) % [place] % (Auto) 9.5 (5.3-12.2) % Eos % (Auto) 1.9 (0.8-7.0) Baso % (Auto) 0.4 (0.1-1.2) % Neut # (Auto) 4.77 (1.78-5.38) K/mm3 Lymph # (Auto) 1.48 (1.32-3.57) K/mm3 [place] # (Auto) 0.68 (0.30-0.82) K/mm3 Eos # (Auto) 0.14 (0.04-0.54) K/mm3 Baso # (Auto) 0.03 (0.01-0.08) K/mm3 Sodium (136-145) mEq/L Potassium (3.5-5.1) mEq/L Chloride (98-107) mEq/L Carbon Dioxide (21-32) mEq/L Anion Gap (5-15) BUN (7-18) mg/dL Creatinine (0.7-1.3) mg/dL Est Cr Clr Drug Dosing mL/min Estimated GFR (MDRD) (>60) mL/min BUN/Creatinine Ratio (14-18) Glucose (83-115) mg/dL POC Glucose 74 L 148 H (83-110) mg/dL Calcium (8.5-10.1) mg/dL Magnesium (1.8-2.4) mg/dl C-Reactive Protein (<1.0) mg/dL 01/20/18 01/20/18 01/20/18 Range/Units 05:35 06:40 11:56 WBC (4.23-9.07) K/mm3 RBC (4.63-6.08) M/mm3 Hgb (13.7-17.5) gm/L Hct (40.1-51.0) % MCV (79.0-92.2) fl MCH (25.7-32.2) pg MCHC (32.2-35.5) g/dl RDW Std Deviation (35.1-43.9) fL Plt Count (163-337) K/mm3 MPV (9.4-12.3) fl Neut % (Auto) (34.0-67.9) % Lymph % (Auto) (21.8-53.1) % [place] % (Auto) (5.3-12.2) % Eos % (Auto) (0.8-7.0) Baso % (Auto) (0.1-1.2) % Neut # (Auto) (1.78-5.38) K/mm3 Lymph # (Auto) (1.32-3.57) K/mm3 [place] # (Auto) (0.30-0.82) K/mm3 Eos # (Auto) (0.04-0.54) K/mm3 Baso # (Auto) (0.01-0.08) K/mm3 Sodium 139 (136-145) mEq/L Potassium 3.6 (3.5-5.1) mEq/L Chloride 107 (98-107) mEq/L Carbon Dioxide 22 (21-32) mEq/L Anion Gap 13.6 (5-15) BUN 17 (7-18) mg/dL Creatinine 1.4 H (0.7-1.3) mg/dL Est Cr Clr Drug Dosing 42.58 mL/min Estimated GFR (MDRD) 48 (>60) mL/min BUN/Creatinine Ratio 12.1 L (14-18) Glucose 114 (83-115) mg/dL POC Glucose 112 H 127 H (83-110) mg/dL Calcium 8.9 (8.5-10.1) mg/dL Magnesium 1.7 L (1.8-2.4) mg/dl C-Reactive Protein 6.7 H* (<1.0) mg/dL JAMAR Results - Last 24 hrs: Microbiology 01/15/18 09:10 Aerobic Blood Culture - Preliminary Blood - Venous - Lab Draw NO GROWTH AFTER 5 DAYS Anaerobic Blood Culture - Preliminary NO GROWTH AFTER 5 DAYS 01/15/18 08:50 Aerobic Blood Culture - Preliminary Blood - Venous NO GROWTH AFTER 5 DAYS Anaerobic Blood Culture - Preliminary NO GROWTH AFTER 5 DAYS Med Orders - Current: Current Medications Acetaminophen (Tylenol) 650 mg PO Q4H PRN PRN Reason: Pain (Mild 1-3)/fever Last Admin: 01/18/18 18:28 Dose: 650 mg Acetaminophen/Butalbital/Caffeine (Fioricet 325-50-40 Mg) 1 tab PO Q6H PRN PRN Reason: Headache Last Admin: 01/18/18 23:25 Dose: 1 tab Albuterol (Proventil Neb Soln) 2.5 mg NEB Q2H PRN PRN Reason: Shortness Of Breath/wheezing Albuterol/Ipratropium (Duoneb 3.0-0.5 Mg/3 Ml) 3 ml NEB Q4H PRN PRN Reason: Shortness Of Breath/wheezing Last Admin: 01/15/18 17:33 Dose: 3 ml Allopurinol (Zyloprim) 300 mg PO DAILY [facility] Last Admin: 01/20/18 08:40 Dose: 300 mg Alogliptin Benzoate (Alogliptin) 25 mg PO DAILY [facility] Last Admin: 01/20/18 08:40 Dose: 25 mg Azithromycin (Zithromax) 500 mg PO Q24H [facility] Last Admin: 01/19/18 17:28 Dose: 500 mg Benzocaine/Menthol (Cepacol Sore Throat) 1 lozenge MUCMEM Q2HR PRN PRN Reason: Sore Throat Last Admin: 01/16/18 21:15 Dose: 1 lozenge Benzonatate (Tessalon Perles) 200 mg PO TID PRN PRN Reason: Cough Bisacodyl (Dulcolax) 5 mg PO DAILY PRN PRN Reason: Constipation Carvedilol (Coreg) 3.125 mg PO BID [facility] Last Admin: 01/20/18 08:41 Dose: 3.125 mg Cephalexin (Keflex) 500 mg PO Q12H [facility] Last Admin: 01/20/18 08:40 Dose: 500 mg Docusate Sodium (Colace) 100 mg PO BID PRN PRN Reason: Constipation Fluoxetine HCl (Prozac) 30 mg PO DAILY [facility] Last Admin: 01/20/18 08:39 Dose: 30 mg [facility] Last Admin: 01/20/18 06:39 Dose: 2.5 mg Guaifenesin/Phenylephrine HCl (Robitussin Dm) 10 ml PO Q4H PRN PRN Reason: Cough Hydromorphone HCl (Dilaudid) 0.25 mg IVPUSH Q2H PRN PRN Reason: Pain (severe 7-10) Promethazine HCl 6.25 mg/ (Sodium Chloride) 50.25 mls @ 100 mls/hr IV Q6H PRN PRN Reason: Nausea/Vomiting Insulin Human Lispro (Humalog) 0 unit SUBCUT QIDACANDBED [facility]; Protocol Last Admin: 01/20/18 08:39 Dose: Not Given Isosorbide Mononitrate (Imdur) 30 mg PO DAILY@1300 [facility] Last Admin: 01/19/18 12:31 Dose: 30 mg Lisinopril (Prinivil) 10 mg PO BID [facility] Last Admin: 01/20/18 08:40 Dose: 10 mg Magnesium Hydroxide (Milk Of Magnesia) 30 ml PO Q12H PRN PRN Reason: Constipation Magnesium Sulfate (Pharmacy To Dose - Magnesium Replacement) 0 dose .XX ASDIRECTED PRN PRN Reason: RX TO WATCH MAG Symbicort 160/4.5 (Inhaler Own Med) 0 each INH BID [facility] Last Admin: 01/20/18 08:31 Dose: 2 each Oxycodone/Acetaminophen (Percocet 325-5 Mg) 1 tab PO Q4H PRN PRN Reason: Pain (moderate 4-6) Pantoprazole Sodium (Protonix) 40 mg PO DAILY [facility] Last Admin: 01/20/18 08:40 Dose: 40 mg Polyethylene Glycol (Miralax) 17 gm PO DAILY PRN PRN Reason: Constipation Potassium Chloride (Pharmacy To Dose - Potassium Replacement) 0 dose .XX ASDIRECTED PRN PRN Reason: RX TO WATCH K Promethazine HCl (Phenergan) 25 mg PO Q6H PRN PRN Reason: Nausea/Vomiting Rivaroxaban (Xarelto) 15 mg PO DAILY [facility] Last Admin: 01/20/18 08:39 Dose: 15 mg Rosuvastatin Calcium (Crestor) 20 mg PO QPM [facility] Last Admin: 01/19/18 17:28 Dose: 20 mg Saccharomyces Boulardii (Florastor) 250 mg PO BID [facility] Last Admin: 08/25/18 08:39 Dose: 250 mg Senna/Docusate Sodium (Senna Plus) 1 tab PO BID PRN PRN Reason: Constipation Tamsulosin HCl (Flomax) 0.4 mg PO DAILY [facility] Last Admin: 01/20/18 08:39 Dose: 0.4 mg Tiotropium Kennedy (Spiriva Handihaler) 18 mcg INH DAILY [facility] Last Admin: 01/20/18 08:30 Dose: 1 cap Topiramate (Topamax) 25 mg PO BEDTIME [facility] Last Admin: 01/19/18 22:17 Dose: 25 mg Zolpidem Tartrate (Ambien) 5 mg PO BEDTIME [facility] Last Admin: 01/19/18 22:15 Dose: 5 mg Discontinued Medications Acetaminophen (Tylenol) 975 mg PO NOW ONE Stop: 01/15/18 08:51 Last Admin: 01/15/18 09:11 Dose: 975 mg Acetaminophen/Butalbital/Caffeine (Fioricet 325-50-40 Mg) Confirm Administered Dose 1 tab .ROUTE .STK-MED ONE Stop: 01/18/18 23:20 Last Admin: 01/19/18 03:39 Dose: Not Given Albuterol (Proventil Neb Soln) Confirm Administered Dose 2.5 mg .ROUTE .STK-MED ONE Stop: 01/19/18 19:04 Last Admin: 01/19/18 20:14 Dose: Not Given Ceftriaxone Sodium 2 gm/ (Sodium Chloride) 100 mls @ 100 mls/hr IV ONETIME ONE Stop: 01/15/18 09:50 Last Admin: 01/15/18 09:12 Dose: 100 mls/hr Sodium Chloride (Normal Saline) 1,000 mls @ 150 mls/hr IV ASDIRECTED [facility] Last Admin: 01/15/18 09:11 Dose: 150 mls/hr Ceftriaxone Sodium 2 gm/ (Dextrose/Water) 100 mls @ 200 mls/hr IV Q24H [facility] Last Admin: 01/18/18 08:30 Dose: 200 mls/hr Azithromycin 500 mg/ Sodium (Chloride) 250 mls @ 250 mls/hr IV ONETIME ONE Stop: 01/15/18 17:44 Last Admin: 01/15/18 16:57 Dose: 250 mls/hr Magnesium Sulfate 2 gm/ Premix 50 mls @ 25 mls/hr IV ONETIME ONE Stop: 01/15/18 23:16 Last Admin: 01/15/18 21:54 Dose: 25 mls/hr Azithromycin 500 mg/ Sodium (Chloride) 250 mls @ 250 mls/hr IV Q24H [facility] Azithromycin 500 mg/ Sodium (Chloride) 250 mls @ 250 mls/hr IV Q24H [facility] Last Admin: 01/17/18 17:08 Dose: 250 mls/hr Magnesium Sulfate 2 gm/ Premix 50 mls @ 25 mls/hr IV ONETIME ONE Stop: 01/17/18 10:24 Last Admin: 01/17/18 09:17 Dose: 25 mls/hr Isosorbide Mononitrate (Imdur) 30 mg PO DAILY [facility] Last Admin: 01/16/18 12:19 Dose: Not Given Magnesium Oxide (Magnesium Oxide) 800 mg PO ONETIME ONE Stop: 01/20/18 10:01 Last Admin: 01/20/18 11:22 Dose: 800 mg Mometasone Furoate (Asmanex 220 Mcg) 0 puff INH BEDTIME [facility] Non-Formulary Medication (Olodaterol Hcl [Striverdi Respimat]) 2 puff IH QAM [facility] Non-Formulary Medication (Trelegy Ellipta.) 1 puff INH DAILY [facility] Pantoprazole Sodium (Protonix Iv) 40 mg IVPUSH DAILY [facility] Last Admin: 01/16/18 08:46 Dose: 40 mg Pneumococcal 13-Valent Conj Vacc (Prevnar 13) 0.5 ml IM .ONCE ONE Stop: 01/20/18 09:39 Last Admin: 01/20/18 11:58 Dose: 0.5 ml Zolpidem Tartrate (Ambien) 5 mg PO BEDTIME [facility] Last Admin: 01/16/18 20:12 Dose: 5 mg Zolpidem Tartrate (Ambien) 5 mg PO BEDTIME [facility] Last Admin: 01/18/18 23:25 Dose: 5 mg - Exam Quality Assessment: Denies: Supplemental Oxygen General: Reports: Alert, Cooperative, No Acute Distress HEENT: Reports: Pupils Equal, Pupils Reactive, EOMI, Mucous Membr. 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
[2018-01-20] MEDS: Isosorbide Mononitrate 30 MG Tab.ER PO SCH (13:34)
--- NOTE | 2018-01-22 13:26 | CR ---
Chest: Two views of the chest were obtained. Comparison: Prior chest x-ray of 10/23/17. Diffuse increased lung markings are seen within the right chest which is slightly more prominent than on previous exam. No acute parenchymal change is seen. Heart is slightly enlarged. Tortuous thoracic aorta is noted. Pacemaker is seen. Previous sternotomy is noted. Bony structures are grossly intact. Impression: 1. Increased lung markings slightly more prominent on current study within the right chest from prior chest x-ray. 2. Other incidental findings. Diagnostic code #3 MTDD
== END 2018-01-20 13:40 | disposition home or self-care (01) | DRG 194 ==
LOC: JD.ED 08:10 → JD.MS 11:26
PROVIDERS: ADMIT Internal Medicine Cardiovascular Disease; ATTEND Internal Medicine Cardiovascular Disease
PROC: 3E0234Z Introduction of Serum, Toxoid and Vaccine into Muscle, Percutaneous Approach (ICD-10-PCS; principal; 2018-01-20)
DX: J15.4 Pneumonia due to other streptococci (principal); I13.0 Hypertensive heart and chronic kidney disease with heart failure and stage 1 through stage 4 chronic kidney disease, or unspecified chronic kidney disease; I48.92 Unspecified atrial flutter; B00.50 Herpesviral ocular disease, unspecified; R09.02 Hypoxemia; I48.91 Unspecified atrial fibrillation; I25.10 Atherosclerotic heart disease of native coronary artery without angina pectoris; I50.9 Heart failure, unspecified; I73.9 Peripheral vascular disease, unspecified; J44.9 Chronic obstructive pulmonary disease, unspecified; E11.22 Type 2 diabetes mellitus with diabetic chronic kidney disease; N18.3 Chronic kidney disease, stage 3 (moderate); I35.0 Nonrheumatic aortic (valve) stenosis; G47.30 Sleep apnea, unspecified; K21.9 Gastro-esophageal reflux disease without esophagitis; N40.1 Benign prostatic hyperplasia with lower urinary tract symptoms; R33.8 Other retention of urine; F41.9 Anxiety disorder, unspecified; F32.9 Major depressive disorder, single episode, unspecified; E83.42 Hypomagnesemia; H91.90 Unspecified hearing loss, unspecified ear; H26.9 Unspecified cataract; E78.00 Pure hypercholesterolemia, unspecified; E11.21 Type 2 diabetes mellitus with diabetic nephropathy; G89.29 Other chronic pain; M54.9 Dorsalgia, unspecified; M10.9 Gout, unspecified; E11.42 Type 2 diabetes mellitus with diabetic polyneuropathy; M19.90 Unspecified osteoarthritis, unspecified site; G47.00 Insomnia, unspecified; D64.9 Anemia, unspecified; Z23 Encounter for immunization; Z85.46 Personal history of malignant neoplasm of prostate; Z95.0 Presence of cardiac pacemaker; Z87.891 Personal history of nicotine dependence; Z79.899 Other long term (current) drug therapy; Z95.1 Presence of aortocoronary bypass graft; Z79.01 Long term (current) use of anticoagulants; Z92.3 Personal history of irradiation
CPT/HCPCS: 36415; 71045; 71045-26; 71046; 71046-26; 80048; 80053; 81001; 82962; 83036; 83605; 83735; 83880; 84484; 85007; 85025; 85027; 85610; 86140; 86738; 87040; 87070; 87077; 87205; 87486; 87581; 87632; 87798; 87899; 90670; 92610-GN; 93005; 93010; 94640; 94664; 94667; 94668; 94760; 94761; 96361; 96365; 97110-GP; 97112-GP; 97116-GP; 97162-GP; 97165-GO; 99285-25; A9270-GY; C9113; G0009; J0456; J0696; J1815; J3475; J7030; J7040; J7050; J7060; J7620-GY

== ENCOUNTER 2019-01-20 12:24 | Emergency (ER) | payer OTHER ==
[2019-01-20 13:13] VITALS: BP 92/56
[2019-01-20] MEDS ORDERED: HYDROmorphone 0.5 MG/0.5 ML Syringe IM ONE (13:32)
--- NOTE | 2019-01-20 14:08 | EDM.PDOC ---
ED HPI GENERAL MEDICAL PROBLEM - General Chief Complaint: Back Pain or Injury Stated Complaint: BACK INJURY A WEEK AGO Time Seen by Provider: 01/20/19 13:30 Source of Information: Reports: Patient, RN Notes Reviewed History Limitations: Reports: No Limitations - History of Present Illness INITIAL COMMENTS - FREE TEXT/NARRATIVE: Patient is an 83-year-old male who is brought into the ED by his son for evaluation of a fall. Patient states he fell down about 3 steps last week Monday. He states he was trying to walk up the steps with 2 things in his hands and ended up stumbling and falling backwards on the steps. He notes that his was behind him and she also fell down the steps. He however still is having some low back pain ever since this fall. He has not taken any of Motrin or Tylenol due to him being on so many regular medications. Patient states that the pain is kind of constant and it hurts all the time all over. Patient did have back surgery, and he states that the pain is in the area of the back surgery. Patient states he has not been able to do much for activities at home in his been laying around in bed for most of the week. Patient states he has some rib pain, and low back pain. He denies being dizzy at all prior to the fall. He further denies hitting his head or having any loss of consciousness. Lower Back Pain Score (Numeric/FACES): 9 - Related Data Allergies Allergy/AdvReac Type Severity Reaction Status Date / Time No Known Allergies Allergy Verified 03/22/18 10:50 Home Meds: Home Meds Allopurinol [Zyloprim] 300 mg PO DAILY 11/05/15 [History] Isosorbide Mononitrate [Imdur] 30 mg PO DAILY 11/05/15 [History] Lisinopril [Prinivil] 10 mg PO DAILY 11/05/15 [History] glipiZIDE [Glucotrol] 2.5 mg PO BID 11/05/15 [History] atorvaSTATin [Lipitor] 80 mg PO QPM 11/10/15 [History] Cholecalciferol (Vitamin D3) [Vitamin D3] 2,000 unit PO BID 02/17/16 [History] Saxagliptin HCl [Onglyza] 2.5 mg PO DAILY 02/17/16 [History] Tiotropium [Spiriva HandiHaler] 1 puff INH DAILY 02/17/16 [History] Carvedilol [Coreg] 3.125 mg PO BID 06/29/16 [History] Rivaroxaban [Xarelto] 15 mg PO DAILY 06/29/16 [History] Polyethylene Glycol 3350 [MiraLAX] 17 gm PO DAILY PRN 03/20/17 [History] Topiramate 50 mg PO BEDTIME 03/20/17 [History] Tamsulosin [Flomax] 0.4 mg PO DAILY 10/19/17 [History] Zolpidem Tartrate 5 mg PO BEDTIME PRN 10/19/17 [History] Albuterol [Proventil HFA] 1 puff INH DAILY PRN 01/15/18 [History] Budesonide/Formoterol Fumarate [Symbicort 160-4.5 Mcg Inhaler] 2 puff IH BID [History] Furosemide [Lasix] 20 mg PO DAILY 10 Days #10 tab 03/22/18 [Rx] Potassium Chloride [Klor-Con 10] 10 meq PO DAILY 10 Days #10 tablet.er 03/22/18 [Rx] Budesonide/Formoterol Fumarate [Symbicort 160-4.5 Mcg Inhaler] 2 puff INH BID [History] Cholecalciferol (Vitamin D3) [Vitamin D3] 2,000 unit PO DAILY 01/20/19 [History] FLUoxetine [PROzac] 40 mg PO DAILY 01/20/19 [History] Meclizine [Antivert] 25 mg PO BID 01/20/19 [History] Nitroglycerin [Nitrostat] 0.4 mg SL ASDIRECTED 01/20/19 [History] Omeprazole 20 mg PO BID 01/20/19 [History] Tiotropium [Spiriva Handihaler] 1 cap PO BID 01/20/19 [History] Past Medical History HEENT History: Reports: Cataract, Hard of Hearing Cardiovascular History: Reports: Afib, Angina, Bypass, CAD, Heart Murmur, High Cholesterol, Hypertension, PVD, SOB on Exertion Other Cardiovascular History: HX LVH, Mild , Bilateral artial enlg Respiratory History: Reports: COPD, Sleep Apnea, SOB Gastrointestinal History: Reports: GERD, Hepatitis Other Gastrointestinal History: nausea Genitourinary History: Reports: BPH, Diabetic Nephropathy, Prostate Disorder, Retention, Urinary Musculoskeletal History: Reports: Back Pain, Chronic, Gout, Neck Pain, Chronic, Osteoarthritis Neurological History: Reports: Neuropathy, Diabetic, Neuropathy, Peripheral, Other (See Below) Other Neuro History: tremor, memory loss Psychiatric History: Reports: Anxiety, Depression, Other (See Below) Other Psychiatric History: insomnia Endocrine/Metabolic History: Reports: Diabetes, Type II Oncologic (Cancer) History: Reports: Prostate - Infectious Disease History Infectious Disease History: Reports: Influenza, Measles - Past Surgical History HEENT Surgical History: Reports: Naso-Sinus Surgery Cardiovascular Surgical History: Reports: Coronary Artery Bypass, Pacer GI Surgical History: Reports: None Male Surgical History: Reports: Prostate Biopsy, TURP-Transurethral Resection of Prostate Social & Family History - Family History Family Medical History: Noncontributory Cardiac: Reports: High Cholesterol, Hypertension, CA Neurological: Reports: Parkinson's Endocrine/Metabolic: Reports: Diabetes, type II - Tobacco Use Smoking Status *Q: Former Smoker Used Tobacco, but Quit: Yes Month/Year Tobacco Last Used: 15 - Caffeine Use Caffeine Use: Reports: Coffee, Tea - Recreational Drug Use Recreational Drug Use: No - Living Situation & Occupation Living situation: Reports: Occupation: Retired ED ROS GENERAL - Review of Systems Review Of Systems: See Below Constitutional: Denies: Fever, Chills, Weakness HEENT: Reports: No Symptoms Respiratory: Reports: No Symptoms Cardiovascular: Reports: Chest Pain (chest wall pain bilaterally) Endocrine: Reports: No Symptoms GI/Abdominal: Denies: Abdominal Pain : Reports: No Symptoms Musculoskeletal: Reports: Back Pain (low back pain), Other (chest wall pain) Skin: Reports: No Symptoms Neurological: Denies: Dizziness, Headache Psychiatric: Reports: No Symptoms Hematologic/Lymphatic: Reports: No Symptoms ED EXAM,LOWER BACK PAIN/INJURY - Physical Exam Exam: See Below Exam Limited By: No Limitations General Appearance: Alert, WD/WN, No Apparent Distress Eye Exam: Bilateral Eye: EOMI, Normal Inspection, PERRL Respiratory/Chest: No Respiratory Distress, Lungs Clear, Normal Breath Sounds, No Accessory Muscle Use, Other (chest mildly tender with palpation of ribs) Cardiovascular: Normal Peripheral Pulses, Regular Rate, Rhythm, No Murmur GI/Abdominal: Normal Bowel Sounds, Soft, Non-Tender, No Distention, No Mass, Pelvis Stable Extremities: Normal Inspection, Normal Capillary Refill, Limited Range of Motion (of lower legs d/t back pain) Neurological: Alert, Normal Mood/Affect, Normal Dorsiflexion, Normal Plantar Flexion, Normal Gait, No Motor/Sensory Deficits, Oriented x 3 Psychiatric: Normal Affect, Normal Mood Skin Exam: Warm, Dry, Intact, Normal Color Course - Vital Signs Last Recorded V/S: Last Vital Signs Temp 97.8 F 01/20/19 13:10 Pulse 60 01/20/19 13:10 Resp 20 01/20/19 13:10 BP 92/56 L 01/20/19 13:10 Pulse Ox 96 01/20/19 13:10 - Orders/Labs/Meds Meds: Medications Discontinued Medications Generic Name Dose Route Start Last Admin Trade Name Stacey PRN Reason Stop Dose Admin Hydromorphone HCl 0.5 mg 01/20/19 13:32 01/20/19 13:54 Dilaudid IM 01/20/19 13:33 0.5 mg ONETIME ONE Administration - Re-Assessments/Exams Free Text/Narrative Re-Assessment/Exam: 01/20/19 14:07 Patient presents to the ED for the evaluation of a lower back injury. Patient states he is painful all over, his chest was tender palpation, and he has most of his pain is back near the site of the surgery. I did order a chest CT to rule out any rib fracture, and lumbar CT to rule out any other back fractures, I have asked the tech to be able to include the hips in the CT so we may evaluate the possibility of a hip fracture as well. Although I'm less suspicious of a hip fracture. Did order 0.5 mg Dilaudid for initial pain management. 01/20/19 15:[address] is done, the chest CT demonstrates no acute rib fracture, but does note to right-sided lung masses, 1 within the right upper chest measuring 1.4 cm x 1.2 cm. And a larger mass showing slightly irregular margins noted within the right lung base measuring 3.3cm 2.5 cm. The radiologist states that the right lower lung mass would most likely be accessible to a CT-guided biopsy with lung cancer highly suspected. Emphysematous change and basilar interstitial fibrosis. And partially visualized gallstones within the gallbladder. Departure - Departure Time of Disposition: 16:06 Disposition: Home, Self-Care 01 Condition: Fair Clinical Impression: Left-sided chest wall pain Lower back pain Qualifiers: Chronicity: acute Back pain laterality: bilateral Sciatica presence: without sciatica Qualified Code(s): M54.5 - Low back pain - Discharge Information *PRESCRIPTION DRUG MONITORING PROGRAM REVIEWED*: No *COPY OF PRESCRIPTION DRUG MONITORING REPORT IN PATIENT KRISTI: No Instructions: Musculoskeletal Pain, Pain Medicine Instructions, [id number] Referrals: Christina Delvalle MD [Primary Care Provider] - Forms: ED Department Discharge Additional Instructions: You have been evaluated in the ED for your lower back pain and left sided chest discomfort Your CTs demonstrated no acute fracture or bony abnormalities. Your chest CT did demonstrate to areas of concern in your right lung, the area at the right lung base is suspicious for a cancer type lesion in nature however this cannot be confirmed at today's visit, a biopsy of the tissue would need to be obtained for definitive diagnosis. A copy of your CT results was given to you in your discharge packet. Please use ice as tolerated to the affected area. Please try to elevate the affected area to relieve swelling. You may take Tylenol 500 mg or ibuprofen 600mg q6 hrs for pain relief. Please do so until you have a tolerable level of pain with activity. Do not exceed 4000mg Tylenol or 3200mg ibuprofen in a 24 hour time period. You were given a prescription for hydrocodone/acetaminophen 5/325, please take one to 2 tabs every 4-6 hours as needed for pain not relieved by Tylenol or ibuprofen alone. Please return to ED if your symptoms should change or worsen.
--- NOTE | 2019-01-20 14:52 | CT ---
CT lumbar spine Technique: Multiple axial sections were obtained from above the T12 disc inferiorly through the L5-S1 level. Reconstructed sagittal and coronal images were reviewed. Comparison: No prior lumbar spine imaging is available. Findings: Mild diffuse aneurysmal dilatation of the aorta is seen with AP dimension of 2.7 cm. T12-L1: Posterior disc space narrowing is seen with mild circumferential disc bulge. Posterior disc maintains a concave margin. No central canal stenosis is seen. No neural foraminal stenosis is seen. Moderate degenerative apophyseal change is seen. L1-L2: Mild compression deformity noted of L1 with vertebroplasty cement being seen. Posterior disc space narrowing is seen. Slight circumferential disc bulge is noted with posterior disc maintaining a concave margin. Moderate degenerative apophyseal change is seen. No central canal stenosis or neural foraminal stenosis is seen. L2-3: Mild compression deformity seen of L2. Vertebroplasty cement is seen. Slight circumferential disc bulge is noted. Posterior disc maintains a minimally concave margin. Severe degenerative apophyseal change is noted. Central canal is minimally narrowed. Neural foramina are patent where the nerve roots exit. L3-4: Severe disc space narrowing is noted. Posterior spurring is seen. Circumferential disc bulge is noted. Small amount of air is noted laterally outside the disc compatible with annular tear with vacuum phenomena seen within the disc. Central canal is minimally narrowed. Neural foramina are patent where the nerve roots exit. L4-5: Mild disc space narrowing is seen most prominent posteriorly. Small amount of epidural air is seen posteriorly. This is compatible with an annular tear with vacuum disc phenomena. Circumferential disc bulge is noted. Central canal is preserved. Neural foramina are patent where the nerve roots exit. Mild degenerative apophyseal change is seen on the right side with more prominent degenerative apophyseal change on the left side. L5-S1: Moderate disc space narrowing is noted with minimal spondylolisthesis. Bilateral spondylolytic defects are seen. Moderate degenerative apophyseal change is seen. Vacuum disc phenomena is noted. No central canal stenosis is noted. Neural foramina are felt to be patent where the nerve roots exit. No acute fracture or other abnormality is noted. Impression: 1. Compression deformities at L1 and L2 with vertebroplasty cement. 2. Other degenerative change as noted above. 3. 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 Diagnostic code #3
--- NOTE | 2019-01-20 14:52 | CT ---
CT chest Technique: Multiple axial sections through the chest were obtained. Intravenous contrast was not utilized. Comparison: Prior chest x-ray of 05/09/18, no previous chest CT is available. Findings: Coronary artery calcification is seen. Atherosclerotic calcification is noted within the thoracic aorta. No thoracic aortic aneurysm is seen. No pericardial thickening is seen. Artifact from pacemaker is noted. No axillary adenopathy is seen. Calcified lymph nodes are noted within the right and left hilar regions as well as calcified mediastinal lymph node. Partially visualized gallstones are seen within the gallbladder. Other visualized upper abdominal structures show no discrete abnormality. Lung window settings shows emphysematous change. Slightly spiculated mass is noted within the right upper chest measuring 1.4 cm x 1.2 cm. Larger mass showing slightly irregular margins is noted within the right lung base measuring 3.3 x 2.5 cm. None of these findings show any calcifications. No additional nodule is appreciated. Slight interstitial fibrosis is seen within both lung bases. Bone window settings were reviewed which shows evidence of prior vertebroplasty within approximate L1 and L2. Scattered endplate spurring noted within the spine. No discrete rib fracture is identified. Impression: 1. 2 right-sided lung masses as noted above with smaller mass measuring 1.4 cm within the right upper lung and larger 3.3 cm mass within the right lower lung. Right lower lung mass would be most accessible to CT-guided biopsy. Lung cancer is highly suspected. 2. Emphysematous change and basilar interstitial fibrosis. 3. Partially visualized gallstones within the gallbladder. Diagnostic code #9
== END 2019-01-20 16:17 | disposition home or self-care (01) ==
LOC: JD.ED 12:24
DX: M54.5 Low back pain (principal); R07.89 Other chest pain; I48.91 Unspecified atrial fibrillation; I25.10 Atherosclerotic heart disease of native coronary artery without angina pectoris; I10 Essential (primary) hypertension; J44.9 Chronic obstructive pulmonary disease, unspecified; K21.9 Gastro-esophageal reflux disease without esophagitis; E11.42 Type 2 diabetes mellitus with diabetic polyneuropathy; E78.00 Pure hypercholesterolemia, unspecified; F41.9 Anxiety disorder, unspecified; F32.9 Major depressive disorder, single episode, unspecified; N40.0 Benign prostatic hyperplasia without lower urinary tract symptoms; R33.8 Other retention of urine; M19.90 Unspecified osteoarthritis, unspecified site; Z87.891 Personal history of nicotine dependence; Z79.01 Long term (current) use of anticoagulants; Z79.899 Other long term (current) drug therapy
CPT/HCPCS: 71250; 72131; 96374; 99283; J1170

== ENCOUNTER 2019-02-06 15:28 | Emergency (ER) | payer OTHER, MEDICARE ==
[2019-02-06 15:38] VITALS: BP 147/90; PULSE 91
[2019-02-06] MEDS ORDERED: Sodium Chloride 0.9% 10 ML Syringe FLUSH PRN (15:59)
[2019-02-06] MEDS ORDERED: Sodium Chloride 0.9% 1,000 ML IV SCH (16:00)
[2019-02-06] MEDS ORDERED: Diatrizoate Meglumine/Diatrizoate Sodium 37% 120 ML Bottle PO ONE (16:20)
--- NOTE | 2019-02-06 18:56 | EDM.PDOC ---
ED HPI GENERAL MEDICAL PROBLEM - General Chief Complaint: Chest Pain Stated Complaint: CHEST AND STOMACH PAIN Time Seen by Provider: 02/06/19 15:44 Source of Information: Reports: Patient, Family History Limitations: Reports: No Limitations - History of Present Illness INITIAL COMMENTS - FREE TEXT/NARRATIVE: The patient presents with chest pain and abdominal pain. The chest pain started this morning. He had some shortness of breath with it. He also has lower abdominal pain. That has been there for 2 weeks. The pain is fairly constant and he can eat and has no nausea or vomiting. He has no fever, chills or cough. He has no dysuria or diarrhea. Onset: Gradual Duration: Hour(s): Location: Reports: Chest, Abdomen Quality: Reports: Pressure Severity: Mild Improves with: Reports: None Worsens with: Reports: None Associated Symptoms: Reports: Chest Pain, Shortness of Breath. Denies: Cough, Fever/Chills, Headaches, Nausea/Vomiting Abdomen Pain Score (Numeric/FACES): 6 Chest Pain Score (Numeric/FACES): 3 - Related Data Allergies Allergy/AdvReac Type Severity Reaction Status Date / Time No Known Allergies Allergy Verified 03/22/18 10:50 Home Meds: Home Meds Allopurinol [Zyloprim] 300 mg PO DAILY 11/05/15 [History] Isosorbide Mononitrate [Imdur] 30 mg PO DAILY 11/05/15 [History] Lisinopril [Prinivil] 10 mg PO DAILY 11/05/15 [History] glipiZIDE [Glucotrol] 2.5 mg PO BID 11/05/15 [History] atorvaSTATin [Lipitor] 80 mg PO QPM 11/10/15 [History] Saxagliptin HCl [Onglyza] 2.5 mg PO DAILY 02/17/16 [History] Carvedilol [Coreg] 3.125 mg PO BID 06/29/16 [History] Rivaroxaban [Xarelto] 15 mg PO DAILY 06/29/16 [History] Polyethylene Glycol 3350 [MiraLAX] 17 gm PO DAILY PRN 03/20/17 [History] Topiramate 50 mg PO BEDTIME 03/20/17 [History] Tamsulosin [Flomax] 0.4 mg PO DAILY 10/19/17 [History] Zolpidem Tartrate 5 mg PO BEDTIME PRN 10/19/17 [History] Albuterol [Proventil HFA] 1 puff INH DAILY PRN 01/15/18 [History] Furosemide [Lasix] 20 mg PO DAILY 10 Days #10 tab 03/22/18 [Rx] Potassium Chloride [Klor-Con 10] 10 meq PO DAILY 10 Days #10 tablet.er 03/22/18 [Rx] Budesonide/Formoterol Fumarate [Symbicort 160-4.5 Mcg Inhaler] 2 puff INH BID [History] Cholecalciferol (Vitamin D3) [Vitamin D3] 2,000 unit PO DAILY 01/20/19 [History] FLUoxetine [PROzac] 40 mg PO DAILY 01/20/19 [History] Meclizine [Antivert] 25 mg PO BID 01/20/19 [History] Nitroglycerin [Nitrostat] 0.4 mg SL ASDIRECTED 01/20/19 [History] Omeprazole 20 mg PO BID 01/20/19 [History] Tiotropium [Spiriva Handihaler] 1 cap PO BID 01/20/19 [History] Past Medical History HEENT History: Reports: Cataract, Hard of Hearing Other HEENT History: 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 Cardiovascular History: Reports: Afib, Angina, Bypass, CAD, Heart Murmur, High Cholesterol, Hypertension, PVD, SOB on Exertion Other Cardiovascular History: HX LVH, Mild , Bilateral artial enlg Respiratory History: Reports: COPD, Sleep Apnea, SOB Gastrointestinal History: Reports: GERD, Hepatitis Other Gastrointestinal History: nausea Genitourinary History: Reports: BPH, Diabetic Nephropathy, Prostate Disorder, Retention, Urinary Musculoskeletal History: Reports: Back Pain, Chronic, Gout, Neck Pain, Chronic, Osteoarthritis Neurological History: Reports: Neuropathy, Diabetic, Neuropathy, Peripheral, Other (See Below) Other Neuro History: tremor, memory loss Psychiatric History: Reports: Anxiety, Depression, Other (See Below) Other Psychiatric History: insomnia Endocrine/Metabolic History: Reports: Diabetes, Type II Oncologic (Cancer) History: Reports: Prostate - Infectious Disease History Infectious Disease History: Reports: Influenza, Measles - Past Surgical History HEENT Surgical History: Reports: Naso-Sinus Surgery Cardiovascular Surgical History: Reports: Coronary Artery Bypass, Pacer GI Surgical History: Reports: None Male Surgical History: Reports: Prostate Biopsy, TURP-Transurethral Resection of Prostate Social & Family History - Family History Family Medical History: Noncontributory Cardiac: Reports: High Cholesterol, Hypertension, [place] Neurological: Reports: Parkinson's Endocrine/Metabolic: Reports: Diabetes, type II - Tobacco Use Smoking Status *Q: Former Smoker Used Tobacco, but Quit: Yes Month/Year Tobacco Last Used: 03/1991 - Caffeine Use Caffeine Use: Reports: Tea - Recreational Drug Use Recreational Drug Use: No - Living Situation & Occupation Living situation: Reports: Occupation: Retired ED ROS GENERAL - Review of Systems Review Of Systems: See Below Constitutional: Reports: No Symptoms HEENT: Reports: No Symptoms Respiratory: Reports: Shortness of Breath. Denies: Cough Cardiovascular: Reports: Chest Pain Endocrine: Reports: No Symptoms GI/Abdominal: Reports: Abdominal Pain. Denies: Diarrhea, Nausea, Vomiting : Reports: No Symptoms Musculoskeletal: Reports: No Symptoms ED EXAM, GENERAL - Physical Exam Exam: See Below Exam Limited By: No Limitations General Appearance: Alert, No Apparent Distress Ears: Normal External Exam Nose: Normal Inspection Head: Atraumatic, Normocephalic Neck: Normal Inspection Respiratory/Chest: No Respiratory Distress, Lungs Clear, Normal Breath Sounds Cardiovascular: Regular Rate, Rhythm, No Edema, No Murmur GI/Abdominal: Soft, No Organomegaly, No Mass, Tender (Mild tendnerness to the lower abdomen) Back Exam: Normal Inspection Extremities: Normal Inspection Neurological: Alert, Oriented, No Motor/Sensory Deficits EKG INTERPRETATION EKG Date: 02/06/19 Time: 15:35 Rhythm: Other (ventricular paced rhythm) Rate (Beats/Min): 88 Course - Vital Signs Last Recorded V/S: Last Vital Signs Temp 98.0 F 02/06/19 15:34 Pulse 91 02/06/19 15:34 Resp 21 H 02/06/19 15:34 BP 147/90 H 02/06/19 15:34 Pulse Ox 98 02/06/19 15:34 - Orders/Labs/Meds Orders: Active Orders 24 hr Category Date Time Status Cardiac Monitoring [RC] . DIRECTED Care 02/06/19 15:59 Active EKG Documentation Completion [RC] STAT Care 02/06/19 16:00 Active Insert Gomez Catheter [Insert Urinary Catheter] [OM.PC] Care 02/06/19 19:26 Ordered Stat Peripheral IV Care [RC] . DIRECTED Care 02/06/19 16:00 Active Urinary Catheter Assessment [RC] ASDIRECTED Care 02/06/19 19:26 Active Abdomen Pelvis wo Cont [CT] Stat Exams 02/06/19 16:01 Taken Chest 1V Frontal [CR] Stat Exams 02/06/19 16:00 Taken UA W/MICROSCOPIC [URIN] Stat Lab 02/06/19 19:20 Received Sodium Chloride 0.9% [Normal Saline] 1,000 ml Med 02/06/19 16:00 Active IV ASDIRECTED Sodium Chloride 0.9% [Saline Flush] Med 02/06/19 15:59 Active 10 ml FLUSH ASDIRECTED PRN Peripheral IV Insertion Adult [OM.PC] Stat Oth 02/06/19 15:59 Ordered Medication Orders Sodium Chloride (Normal Saline) 1,000 mls @ 125 mls/hr IV ASDIRECTED GINA Last Admin: 02/06/19 16:25 Dose: 125 mls/hr Sodium Chloride (Saline Flush) 10 ml FLUSH ASDIRECTED PRN PRN Reason: Keep Vein Open Last Admin: 02/06/19 16:25 Dose: 10 ml Labs: Laboratory Tests 02/06/19 02/06/19 Range/Units 16:29 16:29 WBC 7.06 (4.23-9.07) K/mm3 RBC 4.26 L (4.63-6.08) M/mm3 Hgb 13.4 L (13.7-17.5) gm/L Hct 41.2 (40.1-51.0) % MCV 96.7 H (79.0-92.2) fl MCH 31.5 (25.7-32.2) pg MCHC 32.5 (32.2-35.5) g/dl RDW Std Deviation 52.5 H (35.1-43.9) fL Plt Count 185 (163-337) K/mm3 MPV 9.6 (9.4-12.3) fl Neut % (Auto) 71.4 H (34.0-67.9) % Lymph % (Auto) 18.7 L (21.8-53.1) % Bell % (Auto) 6.8 (5.3-12.2) % Eos % (Auto) 2.1 (0.8-7.0) Baso % (Auto) 0.4 (0.1-1.2) % Neut # (Auto) 5.04 (1.78-5.38) K/mm3 Lymph # (Auto) 1.32 (1.32-3.57) K/mm3 Bell # (Auto) 0.48 (0.30-0.82) K/mm3 Eos # (Auto) 0.15 (0.04-0.54) K/mm3 Baso # (Auto) 0.03 (0.01-0.08) K/mm3 Sodium 139 (136-145) mEq/L Potassium 3.9 (3.5-5.1) mEq/L Chloride 107 (98-107) mEq/L Carbon Dioxide 25 (21-32) mEq/L Anion Gap 10.9 (5-15) BUN 14 (7-18) mg/dL Creatinine 1.4 H (0.7-1.3) mg/dL Est Cr Clr Drug Dosing 41.58 mL/min Estimated GFR (MDRD) 48 (>60) mL/min BUN/Creatinine Ratio 10.0 L (14-18) Glucose 176 H (83-115) mg/dL Calcium 9.6 (8.5-10.1) mg/dL Total Bilirubin 0.4 (0.2-1.0) mg/dL AST 14 L (15-37) U/L ALT 17 (16-63) U/L Alkaline Phosphatase 93 (46-116) U/L Troponin I < 0.017 (0.00-0.056) ng/mL Total Protein 6.6 (6.4-8.2) g/dl Albumin 3.2 L (3.4-5.0) g/dl Globulin 3.4 gm/dL Albumin/Globulin Ratio 0.9 L (1-2) Lipase 427 H (73-393) U/L Meds: Medications Generic Name Dose Route Start Last Admin Trade Name Freq PRN Reason Stop Dose Admin Sodium Chloride 1,000 mls @ 125 mls/hr 02/06/19 16:00 02/06/19 16:25 Normal Saline IV 125 mls/hr ASDIRECTED GINA Administration Sodium Chloride 10 ml 02/06/19 15:59 02/06/19 16:25 Saline Flush FLUSH 10 ml ASDIRECTED PRN Administration Keep Vein Open Discontinued Medications Generic Name Dose Route Start Last Admin Trade Name Stacey PRN Reason Stop Dose Admin Diatrizoate Meglum/Diatrizoate Sod 90 ml 02/06/19 16:20 Gastrografin 37% PO 02/06/19 16:21 ONETIME ONE - Re-Assessments/Exams Free Text/Narrative Re-Assessment/Exam: 02/06/19 19:40 I ordered an IV saline lock, EKG, CXR, labs and a CT of his abdomen and pelvis. His EKG shows a paced rhythm. His CXR looks good. His CBC looks good. His creatinine was slightly elevated at 1.4. His glucose was 176. His troponin is negative. His UA shows no UTI. His lipase was slightly elevated but no pancreatitis. I will discharge him home. Departure - Departure Time of Disposition: 19:45 Disposition: Home, Self-Care 01 Condition: Good Clinical Impression: Atypical chest pain Abdominal pain Qualifiers: Abdominal location: lower abdomen, unspecified Qualified Code(s): R10.30 - Lower abdominal pain, unspecified Referrals: Christina Delvalle MD [Primary Care Provider] - 1 Week Forms: ED Department Discharge Additional Instructions: Take tylenol or motrin for pain. Drink plenty of fluids. Follow up with your doctor. Please return if you are worse. - My Orders Last 24 Hours: My Active Orders 02/06/19 15:59 Cardiac Monitoring [RC] . DIRECTED Sodium Chloride 0.9% [Saline Flush] 10 ml FLUSH ASDIRECTED PRN Peripheral IV Insertion Adult [OM.PC] Stat 02/06/19 16:00 EKG Documentation Completion [RC] STAT Peripheral IV Care [RC] . DIRECTED Chest 1V Frontal [CR] Stat Sodium Chloride 0.9% [Normal Saline] 1,000 ml IV ASDIRECTED 02/06/19 16:01 Abdomen Pelvis wo Cont [CT] Stat 02/06/19 19:20 UA W/MICROSCOPIC [URIN] Stat 02/06/19 19:26 Insert Gomez Catheter [Insert Urinary Catheter] [OM.PC] Stat Urinary Catheter Assessment [RC] ASDIRECTED - Assessment/Plan Last 24 Hours: My Active Orders 02/06/19 15:59 Cardiac Monitoring [RC] . DIRECTED Sodium Chloride 0.9% [Saline Flush] 10 ml FLUSH ASDIRECTED PRN Peripheral IV Insertion Adult [OM.PC] Stat 02/06/19 16:00 EKG Documentation Completion [RC] STAT Peripheral IV Care [RC] . DIRECTED Chest 1V Frontal [CR] Stat Sodium Chloride 0.9% [Normal Saline] 1,000 ml IV ASDIRECTED 02/06/19 16:01 Abdomen Pelvis wo Cont [CT] Stat 02/06/19 19:20 UA W/MICROSCOPIC [URIN] Stat 02/06/19 19:26 Insert Gomez Catheter [Insert Urinary Catheter] [OM.PC] Stat Urinary Catheter Assessment [RC] ASDIRECTED
--- NOTE | 2019-02-11 08:44 | CR ---
Chest: Portable view of the chest was obtained. Comparison: Prior chest x-ray of 05/09/18. Heart size is within normal limits for portable technique. Tortuous thoracic aorta is seen. Lungs are clear. Pacemaker is noted. Previous sternotomy is noted. Bony structures are grossly intact. Impression: 1. Findings as noted above. Nothing acute is appreciated on portable chest x-ray. Diagnostic code #2
--- NOTE | 2019-02-11 08:44 | CT ---
CT abdomen and pelvis Technique: Multiple axial sections were obtained from above the dome of the diaphragm inferiorly through the pubic symphysis. Intravenous contrast not utilized. Oral contrast has been given. Comparison: Previous chest CT study of 01/20/19. Findings: Small parenchymal density is noted within the right lung base which is not completely included on this exam. This is felt to correlate to inferior portion of a lung mass that was seen on prior chest CT of 01/20/19. Emphysematous changes are present with peripheral interstitial fibrosis. Noncontrast appearance of the liver shows no discrete abnormality. Calcified gallstones are seen within the gallbladder. Spleen appears within normal limits. Adrenal glands show no nodule. Kidneys show no hydronephrosis. Vascular calcification is seen within the kidneys. No ureteral dilatation is seen. Mid aorta is slightly aneurysmal AP dimension of 3.2 cm. Atherosclerotic calcification is seen within the aorta and iliac vessels. No retroperitoneal adenopathy or mesenteric abnormalities are seen. No pelvic mass or adenopathy is seen. Nonspecific fluid is seen within the pelvis. Appendix not visualized with certainty. Bone window settings were reviewed which show prior vertebroplasty within compression deformities of L1 and L2. 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 Small amount of epidural air is noted posterior to the upper L5 vertebral body compatible with rupture of a vacuum disc most likely at L4-L5. Impression: 1. Slight parenchymal density partially visualized within the right lung base consistent with a a partially visualized mass that was seen on prior chest CT study of 01/20/19. 2. Small amount of fluid within the pelvis which is nonspecific. 3. Other findings as noted above which are nonacute. Nothing acute is seen on CT study of the abdomen and pelvis. Diagnostic code #3 I agree with preliminary report from [facility], finalized on 02/06/19, 7:12 PM Central Time
== END 2019-02-06 19:59 | disposition home or self-care (01) ==
LOC: JD.ED 15:28
DX: R07.89 Other chest pain (principal); R10.30 Lower abdominal pain, unspecified; I10 Essential (primary) hypertension; E78.00 Pure hypercholesterolemia, unspecified; J44.9 Chronic obstructive pulmonary disease, unspecified; E11.42 Type 2 diabetes mellitus with diabetic polyneuropathy; M19.90 Unspecified osteoarthritis, unspecified site; F41.9 Anxiety disorder, unspecified; F32.9 Major depressive disorder, single episode, unspecified; Z85.46 Personal history of malignant neoplasm of prostate; Z87.891 Personal history of nicotine dependence; Z79.899 Other long term (current) drug therapy
CPT/HCPCS: 36415; 51701; 71045; 74176; 80053; 81001; 83690; 84484; 85025; 93005; 96360; 96361; 99285; J7040; Q9963; 93010; 99284

== ENCOUNTER 2019-03-23 14:07 | Observation (INO) | payer OTHER, MEDICARE ==
[2019-03-23] MEDS ORDERED: Ondansetron 4 MG/2 ML SDV IVPUSH ONE (14:23)
[2019-03-23] MEDS ORDERED: Sodium Chloride 0.9% 10 ML Syringe FLUSH PRN (14:24)
[2019-03-23] MEDS ORDERED: Sodium Chloride 0.9% 1,000 ML IV SCH (14:30)
--- NOTE | 2019-03-23 14:57 | EDM.PDOC ---
ED HPI GENERAL MEDICAL PROBLEM - General Chief Complaint: General Stated Complaint: [facility] Time Seen by Provider: 03/23/19 14:20 Source of Information: Reports: Patient, RN Notes Reviewed History Limitations: Reports: No Limitations - History of Present Illness INITIAL COMMENTS - FREE TEXT/NARRATIVE: Patient is an 83-year-old male who presents to the ED via [facility] for evaluation of generalized feelings of being unwell. Patient states he hasn't had much of an appetite for the past few days, he notes some generalized weakness due to this. Apparently the ambulance staff had to help him get onto the cot during the transfer. He is been able to keep some ice and water by the bed, but he is really not been eating much or drinking much else. Patient states he feels nauseous but has not had any vomiting. He does note diarrhea, around 45 episodes a day for the past few days. He states that this is semi-liquid, and symptoms looks like mud. He does not note any color changes to this. He states he was a little bit dizzy, but did not have a fall associated with this. He does live with his in the home. He notes being chilled for the past few days as well, also a mild cough but no shortness of breath. Treatments DIGITAL LIBRARIAN: Reports: Other (see below) Other Treatments DIGITAL LIBRARIAN: iv and fluids - Related Data Allergies Allergy/AdvReac Type Severity Reaction Status Date / Time No Known Allergies Allergy Verified 03/22/18 10:50 Home Meds: Home Meds Allopurinol [Zyloprim] 300 mg PO DAILY 11/05/15 [History] Isosorbide Mononitrate [Imdur] 30 mg PO DAILY 11/05/15 [History] Lisinopril [Prinivil] 10 mg PO DAILY 11/05/15 [History] glipiZIDE [Glucotrol] 2.5 mg PO BID 11/05/15 [History] atorvaSTATin [Lipitor] 80 mg PO QPM 11/10/15 [History] Carvedilol [Coreg] 3.125 mg PO BID 06/29/16 [History] Rivaroxaban [Xarelto] 15 mg PO DAILY 06/29/16 [History] Polyethylene Glycol 3350 [MiraLAX] 17 gm PO DAILY PRN 03/20/17 [History] Topiramate 50 mg PO BID 10/23/17 [History] Tamsulosin [Flomax] 0.4 mg PO DAILY 10/19/17 [History] Zolpidem Tartrate 5 mg PO BEDTIME PRN 10/19/17 [History] Albuterol [Proventil HFA] 1 puff INH DAILY PRN 01/15/18 [History] Budesonide/Formoterol Fumarate [Symbicort 160-4.5 Mcg Inhaler] 2 puff INH BID [History] Cholecalciferol (Vitamin D3) [Vitamin D3] 2,000 unit PO DAILY 01/20/19 [History] FLUoxetine [PROzac] 40 mg PO DAILY 01/20/19 [History] Meclizine [Antivert] 25 mg PO BID PRN 01/20/19 [History] Omeprazole 20 mg PO BID 01/20/19 [History] Tiotropium [Spiriva Handihaler] 1 cap PO BID 01/20/19 [History] Alogliptin Benzoate [Alogliptin] 12.5 mg PO DAILY 03/23/19 [History] Mometasone Furoate [Asmanex] 220 mcg IH DAILY 03/23/19 [History] Past Medical History HEENT History: Reports: Cataract, Hard of Hearing Other HEENT History: 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 Cardiovascular History: Reports: Afib, Angina, Bypass, CAD, Heart Murmur, High Cholesterol, Hypertension, PVD, SOB on Exertion Other Cardiovascular History: HX LVH, Mild , Bilateral artial enlg Respiratory History: Reports: COPD, Sleep Apnea, SOB Gastrointestinal History: Reports: GERD, Hepatitis Other Gastrointestinal History: nausea Genitourinary History: Reports: BPH, Diabetic Nephropathy, Prostate Disorder, Retention, Urinary Musculoskeletal History: Reports: Back Pain, Chronic, Gout, Neck Pain, Chronic, Osteoarthritis Neurological History: Reports: Neuropathy, Diabetic, Neuropathy, Peripheral, Other (See Below) Other Neuro History: tremor, memory loss Psychiatric History: Reports: Anxiety, Depression, Other (See Below) Other Psychiatric History: insomnia Endocrine/Metabolic History: Reports: Diabetes, Type II Oncologic (Cancer) History: Reports: Prostate - Infectious Disease History Infectious Disease History: Reports: Influenza, Measles - Past Surgical History HEENT Surgical History: Reports: Naso-Sinus Surgery Cardiovascular Surgical History: Reports: Coronary Artery Bypass, Pacer GI Surgical History: Reports: None Male Surgical History: Reports: Prostate Biopsy, TURP-Transurethral Resection of Prostate Social & Family History - Family History Family Medical History: Noncontributory Cardiac: Reports: High Cholesterol, Hypertension, [place] Neurological: Reports: Parkinson's Endocrine/Metabolic: Reports: Diabetes, type II - Tobacco Use Smoking Status *Q: Former Smoker Used Tobacco, but Quit: Yes Month/Year Tobacco Last Used: 20 - Caffeine Use Caffeine Use: Reports: Coffee, Tea - Recreational Drug Use Recreational Drug Use: No - Living Situation & Occupation Living situation: Reports: Occupation: Retired ED ROS GENERAL - Review of Systems Review Of Systems: See Below Constitutional: Reports: Fever (modestly febrile at ED triage of 99.4F.), Chills, Malaise, Weakness (generalized), Decreased Appetite HEENT: Reports: No Symptoms Respiratory: Reports: Cough. Denies: Shortness of Breath Cardiovascular: Denies: Chest Pain Endocrine: Reports: No Symptoms GI/Abdominal: Reports: Diarrhea, Decreased Appetite. Denies: Abdominal Pain, Black Stool, Bloody Stool, Nausea, Vomiting : Reports: No Symptoms Musculoskeletal: Reports: No Symptoms Skin: Reports: No Symptoms Neurological: Reports: Dizziness (generalized), Weakness (generalized) Psychiatric: Reports: No Symptoms ED EXAM, GENERAL - Physical Exam Exam: See Below Exam Limited By: No Limitations General Appearance: Alert, WD/WN, No Apparent Distress, Lethargic (pt lays on ED cot with eyes closed, he is arousable when i ask questions.) Eye Exam: Bilateral Eye: EOMI, Normal Inspection, PERRL Ears: Normal External Exam Throat/Mouth: Normal Inspection Head: Atraumatic, Normocephalic Neck: Normal Inspection Respiratory/Chest: No Respiratory Distress, Lungs Clear, No Accessory Muscle Use , Chest Non-Tender, Decreased Breath Sounds (diffuse bilaterally) Cardiovascular: Normal Peripheral Pulses, Regular Rate, Rhythm, No Murmur Peripheral Pulses: 3+: Radial (L), Radial (R) GI/Abdominal: Normal Bowel Sounds, Soft, No Distention, No Mass, Tender ( generalized abd tenderness with palpation) Extremities: Normal Inspection, Normal Capillary Refill Neurological: Alert, Oriented, Normal Cognition, No Motor/Sensory Deficits Psychiatric: Normal Affect, Normal Mood Skin Exam: Warm, Dry, Intact, Normal Color, No Rash Course - Vital Signs Last Recorded V/S: Last Vital Signs Temp 99.4 F 03/23/19 14:13 Pulse 81 03/23/19 14:13 Resp 13 03/23/19 14:13 BP 116/70 03/23/19 14:13 Pulse Ox 96 03/23/19 14:13 Orthostatic Blood Pressure [ 103/48 Standing] Orthostatic Blood Pressure [ 95/54 Sitting] Orthostatic Blood Pressure [ 95/53 Supine] - Orders/Labs/Meds Orders: Active Orders 24 hr Category Date Time Status Ambulate [RC] ASDIRECTED Care 03/23/19 17:08 Active Insert Urinary Catheter [OM.PC] Q24H Care 03/23/19 16:30 Ordered Orthostatic Vital Signs [RC] ASDIRECTED Care 03/23/19 17:08 Active Peripheral IV Care [RC] . DIRECTED Care 03/23/19 14:24 Active Urinary Catheter Assessment [RC] ASDIRECTED Care 03/23/19 16:31 Active Chest 2V [CR] Stat Exams 03/23/19 14:33 Taken Sodium Chloride 0.9% [Normal Saline] 1,000 ml Med 03/23/19 14:30 Active IV ASDIRECTED Sodium Chloride 0.9% [Normal Saline] 1,000 ml Med 03/23/19 17:25 Active IV ONETIME Sodium Chloride 0.9% [Saline Flush] Med 03/23/19 14:24 Active 10 ml FLUSH ASDIRECTED PRN cefTRIAXone [Rocephin] 1 gm Med 03/23/19 17:26 Active Sodium Chloride 0.9% [Normal Saline] 100 ml IV ONETIME Peripheral IV Insertion Adult [OM.PC] Stat Oth 03/23/19 14:24 Ordered Medication Orders Sodium Chloride (Normal Saline) 1,000 mls @ 999 mls/hr IV ASDIRECTED GINA Last Admin: 03/23/19 14:31 Dose: 999 mls/hr Sodium Chloride (Normal Saline) 1,000 mls @ 125 mls/hr IV ONETIME ONE Stop: 03/24/19 01:24 Last Admin: 03/23/19 17:35 Dose: 125 mls/hr Ceftriaxone Sodium 1 gm/ (Sodium Chloride) 100 mls @ 200 mls/hr IV ONETIME ONE Stop: 03/23/19 17:55 Last Admin: 03/23/19 17:35 Dose: 200 mls/hr Sodium Chloride (Saline Flush) 10 ml FLUSH ASDIRECTED PRN PRN Reason: Keep Vein Open Last Admin: 03/23/19 14:31 Dose: 10 ml Labs: Laboratory Tests 03/23/19 03/23/19 03/23/19 Range/Units 10: 14:35 14:35 WBC 7.92 (4.23-9.07) K/mm3 RBC 3.59 L (4.63-6.08) M/mm3 Hgb 11.4 L D (13.7-17.5) gm/dl Hct 35.1 L (40.1-51.0) % MCV 97.8 H (79.0-92.2) fl MCH 31.8 (25.7-32.2) pg MCHC 32.5 (32.2-35.5) g/dl RDW Std Deviation 50.2 H (35.1-43.9) fL Plt Count 157 L (163-337) K/mm3 MPV 9.4 (9.4-12.3) fl Neutrophils % (Manual) 73 H (40-60) % Band Neutrophils % 0 (0-10) % Lymphocytes % (Manual) 21 (20-40) % Atypical Lymphs % 0 % Monocytes % (Manual) 4 (2-10) % Eosinophils % (Manual) 2 (0.8-7.0) % Basophils % (Manual) 0 L (0.2-1.2) Platelet Estimate Adequate Anisocytosis 1+ slight Ovalocytes 1+ slight RBC Morph Comment Not Reportable Sodium 141 (136-145) mEq/L Potassium 4.3 (3.5-5.1) mEq/L Chloride 107 (98-107) mEq/L Carbon Dioxide 25 (21-32) mEq/L Anion Gap 13.3 (5-15) BUN 20 H (7-18) mg/dL Creatinine 1.5 H (0.7-1.3) mg/dL Est Cr Clr Drug Dosing 38.81 mL/min Estimated GFR (MDRD) 45 (>60) mL/min BUN/Creatinine Ratio 13.3 L (14-18) Glucose 78 L (83-115) mg/dL Calcium 9.1 (8.5-10.1) mg/dL Total Bilirubin 0.8 (0.2-1.0) mg/dL AST 10 L (15-37) U/L ALT 14 L (16-63) U/L Alkaline Phosphatase 76 (46-116) U/L Total Protein 5.9 L (6.4-8.2) g/dl Albumin 2.6 L (3.4-5.0) g/dl Globulin 3.3 gm/dL Albumin/Globulin Ratio 0.8 L (1-2) Lipase 176 (73-393) U/L Urine Color Windy H (Yellow) Urine Appearance Clear (Clear) Urine pH 6.0 (5.0-8.0) Ur Specific [place] 1.020 (1.005-1.030) Urine Protein Negative (Negative) Urine Glucose (UA) Negative (Negative) Urine Ketones Negative (Negative) Urine Occult Blood Negative (Negative) Urine Nitrite Positive H (Negative) Urine Bilirubin Negative (Negative) Urine Urobilinogen 1.0 (0.2-1.0) Ur Leukocyte Esterase Negative (Negative) Urine RBC Not seen (0-5) /hpf Urine WBC 0-5 (0-5) /hpf Ur Epithelial Cells 0-5 (0-5) /hpf Urine Bacteria Moderate H (FEW) /hpf Hyaline Casts 0-5 (0-5) /lpf Urine Mucus Not seen (FEW) /hpf Meds: Medications Generic Name Dose Route Start Last Admin Trade Name Freq PRN Reason Stop Dose Admin Sodium Chloride 1,000 mls @ 999 mls/hr 03/23/19 14:30 03/23/19 14:31 Normal Saline IV 999 mls/hr ASDIRECTED GINA Administration Sodium Chloride 1,000 mls @ 125 mls/hr 03/23/19 17:25 03/23/19 17:35 Normal Saline IV 03/24/19 01:24 125 mls/hr ONETIME ONE Administration Ceftriaxone Sodium 1 gm/ 100 mls @ 200 mls/hr 03/23/19 17:26 03/23/19 17:35 Sodium Chloride IV 03/23/19 17:55 200 mls/hr ONETIME ONE Administration Sodium Chloride 10 ml 03/23/19 14:24 03/23/19 14:31 Saline Flush FLUSH 10 ml ASDIRECTED PRN Administration Keep Vein Open Discontinued Medications Generic Name Dose Route Start Last Admin Trade Name Freq PRN Reason Stop Dose Admin Lidocaine HCl 10 ml 03/23/19 16:14 10/26/19 16:18 Xylocaine 2% Jelly MUCMEM 03/23/19 16:15 10 ml ONETIME ONE Administration Ondansetron HCl 4 mg 03/23/19 14:23 03/23/19 14:31 Zofran IVPUSH 03/23/19 14:24 4 mg ONETIME ONE Administration - Re-Assessments/Exams Free Text/Narrative Re-Assessment/Exam: 03/23/19 14:58 Patient presents to the ED for the evaluation of generalized not feeling well. I did order CBC, CMP, lipase, UA, chest x-ray, IV with IV fluids, 4 mg Zofran for initial management. 03/23/19 17:33 Initial labs look okay, UA is positive for UTI at this time. Have started 1G IV rocephin and some more fluids. The patient was ambulated after the first bag of fluids was given, and the nurse states that he is still quite dizzy upon standing, and he was quite unstable, and she did not feel safe trying to ambulate him much further than a few steps. I think it would be safer for the gentleman to be in the hospital, however at this point he is most appropriate for Observation status. He lives at home with his elderly , and I do not feel that it would be safer him to return home, if he should be dizzy, and fall , the sequelae from the fall might cause major problems down the road. I did contact Dr. Xie, hospitalist on-call, and he does except for observation status, and recommends a lactic acid be done as well. Departure - Departure Time of Disposition: 17:48 Disposition: Refer to Observation Condition: Fair Clinical Impression: UTI (urinary tract infection) Qualifiers: Urinary tract infection type: acute cystitis Hematuria presence: without hematuria Qualified Code(s): N30.00 - Acute cystitis without hematuria - Discharge Information *PRESCRIPTION DRUG MONITORING PROGRAM REVIEWED*: No *COPY OF PRESCRIPTION DRUG MONITORING REPORT IN PATIENT KRISTI: No Referrals: Christina Delvalle MD [Primary Care Provider] - Forms: ED Department Discharge - My Orders Last 24 Hours: My Active Orders 03/23/19 14:24 Peripheral IV Care [RC] . DIRECTED Sodium Chloride 0.9% [Saline Flush] 10 ml FLUSH ASDIRECTED PRN Peripheral IV Insertion Adult [OM.PC] Stat 03/23/19 14:30 Sodium Chloride 0.9% [Normal Saline] 1,000 ml IV ASDIRECTED 03/23/19 14:33 Chest 2V [CR] Stat 03/23/19 16:30 Insert Urinary Catheter [OM.PC] Q24H 03/23/19 16:31 Urinary Catheter Assessment [RC] ASDIRECTED 03/23/19 17:08 Ambulate [RC] ASDIRECTED Orthostatic Vital Signs [RC] ASDIRECTED 03/23/19 17:25 Sodium Chloride 0.9% [Normal Saline] 1,000 ml IV ONETIME 03/23/19 17:26 cefTRIAXone [Rocephin] 1 gm Sodium Chloride 0.9% [Normal Saline] 100 ml IV ONETIME - Assessment/Plan Last 24 Hours: My Active Orders 03/23/19 14:24 Peripheral IV Care [RC] . DIRECTED Sodium Chloride 0.9% [Saline Flush] 10 ml FLUSH ASDIRECTED PRN Peripheral IV Insertion Adult [OM.PC] Stat 03/23/19 14:30 Sodium Chloride 0.9% [Normal Saline] 1,000 ml IV ASDIRECTED 03/23/19 14:33 Chest 2V [CR] Stat 03/23/19 16:30 Insert Urinary Catheter [OM.PC] Q24H 03/23/19 16:31 Urinary Catheter Assessment [RC] ASDIRECTED 03/23/19 17:08 Ambulate [RC] ASDIRECTED Orthostatic Vital Signs [RC] ASDIRECTED 03/23/19 17:25 Sodium Chloride 0.9% [Normal Saline] 1,000 ml IV ONETIME 03/23/19 17:26 cefTRIAXone [Rocephin] 1 gm Sodium Chloride 0.9% [Normal Saline] 100 ml IV ONETIME
[2019-03-23] MEDS ORDERED: Lidocaine 2% Jelly 10 ML Urojet MUCMEM ONE (16:14)
[2019-03-23] MEDS ORDERED: Sodium Chloride 0.9% 1,000 ML IV ONE (17:25)
[2019-03-23] MEDS ORDERED: cefTRIAXone 1 GM in Sodium Chloride 0.9% 100 ML IV ONE (17:26)
[2019-03-23] MEDS ORDERED: Ondansetron 4 MG Tab.DIS PO PRN (20:13)
--- NOTE | 2019-03-23 20:27 | PCM.HP.2 ---
H&P History of Present Illness - General Date of Service: 03/23/19 Admit Problem/Dx: Admission Diagnosis/Problem Admission Diagnosis/Problem UTI (urinary tract infection), uncomplicated - History of Present Illness Initial Comments - Free Text/Narative: 83-year-old male with history of atrial fibrillation, coronary artery disease, congestive heart failure, COPD, diabetes, and history of prostate cancer treated with radiation presented to the emergency room via [facility] service for evaluation of generalized weakness. He states that for the last week he has not been eating or drinking well. He has become dizzy and unsteady. He states yesterday he had 5-6 bouts of loose watery stools in a couple this morning. He had one when he arrived on the floor. He denies any abdominal pain, hematochezia, or melena. Denies any nausea. Patient was weak enough that the ambulance team had to help him get onto the cot during the transfer. Patient denies any recent antibiotics or exposure to illness. Denies any fever, chills, or night sweats. He has a chronic cough and no new shortness of breath. No new lower extremity edema or chest pain. He does have over 125- pack-year history, but no longer smokes. In the emergency room he was found to have positive nitrites but no WBC or red blood cells. He was diagnosed with a urinary tract infection and given 1 g Rocephin. He was given 1 L normal saline and placed on 125 mL an hour. They felt he could not return home so they recommended observation. Emergency room labs: WBC 7.92, hemoglobin 11.4, platelet count 157, sodium 141, potassium 4.3, chloride 107, carbon dioxide 25, anion gap 13.3, BUN 20, creatinine 1.5 (BUN and creatinine are stable), with estimated GFR of 45 and a creatinine clearance of 39, lactic acid 0.7, albumin 2.6 likely secondary to malnutrition, nitrites positive on UA, urine WBC 0-5, epithelial cells 0-5, urine bacteria moderate. Troponin was not done nor an EKG. orthostatic blood pressures were normal. - Related Data Allergies/Adverse Reactions: Allergies Allergy/AdvReac Type Severity Reaction Status Date / Time No Known Allergies Allergy Verified 03/22/18 10:50 Home Medications: Home Meds Allopurinol [Zyloprim] 300 mg PO DAILY 11/05/15 [History] Isosorbide Mononitrate [Imdur] 30 mg PO DAILY 11/05/15 [History] Lisinopril [Prinivil] 10 mg PO DAILY 11/05/15 [History] glipiZIDE [Glucotrol] 2.5 mg PO BID 11/05/15 [History] atorvaSTATin [Lipitor] 80 mg PO QPM 11/10/15 [History] Carvedilol [Coreg] 3.125 mg PO BID 06/29/16 [History] Rivaroxaban [Xarelto] 15 mg PO DAILY 06/29/16 [History] Polyethylene Glycol 3350 [MiraLAX] 17 gm PO DAILY PRN 03/20/17 [History] Topiramate 50 mg PO BID 03/20/17 [History] Tamsulosin [Flomax] 0.4 mg PO DAILY 10/19/17 [History] Albuterol [Proventil HFA] 1 puff INH DAILY PRN 01/15/18 [History] Budesonide/Formoterol Fumarate [Symbicort 160-4.5 Mcg Inhaler] 2 puff INH BID [History] Cholecalciferol (Vitamin D3) [Vitamin D3] 2,000 unit PO DAILY 01/20/19 [History] FLUoxetine [PROzac] 40 mg PO DAILY 01/20/19 [History] Meclizine [Antivert] 25 mg PO BID PRN 01/20/19 [History] Omeprazole 20 mg PO BID 01/20/19 [History] Tiotropium [Spiriva Handihaler] 1 cap PO BID 01/20/19 [History] Alogliptin Benzoate [Alogliptin] 12.5 mg PO DAILY 03/23/19 [History] Mometasone Furoate [Asmanex] 220 mcg IH DAILY 03/23/19 [History] Past Medical History HEENT History: Reports: Cataract, Hard of Hearing Other HEENT History: 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 Cardiovascular History: Reports: Afib, Angina, Bypass, CAD, Heart Murmur, High Cholesterol, Hypertension, PVD, SOB on Exertion Other Cardiovascular History: HX LVH, Mild , Bilateral artial enlg Respiratory History: Reports: COPD, Sleep Apnea, SOB Gastrointestinal History: Reports: GERD, Hepatitis Other Gastrointestinal History: nausea Genitourinary History: Reports: BPH, Diabetic Nephropathy, Prostate Disorder, Retention, Urinary Musculoskeletal History: Reports: Back Pain, Chronic, Gout, Neck Pain, Chronic, Osteoarthritis Neurological History: Reports: Neuropathy, Diabetic, Neuropathy, Peripheral, Other (See Below) Other Neuro History: tremor, memory loss Psychiatric History: Reports: Anxiety, Depression, Other (See Below) Other Psychiatric History: insomnia Endocrine/Metabolic History: Reports: Diabetes, Type II Oncologic (Cancer) History: Reports: Prostate - Infectious Disease History Infectious Disease History: Reports: Influenza, Measles - Past Surgical History HEENT Surgical History: Reports: Naso-Sinus Surgery Cardiovascular Surgical History: Reports: Coronary Artery Bypass, Pacer GI Surgical History: Reports: None Male Surgical History: Reports: Prostate Biopsy, TURP-Transurethral Resection of Prostate Social & Family History - Family History Family Medical History: Noncontributory Cardiac: Reports: High Cholesterol, Hypertension, [place] Neurological: Reports: Parkinson's Endocrine/Metabolic: Reports: Diabetes, type II - Tobacco Use Smoking Status *Q: Former Smoker Used Tobacco, but Quit: Yes Month/Year Tobacco Last Used: 20 - Caffeine Use Caffeine Use: Reports: Coffee, Tea - Recreational Drug Use Recreational Drug Use: No - Living Situation & Occupation Living situation: Reports: Occupation: Retired H&P Review of Systems - Review of Systems: Review Of Systems: ROS reveals no pertinent complaints other than HPI. Exam - Exam Exam: See Below - Vital Signs Vital Signs: Last Vital Signs Temp 99.4 F 03/23/19 14:13 Pulse 81 03/23/19 14:13 Resp 13 03/23/19 14:13 BP 116/70 03/23/19 14:13 Pulse Ox 96 03/23/19 14:13 Orthostatic Blood Pressure [ 103/48 Standing] Orthostatic Blood Pressure [ 95/54 Sitting] Orthostatic Blood Pressure [ 95/53 Supine] Weight: 165 lb - Exam Quality Assessment: No: Supplemental Oxygen General: Alert, Oriented, Other (Lying flat in bed comfortably) HEENT: Conjunctiva Clear, Mucosa Moist & Hosmer. No: Hearing Intact Neck: Supple, Trachea Midline, 2 Lungs: Clear to Auscultation, Normal Respiratory Effort Cardiovascular: Regular Rate, Irregular Rhythm GI/Abdominal Exam: Normal Bowel Sounds, Soft, Non-Tender, No Organomegaly, No Distention, No Abnormal Bruit, No Mass Extremities: Normal Inspection, Normal Range of Motion, Non-Tender, No Pedal Edema, Normal Capillary Refill Skin: Warm, Dry, Intact Neurological: Cranial Nerves Intact Neuro Extensive - Mental Status: Alert, Oriented x3, Normal Mood/Affect, Normal Cognition, Memory Intact Neuro Extensive - Motor, Sensory, Reflexes: CN II-XII Intact Psychiatric: Alert, Normal Affect, Normal Mood - Patient Data Lab Results Last 24 hrs: Laboratory Results - last 24 hr 03/23/19 03/23/19 03/23/19 Range/Units 14:35 14:35 16:26 WBC 7.92 (4.23-9.07) K/mm3 RBC 3.59 L (4.63-6.08) M/mm3 Hgb 11.4 L D (13.7-17.5) gm/dl Hct 35.1 L (40.1-51.0) % MCV 97.8 H (79.0-92.2) fl MCH 31.8 (25.7-32.2) pg MCHC 32.5 (32.2-35.5) g/dl RDW Std Deviation 50.2 H (35.1-43.9) fL Plt Count 157 L (163-337) K/mm3 MPV 9.4 (9.4-12.3) fl Neutrophils % (Manual) 73 H (40-60) % Band Neutrophils % 0 (0-10) % Lymphocytes % (Manual) 21 (20-40) % Atypical Lymphs % 0 % Monocytes % (Manual) 4 (2-10) % Eosinophils % (Manual) 2 (0.8-7.0) % Basophils % (Manual) 0 L (0.2-1.2) Platelet Estimate Adequate Anisocytosis 1+ slight Ovalocytes 1+ slight RBC Morph Comment Not Reportable Sodium 141 (136-145) mEq/L Potassium 4.3 (3.5-5.1) mEq/L Chloride 107 (98-107) mEq/L Carbon Dioxide 25 (21-32) mEq/L Anion Gap 13.3 (5-15) BUN 20 H (7-18) mg/dL Creatinine 1.5 H (0.7-1.3) mg/dL Est Cr Clr Drug Dosing 38.81 mL/min Estimated GFR (MDRD) 45 (>60) mL/min BUN/Creatinine Ratio 13.3 L (14-18) Glucose 78 L (83-115) mg/dL Lactic Acid (0.4-2.0) mmol/L Calcium 9.1 (8.5-10.1) mg/dL Total Bilirubin 0.8 (0.2-1.0) mg/dL AST 10 L (15-37) U/L ALT 14 L (16-63) U/L Alkaline Phosphatase 76 (46-116) U/L Total Protein 5.9 L (6.4-8.2) g/dl Albumin 2.6 L (3.4-5.0) g/dl Globulin 3.3 gm/dL Albumin/Globulin Ratio 0.8 L (1-2) Lipase 176 (73-393) U/L Urine Color Windy H (Yellow) Urine Appearance Clear (Clear) Urine pH 6.0 (5.0-8.0) Ur Specific [place] 1.020 (1.005-1.030) Urine Protein Negative (Negative) Urine Glucose (UA) Negative (Negative) Urine Ketones Negative (Negative) Urine Occult Blood Negative (Negative) Urine Nitrite Positive H (Negative) Urine Bilirubin Negative (Negative) Urine Urobilinogen 1.0 (0.2-1.0) Ur Leukocyte Esterase Negative (Negative) Urine RBC Not seen (0-5) /hpf Urine WBC 0-5 (0-5) /hpf Ur Epithelial Cells 0-5 (0-5) /hpf Urine Bacteria Moderate H (FEW) /hpf Hyaline Casts 0-5 (0-5) /lpf Urine Mucus Not seen (FEW) /hpf 03/23/ Range/Units 18:08 WBC (4.23-9.07) K/mm3 RBC (4.63-6.08) M/mm3 Hgb (13.7-17.5) gm/dl Hct (40.1-51.0) % MCV (79.0-92.2) fl MCH (25.7-32.2) pg MCHC (32.2-35.5) g/dl RDW Std Deviation (35.1-43.9) fL Plt Count (163-337) K/mm3 MPV (9.4-12.3) fl Neutrophils % (Manual) (40-60) % Band Neutrophils % (0-10) % Lymphocytes % (Manual) (20-40) % Atypical Lymphs % % Monocytes % (Manual) (2-10) % Eosinophils % (Manual) (0.8-7.0) % Basophils % (Manual) (0.2-1.2) Platelet Estimate Anisocytosis Ovalocytes RBC Morph Comment Sodium (136-145) mEq/L Potassium (3.5-5.1) mEq/L Chloride (98-107) mEq/L Carbon Dioxide (21-32) mEq/L Anion Gap (5-15) BUN (7-18) mg/dL Creatinine (0.7-1.3) mg/dL Est Cr Clr Drug Dosing mL/min Estimated GFR (MDRD) (>60) mL/min BUN/Creatinine Ratio (14-18) Glucose (83-115) mg/dL Lactic Acid 0.7 (0.4-2.0) mmol/L Calcium (8.5-10.1) mg/dL Total Bilirubin (0.2-1.0) mg/dL AST (15-37) U/L ALT (16-63) U/L Alkaline Phosphatase (46-116) U/L Total Protein (6.4-8.2) g/dl Albumin (3.4-5.0) g/dl Globulin gm/dL Albumin/Globulin Ratio (1-2) Lipase (73-393) U/L Urine Color (Yellow) Urine Appearance (Clear) Urine pH (5.0-8.0) Ur Specific [place] (1.005-1.030) Urine Protein (Negative) Urine Glucose (UA) (Negative) Urine Ketones (Negative) Urine Occult Blood (Negative) Urine Nitrite (Negative) Urine Bilirubin (Negative) Urine Urobilinogen (0.2-1.0) Ur Leukocyte Esterase (Negative) Urine RBC (0-5) /hpf Urine WBC (0-5) /hpf Ur Epithelial Cells (0-5) /hpf Urine Bacteria (FEW) /hpf Hyaline Casts (0-5) /lpf Urine Mucus (FEW) /hpf Result Diagrams: 03/23/19 14:35 03/23/19 14:35 Imaging Impressions Last 24 hrs: Chest x-ray Chronic interstitial changes without findings Problem List Initiated/Reviewed/Updated: Yes Orders Last 24hrs: Active Orders 24 hr Category Date Time Status Patient Status [ADT] Routine ADT 03/23/19 20:11 Ordered Activity as Tolerated [RC] .Routine Care 03/23/19 20:09 Ordered Ambulate [RC] ASDIRECTED Care 03/23/19 17:08 Active Blood Glucose Check, Bedside [RC] QIDACANDBED Care 03/23/19 20:07 Ordered Insert Urinary Catheter [OM.PC] Q24H Care 03/23/19 16:30 Ordered Orthostatic Vital Signs [RC] ASDIRECTED Care 03/23/19 17:08 Active Peripheral IV Care [RC] Q2HR Care 03/23/19 14:24 Active OT Evaluation and Treatment [CONS] Routine Cons 03/23/19 20:09 Ordered PT Evaluation and Treatment [CONS] Routine Cons 03/23/19 20:09 Ordered ADA Diabetic [[employer] Diet] [DIET Diet 03/23/19 Dinner Ordered ] Chest 2V [CR] Stat Exams 03/23/19 14:33 Taken Echo Comp wo Cont [US] Routine Exams 03/25/19 08:00 Ordered CBC WITH AUTO DIFF [HEME] AM Lab 03/24/19 05:11 Ordered CBC WITH AUTO DIFF [HEME] AM Lab 03/25/19 05:11 Ordered CBC WITH AUTO DIFF [HEME] AM Lab 03/26/19 05:11 Ordered CBC WITH AUTO DIFF [HEME] AM Lab 03/27/19 05:11 Ordered CMP [COMPREHENSIVE METABOLIC PN,CMP] [CHEM] AM Lab 03/24/19 05:11 Ordered CMP [COMPREHENSIVE METABOLIC PN,CMP] [CHEM] AM Lab 03/25/19 05:11 Ordered CMP [COMPREHENSIVE METABOLIC PN,CMP] [CHEM] AM Lab 03/26/19 05:11 Ordered CMP [COMPREHENSIVE METABOLIC PN,CMP] [CHEM] AM Lab 03/27/19 05:11 Ordered CULTURE URINE [RM] Routine Lab 03/23/19 16:26 Received MAGNESIUM [CHEM] AM Lab 03/24/19 05:11 Ordered MAGNESIUM [CHEM] AM Lab 03/25/19 05:11 Ordered MAGNESIUM [CHEM] AM Lab 03/26/19 05:11 Ordered MAGNESIUM [CHEM] AM Lab 03/27/19 05:11 Ordered TSH [CHEM] AM Lab 03/24/19 05:11 Ordered Ondansetron [Zofran ODT] Med 03/23/19 20:13 Ordered 4 mg PO Q4H PRN Sodium Chloride 0.9% [Normal Saline] 1,000 ml Med 03/23/19 17:25 Active IV ONETIME Sodium Chloride 0.9% [Saline Flush] Med 03/23/19 14:24 Active 10 ml FLUSH ASDIRECTED PRN cefTRIAXone [Rocephin] 1 gm Med 03/24/19 17:00 Ordered Sodium Chloride 0.9% [Normal Saline] 100 ml IV Q24H Convert IV to Saline Lock [OM.PC] Routine Oth 03/23/19 20:05 Ordered Peripheral IV Insertion Adult [OM.PC] Stat Oth 03/23/19 14:24 Ordered Resuscitation Status Routine Resus Stat 03/23/19 19:32 Ordered Medication Orders Sodium Chloride (Normal Saline) 1,000 mls @ 125 mls/hr IV ONETIME ONE Stop: 03/24/19 01:24 Last Admin: 03/23/19 17:35 Dose: 125 mls/hr Ceftriaxone Sodium 1 gm/ (Sodium Chloride) 100 mls @ 200 mls/hr IV Q24H GINA Ondansetron HCl (Zofran Odt) 4 mg PO Q4H PRN PRN Reason: Nausea/Vomiting Sodium Chloride (Saline Flush) 10 ml FLUSH ASDIRECTED PRN PRN Reason: Keep Vein Open Last Admin: 03/23/19 14:31 Dose: 10 ml Assessment/Plan Comment:: Assessment * 83-year-old with multiple medical problems presents to the emergency room with weakness * Asymptomatic bacteriuria * Rocephin 1 g IV given in ER * Anorexia 1 week * Diarrhea 1 day, 5-6 episodes yesterday with 4-5 episodes today of loose watery stool. * Mild anemia * Polypharmacy: Patient is understandably on several medications secondary to his multiple medical problems. We will follow vitals and see if there are places we can trim his medication list. Plan * Refer to observation on telemetry * EKG and troponin stat * PT/OT consults. * Echocardiogram on Monday * Follow CBC, CMP, magnesium * Reconcile home meds. * Saline lock IV fluids. There is no signs of dehydration on exam or lab work and patient does have a history of congestive heart failure. * Urine culture done ER * Continue Rocephin every 24 hours for now * Stool for C. difficile * VTE prophylaxis: Patient is on Xarelto * CODE STATUS: Full code * Length of stay 24-48 hours. - Mortality Measure Prognosis:: Good
[2019-03-23] MEDS ORDERED: Polyethylene Glycol 3350 Powder 17 GM Packet PO PRN (20:28)
[2019-03-23] MEDS ORDERED: ALBUTEROL INH PRN (20:28)
[2019-03-23] MEDS ORDERED: TOPIRAMATE 25 MG PO SCH (21:00)
[2019-03-23] MEDS: CARVEDILOL 6.25 MG PO SCH (22:00)
[2019-03-23] MEDS: FORMOTEROL FUMARATE INH SCH (23:38)
[2019-03-23] MEDS: BUDESONIDE INH SCH (23:38)
[2019-03-23] MEDS: OMEPRAZOLE 20 MG PO SCH (23:38)
[2019-03-23] MEDS: Insulin Lispro 100 Units/ML 3 ML Vial SUBCUT SCH (23:39)
[2019-03-24 06:56] LABS: HEMOGLOBIN A1C 6.1 % (4.50-6.20)
[2019-03-24] MEDS: Insulin Lispro 100 Units/ML 3 ML Vial SUBCUT SCH ×4 (07:52→21:45)
[2019-03-24] MEDS: OMEPRAZOLE 20 MG PO SCH ×2 (07:57→16:31)
[2019-03-24] MEDS ORDERED: Magnesium Sulfate/Water 4 GM in Premix Bag 1 BAG IV ONE (08:04)
[2019-03-24] MEDS: ALOGLIPTIN 12.5 MG PO SCH (09:34)
[2019-03-24] MEDS: ISOSORBIDE MONONITRATE 30 MG PO SCH (09:35)
[2019-03-24] MEDS: TAMSULOSIN 0.4 MG PO SCH (09:35)
[2019-03-24] MEDS: LISINOPRIL 20 MG PO SCH (09:36)
[2019-03-24] MEDS: FLUOXETINE 20 MG PO SCH (09:37)
[2019-03-24] MEDS: RIVAROXABAN 15 MG PO SCH (09:37)
[2019-03-24] MEDS: ALLOPURINOL 300 MG PO SCH (09:38)
[2019-03-24] MEDS: CARVEDILOL 6.25 MG PO SCH ×2 (09:50→21:45)
[2019-03-24] MEDS: Magnesium Oxide 400 MG Tab PO SCH ×2 (09:50→21:45)
[2019-03-24] MEDS: TOPIRAMATE 50 MG PO SCH ×3 (09:50→21:48)
[2019-03-24] MEDS: FORMOTEROL FUMARATE INH SCH ×2 (10:09→20:40)
[2019-03-24] MEDS: BUDESONIDE INH SCH ×2 (10:09→20:40)
--- NOTE | 2019-03-24 15:29 | PCM.PN ---
- General Info Date of Service: 03/24/19 Admission Dx/Problem (Free Text): Admission Diagnosis/Problem Admission Diagnosis/Problem UTI (urinary tract infection), uncomplicated Subjective Update: Osman has no complaints today. He is feeling stronger and less dizzy. No BM. Functional Status: Reports: Pain Controlled - Review of Systems General: Reports: No Symptoms HEENT: Reports: No Symptoms Pulmonary: Reports: No Symptoms Cardiovascular: Reports: No Symptoms Gastrointestinal: Reports: No Symptoms Psychiatric: Reports: No Symptoms - Patient Data Vitals - Most Recent: Last Vital Signs Temp 98.1 F 03/24/19 11:57 Pulse 60 03/24/19 11:57 Resp 18 03/24/19 11:57 BP 112/62 03/24/19 11:57 Pulse Ox 96 03/24/19 11:57 Orthostatic Blood Pressure [ 103/48 Standing] Orthostatic Blood Pressure [ 95/54 Sitting] Orthostatic Blood Pressure [ 95/53 Supine] Weight - Most Recent: 157 lb 1.6 oz I&O - Last 24 Hours: Intake & Output 03/24/19 03/24/19 03/24/19 06:59 14:59 22:59 Intake Total 1300 20 Output Total 800 Balance 500 20 Lab Results Last 24 Hours: Laboratory Results - last 24 hr 03/23/19 03/23/19 03/23/19 Range/Units 14:35 16:26 18:08 WBC (4.23-9.07) K/mm3 RBC (4.63-6.08) M/mm3 Hgb (13.7-17.5) gm/dl Hct (40.1-51.0) % MCV (79.0-92.2) fl MCH (25.7-32.2) pg MCHC (32.2-35.5) g/dl RDW Std Deviation (35.1-43.9) fL Plt Count (163-337) K/mm3 MPV (9.4-12.3) fl Neut % (Auto) (34.0-67.9) % Lymph % (Auto) (21.8-53.1) % Bremer % (Auto) (5.3-12.2) % Eos % (Auto) (0.8-7.0) Baso % (Auto) (0.1-1.2) % Neut # (Auto) (1.78-5.38) K/mm3 Lymph # (Auto) (1.32-3.57) K/mm3 Bremer # (Auto) (0.30-0.82) K/mm3 Eos # (Auto) (0.04-0.54) K/mm3 Baso # (Auto) (0.01-0.08) K/mm3 Neutrophils % (Manual) 73 H (40-60) % Band Neutrophils % 0 (0-10) % Lymphocytes % (Manual) 21 (20-40) % Atypical Lymphs % 0 % Monocytes % (Manual) 4 (2-10) % Eosinophils % (Manual) 2 (0.8-7.0) % Basophils % (Manual) 0 L (0.2-1.2) Platelet Estimate Adequate Anisocytosis 1+ slight Ovalocytes 1+ slight RBC Morph Comment Not Reportable Sodium (136-145) mEq/L Potassium (3.5-5.1) mEq/L Chloride (98-107) mEq/L Carbon Dioxide (21-32) mEq/L Anion Gap (5-15) BUN (7-18) mg/dL Creatinine (0.7-1.3) mg/dL Est Cr Clr Drug Dosing mL/min Estimated GFR (MDRD) (>60) mL/min BUN/Creatinine Ratio (14-18) Glucose (83-115) mg/dL POC Glucose (83-110) mg/dL Hemoglobin A1c (4.50-6.20) % Lactic Acid 0.7 (0.4-2.0) mmol/L Calcium (8.5-10.1) mg/dL Magnesium (1.8-2.4) mg/dl Total Bilirubin (0.2-1.0) mg/dL AST (15-37) U/L ALT (16-63) U/L Alkaline Phosphatase (46-116) U/L Troponin I (0.00-0.056) ng/mL Total Protein (6.4-8.2) g/dl Albumin (3.4-5.0) g/dl Globulin gm/dL Albumin/Globulin Ratio (1-2) TSH 3rd Generation (0.358-3.74) uIU/mL Urine Color Windy H (Yellow) Urine Appearance Clear (Clear) Urine pH 6.0 (5.0-8.0) Ur Specific Catlett 1.020 (1.005-1.030) Urine Protein Negative (Negative) Urine Glucose (UA) Negative (Negative) Urine Ketones Negative (Negative) Urine Occult Blood Negative (Negative) Urine Nitrite Positive H (Negative) Urine Bilirubin Negative (Negative) Urine Urobilinogen 1.0 (0.2-1.0) Ur Leukocyte Esterase Negative (Negative) Urine RBC Not seen (0-5) /hpf Urine WBC 0-5 (0-5) /hpf Ur Epithelial Cells 0-5 (0-5) /hpf Urine Bacteria Moderate H (FEW) /hpf Hyaline Casts 0-5 (0-5) /lpf Urine Mucus Not seen (FEW) /hpf 03/23/19 03/23/19 03/24/19 Range/Units 18:08 23:36 06:10 WBC 7.18 (4.23-9.07) K/mm3 RBC 3.61 L (4.63-6.08) M/mm3 Hgb 11.3 L (13.7-17.5) gm/dl Hct 35.3 L (40.1-51.0) % MCV 97.8 H (79.0-92.2) fl MCH 31.3 (25.7-32.2) pg MCHC 32.0 L (32.2-35.5) g/dl RDW Std Deviation 51.1 H (35.1-43.9) fL Plt Count 150 L (163-337) K/mm3 MPV 9.5 (9.4-12.3) fl Neut % (Auto) 67.3 (34.0-67.9) % Lymph % (Auto) 19.4 L (21.8-53.1) % Bremer % (Auto) 9.9 (5.3-12.2) % Eos % (Auto) 2.9 (0.8-7.0) Baso % (Auto) 0.1 (0.1-1.2) % Neut # (Auto) 4.83 (1.78-5.38) K/mm3 Lymph # (Auto) 1.39 (1.32-3.57) K/mm3 Bremer # (Auto) 0.71 (0.30-0.82) K/mm3 Eos # (Auto) 0.21 (0.04-0.54) K/mm3 Baso # (Auto) 0.01 (0.01-0.08) K/mm3 Neutrophils % (Manual) (40-60) % Band Neutrophils % (0-10) % Lymphocytes % (Manual) (20-40) % Atypical Lymphs % % Monocytes % (Manual) (2-10) % Eosinophils % (Manual) (0.8-7.0) % Basophils % (Manual) (0.2-1.2) Platelet Estimate Anisocytosis Ovalocytes RBC Morph Comment Sodium (136-145) mEq/L Potassium (3.5-5.1) mEq/L Chloride (98-107) mEq/L Carbon Dioxide (21-32) mEq/L Anion Gap (5-15) BUN (7-18) mg/dL Creatinine (0.7-1.3) mg/dL Est Cr Clr Drug Dosing mL/min Estimated GFR (MDRD) (>60) mL/min BUN/Creatinine Ratio (14-18) Glucose (83-115) mg/dL POC Glucose 80 L (83-110) mg/dL Hemoglobin A1c (4.50-6.20) % Lactic Acid (0.4-2.0) mmol/L Calcium (8.5-10.1) mg/dL Magnesium (1.8-2.4) mg/dl Total Bilirubin (0.2-1.0) mg/dL AST (15-37) U/L ALT (16-63) U/L Alkaline Phosphatase (46-116) U/L Troponin I 0.028 (0.00-0.056) ng/mL Total Protein (6.4-8.2) g/dl Albumin (3.4-5.0) g/dl Globulin gm/dL Albumin/Globulin Ratio (1-2) TSH 3rd Generation (0.358-3.74) uIU/mL Urine Color (Yellow) Urine Appearance (Clear) Urine pH (5.0-8.0) Ur Specific Catlett (1.005-1.030) Urine Protein (Negative) Urine Glucose (UA) (Negative) Urine Ketones (Negative) Urine Occult Blood (Negative) Urine Nitrite (Negative) Urine Bilirubin (Negative) Urine Urobilinogen (0.2-1.0) Ur Leukocyte Esterase (Negative) Urine RBC (0-5) /hpf Urine WBC (0-5) /hpf Ur Epithelial Cells (0-5) /hpf Urine Bacteria (FEW) /hpf Hyaline Casts (0-5) /lpf Urine Mucus (FEW) /hpf 03/24/19 03/24/19 03/24/19 Range/Units 06:10 06:10 06:51 WBC (4.23-9.07) K/mm3 RBC (4.63-6.08) M/mm3 Hgb (13.7-17.5) gm/dl Hct (40.1-51.0) % MCV (79.0-92.2) fl MCH (25.7-32.2) pg MCHC (32.2-35.5) g/dl RDW Std Deviation (35.1-43.9) fL Plt Count (163-337) K/mm3 MPV (9.4-12.3) fl Neut % (Auto) (34.0-67.9) % Lymph % (Auto) (21.8-53.1) % Bremer % (Auto) (5.3-12.2) % Eos % (Auto) (0.8-7.0) Baso % (Auto) (0.1-1.2) % Neut # (Auto) (1.78-5.38) K/mm3 Lymph # (Auto) (1.32-3.57) K/mm3 Bremer # (Auto) (0.30-0.82) K/mm3 Eos # (Auto) (0.04-0.54) K/mm3 Baso # (Auto) (0.01-0.08) K/mm3 Neutrophils % (Manual) (40-60) % Band Neutrophils % (0-10) % Lymphocytes % (Manual) (20-40) % Atypical Lymphs % % Monocytes % (Manual) (2-10) % Eosinophils % (Manual) (0.8-7.0) % Basophils % (Manual) (0.2-1.2) Platelet Estimate Anisocytosis Ovalocytes RBC Morph Comment Sodium 139 (136-145) mEq/L Potassium 4.3 (3.5-5.1) mEq/L Chloride 109 H (98-107) mEq/L Carbon Dioxide 23 (21-32) mEq/L Anion Gap 11.3 (5-15) BUN 18 (7-18) mg/dL Creatinine 1.5 H (0.7-1.3) mg/dL Est Cr Clr Drug Dosing 36.95 mL/min Estimated GFR (MDRD) 45 (>60) mL/min BUN/Creatinine Ratio 12.0 L (14-18) Glucose 81 L (83-115) mg/dL POC Glucose 75 L (83-110) mg/dL Hemoglobin A1c 6.10 (4.50-6.20) % Lactic Acid (0.4-2.0) mmol/L Calcium 9.1 (8.5-10.1) mg/dL Magnesium 1.5 L (1.8-2.4) mg/dl Total Bilirubin 0.5 (0.2-1.0) mg/dL AST 11 L (15-37) U/L ALT 12 L (16-63) U/L Alkaline Phosphatase 73 (46-116) U/L Troponin I (0.00-0.056) ng/mL Total Protein 5.7 L (6.4-8.2) g/dl Albumin 2.4 L (3.4-5.0) g/dl Globulin 3.3 gm/dL Albumin/Globulin Ratio 0.7 L (1-2) TSH 3rd Generation 0.562 (0.358-3.74) uIU/mL Urine Color (Yellow) Urine Appearance (Clear) Urine pH (5.0-8.0) Ur Specific Catlett (1.005-1.030) Urine Protein (Negative) Urine Glucose (UA) (Negative) Urine Ketones (Negative) Urine Occult Blood (Negative) Urine Nitrite (Negative) Urine Bilirubin (Negative) Urine Urobilinogen (0.2-1.0) Ur Leukocyte Esterase (Negative) Urine RBC (0-5) /hpf Urine WBC (0-5) /hpf Ur Epithelial Cells (0-5) /hpf Urine Bacteria (FEW) /hpf Hyaline Casts (0-5) /lpf Urine Mucus (FEW) /hpf 03/24/19 03/24/19 Range/Units 06:56 11:56 WBC (4.23-9.07) K/mm3 RBC (4.63-6.08) M/mm3 Hgb (13.7-17.5) gm/dl Hct (40.1-51.0) % MCV (79.0-92.2) fl MCH (25.7-32.2) pg MCHC (32.2-35.5) g/dl RDW Std Deviation (35.1-43.9) fL Plt Count (163-337) K/mm3 MPV (9.4-12.3) fl Neut % (Auto) (34.0-67.9) % Lymph % (Auto) (21.8-53.1) % Bremer % (Auto) (5.3-12.2) % Eos % (Auto) (0.8-7.0) Baso % (Auto) (0.1-1.2) % Neut # (Auto) (1.78-5.38) K/mm3 Lymph # (Auto) (1.32-3.57) K/mm3 Bremer # (Auto) (0.30-0.82) K/mm3 Eos # (Auto) (0.04-0.54) K/mm3 Baso # (Auto) (0.01-0.08) K/mm3 Neutrophils % (Manual) (40-60) % Band Neutrophils % (0-10) % Lymphocytes % (Manual) (20-40) % Atypical Lymphs % % Monocytes % (Manual) (2-10) % Eosinophils % (Manual) (0.8-7.0) % Basophils % (Manual) (0.2-1.2) Platelet Estimate Anisocytosis Ovalocytes RBC Morph Comment Sodium (136-145) mEq/L Potassium (3.5-5.1) mEq/L Chloride (98-107) mEq/L Carbon Dioxide (21-32) mEq/L Anion Gap (5-15) BUN (7-18) mg/dL Creatinine (0.7-1.3) mg/dL Est Cr Clr Drug Dosing mL/min Estimated GFR (MDRD) (>60) mL/min BUN/Creatinine Ratio (14-18) Glucose (83-115) mg/dL POC Glucose 120 H 123 H (83-110) mg/dL Hemoglobin A1c (4.50-6.20) % Lactic Acid (0.4-2.0) mmol/L Calcium (8.5-10.1) mg/dL Magnesium (1.8-2.4) mg/dl Total Bilirubin (0.2-1.0) mg/dL AST (15-37) U/L ALT (16-63) U/L Alkaline Phosphatase (46-116) U/L Troponin I (0.00-0.056) ng/mL Total Protein (6.4-8.2) g/dl Albumin (3.4-5.0) g/dl Globulin gm/dL Albumin/Globulin Ratio (1-2) TSH 3rd Generation (0.358-3.74) uIU/mL Urine Color (Yellow) Urine Appearance (Clear) Urine pH (5.0-8.0) Ur Specific Catlett (1.005-1.030) Urine Protein (Negative) Urine Glucose (UA) (Negative) Urine Ketones (Negative) Urine Occult Blood (Negative) Urine Nitrite (Negative) Urine Bilirubin (Negative) Urine Urobilinogen (0.2-1.0) Ur Leukocyte Esterase (Negative) Urine RBC (0-5) /hpf Urine WBC (0-5) /hpf Ur Epithelial Cells (0-5) /hpf Urine Bacteria (FEW) /hpf Hyaline Casts (0-5) /lpf Urine Mucus (FEW) /hpf Med Orders - Current: Current Medications Albuterol (Proventil Hfa) 0 gm INH DAILY PRN PRN Reason: Shortness of Breath Allopurinol (Zyloprim) 300 mg PO DAILY [facility] Last Admin: 03/24/19 09:38 Dose: 300 mg Alogliptin Benzoate (Alogliptin) 12.5 mg PO DAILY [facility] Last Admin: 03/24/19 09:34 Dose: 12.5 mg Carvedilol (Coreg) 3.125 mg PO BID [facility] Last Admin: 03/24/19 09:50 Dose: 3.125 mg Fluoxetine HCl (Prozac) 40 mg PO DAILY [facility] Last Admin: 03/24/19 09:37 Dose: 40 mg Ceftriaxone Sodium 1 gm/ (Sodium Chloride) 100 mls @ 200 mls/hr IV Q24H [facility] Insulin Human Lispro (Humalog) 0 unit SUBCUT QIDACANDBED [facility]; Protocol Last Admin: 03/24/19 14:13 Dose: Not Given Isosorbide Mononitrate (Imdur) 30 mg PO DAILY [facility] Last Admin: 03/24/19 09:35 Dose: 30 mg Lisinopril (Prinivil) 10 mg PO DAILY [facility] Last Admin: 03/24/19 09:36 Dose: 10 mg Magnesium Oxide (Magnesium Oxide) 400 mg PO BID [facility] Last Admin: 03/24/19 09:50 Dose: 400 mg (Atorvastatin 80 Mg) (Own Med) 80 mg PO QPM [facility] (Budesonide/Formoterol Fumarate 2 Puff)Own Med 2 puff INH BIDRT [facility] Last Admin: 03/24/19 10:09 Dose: Not Given (Omeprazole [ Omeprazole] 20 Mg) *Own Med 20 mg PO BIDAC [facility] Last Admin: 03/24/19 07:57 Dose: 20 mg (Tiotropium 1 Cap) (*Own Med) 1 cap PO BIDRT [facility] Last Admin: 03/24/19 07:52 Dose: Not Given Topiramate 50 Mg Tab (Own Med) 1 each PO BID [facility] Last Admin: 03/24/19 09:50 Dose: 1 each Ondansetron HCl (Zofran Odt) 4 mg PO Q4H PRN PRN Reason: Nausea/Vomiting Polyethylene Glycol (Miralax) 17 gm PO DAILY PRN PRN Reason: Constipation Rivaroxaban (Xarelto) 15 mg PO DAILY [facility] Last Admin: 03/24/19 09:37 Dose: 15 mg Sodium Chloride (Saline Flush) 10 ml FLUSH ASDIRECTED PRN PRN Reason: Keep Vein Open Last Admin: 03/23/19 14:31 Dose: 10 ml Tamsulosin HCl (Flomax) 0.4 mg PO DAILY [facility] Last Admin: 03/24/19 09:35 Dose: 0.4 mg Discontinued Medications Sodium Chloride (Normal Saline) 1,000 mls @ 999 mls/hr IV ASDIRECTED [facility] Last Admin: 03/23/19 14:31 Dose: 999 mls/hr Sodium Chloride (Normal Saline) 1,000 mls @ 125 mls/hr IV ONETIME ONE Stop: 03/24/19 01:24 Last Admin: 03/23/19 17:35 Dose: 125 mls/hr Ceftriaxone Sodium 1 gm/ (Sodium Chloride) 100 mls @ 200 mls/hr IV ONETIME ONE Stop: 03/23/19 17:55 Last Admin: 03/23/19 17:35 Dose: 200 mls/hr Magnesium Sulfate 4 gm/ Premix 50 mls @ 12.5 mls/hr IV ONETIME ONE Stop: 03/24/19 12:03 Last Admin: 03/24/19 09:49 Dose: 12.5 mls/hr Lidocaine HCl (Xylocaine 2% Jelly) 10 ml MUCMEM ONETIME ONE Stop: 03/23/19 16:15 Last Admin: 03/23/19 16:18 Dose: 10 ml Ondansetron HCl (Zofran) 4 mg IVPUSH ONETIME ONE Stop: 03/23/19 14:24 Last Admin: 03/23/19 14:31 Dose: 4 mg Topiramate (Topamax) 50 mg PO BID [facility] Last Admin: 03/23/19 22:00 Dose: 50 mg - Exam Quality Assessment: No: Supplemental Oxygen General: Alert, Oriented HEENT: Pupils Equal Neck: Supple Lungs: Clear to Auscultation, Normal Respiratory Effort Cardiovascular: Regular Rate, Regular Rhythm GI/Abdominal Exam: Normal Bowel Sounds Extremities: Normal Inspection, Normal Range of Motion, Non-Tender Skin: Warm Psy/Mental Status: Alert, Normal Affect, Normal Mood - Problem List Review Problem List Initiated/Reviewed/Updated: Yes - My Orders Last 24 Hours: My Active Orders 03/23/19 19:32 Resuscitation Status Routine 03/23/19 20:05 Convert IV to Saline Lock [OM.PC] Routine 03/23/19 20:07 Blood Glucose Check, Bedside [RC] QIDACANDBED 03/23/19 20:09 Activity as Tolerated [RC] .Routine OT Evaluation and Treatment [CONS] Routine PT Evaluation and Treatment [CONS] Routine 03/23/19 20:11 Patient Status [ADT] Routine 03/23/19 20:13 Ondansetron [Zofran ODT] 4 mg PO Q4H PRN 03/23/19 20:28 Albuterol [Proventil HFA] 0 gm INH DAILY PRN Polyethylene Glycol 3350 [MiraLAX] 17 gm PO DAILY PRN 03/23/19 20:29 C DIFFICILE BY PCR W/NAP1 [MOLEC] Routine 03/23/19 20:30 Isolation [COMM] Stat 03/23/19 21:00 Budesonide/Formoterol Fumarate 2 puff INH BIDRT Carvedilol [Coreg] 3.125 mg PO BID Omeprazole [Omeprazole] 20 mg PO BIDAC Tiotropium 1 cap PO BIDRT 03/23/19 22:00 Insulin Lispro [HumaLOG] See Protocol SUBCUT QIDACANDBED 03/23/19 23:18 Non-Formulary Medication [NF Drug] 1 each PO BID 03/23/19 Dinner ADA Diabetic [[place] [employer] Diet] [DIET] 03/24/19 09:00 Allopurinol [Zyloprim] 300 mg PO DAILY Alogliptin Benzoate [Alogliptin] 12.5 mg PO DAILY FLUoxetine [PROzac] 40 mg PO DAILY Isosorbide Mononitrate [Imdur] 30 mg PO DAILY Lisinopril [Prinivil] 10 mg PO DAILY Magnesium Oxide 400 mg PO BID Rivaroxaban [Xarelto] 15 mg PO DAILY Tamsulosin [Flomax] 0.4 mg PO DAILY 03/24/19 17:00 cefTRIAXone [Rocephin] 1 gm Sodium Chloride 0.9% [Normal Saline] 100 ml IV Q24H 03/24/19 18:00 atorvaSTATin 80 mg PO QPM 03/25/19 05:11 CBC WITH AUTO DIFF [HEME] AM CMP [COMPREHENSIVE METABOLIC PN,CMP] [CHEM] AM MAGNESIUM [CHEM] AM 03/25/19 08:00 Echo Comp wo Cont [US] Routine 03/26/19 05:11 CBC WITH AUTO DIFF [HEME] AM CMP [COMPREHENSIVE METABOLIC PN,CMP] [CHEM] AM MAGNESIUM [CHEM] AM 03/27/19 05:11 CBC WITH AUTO DIFF [HEME] AM CMP [COMPREHENSIVE METABOLIC PN,CMP] [CHEM] AM MAGNESIUM [CHEM] AM - Plan Plan:: Assessment * 83-year-old with multiple medical problems presents to the emergency room with weakness * Asymptomatic bacteriuria * Rocephin 1 g IV given in ER * Anorexia 1 week * Diarrhea 1 day, 5-6 episodes yesterday with 4-5 episodes today of loose watery stool. * Mild anemia * Polypharmacy: Patient is understandably on several medications secondary to his multiple medical problems. We will follow vitals and see if there are places we can trim his medication list. * Chronic CHF with systolic murmur. Plan * Refer to observation on telemetry * EKG and troponin stat * PT/OT consults. * Echocardiogram on Monday * Follow CBC, CMP, magnesium * Reconcile home meds. * Saline lock IV fluids. There is no signs of dehydration on exam or lab work and patient does have a history of congestive heart failure. * Urine culture done ER * Continue Rocephin every 24 hours for now * Stool for C. difficile * VTE prophylaxis: Patient is on Xarelto * CODE STATUS: Full code * Length of stay 24-48 hours.
--- NOTE | 2019-03-24 16:15 | CR ---
Chest: Two views of the chest are obtained. Comparison: Prior chest x-ray of 02/06/19. Heart size is mildly enlarged. Tortuous thoracic aorta is noted. 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 Lung markings are mildly increased possibly due to mild pulmonary vascular congestion. Lungs otherwise are clear but hyperinflated. Scattered degenerative change noted within the spine with disc space narrowing and mild osteophytes. Impression: 1. Possible mild pulmonary vascular congestion. 2. Emphysematous change. 3. Other nonacute findings as noted above. Diagnostic code #3
[2019-03-24] MEDS: cefTRIAXone 1 GM in Sodium Chloride 0.9% 100 ML IV SCH (16:32)
[2019-03-24] MEDS ORDERED: ATORVASTATIN 80 MG PO SCH (18:31)
[2019-03-24] MEDS: ATORVASTATIN 80 MG PO SCH ×3 (18:32→18:36)
[2019-03-25] MEDS: OMEPRAZOLE 20 MG PO SCH ×2 (06:11→17:19)
[2019-03-25] MEDS: Insulin Lispro 100 Units/ML 3 ML Vial SUBCUT SCH ×3 (06:12→17:19)
[2019-03-25] MEDS: BUDESONIDE INH SCH ×2 (06:15→20:18)
[2019-03-25] MEDS: FORMOTEROL FUMARATE INH SCH ×2 (06:15→20:18)
[2019-03-25] MEDS: Magnesium Oxide 400 MG Tab PO SCH ×2 (09:20→20:32)
[2019-03-25] MEDS: ALOGLIPTIN 12.5 MG PO SCH (09:22)
[2019-03-25] MEDS: CARVEDILOL 6.25 MG PO SCH ×2 (09:23→20:31)
[2019-03-25] MEDS: TAMSULOSIN 0.4 MG PO SCH (09:24)
[2019-03-25] MEDS: LISINOPRIL 20 MG PO SCH (09:25)
[2019-03-25] MEDS: TOPIRAMATE 50 MG PO SCH ×2 (09:25→20:33)
[2019-03-25] MEDS: ISOSORBIDE MONONITRATE 30 MG PO SCH (09:25)
[2019-03-25] MEDS: FLUOXETINE 20 MG PO SCH (09:26)
[2019-03-25] MEDS: RIVAROXABAN 15 MG PO SCH (09:27)
[2019-03-25] MEDS: ALLOPURINOL 300 MG PO SCH (09:27)
--- NOTE | 2019-03-25 14:40 | PCM.PN ---
- General Info Date of Service: 03/25/19 Admission Dx/Problem (Free Text): Admission Diagnosis/Problem Admission Diagnosis/Problem UTI (urinary tract infection), uncomplicated Subjective Update: Osman continues to improve. No complaints Functional Status: Reports: Pain Controlled - Review of Systems General: Reports: No Symptoms HEENT: Reports: No Symptoms Pulmonary: Reports: No Symptoms Cardiovascular: Reports: No Symptoms Gastrointestinal: Reports: No Symptoms - Patient Data Vitals - Most Recent: Last Vital Signs Temp 97.7 F 03/25/19 12:26 Pulse 62 03/25/19 12:26 Resp 18 03/25/19 12:26 BP 128/59 L 03/25/19 12:26 Pulse Ox 94 L 03/25/19 12:26 Orthostatic Blood Pressure [ 103/48 Standing] Orthostatic Blood Pressure [ 95/54 Sitting] Orthostatic Blood Pressure [ 95/53 Supine] Weight - Most Recent: 157 lb 6.4 oz I&O - Last 24 Hours: Intake & Output 03/24/19 03/25/19 03/25/19 22:59 06:59 14:59 Intake Total 950 400 120 Output Total 1200 950 Balance -250 -550 120 Lab Results Last 24 Hours: Laboratory Results - last 24 hr 03/24/19 03/24/19 03/25/19 Range/Units 16:36 21:42 05:24 WBC 6.71 (4.23-9.07) K/mm3 RBC 3.47 L (4.63-6.08) M/mm3 Hgb 11.0 L (13.7-17.5) gm/dl Hct 34.0 L (40.1-51.0) % MCV 98.0 H (79.0-92.2) fl MCH 31.7 (25.7-32.2) pg MCHC 32.4 (32.2-35.5) g/dl RDW Std Deviation 49.2 H (35.1-43.9) fL Plt Count 170 (163-337) K/mm3 MPV 10.2 (9.4-12.3) fl Neut % (Auto) 66.6 (34.0-67.9) % Lymph % (Auto) 20.9 L (21.8-53.1) % [place] % (Auto) 8.6 (5.3-12.2) % Eos % (Auto) 3.0 (0.8-7.0) Baso % (Auto) 0.3 (0.1-1.2) % Neut # (Auto) 4.47 (1.78-5.38) K/mm3 Lymph # (Auto) 1.40 (1.32-3.57) K/mm3 [place] # (Auto) 0.58 (0.30-0.82) K/mm3 Eos # (Auto) 0.20 (0.04-0.54) K/mm3 Baso # (Auto) 0.02 (0.01-0.08) K/mm3 Sodium (136-145) mEq/L Potassium (3.5-5.1) mEq/L Chloride (98-107) mEq/L Carbon Dioxide (21-32) mEq/L Anion Gap (5-15) BUN (7-18) mg/dL Creatinine (0.7-1.3) mg/dL Est Cr Clr Drug Dosing mL/min Estimated GFR (MDRD) (>60) mL/min BUN/Creatinine Ratio (14-18) Glucose (83-115) mg/dL POC Glucose 107 98 (83-110) mg/dL Calcium (8.5-10.1) mg/dL Magnesium (1.8-2.4) mg/dl Total Bilirubin (0.2-1.0) mg/dL AST (15-37) U/L ALT (16-63) U/L Alkaline Phosphatase (46-116) U/L Total Protein (6.4-8.2) g/dl Albumin (3.4-5.0) g/dl Globulin gm/dL Albumin/Globulin Ratio (1-2) 03/25/19 03/25/19 Range/Units 05:24 06:10 WBC (4.23-9.07) K/mm3 RBC (4.63-6.08) M/mm3 Hgb (13.7-17.5) gm/dl Hct (40.1-51.0) % MCV (79.0-92.2) fl MCH (25.7-32.2) pg MCHC (32.2-35.5) g/dl RDW Std Deviation (35.1-43.9) fL Plt Count (163-337) K/mm3 MPV (9.4-12.3) fl Neut % (Auto) (34.0-67.9) % Lymph % (Auto) (21.8-53.1) % [place] % (Auto) (5.3-12.2) % Eos % (Auto) (0.8-7.0) Baso % (Auto) (0.1-1.2) % Neut # (Auto) (1.78-5.38) K/mm3 Lymph # (Auto) (1.32-3.57) K/mm3 [place] # (Auto) (0.30-0.82) K/mm3 Eos # (Auto) (0.04-0.54) K/mm3 Baso # (Auto) (0.01-0.08) K/mm3 Sodium 138 (136-145) mEq/L Potassium 4.7 (3.5-5.1) mEq/L Chloride 107 (98-107) mEq/L Carbon Dioxide 23 (21-32) mEq/L Anion Gap 12.7 (5-15) BUN 18 (7-18) mg/dL Creatinine 1.5 H (0.7-1.3) mg/dL Est Cr Clr Drug Dosing 36.95 mL/min Estimated GFR (MDRD) 45 (>60) mL/min BUN/Creatinine Ratio 12.0 L (14-18) Glucose 102 (83-115) mg/dL POC Glucose 114 H (83-110) mg/dL Calcium 8.8 (8.5-10.1) mg/dL Magnesium 2.0 (1.8-2.4) mg/dl Total Bilirubin 0.5 (0.2-1.0) mg/dL AST 12 L (15-37) U/L ALT 11 L (16-63) U/L Alkaline Phosphatase 75 (46-116) U/L Total Protein 5.6 L (6.4-8.2) g/dl Albumin 2.3 L (3.4-5.0) g/dl Globulin 3.3 gm/dL Albumin/Globulin Ratio 0.7 L (1-2) Armando Results Last 24 Hours: Microbiology 03/23/19 16:26 Urine Culture - Preliminary Urine, Clean Catch Gram Positive Cocci Med Orders - Current: Current Medications Albuterol (Proventil Hfa) 0 gm INH DAILY PRN PRN Reason: Shortness of Breath Allopurinol (Zyloprim) 300 mg PO DAILY [facility] Last Admin: 03/25/19 09:27 Dose: 300 mg Alogliptin Benzoate (Alogliptin) 12.5 mg PO DAILY [facility] Last Admin: 03/25/19 09:22 Dose: 12.5 mg Carvedilol (Coreg) 3.125 mg PO BID [facility] Last Admin: 03/25/19 09:23 Dose: 3.125 mg Fluoxetine HCl (Prozac) 40 mg PO DAILY [facility] Last Admin: 03/25/19 09:26 Dose: 40 mg Ceftriaxone Sodium 1 gm/ (Sodium Chloride) 100 mls @ 200 mls/hr IV Q24H [facility] Last Admin: 03/24/19 16:32 Dose: 200 mls/hr Insulin Human Lispro (Humalog) 0 unit SUBCUT QIDACANDBED [facility]; Protocol Last Admin: 03/25/19 12:37 Dose: Not Given Isosorbide Mononitrate (Imdur) 30 mg PO DAILY [facility] Last Admin: 03/25/19 09:25 Dose: 30 mg Lisinopril (Prinivil) 10 mg PO DAILY [facility] Last Admin: 03/25/19 09:25 Dose: 10 mg Magnesium Oxide (Magnesium Oxide) 400 mg PO BID [facility] Last Admin: 03/25/19 09:20 Dose: 400 mg (Budesonide/Formoterol Fumarate 2 Puff)Own Med 2 puff INH BIDRT [facility] Last Admin: 03/25/19 06:15 Dose: 2 puff (Omeprazole [ Omeprazole] 20 Mg) *Own Med 20 mg PO BIDAC [facility] Last Admin: 03/25/19 06:11 Dose: 20 mg (Tiotropium 1 Cap) (*Own Med) 1 cap PO BIDRT [facility] Last Admin: 03/25/19 06:16 Dose: Not Given Topiramate 50 Mg Tab (Own Med) 1 each PO BID [facility] Last Admin: 03/25/19 09:25 Dose: 1 each (Atorvastatin 80 Mg) (Own Med) 0 mg PO QPM [facility] Last Admin: 03/24/19 18:36 Dose: 80 mg Ondansetron HCl (Zofran Odt) 4 mg PO Q4H PRN PRN Reason: Nausea/Vomiting Polyethylene Glycol (Miralax) 17 gm PO DAILY PRN PRN Reason: Constipation Rivaroxaban (Xarelto) 15 mg PO DAILY [facility] Last Admin: 03/25/19 09:27 Dose: 15 mg Sodium Chloride (Saline Flush) 10 ml FLUSH ASDIRECTED PRN PRN Reason: Keep Vein Open Last Admin: 03/23/19 14:31 Dose: 10 ml Tamsulosin HCl (Flomax) 0.4 mg PO DAILY [facility] Last Admin: 03/25/19 09:24 Dose: 0.4 mg Discontinued Medications Sodium Chloride (Normal Saline) 1,000 mls @ 999 mls/hr IV ASDIRECTED [facility] Last Admin: 03/23/19 14:31 Dose: 999 mls/hr Sodium Chloride (Normal Saline) 1,000 mls @ 125 mls/hr IV ONETIME ONE Stop: 03/24/19 01:24 Last Admin: 03/23/19 17:35 Dose: 125 mls/hr Ceftriaxone Sodium 1 gm/ (Sodium Chloride) 100 mls @ 200 mls/hr IV ONETIME ONE Stop: 03/23/19 17:55 Last Admin: 03/23/19 17:35 Dose: 200 mls/hr Magnesium Sulfate 4 gm/ Premix 50 mls @ 12.5 mls/hr IV ONETIME ONE Stop: 03/24/19 12:03 Last Admin: 03/24/19 09:49 Dose: 12.5 mls/hr Lidocaine HCl (Xylocaine 2% Jelly) 10 ml MUCMEM ONETIME ONE Stop: 03/23/19 16:15 Last Admin: 03/23/19 16:18 Dose: 10 ml (Atorvastatin 80 Mg) (Own Med) 80 mg PO QPM [facility] Last Admin: 03/24/19 18:36 Dose: Not Given (Atorvastatin 80 Mg) (Own Med) 0 mg PO QPM [facility] Ondansetron HCl (Zofran) 4 mg IVPUSH ONETIME ONE Stop: 03/23/19 14:24 Last Admin: 03/23/19 14:31 Dose: 4 mg Topiramate (Topamax) 50 mg PO BID [facility] Last Admin: 03/23/19 22:00 Dose: 50 mg - Exam Quality Assessment: Supplemental Oxygen General: Alert, Oriented Neck: Supple Lungs: Clear to Auscultation, Normal Respiratory Effort Cardiovascular: Regular Rate, Regular Rhythm GI/Abdominal Exam: Normal Bowel Sounds, Soft, Non-Tender, No Distention Extremities: Normal Inspection, Normal Range of Motion - Problem List Review Problem List Initiated/Reviewed/Updated: Yes - My Orders Last 24 Hours: My Active Orders 03/24/19 17:00 cefTRIAXone [Rocephin] 1 gm Sodium Chloride 0.9% [Normal Saline] 100 ml IV Q24H 03/24/19 18:45 Atorvastatin 0 mg PO QPM 03/26/19 05:11 CBC WITH AUTO DIFF [HEME] AM CMP [COMPREHENSIVE METABOLIC PN,CMP] [CHEM] AM MAGNESIUM [CHEM] AM 03/27/19 05:11 CBC WITH AUTO DIFF [HEME] AM CMP [COMPREHENSIVE METABOLIC PN,CMP] [CHEM] AM MAGNESIUM [CHEM] AM - Plan Plan:: Assessment * 83-year-old with multiple medical problems presents to the emergency room with weakness * Asymptomatic bacteriuria * Rocephin 1 g IV given in ER * Anorexia 1 week * Diarrhea 1 day, 5-6 episodes yesterday with 4-5 episodes today of loose watery stool. * Mild anemia * Polypharmacy: Patient is understandably on several medications secondary to his multiple medical problems. We will follow vitals and see if there are places we can trim his medication list. * Chronic CHF with systolic murmur. Plan * Refer to observation on telemetry * EKG and troponin stat * PT/OT consults. * Echocardiogram on Monday * Follow CBC, CMP, magnesium * Reconcile home meds. * Saline lock IV fluids. There is no signs of dehydration on exam or lab work and patient does have a history of congestive heart failure. * Urine culture probable staph - awaiting sensitivities * Continue Rocephin every 24 hours for now * VTE prophylaxis: Patient is on Xarelto * CODE STATUS: Full code * Length of stay 24-48 hours. Likely discharge tomorrow after urine culture and sensitivities are available.
[2019-03-25] MEDS: cefTRIAXone 1 GM in Sodium Chloride 0.9% 100 ML IV SCH (17:20)
[2019-03-25] MEDS: ATORVASTATIN 80 MG PO SCH (17:20)
[2019-03-26] MEDS: Insulin Lispro 100 Units/ML 3 ML Vial SUBCUT SCH ×3 (00:25→11:41)
[2019-03-26] MEDS: OMEPRAZOLE 20 MG PO SCH (06:25)
[2019-03-26] MEDS: FORMOTEROL FUMARATE INH SCH (06:31)
[2019-03-26] MEDS: BUDESONIDE INH SCH (06:31)
[2019-03-26 08:01] VITALS: BP 118/78
[2019-03-26] MEDS: ALOGLIPTIN 12.5 MG PO SCH (09:26)
[2019-03-26] MEDS: CARVEDILOL 6.25 MG PO SCH (09:27)
[2019-03-26] MEDS: TAMSULOSIN 0.4 MG PO SCH (09:28)
[2019-03-26] MEDS: ISOSORBIDE MONONITRATE 30 MG PO SCH (09:29)
[2019-03-26] MEDS: Magnesium Oxide 400 MG Tab PO SCH (09:30)
[2019-03-26] MEDS: LISINOPRIL 20 MG PO SCH (09:35)
[2019-03-26] MEDS: FLUOXETINE 20 MG PO SCH (09:37)
[2019-03-26] MEDS: RIVAROXABAN 15 MG PO SCH (09:37)
[2019-03-26] MEDS: ALLOPURINOL 300 MG PO SCH (09:38)
[2019-03-26 09:41] VITALS: PULSE 68
[2019-03-26] MEDS: TOPIRAMATE 50 MG PO SCH (09:55)
--- NOTE | 2019-03-26 17:24 | PCM.DCSUM1 ---
Discharge Summary - Hospital Course HPI Initial Comments: 83-year-old male with history of atrial fibrillation, coronary artery disease, congestive heart failure, COPD, diabetes, and history of prostate cancer treated with radiation [facility] for evaluation of generalized weakness. He states that for the last week he has not been eating or drinking well. He has become dizzy and unsteady. He states yesterday he had 5-6 bouts of loose watery stools in a couple this morning. He had one when he arrived on the floor. He denies any abdominal pain, hematochezia, or melena. Denies any nausea. Patient was weak enough that the ambulance team had to help him get onto the cot during the transfer. Patient denies any recent antibiotics or exposure to illness. Denies any fever, chills, or night sweats. He has a chronic cough and no new shortness of breath. No new lower extremity edema or chest pain. He does have over 125- pack-year history, but no longer smokes. In the emergency room he was found to have positive nitrites but no WBC or red blood cells. He was diagnosed with a urinary tract infection and given 1 g Rocephin. He was given 1 L normal saline and placed on 125 mL an hour. They felt he could not return home so they recommended observation. Emergency room labs: WBC 7.92, hemoglobin 11.4, platelet count 157, sodium 141, potassium 4.3, chloride 107, carbon dioxide 25, anion gap 13.3, BUN 20, creatinine 1.5 (BUN and creatinine are stable), with estimated GFR of 45 and a creatinine clearance of 39, lactic acid 0.7, albumin 2.6 likely secondary to malnutrition, nitrites positive on UA, urine WBC 0-5, epithelial cells 0-5, urine bacteria moderate. Troponin was not done nor an EKG. orthostatic blood pressures were normal. Diagnosis: Stroke: No - Discharge Data Discharge Date: 03/26/19 Discharge Disposition: Home, Self-Care 01 Condition: Good - Referral to Home Health Primary Care Physician: Christina Delvalle MD - Patient Summary/Data Consults: Consultations 03/23/19 20:09 OT Evaluation and Treatment [CONS] Routine PT Evaluation and Treatment [CONS] Routine Hospital Course: * 83-year-old with multiple medical problems presents to the emergency room with weakness * Asymptomatic bacteriuria * Urine culture results positive for Staph. Hominis; likely skin contaminate * Rocephin 1 g IV x 3 days. * He will not go home on antibiotics since Staph. Hominis is likely a skin contaminate. * Anorexia 1 week; resolved in hospital * Diarrhea 1 day, 5-6 episodes yesterday with 4-5 episodes today of loose watery stool. ; resolved in hospital. * Mild anemia - stable * CHF - severe aortic stenosis Echocardiogram - summary: 1. Left ventricular ejection fraction, by visual estimation is 60-65%. 2. Mild concentric left ventricular hypertrophy. 3. Normal right ventricular systolic function. 4. Moderately dilated left atrium. 5. Visually the aortic valve has severe restriction appears severely stenotic. Gradients likely underestimated. 6. Mild aortic valve regurgitation. 7. Mild to moderate mitral valve regurgitation. 8. Mild to moderate tricuspid valve regurgitation. 9. Right ventricular systolic pressure is moderately elevated at 52.6 mmHg. 10. A pacer wire is visualized in the right ventricle. 11. The study was performed with the patient in atrial fibrillation/flutter. 12. No regional wall motion abnormalities. - Patient Instructions Diet: Usual Diet as Tolerated Activity: As Tolerated Driving: Do Not Drive Showering/Bathing: May Shower Other/Special Instructions: Follow up with PCP next week. - Discharge Plan *PRESCRIPTION DRUG MONITORING PROGRAM REVIEWED*: No *COPY OF PRESCRIPTION DRUG MONITORING REPORT IN PATIENT KRISTI: No Home Medications: Home Meds Allopurinol [Zyloprim] 300 mg PO DAILY 11/05/15 [History] Isosorbide Mononitrate [Imdur] 30 mg PO DAILY 11/05/15 [History] Lisinopril [Prinivil] 10 mg PO DAILY 11/05/15 [History] glipiZIDE [Glucotrol] 2.5 mg PO BID 11/05/15 [History] atorvaSTATin [Lipitor] 80 mg PO QPM 11/10/15 [History] Carvedilol [Coreg] 3.125 mg PO BID 06/29/16 [History] Rivaroxaban [Xarelto] 15 mg PO DAILY 06/29/16 [History] Polyethylene Glycol 3350 [MiraLAX] 17 gm PO DAILY PRN 03/20/17 [History] Topiramate 50 mg PO BID 03/20/17 [History] Tamsulosin [Flomax] 0.4 mg PO DAILY 10/19/17 [History] Albuterol [Proventil HFA] 1 puff INH DAILY PRN 01/15/18 [History] Budesonide/Formoterol Fumarate [Symbicort 160-4.5 Mcg Inhaler] 2 puff INH BID [History] Cholecalciferol (Vitamin D3) [Vitamin D3] 2,000 unit PO DAILY 01/20/19 [History] FLUoxetine [PROzac] 40 mg PO DAILY 01/20/19 [History] Meclizine [Antivert] 25 mg PO BID PRN 01/20/19 [History] Omeprazole 20 mg PO BID 01/20/19 [History] Tiotropium [Spiriva Handihaler] 1 cap PO BID 01/20/19 [History] Alogliptin Benzoate [Alogliptin] 12.5 mg PO DAILY 03/23/19 [History] Mometasone Furoate [Asmanex] 220 mcg IH DAILY 03/23/19 [History] Oxygen Therapy Mode: Room Air Patient Handouts: Urinary Tract Infection, Adult, [id number], Heart Failure, [id number] Forms: ED Department Discharge Referrals: Christina Delvalle MD [Primary Care Provider] - 04/01/19 1:30 pm - Discharge Summary/Plan Comment DC Time >30 min.: Yes Discharge Summary/Plan Comment: Follow up with PCP to discuss severe aortic valve stenosis. - General Info Date of Service: 03/26/19 Admission Dx/Problem (Free Text: Admission Diagnosis/Problem Admission Diagnosis/Problem UTI (urinary tract infection), uncomplicated Subjective Update: Patient is doing well without complaints. - Review of Systems General: Reports: No Symptoms HEENT: Reports: No Symptoms Pulmonary: Reports: No Symptoms Cardiovascular: Reports: No Symptoms Gastrointestinal: Reports: No Symptoms - Patient Data Vitals - Most Recent: Last Vital Signs Temp 98.6 F 03/26/19 07:59 Pulse 68 03/26/19 09:27 Resp 20 03/26/19 07:59 BP 118/78 03/26/19 09:35 Pulse Ox 94 L 03/26/19 07:59 Orthostatic Blood Pressure [ 103/48 Standing] Orthostatic Blood Pressure [ 95/54 Sitting] Orthostatic Blood Pressure [ 95/53 Supine] Weight - Most Recent: 155 lb I&O - Last 24 hours: Intake & Output 03/26/19 03/26/19 03/26/19 06:59 14:59 22:59 Intake Total 550 120 Balance 550 120 Lab Results - Last 24 hrs: Laboratory Results - last 24 hr 03/25/19 03/26/19 03/26/19 Range/Units 20:55 05:33 05:33 WBC 6.10 (4.23-9.07) K/mm3 RBC 3.52 L (4.63-6.08) M/mm3 Hgb 11.2 L (13.7-17.5) gm/dl Hct 34.1 L (40.1-51.0) % MCV 96.9 H (79.0-92.2) fl MCH 31.8 (25.7-32.2) pg MCHC 32.8 (32.2-35.5) g/dl RDW Std Deviation 49.0 H (35.1-43.9) fL Plt Count 176 (163-337) K/mm3 MPV 10.1 (9.4-12.3) fl Neut % (Auto) 63.3 (34.0-67.9) % Lymph % (Auto) 23.0 (21.8-53.1) % [place] % (Auto) 10.2 (5.3-12.2) % Eos % (Auto) 2.8 (0.8-7.0) Baso % (Auto) 0.2 (0.1-1.2) % Neut # (Auto) 3.87 (1.78-5.38) K/mm3 Lymph # (Auto) 1.40 (1.32-3.57) K/mm3 [place] # (Auto) 0.62 (0.30-0.82) K/mm3 Eos # (Auto) 0.17 (0.04-0.54) K/mm3 Baso # (Auto) 0.01 (0.01-0.08) K/mm3 Sodium 139 (136-145) mEq/L Potassium 4.6 (3.5-5.1) mEq/L Chloride 107 (98-107) mEq/L Carbon Dioxide 25 (21-32) mEq/L Anion Gap 11.6 (5-15) BUN 19 H (7-18) mg/dL Creatinine 1.6 H (0.7-1.3) mg/dL Est Cr Clr Drug Dosing 34.18 mL/min Estimated GFR (MDRD) 41 (>60) mL/min BUN/Creatinine Ratio 11.9 L (14-18) Glucose 117 H (83-115) mg/dL POC Glucose 133 H (83-110) mg/dL Calcium 8.8 (8.5-10.1) mg/dL Magnesium 1.8 (1.8-2.4) mg/dl Total Bilirubin 0.3 (0.2-1.0) mg/dL AST 9 L (15-37) U/L ALT 12 L (16-63) U/L Alkaline Phosphatase 87 (46-116) U/L Total Protein 5.8 L (6.4-8.2) g/dl Albumin 2.4 L (3.4-5.0) g/dl Globulin 3.4 gm/dL Albumin/Globulin Ratio 0.7 L (1-2) 03/26/19 03/26/19 Range/Units 07:05 11:38 WBC (4.23-9.07) K/mm3 RBC (4.63-6.08) M/mm3 Hgb (13.7-17.5) gm/dl Hct (40.1-51.0) % MCV (79.0-92.2) fl MCH (25.7-32.2) pg MCHC (32.2-35.5) g/dl RDW Std Deviation (35.1-43.9) fL Plt Count (163-337) K/mm3 MPV (9.4-12.3) fl Neut % (Auto) (34.0-67.9) % Lymph % (Auto) (21.8-53.1) % [place] % (Auto) (5.3-12.2) % Eos % (Auto) (0.8-7.0) Baso % (Auto) (0.1-1.2) % Neut # (Auto) (1.78-5.38) K/mm3 Lymph # (Auto) (1.32-3.57) K/mm3 [place] # (Auto) (0.30-0.82) K/mm3 Eos # (Auto) (0.04-0.54) K/mm3 Baso # (Auto) (0.01-0.08) K/mm3 Sodium (136-145) mEq/L Potassium (3.5-5.1) mEq/L Chloride (98-107) mEq/L Carbon Dioxide (21-32) mEq/L Anion Gap (5-15) BUN (7-18) mg/dL Creatinine (0.7-1.3) mg/dL Est Cr Clr Drug Dosing mL/min Estimated GFR (MDRD) (>60) mL/min BUN/Creatinine Ratio (14-18) Glucose (83-115) mg/dL POC Glucose 116 H 151 H (83-110) mg/dL Calcium (8.5-10.1) mg/dL Magnesium (1.8-2.4) mg/dl Total Bilirubin (0.2-1.0) mg/dL AST (15-37) U/L ALT (16-63) U/L Alkaline Phosphatase (46-116) U/L Total Protein (6.4-8.2) g/dl Albumin (3.4-5.0) g/dl Globulin gm/dL Albumin/Globulin Ratio (1-2) JAMAR Results - Last 24 hrs: Microbiology 03/23/19 16:26 Urine Culture - Final Urine, Clean Catch Staph Hominis Ss Hominis Med Orders - Current: Current Medications Discontinued Medications Albuterol (Proventil Hfa) 0 gm INH DAILY PRN PRN Reason: Shortness of Breath Allopurinol (Zyloprim) 300 mg PO DAILY [facility] Last Admin: 03/26/19 09:38 Dose: 300 mg Alogliptin Benzoate (Alogliptin) 12.5 mg PO DAILY [facility] Last Admin: 03/26/19 09:26 Dose: 12.5 mg Carvedilol (Coreg) 3.125 mg PO BID [facility] Last Admin: 03/26/19 09:27 Dose: 3.125 mg Fluoxetine HCl (Prozac) 40 mg PO DAILY [facility] Last Admin: 03/26/19 09:37 Dose: 40 mg Sodium Chloride (Normal Saline) 1,000 mls @ 999 mls/hr IV ASDIRECTED [facility] Last Admin: 03/23/19 14:31 Dose: 999 mls/hr Sodium Chloride (Normal Saline) 1,000 mls @ 125 mls/hr IV ONETIME ONE Stop: 03/24/19 01:24 Last Admin: 03/23/19 17:35 Dose: 125 mls/hr Ceftriaxone Sodium 1 gm/ (Sodium Chloride) 100 mls @ 200 mls/hr IV ONETIME ONE Stop: 03/23/19 17:55 Last Admin: 03/23/19 17:35 Dose: 200 mls/hr Ceftriaxone Sodium 1 gm/ (Sodium Chloride) 100 mls @ 200 mls/hr IV Q24H [facility] Last Admin: 03/25/19 17:20 Dose: 200 mls/hr Magnesium Sulfate 4 gm/ Premix 50 mls @ 12.5 mls/hr IV ONETIME ONE Stop: 03/24/19 12:03 Last Admin: 03/24/19 09:49 Dose: 12.5 mls/hr Insulin Human Lispro (Humalog) 0 unit SUBCUT QIDACANDBED [facility]; Protocol Last Admin: 03/26/19 11:41 Dose: Not Given Isosorbide Mononitrate (Imdur) 30 mg PO DAILY [facility] Last Admin: 03/26/19 09:29 Dose: 30 mg Lidocaine HCl (Xylocaine 2% Jelly) 10 ml MUCMEM ONETIME ONE Stop: 03/23/19 16:15 Last Admin: 03/23/19 16:18 Dose: 10 ml Lisinopril (Prinivil) 10 mg PO DAILY [facility] Last Admin: 03/26/19 09:35 Dose: 10 mg Magnesium Oxide (Magnesium Oxide) 400 mg PO BID [facility] Last Admin: 03/26/19 09:30 Dose: 400 mg (Atorvastatin 80 Mg) (Own Med) 80 mg PO QPM [facility] Last Admin: 03/24/19 18:36 Dose: Not Given (Budesonide/Formoterol Fumarate 2 Puff)Own Med 2 puff INH BIDRT [facility] Last Admin: 03/26/19 06:31 Dose: 2 puff (Omeprazole [ Omeprazole] 20 Mg) *Own Med 20 mg PO BIDAC [facility] Last Admin: 03/26/19 06:25 Dose: 20 mg (Tiotropium 1 Cap) (*Own Med) 1 cap PO BIDRT [facility] Last Admin: 03/26/19 06:27 Dose: Not Given Topiramate 50 Mg Tab (Own Med) 1 each PO BID [facility] Last Admin: 03/26/19 09:55 Dose: 1 each (Atorvastatin 80 Mg) (Own Med) 0 mg PO QPM [facility] (Atorvastatin 80 Mg) (Own Med) 0 mg PO QPM [facility] Last Admin: 03/25/19 17:20 Dose: 80 mg Ondansetron HCl (Zofran) 4 mg IVPUSH ONETIME ONE Stop: 03/23/19 14:24 Last Admin: 03/23/19 14:31 Dose: 4 mg Ondansetron HCl (Zofran Odt) 4 mg PO Q4H PRN PRN Reason: Nausea/Vomiting Polyethylene Glycol (Miralax) 17 gm PO DAILY PRN PRN Reason: Constipation Rivaroxaban (Xarelto) 15 mg PO DAILY [facility] Last Admin: 03/26/19 09:37 Dose: 15 mg Sodium Chloride (Saline Flush) 10 ml FLUSH ASDIRECTED PRN PRN Reason: Keep Vein Open Last Admin: 03/23/19 14:31 Dose: 10 ml Tamsulosin HCl (Flomax) 0.4 mg PO DAILY [facility] Last Admin: 03/26/19 09:28 Dose: 0.4 mg Topiramate (Topamax) 50 mg PO BID [facility] Last Admin: 03/23/19 22:00 Dose: 50 mg - Exam Quality Assessment: Denies: Supplemental Oxygen General: Reports: Alert, Oriented HEENT: Reports: Pupils Equal Neck: Reports: Supple Lungs: Reports: Clear to Auscultation, Normal Respiratory Effort Cardiovascular: Reports: Regular Rate, Regular Rhythm, Murmurs GI/Abdominal Exam: Normal Bowel Sounds, Soft, Non-Tender, No Distention Extremities: Normal Inspection, Normal Range of Motion, Non-Tender, No Pedal Edema Psy/Mental Status: Reports: Alert, Normal Affect, Normal Mood
== END 2019-03-26 13:18 | disposition home or self-care (01) ==
LOC: JD.ED 14:07 → SUPCPDRO 14:07 → JD.MS 18:06
PROVIDERS: ADMIT Family Medicine; ATTEND Family Medicine
DX: R53.1 Weakness (principal); N39.0 Urinary tract infection, site not specified; R82.71 Bacteriuria; R63.0 Anorexia; R19.7 Diarrhea, unspecified; D64.9 Anemia, unspecified; I25.10 Atherosclerotic heart disease of native coronary artery without angina pectoris; I11.0 Hypertensive heart disease with heart failure; I50.9 Heart failure, unspecified; J44.9 Chronic obstructive pulmonary disease, unspecified; E78.00 Pure hypercholesterolemia, unspecified; K21.9 Gastro-esophageal reflux disease without esophagitis; N40.0 Benign prostatic hyperplasia without lower urinary tract symptoms; E11.21 Type 2 diabetes mellitus with diabetic nephropathy; E11.42 Type 2 diabetes mellitus with diabetic polyneuropathy; M10.9 Gout, unspecified; F32.9 Major depressive disorder, single episode, unspecified; F41.9 Anxiety disorder, unspecified; Z85.46 Personal history of malignant neoplasm of prostate; Z79.899 Other long term (current) drug therapy; Z79.84 Long term (current) use of oral hypoglycemic drugs; Z87.891 Personal history of nicotine dependence
CPT/HCPCS: 36415; 71046; 71046-26; 80053; 81001; 82962; 83036; 83605; 83690; 83735; 84443; 84484; 85007; 85025; 85027; 87086; 87186; 93005; 93306; 94640; 94760; 96361; 96365; 96366; 96367; 96375; 96376; 97110-GP; 97116-GP; 97161-GP; 97165-GO; 97530-GO; 99284; 99285-25; A9270-GY; G0378; J0696; J2405; J3475; J7030; J7040